=== PATIENT | male | born 1945 | race Caucasian/White ===

== ENCOUNTER 2017-02-20 16:34 | Inpatient (IN) | payer OTHER ==
[2017-02-20] MEDS ORDERED: ALBUTEROL SO4 2.5/IPRATROPIUM 0.5 INH SOL 3 ML VIAL.NEB. NEB ONE ×2 (17:01→17:50)
[2017-02-20] MEDS ORDERED: methylPREDNISolone NA SUCC 125 MG/2 ML VIAL IVPB ONE (17:01)
--- NOTE | 2017-02-20 17:11 | PDOC ---
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 Patient notes that he developed chest pain after a coughing. Patient reports a dry cough. Patient states that the chest pain is localized to the mid , 5/10 in severity, dull pain in nature. As per EMS, the patient BP was 108/58. As per friend, the patient is not eating, drinking with increased generalized weakness. He notes that the patient appears weaker and is more sleepy than usual. He denies headache and dizziness. He denies fever, chills, nausea, vomit, diarrhea and constipation. He denies dysuria, frequency, urgency and hematuria. Allergies: NKA Social history: daily smoker (3-4 cigarettes per day), former alcohol use PCP - Dr. Helena Colvin Friend - [place] translator interpreter used to obtain HPI [id number]. <Kelly Marroquin - Last Filed: 02/20/17 19:05> - General History Source: Patient Exam Limitations: Language Barrier <Danuta Coles - Last Filed: 02/20/17 21:53> - General Chief Complaint: Chest Pain Stated Complaint: CHEST PAIN Time Seen by Provider: 02/20/17 16:41 Past History <Kelly Marroquin - Last Filed: 02/20/17 19:05> - Psycho/Social/Smoking Cessation Hx Anxiety: No Suicidal Ideation: No Smoking Status: Yes Smoking History: Current every day smoker Years of Tobacco Use: 40 Have you smoked in the past 12 months: Yes Number of Cigarettes Smoked Daily: 5 'Breaking Loose' booklet given: 10/28/12 Hx Alcohol Use: (unknown/pt denies) Drug/Substance Use Hx: No Substance Use Type: None Hx Substance Use Treatment: No <Danuta Coles - Last Filed: 02/20/17 21:53> - Past Medical History Allergies/Adverse Reactions: Allergies Allergy/AdvReac Type Severity Reaction Status Date / Time No Known Allergies Allergy Verified 02/20/17 17:09 Home Medications: Ambulatory Orders Amlodipine Besylate 5 mg PO DAILY 02/20/17 Folic Acid 1 mg PO DAILY 02/20/17 Isosorbide Mononitrate [Isosorbide Mononitrate ER] 30 mg PO DAILY 02/20/17 Metoprolol Tartrate 25 mg PO DAILY 02/20/17 Review of Systems - Review of Systems Able to Perform ROS?: Yes Comments:: 02/20/17 17:42 CONSTITUTIONAL: Present: decreased appetite, fatigue Absent: fever, no chills EYES: Absent: visual changes ENT: Absent: ear pain, no sore throat CARDIOVASCULAR: Reported: chest pain Absent: no palpitations RESPIRATORY: Reported: cough, SOB GASTROINTESTINAL: Absent: abdominal pain, no nausea, no vomiting, no constipation, no diarrhea GENITOURINARY: Absent: dysuria, no frequency, no hematuria MUSCULOSKELETAL: Absent: back pain, no arthralgia, no myalgia SKIN: Absent: rash NEURO: Absent: headache <Kelly Marroquin - Last Filed: 02/20/17 19:05> *Physical Exam - Vital Signs Last Vital Signs Temp Pulse Resp BP Pulse Ox 98.8 F 88 18 105/75 100 02/20/17 16:49 02/20/17 16:49 02/20/17 16:49 02/20/17 16:49 02/20/17 16:49 - Physical Exam Comments: 02/20/17 17:44 GENERAL: The patient is in no acute distress. HEAD: Normal with no signs of trauma. EYES: PERRLA, EOMI, sclera anicteric, conjunctiva clear. ENT: Ears normal, nares patent, oropharynx clear without exudates. Moist mucous membranes. NECK: Normal range of motion, supple without lymphadenopathy, JVD, or masses. LUNGS:+Diffuse rhonchi. Breath sounds equal. No wheezes, and no crackles. HEART:Regular rate and rhythm, normal S1 and S2 without murmur, rub or gallop. ABDOMEN: +colostomy bag at left lower abdomen. Soft, nontender, normoactive bowel sounds. No guarding, no rebound. No masses palpable. EXTREMITIES: Normal range of motion, no edema. No clubbing or cyanosis. No erythema, or tenderness. NEUROLOGICAL: Cranial nerves II through XII grossly intact. Normal speech. No focal neurological deficits. MUSCULOSKELETAL: Back non-tender to palpation, no CVA tenderness SKIN: Warm, Dry, normal turgor, no rashes or lesions noted. <Kelly Marroquin - Last Filed: 02/20/17 19:05> Heart Score/ECG Review #1 ECG reviewed & interpreted by me at: 18:21 02/20/17 18:22 Twelve-lead EKG was performed and reviewed by me. There is normal sinus rhythm with a normal rate of 99 bpm. The axis is normal. The intervals are normal -pr: 154ms, QRS:82ms, QTc:451ms. There are no ST or T wave abnormalities. <Danuta Coles - Last Filed: 02/20/17 21:53> ED Treatment Course - LABORATORY CBC & Chemistry Diagram: 02/20/17 17:03 02/20/17 17:03 - ADDITIONAL ORDERS Additional order review: Laboratory Results 02/20/17 02/20/17 17:03 17:03 INR 1.33 H PTT (Actin FS) 28.0 D-Dimer 433 H 02/20/17 17:03 RBC 3.01 L MCV 90.4 MCHC 30.6 L RDW 15.4 MPV 8.8 Neutrophils % 83.6 H Lymphocytes % 9.4 Monocytes % 6.0 Eosinophils % 0.6 D Basophils % 0.4 - RADIOLOGY Radiology Studies Ordered: 02/20/17 18:58 THIS IS A PRELIMINARY REPORT FROM IMAGING BEATER OPERATOR EXAM: Portable chest x-ray FINDINGS: The heart size is borderline. Pulmonary vessels are within normal limits in caliber. There is moderately extensive opacity noted in the left mid and lower lung zone. Diagnostic considerations would include consolidation or mass. There is soft tissue fullness in left hilum. There is no obvious pneumothorax. Port-A-Cath noted with tip at the caval atrial junction. THIS DOCUMENT HAS BEEN ELECTRONICALLY SIGNED Iván Cooper MD <Kelly Marroquin - Last Filed: 02/20/17 19:05> - LABORATORY CBC & Chemistry Diagram: 02/20/17 17:03 02/20/17 17:03 - RADIOLOGY Radiology Studies Ordered: Category Date Time Status CHEST X-RAY PORTABLE* [RAD] Stat Radiology 02/20/17 16:41 Ordered <Dnauta Coles - Last Filed: 02/20/17 21:53> Medical Decision Making - Medical Decision Making 02/20/17 17:05 This is a 72 yo M who presents to the ER with a complaint of chest pain after a cough PT states he was in his usual state of health He began coughing this afternoon and developed chest pain which he describes as an ache, rates it 5/10, No associated nausea or diaphoresis No fevers or chills 02/20/17 18:21 Laboratory Tests 11/10/12 11/10/12 02/20/17 05:15 05:15 17:03 WBC 9.1 12.3 H D Hgb 9.7 L 8.3 L D Hct 29.0 L 27.2 L Plt Count 236 177 D BUN 15 Creatinine 0.7 Creatine Kinase Troponin I 02/20/17 17:03 WBC Hgb Hct Plt Count BUN 25 H D Creatinine 1.9 H D Creatine Kinase 12 L Troponin I < 0.02 D CXR: ? left pneumothorax Sent to imaging cost control specialist 02/20/17 19:00 Images sent to imaging cost control specialist There is a chest mass or consolidation Will send to non contrast CT 02/20/17 19:01 to be admitted for dehydration, Acute renal insufficiency 02/20/17 19:41 Pt en route to CT resident in the ER to see this patient 02/20/17 21:53 CT findings There is a 7.4 x 7.9 x 10.0 cm heterogeneous masslike finding noted in the left lower hemithorax. There are scattered small air lucencies noted in the cephalad aspect of this finding. There is occlusion of the lumen of the left lower lobe bronchus noted. Findings suggest malignancy and/or inflammatory process/abscess. <Danuta Coles - Last Filed: 02/20/17 21:53> *DC/Admit/Observation/Transfer - Attestations Scribe Attestion: 02/20/17 17:44 Documentation prepared by SARI Diop, acting as medical billing and coding instructor for Danuta Coles MD. <Kelly Marroquin - Last Filed: 02/20/17 19:05> - Discharge Dispostion Admit: Yes <Danuta Coles - Last Filed: 02/20/17 21:53> Diagnosis at time of Disposition: Chest pain Qualifiers: Chest pain type: unspecified Qualified Code(s): R07.9 - Chest pain, unspecified - Discharge Dispostion Condition at time of disposition: Stable
[2017-02-20 17:23] LABS: BASOPHIL 0.4 % (0-2.0); EOSINOPHIL 0.6 % (0-4.5); MCH 27.7 pg (25.7-33.7); MCHC 30.6 g/dl (32.0-35.9); MEAN CELL VOLUME 90.4 fl (80-96); MEAN PLT VOLUME 8.8 fl (7.5-11.1); NEUTROPHILS 83.6 % (42.8-82.8); PLATELET COUNT 177 K/MM3 (134-434); RDW 15.4 % (11.9-15.9); WHITE BLOOD COUNT 12.3 K/mm3 (4.0-10.0)
[2017-02-20] MEDS ORDERED: SODIUM CHLORIDE 1,000 ML IV STA (17:27)
[2017-02-20 17:34] LABS: INR 1.33 (0.82-1.09); PROTHROMBIN TIME (PATIENT) 14.7 SEC (9.98-11.88)
[2017-02-20] MEDS ORDERED: SODIUM CHLORIDE 500 ML IV STA (17:34)
[2017-02-20 17:49] LABS: ALBUMIN 2.6 g/dl (3.4-5.0); ALK PHOS 117 U/L (45-117); ANION GAP 12 (8-16); BILIRUBIN,TOTAL 0.7 mg/dL (0.2-1.0); CALCIUM 11.8 mg/dL (8.5-10.1); CO2 22 mmol/L (21-32); CREATININE 1.9 mg/dL (0.7-1.3); GLUCOSE,RANDOM 107 mg/dL (74-106); SGOT/AST 25 U/L (15-37); SGPT/ALT 23 U/L (12-78)
[2017-02-20 17:50] VITALS: BMI 22.6
[2017-02-20] MEDS ORDERED: methylPREDNISolone NA SUCC 125 MG/2 ML VIAL ONE (17:50)
[2017-02-20 17:51] LABS: COCKROFT - GAULT 40; TROPONIN I < 0.02 ng/ml (0.00-0.05)
--- NOTE | 2017-02-20 19:49 | PN ---
<Kya Mabry - Last Filed: 02/20/17 19:48> Teaching Attending Note Name of Resident: Santhosh Edwards <Saleem Walters - Last Filed: 02/20/17 22:12> Teaching Attending Note ATTENDING PHYSICIAN STATEMENT I saw and evaluated the patient. I reviewed the resident's note and discussed the case with the resident. I agree with the resident's findings and plan as documented. SUBJECTIVE: The patient is a 72 year old male, who presented to the emergency department with worsening dry cough, SOB, and chest pain for one week. The patient stated that the chest pain is localized to the mid, 5/10 in severity, dull pain in nature. As per EMS, the patient BP was 108/58. Upon evaluation in the emergency department the patients friend stated that the patient has also been weak and more sleepy than usual secondary to decreased appetite. The patient denies headache and dizziness. The patient denies fever, chills, and sweats. The patient denies dysuria, frequency, urgency and hematuria. The patient denies chest pain, cough, and shortness of breath. The patient denies nausea, vomiting, constipation, and diarrhea. PCP: Dr. 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 Former social alcohol user. Denied drug use. MEDICATIONS: As per ED note. New new medications reported. ALLERGIES: NKDA OBJECTIVE: Vital Signs: Last Vital Signs Temp Pulse Resp BP Pulse Ox 98.8 F 92 H 24 85/63 100 02/20/17 16:49 02/20/17 19:20 02/20/17 19:20 02/20/17 19:20 02/20/17 19:20 Physical Exam: GENERAL: Awake, alert, and fully oriented, in no acute distress HEENT: (+) Atraumatic. PERRLA, EOMI. Moist mucosa. No JVD. Lower lid lag LUNGS: (+) Slight rhonch Amanda. Breath sounds equal. No wheezes. No crackles. HEART: Regular rate and rhythm, normal S1 and S2, no murmurs, rubs or gallops, peripheral pulses normal and equal bilaterally. ABDOMEN: (+) Colostomy bag at left lower abdomen.Soft, nontender, normoactive bowel sounds. No guarding, no rebound. No masses. EXTREMITIES: (+) Left VKA. Metacarpal clubbing. Normal inspection, Normal range of motion, no edema. No cyanosis. NEUROLOGICAL: Cranial nerves II through XII grossly intact. Normal speech, normal gait, no focal sensorimotor deficits SKIN: Warm, Dry, normal turgor, no rashes or lesions noted. Labs: CBCD WBC 12.3 K/mm3 (4.0-10.0) H D 02/20/17 17:03 RBC 3.01 M/mm3 (4.00-5.60) L 02/20/17 17:03 Hgb 8.3 GM/dL (11.7-16.9) L D 02/20/17 17:03 Hct 27.2 % (35.4-49) L 02/20/17 17:03 MCV 90.4 fl (80-96) 02/20/17 17:03 MCHC 30.6 g/dl (32.0-35.9) L 02/20/17 17:03 RDW 15.4 % (11.9-15.9) 02/20/17 17:03 Plt Count 177 K/MM3 (134-434) D 02/20/17 17:03 MPV 8.8 fl (7.5-11.1) 02/20/17 17:03 CMP Sodium 136 mmol/L (136-145) 02/20/17 17:03 Potassium 4.4 mmol/L (3.5-5.1) D 02/20/17 17:03 Chloride 102 mmol/L (98-107) 02/20/17 17:03 Carbon Dioxide 22 mmol/L (21-32) 02/20/17 17:03 Anion Gap 12 (8-16) 02/20/17 17:03 BUN 25 mg/dL (7-18) H D 02/20/17 17:03 Creatinine 1.9 mg/dL (0.7-1.3) H D 02/20/17 17:03 Creat Clearance w eGFR 35.22 (>60) 02/20/17 17:03 Calcium 11.8 mg/dL (8.5-10.1) H D 02/20/17 17:03 Total Bilirubin 0.7 mg/dL (0.2-1.0) D 02/20/17 17:03 AST 25 U/L (15-37) D 02/20/17 17:03 ALT 23 U/L (12-78) D 02/20/17 17:03 Alkaline Phosphatase 117 U/L (45-117) D 02/20/17 17:03 Total Protein 7.0 g/dl (6.4-8.2) D 02/20/17 17:03 Albumin 2.6 g/dl (3.4-5.0) L 02/20/17 17:03 Imagin. ECG Twelve-lead EKG was performed and reviewed by me. There is normal sinus rhythm with a normal rate of 99 bpm. The axis is normal. The intervals are normal -pr: 154ms, QRS:82ms, QTc:451ms. There are no ST or T wave abnormalities. Reviewed and interpreted in ED by Dr. Cyndi Coles MD. 2. Chest X-ray EXAM: Portable chest x-ray IMAGES: 2 DATE OF SERVICE: 2017-02-20 17:17:52.0 REASON FOR EXAM: Chest pain COMPARISON: None FINDINGS: The heart size is borderline. Pulmonary vessels are within normal limits in caliber. There is moderately extensive opacity noted in the left mid and lower lung zone. Diagnostic considerations would include consolidation or mass. There is soft tissue fullness in left hilum. There is no obvious pneumothorax. Port-A-Cath noted with tip at the caval atrial junction. THIS DOCUMENT HAS BEEN ELECTRONICALLY SIGNED Iván Cooper MD 2016 18:[address] EXAM: CT chest without contrast IMAGES: 489 DATE OF SERVICE: 2017-02-20 20:17:23.0 REASON FOR EXAM: Chest mass? COMPARISON: Chest x-ray from today FINDINGS: There is a 7.4 x 7.9 x 10.0 cm heterogeneous masslike finding noted in the left lower hemithorax. There are scattered small air lucencies noted in the cephalad aspect of this finding. There is occlusion of the lumen of the left lower lobe bronchus noted. Findings suggest malignancy and/or inflammatory process/abscess. There is no pneumothorax The heart size is normal. There is a moderate pericardial effusion. Extensive coronary artery calcification is noted. The thoracic aorta is calcified, tortuous, and mildly ectatic in a diffuse fashion. There are scattered mediastinal lymph nodes. There is thoracic scoliosis and kyphosis. There is thoracic endplate spondylosis. THIS DOCUMENT HAS BEEN ELECTRONICALLY SIGNED Iván Cooper MD 2016 21:48 EST ASSESSMENT AND PLAN: Pneumonia - Community acquired pneumonia. - Ceftriaxone 1 g IVPB - Azithromycin 250 mg IVPB - Albuterol QIDR - BMP - CBC - Urine culture sent - Urine antigens - Check magnesium - ECHO ordered - Repeat Chest X-ray - Consider pulmonology consult (Dr. Hutchinson) - Consider hematology consult (Dr. Guthrie) Acute Kidney Failure - Trend in AM - IVF NS at 83cc/hr - Avoid nephrotoxic medications Hypercalcemia - Continue IVF at 83 cc/hr - Trend in AM - May be due to Lung mass, so will order PTH HTN - Hold home medications for now DVT PPX - Restart Xarelto 15 mg PO Daily - No PPI indicated - Continue IVF NS at 83cc/hr - Sodium controlled diet - Monitor electrolytes Admit to [facility] [employer]. Documentation prepared by Saleem Walters, acting as medical sociologist for Dr. Kya aMbry MD.
--- NOTE | 2017-02-20 20:05 | HP ---
CHIEF COMPLAINT: SOB, Cough PCP:Marii HISTORY OF PRESENT ILLNESS: Patient is a 72 year old male with significant PMH of Colon Cancer (s/p colostomy), Left below knee arterial emboli on Xarelto & HTN who presents to ED with shortness of breath & cough. Patient's famiyl friend was initially present in ED and gave following information to ED staff. Patient has been lethargic & has been sleeping more than usual for last few weeks. His appetite & fluid intake have been severely diminished for last week as well. He has had a dry cough for some time, which has gotten worse over last week or so. The cough is now associated with some pleuritic chest pain described as epigastric, dull and 5/10 in severity. The chest pain is only notable during bouts of coughing. He also reports some mild shortness of breath that has been present as long as the cough. Patient denies fever, chills, dysuria. Denies palpitations, abdominal pain, diarrhea, constipation. ER course was notable for: (1)CXR shows possible LLL Consolidation vs Mass (2)Chest CT ordered to further assess CXR findings (3)Solumedrol 125mg given with IVF for hydration Recent Travel: none noted PAST MEDICAL HISTORY: as above PAST SURGICAL HISTORY: colostomy placement Social History: Smokin+years, now smokes about 5 cigarettes per day Alcohol:social, but not in a while Drugs: none reported Family History: noncontributory Allergies No Known Allergies Allergy (Verified 02/20/17 17:09) HOME MEDICATIONS: Home Medications Medication Instructions Recorded Amlodipine Besylate 5 mg PO DAILY 02/20/17 Folic Acid 1 mg PO DAILY 02/20/17 Isosorbide Mononitrate [Isosorbide 30 mg PO DAILY 02/20/17 Mononitrate ER] Metoprolol Tartrate 25 mg PO DAILY 02/20/17 REVIEW OF SYSTEMS CONSTITUTIONAL: (+)generalized weakness, malaise, loss of appetite, weight change Absent: fever, chills, diaphoresis HEENT: Absent: rhinorrhea, nasal congestion, throat pain, throat swelling, difficulty swallowing, mouth swelling, ear pain, eye pain, visual changes CARDIOVASCULAR: (+)chest pain, Absent: syncope, palpitations, irregular heart rate, lightheadedness, peripheral edema RESPIRATORY: (+)cough, shortness of breath, Absent: dyspnea with exertion, orthopnea, wheezing, stridor, hemoptysis GASTROINTESTINAL: Absent: abdominal pain, abdominal distension, nausea, vomiting, diarrhea, constipation, melena, hematochezia GENITOURINARY: Absent: dysuria, frequency, urgency, hesitancy, hematuria, flank pain, genital pain MUSCULOSKELETAL: Absent: myalgia, arthralgia, joint swelling, back pain, neck pain SKIN: Absent: rash, itching, pallor HEMATOLOGIC/IMMUNOLOGIC: Absent: easy bleeding, easy bruising, lymphadenopathy, frequent infections ENDOCRINE: Absent: unexplained weight gain, unexplained weight loss, heat intolerance, cold intolerance NEUROLOGIC: Absent: headache, focal weakness or paresthesias, dizziness, unsteady gait, seizure, mental status changes, bladder or bowel incontinence PSYCHIATRIC: Absent: anxiety, depression, suicidal or homicidal ideation, hallucinations. PHYSICAL EXAMINATION Vital Signs - 24 hr 02/20/17 02/20/17 02/20/17 16:49 17:32 17:40 Temperature 98.8 F Pulse Rate 88 Pulse Rate [ 96 H 97 H Left Radial] Respiratory 18 18 16 Rate Blood Pressure 105/75 Blood Pressure 87/65 93/69 [Right Arm] O2 Sat by Pulse 100 98 98 Oximetry (%) 02/20/17 02/20/17 02/20/17 18:20 19:00 19:20 Temperature Pulse Rate Pulse Rate [ 92 H 90 92 H Left Radial] Respiratory 18 16 24 Rate Blood Pressure Blood Pressure 97/65 91/66 85/63 [Right Arm] O2 Sat by Pulse 100 100 100 Oximetry (%) GENERAL: Awake, alert, and fully oriented, in no acute distress. Mildly cachectic. HEENT: Atraumatic, EOMI, PERRLA, No lymphadenopathy noted, dry membranes LUNGS: bilateral basilar rhonchi noted (L>R); no wheezing or accessory muscle use HEART: Regular rate and rhythm, normal S1 and S2 without murmur, rub or gallop. ABDOMEN: Soft, nontender, not distended, normoactive bowel sounds, no guarding, no rebound, no masses. No hepatomegaly or splenomegaly. MUSCULOSKELETAL: Normal range of motion at all joints. No bony deformities or tenderness. No CVA tenderness. UPPER EXTREMITIES: 2+ pulses, warm, well-perfused. No cyanosis. No clubbing. No peripheral edema. LOWER EXTREMITIES: 2+ pulses, warm, well-perfused. No calf tenderness. No peripheral edema. NEUROLOGICAL: Cranial nerves II-XII intact. Normal speech. Gait not assessed. PSYCHIATRIC: Cooperative. Good eye contact. Appropriate mood and affect. SKIN: Warm, dry, normal turgor, no rashes or lesions noted, normal capillary refill. Laboratory Results - last 24 hr 02/20/17 02/20/17 02/20/17 17:03 17:03 17:03 WBC 12.3 H D RBC 3.01 L Hgb 8.3 L D Hct 27.2 L MCV 90.4 MCHC 30.6 L RDW 15.4 Plt Count 177 D MPV 8.8 Neutrophils % 83.6 H Lymphocytes % 9.4 Monocytes % 6.0 Eosinophils % 0.6 D Basophils % 0.4 INR PTT (Actin FS) D-Dimer 433 H Sodium 136 Potassium 4.4 D Chloride 102 Carbon Dioxide 22 Anion Gap 12 BUN 25 H D Creatinine 1.9 H D Creat Clearance w eGFR 35.22 Random Glucose 107 H Lactic Acid Calcium 11.8 H D Total Bilirubin 0.7 D AST 25 D ALT 23 D Alkaline Phosphatase 117 D Creatine Kinase 12 L Troponin I < 0.02 D Total Protein 7.0 D Albumin 2.6 L Blood Type Antibody Screen 02/20/17 02/20/17 02/20/17 17:03 17:03 17:03 WBC RBC Hgb Hct MCV MCHC RDW Plt Count MPV Neutrophils % Lymphocytes % Monocytes % Eosinophils % Basophils % INR 1.33 H PTT (Actin FS) 28.0 D-Dimer Sodium Potassium Chloride Carbon Dioxide Anion Gap BUN Creatinine Creat Clearance w eGFR Random Glucose Lactic Acid 1.867 Calcium Total Bilirubin AST ALT Alkaline Phosphatase Creatine Kinase Troponin I Total Protein Albumin Blood Type A NEGATIVE Antibody Screen Negative ASSESSMENT/PLAN: 72 year old male with significant PMH of Colon Cancer (s/p colostomy), Left below knee arterial emboli on Xarelto & HTN who presents to ED with shortness of breath & cough. #LLL Pneumonia vs. Malignancy vs Radiation-induced -Pending CT chest results -will likely need IR for biopsy -Ceftriaxone 1g IV daily, Azithromycin 250mg IV daily -Duonebs QIDR -blood & urine cultures sent -urine antigens for pneumonia -ECHO ordered -CXR reviewed, f/u in AM -pulm consult #Acute Kidney Failure -IVF NS@83cc/hr -avoid nephrotoxic meds -trend in AM to assess if dehydration is etiology #HTN/Hx of arterial emboli -restarted Xarelto 15mg PO daily -low BP at present, will hold home meds for now #Hypercalcemia, 11.8 -IVF as above -trend in AM -may be due to Lung mass, so will order PTH intact as well -tele for cardiac monitoring Prophylaxis -restarted Xarelto -No PPI indicated -IVF NS@83cc/hr -sodium controlled diet -monitor electrolytes Visit type - Emergency Visit Emergency Visit: Yes ED Registration Date: 02/20/17 Care time: The patient presented to the Emergency Department on the above date and was hospitalized for further evaluation of their emergent condition. - New Patient This patient is new to me today: Yes Date on this admission: 02/20/17 - Critical Care Critical Care patient: No
[2017-02-20] MEDS: AZITHROMYCIN IVPB 250 MG in DEXTROSE 5%-WATER - 250 ML IVPB SCH (22:01)
[2017-02-20] MEDS ORDERED: AZITHROMYCIN IVPB 250 ML IVPB ONE (22:05)
[2017-02-20] MEDS: CEFTRIAXONE 1 GM in DEXTROSE 5%-WATER - 50 ML IVPB SCH (22:41)
[2017-02-20] MEDS ORDERED: cefTRIAXone SODIUM 1 GM VIAL ONE (22:42)
[2017-02-21] MEDS ORDERED: SODIUM CHLORIDE 1,000 ML IV SCH (01:30)
[2017-02-21 03:50] LABS: URINE APPEARANCE CLOUDY; URINE BILIRUBIN NEGATIVE (NEGATIVE); URINE COLOR LTYELLOW; URINE GLUCOSE (UA) NEGATIVE (NEGATIVE); URINE KETONE NEGATIVE (NEGATIVE); URINE LEUK ESTERASE NEGATIVE (NEGATIVE); URINE NITRITE NEGATIVE (NEGATIVE); URINE PROTEIN NEGATIVE (NEGATIVE); URINE UROBILINOGEN NEGATIVE E.U./dl (0.2-1.0)
[2017-02-21 04:00] LABS: URINE BLOOD 3+ (NEGATIVE)
[2017-02-21 04:03] LABS: URINE BACTERIA RARE /hpf (NONE SEEN); URINE HYALINE CAST 1 /lpf; URINE MUCUS RARE; URINE RBC 88 /hpf (0-3); URINE WBC 1 /hpf (3-5)
[2017-02-21] MEDS: ALBUTEROL SO4 2.5/IPRATROPIUM 0.5 INH SOL 3 ML VIAL.NEB. NEB SCH ×4 (06:27→23:05)
[2017-02-21 08:35] LABS: MCH 28.6 pg (25.7-33.7); MCHC 31.3 g/dl (32.0-35.9); MEAN CELL VOLUME 91.4 fl (80-96); MEAN PLT VOLUME 8.7 fl (7.5-11.1); PLATELET COUNT 136 K/MM3 (134-434); RDW 15.1 % (11.9-15.9); WHITE BLOOD COUNT 7.8 K/mm3 (4.0-10.0)
[2017-02-21 09:49] LABS: CALCIUM 10.5 mg/dL (8.5-10.1); COCKROFT - GAULT 45.73; CREATININE 1.7 mg/dL (0.7-1.3); MAGNESIUM 1.8 mg/dL (1.8-2.4); PHOSPHOROUS 3.8 mg/dL (2.5-4.9)
[2017-02-21] MEDS ORDERED: CEFTRIAXONE 50 ML IVPB SCH (10:35)
[2017-02-21] MEDS: AZITHROMYCIN IVPB 250 MG in DEXTROSE 5%-WATER - 250 ML IVPB SCH (10:44)
[2017-02-21] MEDS: RIVAROXABAN 15 MG TABLET PO SCH (10:44)
--- NOTE | 2017-02-21 10:57 | PN ---
Progress Note (short form) - Note Progress Note: Oncology- Consult dictated History is difficult to obtain as patient is somewhat confused and speaks predominantly Chinese. Heavy smoker of 1+ ppd x years. Ongoing smoker of 3-5 cigarettes per day. 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 asbestosis. Distant history of colon ca with colostomy. Has port catheter in place and states that he had cancer treatment in past at [facility]. Will need to get details . ( I will speak with Dr. 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 With gentle hydration corrected calcium has improved from 12.8 to 11. 5. Has pericardial effusion on Ct Suggest:: Increase hydration to 125 -150 per hour and after adequate hydration can give lasix diuresis. As there has been improvement with hydration, can hold off thyrocalcitonin or other Rx such as zometa. I will get details of prior history Obtain PTHrP Needs cardiac ECH0 Depending on prior history , may need I.R. directed biopsy of lung mass After diagnosis, work up to include imaging of bones and LEDGER POSTER based upon correction of serum creatinine with hydration. Note that asbestos and smoking have a 36x increase risk of developing squamous cell ca.
--- NOTE | 2017-02-21 11:21 | CONS ---
DATE OF CONSULTATION: 02/21/2017 This 72-year-old male presented to the emergency room with chest pain and shortness of breath. History is difficult to obtain, as the patient speaks predominantly Dominican and some Azeri. The patient's pain apparently, according to the chart, was in the midches area. The patient, upon admission, is noted to have an abnormal chest x-ray with a left lower lobe mass/consolidation. A CT was performed, which reveals a 7.4 x 7.9 x 10.0 mass-like finding in the left lower lobe. There is occlusion of the lumen of the left lower lobe bronchus and the patient is also noted to have a moderate pericardial effusion with coronary artery calcification. In speaking to the patient, the patient is a heavy smoker since his early years. He smoked 1+ pack per day for many years. He currently smokes less than a 1/2 a pack per day. 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 The patient does also have a Port-A-Cath in place, suggesting the possibility that he previously has been treated for a malignancy. In speaking to the patient, the patient states he did have cancer, but it is "all finished and has been treated" and that was done at [facility]. We will need to get the additional history from his primary physician, Dr. Colvin, and then pursue it further with his physicians at [place]. Once again, language is some problem. The patient is unsure where he is. The patient does know the President, Raciel. The patient does now know the month. PAST HISTORY: Hypertension, colon CA, left BKA, on Xarelto. PAST SURGICAL HISTORY: Colostomy. FAMILY HISTORY: Difficult ascertain, but, apparently, the mother lived to an old age and the father had some lung problems. The patient states that he is from his , who lives in [place], and his one daughter, who also is in [place]. CURRENT MEDICINES: Zithromax, ceftriaxone, Xarelto, DuoNeb, and saline was instituted because of hypercalcemia. REVIEW OF SYSTEMS: Because of language is questionable, but the patient denies headaches, diplopia, dysphagia. Does have shortness of breath, which has improved since admission. Chest pain has improved. Denies nausea, vomiting. Has some back pain. No dysuria. As aforementioned, is status post BKA. CURRENT PHYSICAL EXAMINATION: General: The patient seems comfortable lying in bed. Vital Signs: The blood pressure is 94/56, the pulse is 120, respiratory 20, temperature 97.7. HEENT: PERRLA. EOM intact. Oropharynx unremarkable. No thrush, mucositis, or pharyngitis. The patient is edentulous. Lungs: Decreased breath sounds, left lower lobe. Cardiac: Regular rhythm. Chest: There is no gynecomastia. Abdomen: Soft. There is no organomegaly. Extremities: The patient is status post left BKA. There is no apparent calf tenderness. Skin: There is a cutaneous lesion on the nose. LABORATORY: WBC on admission 12.3, now 7.8; hematocrit 27, now 25; MCV 90 and 91; platelets 177, now 136,000 with 84 polys, 9 lymphs. INR is 1.33, PTT normal at 28. D-dimer 433. Chemistries: Initial calcium 11.8 with a concomitant albumin of 2.6, suggesting a corrected calcium of close to 13. Current calcium with hydration down to 10.5. No albumin was drawn. PTH level is pending. Sodium 136, K 4.5, chloride 103, CO2 is 22, BUN 24, creatinine 1.9 and 1.7, calcium 10.5, phosphorous 3.8, magnesium 1.8. Chest x-ray with left mid and left lower lobe mass/consolidation. CT scan, as aforementioned, with a 7.4 x 7.9 x 10.0 mass in the left hemithorax, moderate pericardial effusion. Patient also with Port-A-Cath in the left chest. IMPRESSION: It appears that this patient previously has known cancer and has been treated at [facility]. We need to get the details of this. Currently, hypercalcemia. 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 In this regard, PTH-RP rather than intact PTH needs to be obtained. The patient is somewhat confused, but this could be a language consideration and, once confirmation is made, full metastatic workup, including central nervous system evaluation as well as bone scan evaluation. Need prior details before additional comments. Thanking you. ANALISA FERNANDO M.D. PARDEEP/[id number]
[2017-02-21] MEDS: CEFTRIAXONE 50 ML IVPB SCH (14:09)
--- NOTE | 2017-02-21 14:10 | CON.PULM ---
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 Admitted via the ER due to progressive shortness of breath and cough. According to the family documentation, he has lethargic and sleeping more than usual for last few weeks. There is no travel history or sick contacts. No documented hemoptysis. Patient does smoke daily and was previously 1 PPD smoker. Additional risk from occupational asbestos exposure. CT chest: large posterior LLL mass / (?) cavitating mediastinal LN / no plerual calcifications noted. - History Source History Provided By: Patient, Medical Record Limitations to Obtaining History: Other (confused) - Alcohol/Substance Use Hx Alcohol Use: No - Smoking History Smoking history: Current every day smoker Have you smoked in the past 12 months: Yes Aproximately how many cigarettes per day: 5 Home Medications - Allergies Allergies/Adverse Reactions: Allergies Allergy/AdvReac Type Severity Reaction Status Date / Time No Known Allergies Allergy Verified 02/20/17 17:09 - Home Medications Home Medications: Ambulatory Orders Amlodipine Besylate 5 mg PO DAILY 02/20/17 Folic Acid 1 mg PO DAILY 02/20/17 Isosorbide Mononitrate [Isosorbide Mononitrate ER] 30 mg PO DAILY 02/20/17 Metoprolol Tartrate 25 mg PO DAILY 02/20/17 Review of Systems - Review of Systems Constitutional: reports: Chills, Fever, Lethargy, Malaise, Weakness. denies: Night Sweats, Unintentional Wgt. Loss Eyes: reports: No Symptoms HENT: reports: No Symptoms Neck: reports: No Symptoms Cardiovascular: reports: Shortness of Breath. denies: Chest Pain, Edema, Palpitations Respiratory: reports: Cough, SOB, SOB on Exertion. denies: Hemoptysis, Wheezing Gastrointestinal: reports: No Symptoms Genitourinary: reports: No Symptoms Breasts: reports: No Symptoms Reported Musculoskeletal: reports: No Symptoms Integumentary: reports: No Symptoms Neurological: reports: Confusion Endocrine: reports: No Symptoms Hematology/Lymphatic: reports: No Symptoms Psychiatric: reports: No Symptoms Physical Exam Vital Sings: Vital Signs Temperature 97.7 F 02/21/17 09:37 Pulse Rate 120 H 02/21/17 09:37 Respiratory Rate 20 02/21/17 09:37 Blood Pressure 94/56 02/21/17 09:37 O2 Sat by Pulse Oximetry (%) 95 02/21/17 09:39 Constitutional: Yes: No Distress, Thin Eyes: Yes: Conjunctiva Clear, EOM Intact. No: Sclera Icterus HENT: Yes: Atraumatic, Normocephalic Neck: Yes: Supple, Trachea Midline Cardiovascular: Yes: Regular Rate and Rhythm Respiratory: Yes: Cough, Diminished, Dullness, Rhonchi, SOB. No: Accessory Muscle Use, Rales, Stridor, Tachypnea, Wheezes ...Inspection: Yes: WNL ...Clubbing: No Gastrointestinal: Yes: Normal Bowel Sounds, Soft Renal/: Yes: WNL Musculoskeletal: Yes: WNL Extremities: Yes: WNL Edema: No Peripheral Pulses WNL: Yes Integumentary: Yes: WNL Neurological: Yes: Alert, Confusion. No: Facial Droop, Weakness ...Motor Strength: WNL Labs: CBC, BMP 02/21/17 06:00 02/21/17 06:00 Imaging - Results Chest X-ray: Report Reviewed, Image Reviewed Cat Scan: Image Reviewed Problem List - Problems (1) Chest pain Code(s): R07.9 - CHEST PAIN, UNSPECIFIED Qualifiers: Chest pain type: unspecified Qualified Code(s): R07.9 - Chest pain, unspecified (2) Pneumonia Code(s): J18.9 - PNEUMONIA, UNSPECIFIED ORGANISM Qualifiers: Laterality: left Lung location: lower lobe of lung (3) Lung mass Code(s): R91.8 - OTHER NONSPECIFIC ABNORMAL FINDING OF LUNG FIELD (4) Smoker Code(s): F17.200 - NICOTINE DEPENDENCE, UNSPECIFIED, UNCOMPLICATED (5) Lethargy Code(s): R53.83 - OTHER FATIGUE Assessment/Plan Agree with ABX coverage BD TX Medrol daily O2 as needed Will need tissue diagnosis at some point -> will D/W IR of optimal timing (will need to hold NOAC for 48 hours) If confusion/lethargy worsens -> CT head No smoking advised Will follow Thank you. Dr Kaminski
[2017-02-21] MEDS: methylPREDNISolone NA SUCC 40 MG/1 ML VIAL IVPB SCH (15:05)
--- NOTE | 2017-02-21 15:09 | PN ---
Physical Exam: SUBJECTIVE: Patient seen and examined. He denies pain and shortness of breath. OBJECTIVE: Vital Signs Period Temp Pulse Resp BP Sys/Tapia Pulse Ox Last 24 Hr 97.2 F-97.9 F 75-120 20-22 89-121/56-78 95-97 GENERAL: The patient is awake, alert, and fully oriented, in no acute distress. LUNGS: Breath sounds equal, bilateral rhonchi HEART: Regular rate and rhythm, S1, S2 without murmur, rub or gallop. ABDOMEN: Soft, nontender, nondistended, normoactive bowel sounds, no guarding, no rebound, no hepatosplenomegaly, no masses. EXTREMITIES: 2+ pulses, warm, well-perfused, no edema. Laboratory Results - last 24 hr 02/21/17 02/21/17 02/21/17 03:35 06:00 06:00 WBC 7.8 D RBC 2.75 L Hgb 7.9 L Hct 25.2 L MCV 91.4 MCHC 31.3 L RDW 15.1 Plt Count 136 D MPV 8.7 Sodium 136 Potassium 4.5 Chloride 103 Carbon Dioxide 22 Anion Gap 11 BUN 24 H Creatinine 1.7 H Random Glucose 172 H D Calcium 10.5 H Phosphorus 3.8 D Magnesium 1.8 Urine Color Ltyellow Urine Appearance Cloudy Urine pH 5.0 Ur Specific [place] 1.011 Urine Protein Negative Urine Glucose (UA) Negative Urine Ketones Negative Urine Blood 3+ H Urine Nitrite Negative Urine Bilirubin Negative Urine Urobilinogen Negative Ur Leukocyte Esterase Negative Urine RBC 88 Urine WBC 1 Ur Epithelial Cells Rare Urine Bacteria Rare Hyaline Casts 1 Urine Mucus Rare Active Medications Generic Name Dose Route Start Last Admin Trade Name Supaq PRN Reason Stop Dose Admin Albuterol/Ipratropium 1 amp 02/21/17 00:00 02/21/17 11:22 Duoneb - NEB 1 amp QIDR JULIO Administration Azithromycin 250 mg/ Dextrose 250 mls @ 250 mls/hr 02/20/17 22:00 02/21/17 10: 44 IVPB 250 mls/hr DAILY JULIO Administration Ceftriaxone Sodium 50 mls @ 100 mls/hr 02/21/17 10:45 02/21/17 14:09 Rocephin 1gm Ivpb (Pre-Docked) IVPB 100 mls/hr DAILY JULIO Administration Methylprednisolone Sodium Succinate 40 mg 02/21/17 14:30 Solu-Medrol - IVPB DAILY JULIO Rivaroxaban 15 mg 02/21/17 10:00 02/21/17 10:44 Xarelto - PO 15 mg DAILY [facility] Administration ASSESSMENT/PLAN: This is a 72-year-old man with a history of colon cancer, colostomy, left below knee arterial emboli, HTN who presented to the ED with shortness of breath and cough. 1. LLL pneumonia - Afebrile, WBC improved - Continue Rocephin, Zithromax 2. Possible LLL lung mass - IR for possible biopsy 3. COPD - Stable - Continue SoluMedrol, DuoNeb 4. Acute kidney injury, possible stage 3 CKD - Some improvement - Continue IV fluid - Continue to monitor BUN, creatinine 5. History of arterial emboli to LLE - Continue Xarelto 6. Hypercalcemia - Secondary to dehydration and possible malignancy - Improving with IV fluid - PTH pending 7. Anemia, likely secondary to chronic illness - Anemia work up pending 8. Hypertension - Norvasc, Lopressor held 9. History of colon cancer, colostomy Visit type - Emergency Visit Emergency Visit: Yes ED Registration Date: 02/20/17 Care time: The patient presented to the Emergency Department on the above date and was hospitalized for further evaluation of their emergent condition. - New Patient This patient is new to me today: Yes Date on this admission: 02/21/17 - Critical Care Critical Care patient: No - Discharge Referral Referred to [facility] No
[2017-02-21] MEDS: CEFTRIAXONE 1 GM in DEXTROSE 5%-WATER - 50 ML IVPB SCH (19:28)
--- NOTE | 2017-02-22 00:09 | EKG ---
Test Reason : Blood Pressure : / mmHG Vent. Rate : 099 BPM Atrial Rate : 099 BPM P-R Int : 154 ms QRS Dur : 082 ms QT Int : 352 ms P-R-T Axes : 109 063 068 degrees QTc Int : 451 ms POOR DATA QUALITY, INTERPRETATION MAY BE ADVERSELY AFFECTED SINUS RHYTHM WITH PREMATURE ATRIAL COMPLEXES OTHERWISE NORMAL ECG WHEN COMPARED WITH ECG OF 04-NOV-2012 09:47, PREMATURE ATRIAL COMPLEXES ARE NOW PRESENT T WAVE INVERSION LESS EVIDENT IN ANTEROLATERAL LEADS QT HAS LENGTHENED Confirmed by JERICHO BALDWIN, CINDY ([id number]) on 02/22/2017 12:09:08 AM Referred By: Confirmed By:CINDY ECHAVARRIA MD
[2017-02-22] MEDS: ALBUTEROL SO4 2.5/IPRATROPIUM 0.5 INH SOL 3 ML VIAL.NEB. NEB SCH ×4 (06:48→23:19)
[2017-02-22 07:37] LABS: MCH 28.5 pg (25.7-33.7); MCHC 31.5 g/dl (32.0-35.9); MEAN CELL VOLUME 90.7 fl (80-96); MEAN PLT VOLUME 8.8 fl (7.5-11.1); PLATELET COUNT 184 K/MM3 (134-434); RDW 15.1 % (11.9-15.9); WHITE BLOOD COUNT 13.3 K/mm3 (4.0-10.0)
[2017-02-22 08:18] LABS: ALBUMIN 2.4 g/dl (3.4-5.0); BILIRUBIN,TOTAL 0.2 mg/dL (0.2-1.0); CALCIUM 10.2 mg/dL (8.5-10.1); COCKROFT - GAULT 45.73; CREATININE 1.7 mg/dL (0.7-1.3); FERRITIN 364.447 ng/ml (16.4-293.9); THYROID STIMULATING HORMONE 0.26 uIU/ml (0.358-3.74); TOT PROT 6.1 g/dl (6.4-8.2)
[2017-02-22] MEDS: methylPREDNISolone NA SUCC 40 MG/1 ML VIAL IVPB SCH (10:16)
[2017-02-22] MEDS: CEFTRIAXONE 50 ML IVPB SCH (10:18)
[2017-02-22] MEDS: AZITHROMYCIN IVPB 250 MG in DEXTROSE 5%-WATER - 250 ML IVPB SCH (10:18)
[2017-02-22] MEDS: RIVAROXABAN 15 MG TABLET PO SCH (12:02)
--- NOTE | 2017-02-22 12:08 | PN ---
Progress Note, Physician History of Present Illness: pulmonary alert,nad,-sob,less congestion - Current Medication List Current Medications: Active Medications Albuterol/Ipratropium (Duoneb -) 1 amp NEB QIDR [facility] Last Admin: 02/22/17 06:48 Dose: 1 amp Azithromycin 250 mg/ Dextrose 250 mls @ 250 mls/hr IVPB DAILY [facility] Last Admin: 02/22/17 10:18 Dose: 250 mls/hr Ceftriaxone Sodium (Rocephin 1gm Ivpb (Pre-Docked)) 50 mls @ 100 mls/hr IVPB DAILY [facility] Last Admin: 02/22/17 10:18 Dose: 100 mls/hr Methylprednisolone Sodium Succinate (Solu-Medrol -) 40 mg IVPB DAILY [facility] Last Admin: 02/22/17 10:16 Dose: 40 mg Rivaroxaban (Xarelto -) 15 mg PO DAILY [facility] Last Admin: 02/22/17 12:02 Dose: Not Given - Objective Vital Signs: Vital Signs Temperature 98.1 F 02/22/17 05:00 Pulse Rate 75 02/22/17 05:00 Respiratory Rate 16 02/22/17 05:00 Blood Pressure 104/54 02/22/17 05:00 O2 Sat by Pulse Oximetry (%) 96 02/21/17 21:00 Constitutional: Yes: Well Nourished, Calm Eyes: Yes: WNL HENT: Yes: WNL Neck: Yes: WNL Cardiovascular: Yes: Regular Rate and Rhythm, S1, S2 Respiratory: Yes: Rhonchi (few scattered rhonchi) Gastrointestinal: Yes: Normal Bowel Sounds, Soft Extremities: Yes: Amputation (left bka) Edema: No Labs: CBC, BMP 02/22/17 05:35 02/22/17 05:35 INR, PTT INR 1.33 (0.82-1.09) H 02/20/17 17:03 Assessment/Plan Problem List - Problems (1) Chest pain Code(s): R07.9 - CHEST PAIN, UNSPECIFIED Qualifiers: Chest pain type: unspecified Qualified Code(s): R07.9 - Chest pain, unspecified (2) Pneumonia Code(s): J18.9 - PNEUMONIA, UNSPECIFIED ORGANISM Qualifiers: Laterality: left Lung location: lower lobe of lung (3) Lung mass Code(s): R91.8 - OTHER NONSPECIFIC ABNORMAL FINDING OF LUNG FIELD (4) Smoker Code(s): F17.200 - NICOTINE DEPENDENCE, UNSPECIFIED, UNCOMPLICATED (5) Lethargy Code(s): R53.83 - OTHER FATIGUE Assessment/Plan ABX BD TX Medrol O2 as needed No smoking advised CT guided bx LLL mass DR GOMEZ
--- NOTE | 2017-02-22 15:30 | PN ---
Physical Exam: SUBJECTIVE: Patient seen and examined No chest pain No palpitation NO fever chills No shortness of breath OBJECTIVE: Vital Signs Period Temp Pulse Resp BP Sys/Tapia Pulse Ox Last 24 Hr 97.5 F-98.3 F 74-95 16-20 93-109/54-63 96-96 GENERAL: The patient is awake, alert, and fully oriented, in no acute distress. HEAD: Normal with no signs of trauma. NECK: Trachea midline, full range of motion, supple. LUNGS: Breath sounds equal, clear to auscultation bilaterally, no wheezes, no crackles, no accessory muscle use. HEART: Regular rate and rhythm, S1, S2 without murmur, rub or gallop. ABDOMEN: Soft, nontender, nondistended, normoactive bowel sounds, no guarding, no rebound, no hepatosplenomegaly, no masses. EXTREMITIES: 2+ pulses, warm, well-perfused, no edema. left BKA, right great tor healed scab NEUROLOGICAL: Normal speech, gait not observed. PSYCH: Normal mood, normal affect. SKIN: Warm, dry, normal turgor, no rashes or lesions noted Laboratory Results - last 24 hr 02/22/17 02/22/17 02/22/17 05:35 05:35 05:35 WBC 13.3 H D RBC 2.66 L Hgb 7.6 L Hct 24.1 L MCV 90.7 MCHC 31.5 L RDW 15.1 Plt Count 184 D MPV 8.8 Retic Count 1.55 H Sodium 140 Potassium 4.4 Chloride 107 Carbon Dioxide 23 Anion Gap 10 BUN 31 H D Creatinine 1.7 H Creat Clearance w eGFR 40.04 Random Glucose 148 H Calcium 10.2 H Ferritin 364.447 H Total Bilirubin 0.2 D AST 14 L D ALT 17 D Alkaline Phosphatase 74 D LD Total 77 L Total Protein 6.1 L Albumin 2.4 L Vitamin B12 726 Serum Folate 17 TSH 0.26 L Active Medications Generic Name Dose Route Start Last Admin Trade Name Freq PRN Reason Stop Dose Admin Albuterol/Ipratropium 1 amp 02/21/17 00:00 02/22/17 11:20 Duoneb - NEB 1 amp QIDR JULIO Administration Azithromycin 250 mg/ Dextrose 250 mls @ 250 mls/hr 02/20/17 22:00 02/22/17 10: 18 IVPB 250 mls/hr DAILY JULIO Administration Ceftriaxone Sodium 50 mls @ 100 mls/hr 02/21/17 10:45 02/22/17 10:18 Rocephin 1gm Ivpb (Pre-Docked) IVPB 100 mls/hr DAILY JULIO Administration Methylprednisolone Sodium Succinate 40 mg 02/21/17 14:30 02/22/17 10:16 Solu-Medrol - IVPB 40 mg DAILY JULIO Administration Rivaroxaban 15 mg 02/21/17 10:00 02/22/17 12:02 Xarelto - PO Not Given DAILY JULIO CBC, BMP 02/22/17 05:35 02/22/17 05:35 Laboratory Tests 02/20/17 02/22/17 17:03 05:35 Calcium 10.2 H Ferritin 364.447 H Total Bilirubin 0.2 D Troponin I < 0.02 D Albumin 2.4 L TSH 0.26 L ASSESSMENT/PLAN: 72 year old male with pmh colon cancer s/o colostomy, HTN, left lower ext arterial emboli presnted to the Ed with complaint of shortness of breath and cough PNA, Possible postobstructive Chest with mass/consolidation in left lower lung field Continue rocephin continue azithromycin blood culture Left lower lung field mass r/o malignancy Hold xarelto IR for biopsy COPD solumedrol IV 40mg daily Duoneb PRn SHIVA Cr 1.7 need baseline from PCP improved with IV BMP in am H/o Lower ext arterail emboli Hold Xarelto IR lung mass biospsy Hypercalcemia ca 10.3 albumin 2.4 ca corrected 11.4 received IV fluid and lasix BMP in am h/o colon cancer s/p colostomy colostomy care per nursing staff FEn Fluid none Electrolytes Nutrition DVT prophylaxis: SCD Disposition: keep in telemetry pending IR biospsy Visit type - Emergency Visit Emergency Visit: Yes ED Registration Date: 02/20/17 Care time: The patient presented to the Emergency Department on the above date and was hospitalized for further evaluation of their emergent condition. - New Patient This patient is new to me today: Yes Date on this admission: 02/23/17 - Critical Care Critical Care patient: No - Discharge Referral Referred to [facility] No
--- NOTE | 2017-02-22 19:56 | PN ---
Teaching Attending Note Name of Resident: Raji Poon ATTENDING PHYSICIAN STATEMENT I saw and evaluated the patient. I reviewed the resident's note and discussed the case with the resident. I agree with the resident's findings and plan as documented. SUBJECTIVE: No complaints. OBJECTIVE: Vital Signs Period Temp Pulse Resp BP Sys/Tapia Pulse Ox Last 24 Hr 97.5 F-98.6 F 74-103 16-20 95-118/53-63 96-96 HEART: S1S2, RRR LUNGS: Bilateral rhonchi ABDOMEN: Soft, non-tender, non-distended, normal BS, (+) colostomy EXTREMITIES: No edema, s/p left BKA ASSESSMENT AND PLAN: This is a 72-year-old man with a history of colon cancer, colostomy, left below knee arterial emboli, HTN who presented to the ED with shortness of breath and cough. 1. LLL pneumonia - Afebrile - Continue Rocephin, Zithromax 2. LLL lung mass - Plan for CT-guided biopsy 02/25 3. COPD - Stable - Continue SoluMedrol, DuoNeb 4. Acute kidney injury, probable stage 3 CKD - Baseline unknown - Creatinine stable at 1.7 - Continue to monitor BUN, creatinine 5. History of arterial emboli to LLE - Hold Xarelto for biopsy 6. Hypercalcemia - Secondary to dehydration and possible malignancy - Some improvement with IV fluid - PTH pending 7. Anemia, likely secondary to chronic illness - Ferritin high, B12 normal, folate normal - Iron, TIBC pending 8. Hypertension - Norvasc, Lopressor held secondary to low BP 9. History of colon cancer, colostomy
[2017-02-23 06:06] LABS: SERUM IRON 50 ug/dL (38-169); TOTAL IRON BINDING CAPACITY 139 ug/dL (250-450); UIBC 89 ug/dL (111-343)
[2017-02-23] MEDS: ALBUTEROL SO4 2.5/IPRATROPIUM 0.5 INH SOL 3 ML VIAL.NEB. NEB SCH ×4 (06:25→23:05)
[2017-02-23 07:27] LABS: MCH 28.1 pg (25.7-33.7); MCHC 30.9 g/dl (32.0-35.9); MEAN PLT VOLUME 8.6 fl (7.5-11.1); PLATELET COUNT 185 K/MM3 (134-434); RDW 15.7 % (11.9-15.9); WHITE BLOOD COUNT 12.7 K/mm3 (4.0-10.0)
[2017-02-23 07:47] LABS: COCKROFT - GAULT 48.59; CREATININE 1.6 mg/dL (0.7-1.3)
[2017-02-23] MEDS: methylPREDNISolone NA SUCC 40 MG/1 ML VIAL IVPB SCH (09:47)
[2017-02-23] MEDS: AZITHROMYCIN IVPB 250 MG in DEXTROSE 5%-WATER - 250 ML IVPB SCH (09:47)
[2017-02-23] MEDS: SODIUM CHLORIDE 1,000 ML IV SCH (09:48)
[2017-02-23] MEDS: CEFTRIAXONE 50 ML IVPB SCH (09:50)
--- NOTE | 2017-02-23 11:49 | PN ---
Progress Note, Physician History of Present Illness: pulmonary awake,nad,-congestion,less confused - Current Medication List Current Medications: Active Medications Albuterol/Ipratropium (Duoneb -) 1 amp NEB QIDR [facility] Last Admin: 02/23/17 06:25 Dose: 1 amp Azithromycin 250 mg/ Dextrose 250 mls @ 250 mls/hr IVPB DAILY [facility] Last Admin: 02/23/17 09:47 Dose: 250 mls/hr Ceftriaxone Sodium (Rocephin 1gm Ivpb (Pre-Docked)) 50 mls @ 100 mls/hr IVPB DAILY [facility] Last Admin: 02/23/17 09:50 Dose: 100 mls/hr Sodium Chloride (Normal Saline -) 1,000 mls @ 100 mls/hr IV ASDIR [facility] Last Admin: 02/23/17 09:48 Dose: 100 mls/hr Methylprednisolone Sodium Succinate (Solu-Medrol -) 40 mg IVPB DAILY [facility] Last Admin: 02/23/17 09:47 Dose: 40 mg - Objective Vital Signs: Vital Signs Temperature 98.6 F 02/23/17 05:17 Pulse Rate 64 02/23/17 05:17 Respiratory Rate 20 02/23/17 09:00 Blood Pressure 120/58 02/23/17 05:17 O2 Sat by Pulse Oximetry (%) 91 L 02/23/17 09:00 Constitutional: Yes: Well Nourished, Calm Eyes: Yes: WNL HENT: Yes: WNL Neck: Yes: WNL Cardiovascular: Yes: Regular Rate and Rhythm, S1, S2 Respiratory: Yes: Rales (few crackles L) Gastrointestinal: Yes: Normal Bowel Sounds, Soft Extremities: Yes: Amputation (LEFT BKA) Labs: CBC, BMP 02/23/17 05:35 02/23/17 05:35 INR, PTT INR 1.33 (0.82-1.09) H 02/20/17 17:03 Assessment/Plan Problem List - Problems (1) Chest pain Code(s): R07.9 - CHEST PAIN, UNSPECIFIED Qualifiers: Chest pain type: unspecified Qualified Code(s): R07.9 - Chest pain, unspecified (2) Pneumonia Code(s): J18.9 - PNEUMONIA, UNSPECIFIED ORGANISM Qualifiers: Laterality: left Lung location: lower lobe of lung (3) Lung mass Code(s): R91.8 - OTHER NONSPECIFIC ABNORMAL FINDING OF LUNG FIELD (4) Smoker Code(s): F17.200 - NICOTINE DEPENDENCE, UNSPECIFIED, UNCOMPLICATED (5) Lethargy Code(s): R53.83 - OTHER FATIGUE Assessment/Plan ABX BD TX Medrol same dose O2 as needed No smoking advised CT guided bx LLL mass in am DR GOMEZ
--- NOTE | 2017-02-23 12:52 | PN ---
Physical Exam: SUBJECTIVE: Patient seen and examined Pt is mildly confused this morning Also weak and tired had very little sleep last night no chest pain, palpitation , no abdominal pain, no n/v, no polydyspsia no bone pain no fever or chills OBJECTIVE: Vital Signs Period Temp Pulse Resp BP Sys/Tapia Pulse Ox Last 24 Hr 97.6 F-98.6 F 64-103 18-20 112-121/49-74 91-96 GENERAL: The patient is awake, alert, and fully oriented, in no acute distress. HEAD: Normal with no signs of trauma.. LUNGS: Breath sounds clear to auscultation. diminished left base, no wheezes, no crackles, no accessory muscle use. HEART: Regular rate and rhythm, S1, S2 without murmur, rub or gallop. ABDOMEN: Soft, nontender, nondistended, normoactive bowel sounds, no guarding, no rebound, no hepatosplenomegaly, no masses. Colostomy bag in mid lower abdomen with brown stool EXTREMITIES: 2+ pulses, warm, well-perfused, no edema. left BKA, right great tor healed scab NEUROLOGICAL: Normal speech, gait not observed. PSYCH: Normal mood, normal affect. SKIN: Warm, dry, normal turgor, no rashes or lesions noted Laboratory Results - last 24 hr 02/22/17 02/23/17 02/23/17 05:35 05:35 05:35 WBC 12.7 H RBC 2.63 L Hgb 7.4 L Hct 23.9 L MCV 91.0 MCHC 30.9 L RDW 15.7 Plt Count 185 MPV 8.6 Sodium 141 Potassium 4.3 Chloride 108 H Carbon Dioxide 23 Anion Gap 10 BUN 34 H Creatinine 1.6 H Random Glucose 90 D Calcium 11.0 H Iron 50 TIBC 139 L Iron Saturation 36 Active Medications Generic Name Dose Route Start Last Admin Trade Name Freq PRN Reason Stop Dose Admin Albuterol/Ipratropium 1 amp 02/21/17 00:00 02/23/17 06:25 Duoneb - NEB 1 amp QIDR JULIO Administration Azithromycin 250 mg/ Dextrose 250 mls @ 250 mls/hr 02/20/17 22:00 02/23/17 09: 47 IVPB 250 mls/hr DAILY JULIO Administration Ceftriaxone Sodium 50 mls @ 100 mls/hr 02/21/17 10:45 02/23/17 09:50 Rocephin 1gm Ivpb (Pre-Docked) IVPB 100 mls/hr DAILY JULIO Administration Sodium Chloride 1,000 mls @ 100 mls/hr 02/23/17 08:45 02/23/17 09:48 Normal Saline - IV 100 mls/hr ASDIR JULIO Administration Methylprednisolone Sodium Succinate 40 mg 02/21/17 14:30 02/23/17 09:47 Solu-Medrol - IVPB 40 mg DAILY JULIO Administration CBC, BMP 02/23/17 05:35 02/23/17 05:35 Microbiology 02/21/17 03:35 Urine For Antigen Detection Legionella Antigen - Final 02/21/17 03:35 Urine For Antigen Detection Streptococcus pneumoniae Antigen (M - Final 02/21/17 03:35 Urine - Urine Clean Catch Urine Culture - Final NO GROWTH OBTAINED 02/20/17 17:03 Blood - Peripheral Venous Blood Culture - Preliminary NO GROWTH OBTAINED AFTER 48 HOURS, INCUBATION TO CONTINUE FOR 3 DAYS. 02/20/17 17:00 Blood - Peripheral Venous Blood Culture - Preliminary NO GROWTH OBTAINED AFTER 48 HOURS, INCUBATION TO CONTINUE FOR 3 DAYS. ASSESSMENT/PLAN: 72 year old male with pmh colon cancer s/o colostomy, HTN, left lower ext arterial emboli presented to the Ed with complaint of shortness of breath and cough PNA, Possibly post-obstructive Chest with mass/consolidation in left lower lung field Continue rocephin continue azithromycin f/u blood culture Urine PNA antigen negative Left lower lung field mass r/o malignancy Hold xarelto IR for biopsy in am COPD solumedrol IV 40mg daily Duoneb PRn SHIVA Cr 1.7, improved to 1.6 this am need baseline from PCP improved with IV, resume Iv fluid BMP in am H/o Lower ext arterial emboli Hold Xarelto IR lung mass biopsy Will resume once Lung biopsy done if ok with IR Hypercalcemia Pt has mild confusion/altered mental status this morning which could be related to the hypercalcemia Hypercalcemia can be due to malignancy/Lung mass with PTHrP, bone mets, SHIVA ca 10.3 yesterday, albumin 2.4, ca corrected 11.4 Today Ca 11, calcium corrected 12.3 Start IV fluid with Normal saline at 100ml/h If no improvement, Consider Biphosphonate, Consider Calcitonin, consider hypercalcemia work up Pending IR biopsy for identification of Mass BMP in am h/o colon cancer s/p colostomy colostomy care per nursing staff Dr Guthrie consulted FEn Fluid NS at 100/h Electrolytes: chemistry in am Nutrition: DVT prophylaxis: SCD Disposition: keep in telemetry pending IR biopsy Visit type - Emergency Visit Emergency Visit: Yes ED Registration Date: 02/20/17 Care time: The patient presented to the Emergency Department on the above date and was hospitalized for further evaluation of their emergent condition. - New Patient This patient is new to me today: Yes - Critical Care Critical Care patient: No - Discharge Referral Referred to [facility] Med P.C.: No
[2017-02-23] MEDS ORDERED: ZOLEDRONIC ACID 4 MG in SODIUM CHLORIDE 100 ML IVPB ONE (13:58)
--- NOTE | 2017-02-23 14:03 | PN ---
Teaching Attending Note Name of Resident: Raji Poon ATTENDING PHYSICIAN STATEMENT I saw and evaluated the patient. I reviewed the resident's note and discussed the case with the resident. I agree with the resident's findings and plan as documented. SUBJECTIVE:continues to have non productive cough. denies CP, SOB,fever, chills OBJECTIVE: Last Vital Signs Temp Pulse Resp BP Pulse Ox 98.2 F 103 H 20 112/74 91 L 02/23/17 10:00 02/23/17 10:02/23/17 10:00 02/23/17 10:02/23/17 09:00 General NAD CV S1 S2 RRR no murmur/rub/gallop Lungs decreased breath sounds B/L bases no wheezing or crackles ASSESSMENT AND PLAN: 72 year old male with pmh colon cancer s/o colostomy, HTN, left lower ext arterial emboli presented to the ED and was admitted for further evaluation of their emergent condition 1. post-obstructive PNA- clinically stable. afebrile. leukocytosis stable (on steroids). on ceftriaxone/azithromycin day 3. urine legionella negative 2. LLL lung mass- NPO for biopsy in the AM. hold xarelto 3. Acute COPD exacerbation- no wheezing. on solumedrol. titrate steroids per pulmonary. can likely decrease to po at this point. 4. SHIVA- unknown baseline. trending down but stable 5. Hypercalcemia- corrected Ca 12.3. confusion may be related to hypercalcemia which can be due to malignancy. start zometa 4mg x1 as it continues to rise despite hydration. repeat Ca level. cont IVF. PTH and hypercalcemia workup pending 6. Low TSH- check T4 7. HTN- controlled. 8. Arterial emboli- hold xarelto for bx in am. re-start per IR recommendations
[2017-02-23] MEDS ORDERED: ZOLEDRONIC ACID 3 MG in SODIUM CHLORIDE 100 ML IVPB ONE (14:47)
[2017-02-23] MEDS: FERROUS SO4 325 MG TABLET (FP) PO SCH (17:41)
--- NOTE | 2017-02-23 18:13 | PN ---
Progress Note (short form) - Note Progress Note: Patient seen and examined Spoke with Dr. Colvin - PCP, Non compliant patient, but she had a RT NOTE THAT PATIENT HAD RECEIVED RT IN [facility] AND HAD BEEN PREVIOUSLY SEEN BY DR. KAUFMAN. . A biopsy is scheduled for tomorrow. Hypercalcemeia persists. Last Vital Signs Temp Pulse Resp BP Pulse Ox 97.8 F 94 H 20 104/69 91 L 02/23/17 15:33 02/23/17 15:33 02/23/17 15:33 02/23/17 15:33 02/23/17 09:[address] Hayes patient to begin thyrocalcitonin and zometa based upon creatinine clearance. Has been getting only minimal fluids however. HEENT: ARELY, EOM Intact Oropharynx: No thrush, No mucositis Cor: RSR, No murmurs, No gallops Lungs: decreased breath sounds bilaterally Abd: Soft, Normal bowel sounds, No organomegaly, functioning colostomy Ext:No significant edema Skin: No rashes, Integument intact CBC, BMP 02/23/17 05:35 02/23/17 05:35 INR, PTT INR 1.33 (0.82-1.09) H 02/20/17 17:03 Current Medications Generic Name Dose Route Start Last Admin Trade Name Farzana PRN Reason Stop Dose Admin Albuterol/Ipratropium 1 amp 02/21/17 00:00 02/23/17 17:10 Duoneb - NEB 1 amp QIDR JULIO Administration Calcitonin 500 unit 02/23/17 22:00 Miacalcin Injection - IM BID JULIO Ferrous Sulfate 325 mg 02/23/17 17:30 02/23/17 17:41 Feosol - PO 325 mg BIDWM JULIO Administration Azithromycin 250 mg/ Dextrose 250 mls @ 250 mls/hr 02/20/17 22:00 02/23/17 09: 47 IVPB 250 mls/hr DAILY JULIO Administration Ceftriaxone Sodium 50 mls @ 100 mls/hr 02/21/17 10:45 02/23/17 09:50 Rocephin 1gm Ivpb (Pre-Docked) IVPB 100 mls/hr DAILY JULIO Administration Sodium Chloride 1,000 mls @ 100 mls/hr 02/23/17 08:45 02/23/17 09:48 Normal Saline - IV 100 mls/hr ASDIR JULIO Administration Methylprednisolone Sodium Succinate 40 mg 02/21/17 14:30 02/23/17 09:47 Solu-Medrol - IVPB 40 mg DAILY JULIO Administration Impression: Squamous cell ca - most likely . Prior therapy in past -- need details Needs head CT because of confusion although hypercalcemia may be etiologic. PTHrP for ectopic PTH like substance Anemia -work up pending. Will let Dr. Kaufman know patient is hospitilized .
[2017-02-23 20:28] LABS: FREE T4 1.51 ng/dl (0.76-1.16)
[2017-02-23] MEDS: CALCITONIN - SALMON SYNTHETIC 400 UNIT/2 ML VIAL IM SCH (21:08)
[2017-02-24] MEDS: ALBUTEROL SO4 2.5/IPRATROPIUM 0.5 INH SOL 3 ML VIAL.NEB. NEB SCH ×3 (06:25→18:14)
[2017-02-24 08:27] LABS: ALBUMIN 2.5 g/dl (3.4-5.0); CALCIUM 9.8 mg/dL (8.5-10.1)
[2017-02-24 08:30] LABS: COCKROFT - GAULT 59.8; CREATININE 1.3 mg/dL (0.7-1.3); MCH 29.1 pg (25.7-33.7); MCHC 32.2 g/dl (32.0-35.9); MEAN CELL VOLUME 90.6 fl (80-96); MEAN PLT VOLUME 8.4 fl (7.5-11.1); PLATELET COUNT 158 K/MM3 (134-434); RDW 15.6 % (11.9-15.9); WHITE BLOOD COUNT 10.6 K/mm3 (4.0-10.0)
[2017-02-24 08:37] LABS: INR 1.27 (0.82-1.09)
[2017-02-24 08:40] LABS: ACTIVATED PTT 25.5 SECONDS (26.9-34.4)
[2017-02-24] MEDS: FERROUS SO4 325 MG TABLET (FP) PO SCH ×2 (10:14→18:07)
[2017-02-24] MEDS: methylPREDNISolone NA SUCC 40 MG/1 ML VIAL IVPB SCH (10:14)
[2017-02-24] MEDS: SODIUM CHLORIDE 1,000 ML IV SCH (10:14)
[2017-02-24] MEDS: CEFTRIAXONE 50 ML IVPB SCH (10:15)
[2017-02-24] MEDS: AZITHROMYCIN IVPB 250 MG in DEXTROSE 5%-WATER - 250 ML IVPB SCH (11:23)
--- NOTE | 2017-02-24 12:50 | PN ---
Teaching Attending Note Name of Resident: Raji Poon ATTENDING PHYSICIAN STATEMENT I saw and evaluated the patient. I reviewed the resident's note and discussed the case with the resident. I agree with the resident's findings and plan as documented. SUBJECTIVE:confused. follow commands but does not respond appropriately. ( levelock prydeinig speaker present) OBJECTIVE: Last Vital Signs Temp Pulse Resp BP Pulse Ox 98.2 F 79 20 109/59 98 02/24/17 06:00 02/24/17 06:00 02/24/17 06:00 02/24/17 06:00 02/23/17 20:43 General NAD, follows simple commands, does not respond to questions when spoken to in prydeinig CV S1 S2 RRR no murmur/rub/gallop Lungs CTA B/L no wheezing/rales/rhonchi ASSESSMENT AND PLAN: 72 year old male with pmh colon cancer s/o colostomy, HTN, left lower ext arterial emboli presented to the ED and was admitted for further evaluation of their emergent condition 1. post-obstructive PNA- clinically stable. afebrile. leukocytosis improved (on steroids). on ceftriaxone/azithromycin day 5. will d/c azithromycin urine legionella negative 2. LLL lung mass- pt is too confused at this time to give consent. will attempt to reach out family for consent. likely unable to do procedure at this time. 3. Acute encephalopathy- less alert then yesterday. will do CT head to evaluate. concern for mets to brain. will attempt to CT with contrast as kidneys have improved. 4. Acute COPD exacerbation- no wheezing. will switch solumedrol to prednisone po. nebs prn. pulmonary on board. 5. SHIVA- unknown baseline. continues to improve. will cont IVF as will receive contrast good UOP 6. Hypercalcemia- corrected Ca 11. on IVF, calicitonin and received zometa. will cont to trend. will consider increasing IVF if does not improve. hypercalcemia workup pending. monitor other electrolytes due to zometa 7. Low TSH- elevated T4. will start methimazole 5mg q8h. 8. HTN- controlled. 9. Arterial emboli- will re-start once confirmed that procedure will be unable to be done. r/o intracranial bleeding (low suspicion) 10. Normocytic anemia- Hgb stable. anemia of chronic disease. no indication for transfusion at this time 11. DVT ppx- xarelto on hold. will restart once procedure is confirmed cancel.
[2017-02-24] MEDS: CALCITONIN - SALMON SYNTHETIC 400 UNIT/2 ML VIAL IM SCH ×2 (12:51→22:07)
[2017-02-24] MEDS: METHIMAZOLE 5 MG TABLET (FP) PO SCH ×3 (13:00→21:37)
--- NOTE | 2017-02-24 15:52 | PN ---
Progress Note (short form) - Note Progress Note: PULMONARY VSS/AFEBRILE SYRIAC SPEAKING ANICTERIC DIMINISHED BREATH SOUNDS LEFT BASE S1S2 BS+ LEFT BKA NOTES/IMAGING/MEDS/NOTES REVIEWED (1) Chest pain Code(s): R07.9 - CHEST PAIN, UNSPECIFIED Qualifiers: Chest pain type: unspecified Qualified Code(s): R07.9 - Chest pain, unspecified (2) Pneumonia Code(s): J18.9 - PNEUMONIA, UNSPECIFIED ORGANISM Qualifiers: Laterality: left Lung location: lower lobe of lung (3) Lung mass Code(s): R91.8 - OTHER NONSPECIFIC ABNORMAL FINDING OF LUNG FIELD (4) Smoker Code(s): F17.200 - NICOTINE DEPENDENCE, UNSPECIFIED, UNCOMPLICATED (5) Lethargy Code(s): R53.83 - OTHER FATIGUE Assessment/Plan Agree with ABX coverage BD TX/correct calcium Medrol daily O2 as needed Will need tissue diagnosis of lung density confusion/head CT to be done
--- NOTE | 2017-02-24 17:46 | PN ---
Physical Exam: SUBJECTIVE: Patient seen and examined Pt is confused Speech is very poor No fever or chills no chest pain or palpitation OBJECTIVE: Vital Signs Period Temp Pulse Resp BP Sys/Tapia Pulse Ox Last 24 Hr 97.8 F-98.5 F 79-90 20-20 103-113/57-71 97-98 GENERAL: The patient is awake, alert, and fully oriented, in no acute distress. HEAD: Normal with no signs of trauma.. LUNGS: Breath sounds clear to auscultation. diminished left base, no wheezes, no crackles, no accessory muscle use. HEART: Regular rate and rhythm, S1, S2 without murmur, rub or gallop. ABDOMEN: Soft, nontender, nondistended, normoactive bowel sounds, no guarding, no rebound, no hepatosplenomegaly, no masses. Colostomy bag in mid lower abdomen with brown stool EXTREMITIES: 2+ pulses, warm, well-perfused, no edema. left BKA, right great tor healed scab NEUROLOGICAL: gait not observed. Normal strength in all ext. normoreflexic all ext. No facial droop. worsening speech. PSYCH: Normal mood, normal affect. SKIN: Warm, dry, normal turgor, no rashes or lesions noted Laboratory Results - last 24 hr 02/23/17 02/24/17 02/24/17 05:35 05:50 05:50 WBC 10.6 H RBC 2.61 L Hgb 7.6 L Hct 23.6 L MCV 90.6 MCHC 32.2 RDW 15.6 Plt Count 158 MPV 8.4 INR PTT (Actin FS) Sodium 140 Potassium 4.0 Chloride 108 H Carbon Dioxide 21 Anion Gap 11 BUN 26 H D Creatinine 1.3 Random Glucose 81 Calcium 9.8 Albumin 2.5 L Free T4 1.51 H 02/24/17 05:50 WBC RBC Hgb Hct MCV MCHC RDW Plt Count MPV INR 1.27 H PTT (Actin FS) 25.5 L Sodium Potassium Chloride Carbon Dioxide Anion Gap BUN Creatinine Random Glucose Calcium Albumin Free T4 Active Medications Generic Name Dose Route Start Last Admin Trade Name Freq PRN Reason Stop Dose Admin Albuterol/Ipratropium 1 amp 02/21/17 00:00 02/24/17 11:16 Duoneb - NEB 1 amp QIDR JULIO Administration Calcitonin 500 unit 02/23/17 22:00 02/24/17 12:51 Miacalcin Injection - IM 500 unit BID JULIO Administration Ferrous Sulfate 325 mg 02/23/17 17:30 02/24/17 10:14 Feosol - PO Not Given BIDWM JULIO Ceftriaxone Sodium 50 mls @ 100 mls/hr 02/21/17 10:45 02/24/17 10:15 Rocephin 1gm Ivpb (Pre-Docked) IVPB 100 mls/hr DAILY JULIO Administration Sodium Chloride 1,000 mls @ 100 mls/hr 02/23/17 08:45 02/24/17 10:14 Normal Saline - IV 100 mls/hr ASDIR JULIO Administration Methimazole 5 mg 02/24/17 13:00 Tapazole - PO TID JULIO Prednisone 40 mg 02/25/17 10:00 Deltasone - PO DAILY JULIO CBC, BMP 02/24/17 05:50 02/24/17 05:50 ASSESSMENT/PLAN: 72 year old male with pmh colon cancer s/o colostomy, HTN, left lower ext arterial emboli presented to the Ed with complaint of shortness of breath and cough AMS r/o CVA, Brain Mets Worsening mental status and speech CT head PNA, Possibly post-obstructive Chest with mass/consolidation in left lower lung field Continue rocephin continue azithromycin f/u blood culture Urine PNA antigen negative Left lower lung field mass r/o malignancy Hold xarelto IR for biopsy today COPD solumedrol IV 40mg daily Duoneb PRn SHIVA Cr 1.7, improved to 1.3 this am need baseline from PCP improved with IV BMP in am H/o Lower ext arterial emboli Hold Xarelto IR lung mass biopsy Will resume once Lung biopsy done if ok with IR Hypercalcemia Pt has mild confusion/altered mental status this morning which could be related to the hypercalcemia Hypercalcemia can be due to malignancy/Lung mass with PTHrP, bone mets, SHIVA Yesterday Ca 11, calcium corrected 12.3 Calcium corrected today 10.9 IV fluid with Normal saline at 100ml/h Calcitonin IM BId receivd Zomida yesterday hypercalcemia work up Pending IR biopsy for identification of Mass BMP in am h/o colon cancer s/p colostomy colostomy care per nursing staff Dr Guthrie consulted FEN Fluid NS at 100/h Electrolytes: chemistry in am Nutrition: NPO DVT prophylaxis: SCD Disposition: keep in telemetry pending IR biopsy Visit type - Emergency Visit Emergency Visit: Yes ED Registration Date: 02/20/17 Care time: The patient presented to the Emergency Department on the above date and was hospitalized for further evaluation of their emergent condition. - New Patient This patient is new to me today: Yes - Critical Care Critical Care patient: No - Discharge Referral Referred to [facility] Med P.C.: No
--- NOTE | 2017-02-24 18:45 | HOSP ---
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 Neuro consulted. Physical Examination Vital Signs: Vital Signs Temperature 98.0 F 02/24/17 14:00 Pulse Rate 85 02/24/17 14:00 Respiratory Rate 20 02/24/17 14:00 Blood Pressure 113/64 02/24/17 14:00 O2 Sat by Pulse Oximetry (%) 97 02/24/17 09:00 Labs: CBC, BMP 02/24/17 05:50 02/24/17 05:50
[2017-02-24] MEDS: ROSUVASTATIN CA 10 MG TABLET (FP) PO SCH (21:37)
[2017-02-25] MEDS: ALBUTEROL SO4 2.5/IPRATROPIUM 0.5 INH SOL 3 ML VIAL.NEB. NEB SCH ×5 (00:17→23:58)
[2017-02-25] MEDS: METHIMAZOLE 5 MG TABLET (FP) PO SCH ×3 (05:59→21:46)
--- NOTE | 2017-02-25 09:02 | CON.NEURO ---
Consult Consult Specialty:: Neurology - History of Present Illness History of Present Illness: 72 year old male with significant PMH of Colon Cancer (s/p colostomy), Left below knee arterial emboli on Xarelto & HTN who presents to ED with shortness of breath & cough on 02/20 . Being Worked up and treated for PNA and possible lung mass. 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 PT sudanese speaking primarily and but understand basic central african. He denies LLANOS , focal motor complaints. no visual complaints. PT + smoker. Denies palpitations, abdominal pain, diarrhea, constipation. CT HD reveiwed. - History Source History Provided By: Patient, Medical Record Limitations to Obtaining History: Poor Historian - Past Medical History Pulmonary: Yes: Pneumonia Renal/: Yes: Other (SHIVA) Heme/Onc: Yes: Other (CoLON cA (s/p colostomy) ) - Alcohol/Substance Use Hx Alcohol Use: No (unknown/pt denies) - Smoking History Smoking history: Current every day smoker Have you smoked in the past 12 months: Yes Aproximately how many cigarettes per day: 5 Home Medications - Allergies Allergies/Adverse Reactions: Allergies Allergy/AdvReac Type Severity Reaction Status Date / Time No Known Allergies Allergy Verified 02/20/17 17:09 - Home Medications Home Medications: Ambulatory Orders Amlodipine Besylate 5 mg PO DAILY 02/20/17 Folic Acid 1 mg PO DAILY 02/20/17 Isosorbide Mononitrate [Isosorbide Mononitrate ER] 30 mg PO DAILY 02/20/17 Metoprolol Tartrate 25 mg PO DAILY 02/20/17 Physical Exam-Neuro Vital Signs: Vital Signs Temperature 97.6 F 02/25/17 05:00 Pulse Rate 100 H 02/25/17 05:00 Respiratory Rate 20 02/25/17 05:00 Blood Pressure 106/68 02/25/17 05:00 O2 Sat by Pulse Oximetry (%) 96 02/24/17 20:58 Constitutional: Yes: Pallor Neck: Yes: Supple Cardiovascular: Yes: Regular Rate and Rhythm Respiratory: Yes: Other (dec BS L) Gastrointestinal: Yes: Normal Bowel Sounds Labs: CBC, BMP 02/24/17 05:50 02/24/17 05:50 INR, PTT INR 1.27 (0.82-1.09) H 02/24/17 05:50 - Neuro Exam Level Of Consciousness: Yes: Alert (awake and responsive and follows basic requests; answers name and where he is from. EOMI, no facial, blinks to threat BL, tremor in Exe, no focl weakness, L leg Amp, no cogwheeling, no asterxis,, reflexes trace ) NIH Stroke Scale - Total Score NIH Stroke Scale Score: 0 Imaging - Results Chest X-ray: Report Reviewed Cat Scan: Report Reviewed Problem List - Problems (1) Lung mass Code(s): R91.8 - OTHER NONSPECIFIC ABNORMAL FINDING OF LUNG FIELD (2) Pneumonia Code(s): J18.9 - PNEUMONIA, UNSPECIFIED ORGANISM Qualifiers: Laterality: left Lung location: lower lobe of lung (3) Smoker Code(s): F17.200 - NICOTINE DEPENDENCE, UNSPECIFIED, UNCOMPLICATED (4) Encephalopathy Code(s): G93.40 - ENCEPHALOPATHY, UNSPECIFIED Assessment/Plan 72 year old male with significant PMH of COPD/smoker, Colon Cancer (s/p colostomy), Left below knee arterial emboli on Xarelto & HTN who presents to ED with shortness of breath & cough on 02/20 . Being Worked up and treated for PNA and possible lung mass, hypercalcemia/SHIVA. 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 Transient encephlopathy appears more awake today. 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 Suspect metabolic (hypercalcemia vs thyroid), SHIVA improving /infectious vs rx induced; CVA may be superimposed issue. doubt mets. no clear contraindication to restarting AC but on hold for possible biopsy(?). consider ASA if will not be restarting AC. continue statin , BP control. check MRI BRAIN thanks and please call any questions Dr Loving [phone]
[2017-02-25] MEDS: FERROUS SO4 325 MG TABLET (FP) PO SCH ×2 (09:22→18:18)
[2017-02-25] MEDS: predniSONE 20 MG TABLET (UD) PO SCH (09:22)
[2017-02-25] MEDS: SODIUM CHLORIDE 1,000 ML IV SCH (09:22)
[2017-02-25] MEDS: CEFTRIAXONE 50 ML IVPB SCH (09:23)
[2017-02-25] MEDS: CALCITONIN - SALMON SYNTHETIC 400 UNIT/2 ML VIAL IM SCH (10:23)
--- NOTE | 2017-02-25 11:03 | CONSULT ---
Admitting History and Physical - Primary Care Physician PCP: Fabiana Hayes - Admission History of Present Illness: 72 year old male with pmh colon cancer s/o colostomy, HTN, left lower ext arterial emboli presented to the Ed with complaint of shortness of breath and cough On 02/23 Nursing reported :"received patient confused and very anxious this am, patient unable to communicate his concerns, also language barrier. NA available and speaks macedonian, states that patient is not making sense, mumbling words ." History Source: Patient (with Ecuadorean direct entry midwife), Medical Record Limitations to Obtaining History: Other (Severe expressive and moderate receptive Aphasia, Mild dysarthria, Dysphagia.) - Past Medical History Pulmonary: Yes: Pneumonia Renal/: Yes: Other (SHIVA) Heme/Onc: Yes: Other (CoLON cA (s/p colostomy) ) - Smoking History Smoking history: Current every day smoker Have you smoked in the past 12 months: Yes Aproximately how many cigarettes per day: 5 - Alcohol/Substance Use Hx Alcohol Use: No (unknown/pt denies) History - Admission Reason For Visit: CHEST PAIN - Diagnostics CT Scan: Report Reviewed (post temp/parietal infact) - General Mental Status: Able to Follow Commands (1 step but not 2), Flat Affect ( frustrated, sad) Ability to Follow Directions: Fair Head/Neck Control: WFL - Hearing Hearing: Normal Hearing Aide: No With Patient: No Speech Evaluation - Communication Primary Language: THAI Communication: Yes: Aphasia (Severe expressive and moderate receptive Aphasia) Oral Expression Ability: Yes: Moderate Impairment, Severe Impairment - Speech Production Apraxia: Yes Able to Make Needs Known: Yes: Severely Impaired Intelligibility: Yes: Severely Impaired - Speech Characteristics Voice Loudness: Normal Voice Pitch: Yes: Normal Voice Phonatory-based Quality: Yes: Dysphonia (mild) Speech Pattern: Impaired Speech Clarity: < 25% Nasal Resonance: Normal Articulation: Yes: Imprecise - Language/Auditory Comprehension Follows: Yes: 1 Stage Simple Commands (1 step, not 2. Understands social speech , possibly simple conversation, but not long sentenes.) Observation: Benefits from Slow Speech: Yes, Benefits from Repetiton: Yes - Language/Verbal Expression Aphasia: Yes: Impaired Repetition, Apraxia, Sound Errors Able to Respond to Simple Queries: Yes: Severely Impaired Able to Communicate Wants and Needs: Yes: Severely Impaired Functional Communication Status: Yes: Severely Impaired - Swallow Evaluation/Bedside Assessment Current Nutritional Intake: NPO Oral Secretions: Yes: WFL Dentition: Yes: Edentulous Facial Symmetry at Rest: Symmetrical Facial Symmetry on Retraction: Symmetrical Lingual Movement: Symmetric Laryngeal Movement: Able to Palpate, Labored,delay initiation, Reduced Velocity Labial Seal: WFL Timing of Swallow: Delayed Coughing/Throat Clear: (thin liquid) Recommendations - Speech Evaluation, Impression/Plan Impression: Severe expressive and moderate receptive Aphasia, Mild dysarthria, Dysphagia. Comprehends 1 step directives, not 2. Understands social speech, possibly simple conversation, but not long sentences. Verbal output is mostly unintelligible to Ecuadorean speaker, with rare intelligible social speech eg ok, I dont know, and nos. 1-4 elicited in unison. Some approximation of "goodbye" elicited upon repetition. Aspiration on thin liquid.Accepted very little. Poor appetite before onset of stroke. Recommended Therapies: Speech, Language, Swallowing - Disposition [facility]charge to: [facility] - Dysphagia Impressions/Plan Swallowing Skills: Impaired Dysphagia Impressions: Mild Impairment, Moderate Impairment, Suspect Aspiration *Silent aspiration: cannot be R/O at bedside Dysphagia Treatment Plan: Chin Tuck/Down, 1/2 tsp. at a time, Elevate HOB during feed, Other (monitor tolerance) Recommendations: Modified Barium Swallow (if cough, congestion, fever) - Recommendations Diet Consistency: Dysphagia Pureed Medication Administration: Crushed with applesauce Liquids: [place] Thick Supplement: Magic Cup, Other (ensure compact)
--- NOTE | 2017-02-25 13:56 | PN ---
Teaching Attending Note Name of Resident: Raji Poon ATTENDING PHYSICIAN STATEMENT I saw and evaluated the patient. I reviewed the resident's note and discussed the case with the resident. I agree with the resident's findings and plan as documented. SUBJECTIVE:resting comfortable. answers simple question to [place] speaking citizen of [place] nurse's aid that is present OBJECTIVE: Last Vital Signs Temp Pulse Resp BP Pulse Ox 98.2 F 77 20 106/58 97 02/25/17 09:00 02/25/17 09:00 02/25/17 09:00 02/25/17 09:00 02/25/17 09:00 General NAD CV S1 S2 RRR no murmur/rub/gallop Lungs CTA B/L no wheezing/rales/rhonchi Neuro follow simple commands. CN II-XII grossly intact. no pronator drift. strength equal in all 4 extremities unable to assess sensation ASSESSMENT AND PLAN: 72 year old male with pmh colon cancer s/o colostomy, HTN, left lower ext arterial emboli presented to the ED and was admitted for further evaluation of their emergent condition 1. post-obstructive PNA- clinically stable. afebrile. leukocytosis improved (on steroids). on ceftriaxone day 6. will d/c tomorrow. 2. Acute L posterior temporal/parietal infarct- stroke order set initiated. evaluated by neuro. symptoms not related to CVA. Will order brain MRI. carotid doppler. PT (which pt continues to refuse daily) and swallow therapist 2. LLL lung mass-CM is looking for family for consent at this time. awaiting oncologist input as he was following with them, perhaps workup was initiated already. 3. Acute encephalopathy- improved today. less likely due to acute CVA and possible other organic causes. will cont to monitor. avoid sedating medications. . 4. Acute COPD exacerbation- no wheezing. prednisone taper. nebs prn. pulmonary on board. 5. SHIVA- unknown baseline. continues to improve. awaiting todays labs. 6. Hypercalcemia- awaiting todays labs. will adjust fluids accordingly. if normalized will stop calcitonin. monitor other electrolytes. 7. Low TSH- elevated T4. started methimazole 5mg q8h. 8. HTN- controlled. 9. Arterial emboli- unable to do bx at this time as awaiting consent. re-start xarelto 10. Normocytic anemia- Hgb stable. anemia of chronic disease. no indication for transfusion at this time 11. DVT ppx- xarelto
[2017-02-25 14:34] LABS: ALBUMIN 2.6 g/dl (3.4-5.0); CALCIUM 8.6 mg/dL (8.5-10.1); COCKROFT - GAULT 64.79; CREATININE 1.2 mg/dL (0.7-1.3)
--- NOTE | 2017-02-25 14:47 | PN ---
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 Denies shortness of breath or chest pain. Last Vital Signs Temp Pulse Resp BP Pulse Ox 98.2 F 77 20 106/58 97 02/25/17 09:00 02/25/17 09:00 02/25/17 09:00 02/25/17 09:00 02/25/17 09:00 Gen: NAD at rest Heart: RRR Lung: decreased breath sounds at the bases Abd: soft, +ostomy Ext: no edema CBC, BMP 02/24/17 05:50 Active Medications Albuterol/Ipratropium (Duoneb -) 1 amp NEB QIDR [facility] Last Admin: 02/25/17 11:00 Dose: 1 amp Calcitonin (Miacalcin Injection -) 500 unit IM BID [facility] Last Admin: 02/25/17 10:23 Dose: 500 unit Ferrous Sulfate (Feosol -) 325 mg PO BIDWM [facility] Last Admin: 02/25/17 09:22 Dose: 325 mg Ceftriaxone Sodium (Rocephin 1gm Ivpb (Pre-Docked)) 50 mls @ 100 mls/hr IVPB DAILY [facility] Last Admin: 02/25/17 09:23 Dose: 100 mls/hr Sodium Chloride (Normal Saline -) 1,000 mls @ 100 mls/hr IV ASDIR [facility] Last Admin: 02/25/17 09:22 Dose: 100 mls/hr Methimazole (Tapazole -) 5 mg PO TID [facility] Last Admin: 02/25/17 05:59 Dose: Not Given Prednisone (Deltasone -) 40 mg PO DAILY [facility] Last Admin: 02/25/17 09:22 Dose: 40 mg Rivaroxaban (Xarelto -) 15 mg PO DAILY [facility] Rosuvastatin Calcium (Crestor -) 10 mg PO HS [facility] Last Admin: 02/24/17 21:37 Dose: Not Given A/P Pneumonia Lung Mass Acute COPD Exacerbation Acute Kidney Injury Acute CVA Anemia - agree with prednisone taper - inhaled bronchodilators - O2 to keep SpO2 >90% - complete antibiotic course - anticoagulation resumed as consent for CT guided biopsy pending - monitor H/H - transfuse as needed
[2017-02-25] MEDS: RIVAROXABAN 15 MG TABLET PO SCH (15:21)
--- NOTE | 2017-02-25 16:40 | PN ---
Physical Exam: SUBJECTIVE: Patient seen and examined Pt is awake, alert Unable to get words out Pt gets frustrated when trying to speak Follow simple directions No fever or chills OBJECTIVE: Vital Signs Period Temp Pulse Resp BP Sys/Tapia Pulse Ox Last 24 Hr 97.4 F-98.4 F 73-100 18-20 79-106/50-70 96-97 GENERAL: The patient is awake, alert, and fully oriented, in no acute distress. HEAD: Normal with no signs of trauma. LUNGS: Breath sounds clear to auscultation. Diminished left base, no wheezes, no crackles, no accessory muscle use. HEART: Regular rate and rhythm, S1, S2 without murmur, rub or gallop. ABDOMEN: Soft, nontender, nondistended, normoactive bowel sounds, no guarding, no rebound, no hepatosplenomegaly, no masses. Colostomy bag in mid lower abdomen with brown stool EXTREMITIES: 2+ pulses, warm, well-perfused, no edema. left BKA, right great tor healed scab NEUROLOGICAL: gait not observed. Normal strength in all ext. normoreflexic all ext. No facial droop. difficulty producing speech PSYCH: Normal mood, normal affect. SKIN: Warm, dry, normal turgor, no rashes or lesions noted Laboratory Results - last 24 hr 02/25/17 02/25/17 05:40 05:40 Sodium 139 Cancelled Potassium 4.1 Cancelled Chloride 107 Cancelled Carbon Dioxide 21 Cancelled Anion Gap 11 Cancelled BUN 21 H Cancelled Creatinine 1.2 Cancelled Random Glucose 73 L Cancelled Calcium 8.6 Cancelled Albumin 2.6 L Cancelled Triglycerides 65 D Cholesterol 97 Total LDL Cholesterol 50 D HDL Cholesterol 38 L D Active Medications Generic Name Dose Route Start Last Admin Trade Name Freq PRN Reason Stop Dose Admin Albuterol/Ipratropium 1 amp 02/21/17 00:00 02/25/17 11:00 Duoneb - NEB 1 amp QIDR [facility] Administration Ferrous Sulfate 325 mg 02/23/17 17:30 02/25/17 09:22 Feosol - PO 325 mg BIDWM [facility] Administration Ceftriaxone Sodium 50 mls @ 100 mls/hr 02/21/17 10:45 02/25/17 09:23 Rocephin 1gm Ivpb (Pre-Docked) IVPB 100 mls/hr DAILY [facility] Administration Methimazole 5 mg 02/24/17 13:00 02/25/17 15:22 Tapazole - PO 5 mg TID J[facility]IO Administration Prednisone 40 mg 02/25/17 10:00 02/25/17 09:22 Deltasone - PO 40 mg DAILY [facility] Administration Rivaroxaban 15 mg 02/25/17 14:00 02/25/17 15:21 Xarelto - PO 15 mg DAILY [facility] Administration Rosuvastatin Calcium 10 mg 02/24/17 22:00 02/24/17 21:37 Crestor - PO Not Given HS JULIO CBC, BMP 02/24/17 05:50 02/25/17 05:40 Microbiology 02/21/17 03:35 Urine For Antigen Detection Legionella Antigen - Final 02/21/17 03:35 Urine For Antigen Detection Streptococcus pneumoniae Antigen (M - Final 02/21/17 03:35 Urine - Urine Clean Catch Urine Culture - Final NO GROWTH OBTAINED 02/20/17 17:03 Blood - Peripheral Venous Blood Culture - Preliminary NO GROWTH OBTAINED AFTER 96 HOURS, INCUBATION TO CONTINUE FOR 1 DAYS. 02/20/17 17:00 Blood - Peripheral Venous Blood Culture - Preliminary NO GROWTH OBTAINED AFTER 96 HOURS, INCUBATION TO CONTINUE FOR 1 DAYS. Laboratory Tests 02/22/17 02/23/17 02/25/17 05:35 05:35 05:40 Calcium 8.6 Total LDL Cholesterol 50 D HDL Cholesterol 38 L D TSH 0.26 L Free T4 1.51 H ASSESSMENT/PLAN: 72 year old male with pmh colon cancer s/o colostomy, HTN, left lower ext arterial emboli presented to the ED with complaint of shortness of breath and cough Acute CVA CT head with and without contrast showed left posterior temporal/parietal CVA Pt has expressive aphasia No focal weakness Dr Loving consulted and saw patient Recent echo no major abnormalities except for aortic root dilation MRI brain ordered carotid ultrasound ordered Physical therapy ordered Patient is seen by speech therapist on dysphagia puree diet with medication crushed in apple sauce PNA, Possibly post-obstructive Chest with mass/consolidation in left lower lung field On Rocephin 1gm Iv daily day 6 No fever in last 48 hours consider stopping after day 7 f/u blood culture Urine PNA antigen negative Left lower lung field mass r/o malignancy resume xarelto Biopsy postponed until patient stable or to be done as outpatient COPD Prednisone 40mg daily Duoneb PRn SHIVA Cr 1.7, improved to 1.2 this am Improved with IV BMP in am H/o Lower ext arterial emboli resume Xarelto Hypercalcemia (resolved) Hypercalcemia can be due to malignancy/Lung mass with PTHrP, bone mets, SHIVA Ca corrected 9.7 Calcium within normal limit Stop Iv fluid Stop Calcitonin Stop Zomida BMP in am Hyperthyroidism may be related to mental status changes on admission and during hospital stay TSH 0.26 free T4 1.51 Pt started on Methimazole 5mg po TID h/o colon cancer s/p colostomy colostomy care per nursing staff Dr Kaufman consulted FEN Fluid: none Electrolytes: chemistry in am Nutrition:Dysphagia puree diet with medical crushed in apple sauce DVT prophylaxis: SCD, Xarelto Disposition: Management of acute CVA Visit type - Emergency Visit Emergency Visit: Yes ED Registration Date: 02/20/17 Care time: The patient presented to the Emergency Department on the above date and was hospitalized for further evaluation of their emergent condition. - New Patient This patient is new to me today: Yes - Critical Care Critical Care patient: No - Discharge Referral Referred to [facility] No
[2017-02-25] MEDS: ROSUVASTATIN CA 10 MG TABLET (FP) PO SCH (21:46)
[2017-02-26] MEDS: METHIMAZOLE 5 MG TABLET (FP) PO SCH ×3 (06:12→21:56)
[2017-02-26 08:07] LABS: ALBUMIN 2.5 g/dl (3.4-5.0); CALCIUM 7.8 mg/dL (8.5-10.1); COCKROFT - GAULT 64.79; CREATININE 1.2 mg/dL (0.7-1.3)
[2017-02-26] MEDS: FERROUS SO4 325 MG TABLET (FP) PO SCH ×2 (09:24→17:36)
[2017-02-26] MEDS: predniSONE 20 MG TABLET (UD) PO SCH (09:25)
[2017-02-26] MEDS: RIVAROXABAN 15 MG TABLET PO SCH (09:25)
--- NOTE | 2017-02-26 11:29 | PN ---
Progress Note, VERIFICATION CLERK - Note Progress Note: Producing some social speech with improved intelligibility eg ok,yonkers. Still struggling with propositional speech. Selected Entries 02/25/17 02/25/17 02/25/17 02:00 05:00 09:00 Breakfast Lunch Temperature 97.5 F L 97.6 F 98.2 F 02/25/17 02/25/17 02/25/17 15:49 17:00 21:00 Breakfast 0 Lunch 0 Temperature 98.4 F 98.7 F 98.4 F 02/26/17 02/26/17 01:00 05:00 Breakfast Lunch Temperature 97.3 F L 97.9 F Poor appetite. IMP: Aphasia/Apraxia. Social speech/some single words elicited. Comprehension improving. Plan: For mbs to upgrade diet with safety. Rehab placement
--- NOTE | 2017-02-26 11:38 | PN ---
Progress Note (short form) - Note Progress Note: PULMONARY VSS/AFEBRILE SPANISH SPEAKING ANICTERIC DIMINISHED BREATH SOUNDS LEFT BASE S1S2 BS+ LEFT BKA NOTES/IMAGING/MEDS/NOTES/CT BRAIN REVIEWED (1) Chest pain Code(s): R07.9 - CHEST PAIN, UNSPECIFIED Qualifiers: Chest pain type: unspecified Qualified Code(s): R07.9 - Chest pain, unspecified (2) Pneumonia Code(s): J18.9 - PNEUMONIA, UNSPECIFIED ORGANISM Qualifiers: Laterality: left Lung location: lower lobe of lung (3) Lung mass Code(s): R91.8 - OTHER NONSPECIFIC ABNORMAL FINDING OF LUNG FIELD (4) Smoker Code(s): F17.200 - NICOTINE DEPENDENCE, UNSPECIFIED, UNCOMPLICATED (5) Lethargy Code(s): R53.83 - OTHER FATIGUE (6) CVA Assessment/Plan Agree with ABX coverage BD TX/correct calcium Medrol daily O2 as needed Will eventually need tissue diagnosis of lung density Neuro f/u Dallin LEDBETTER MD
--- NOTE | 2017-02-26 13:23 | PN ---
Teaching Attending Note Name of Resident: Keenan Onofre ATTENDING PHYSICIAN STATEMENT I saw and evaluated the patient. I reviewed the resident's note and discussed the case with the resident. I agree with the resident's findings and plan as documented. SUBJECTIVE:resting comfortable. denies CP, SOB, OBJECTIVE: Last Vital Signs Temp Pulse Resp BP Pulse Ox 97.8 F 68 20 101/54 97 02/26/17 10:00 02/26/17 10:00 02/26/17 10:00 02/26/17 10:00 02/26/17 10:00 General NAD CV S1 S2 RRR no murmur/rub/gallop Lungs CTA B/L no wheezing/rales/rhonchi Neuro follow simple commands. CN II-XII grossly intact. ASSESSMENT AND PLAN: 72 year old male with pmh colon cancer s/o colostomy, HTN, left lower ext arterial emboli presented to the ED and was admitted for further evaluation of their emergent condition 1. post-obstructive PNA- clinically stable. afebrile. leukocytosis improved (on steroids). on ceftriaxone day 7. will d/c. 2. Acute L posterior temporal/parietal infarct-continues to have apraxia and aphasia. MBS today. Brain MRI and carotid doppler. encouraged pt to walk with PT. neuro on board. 3. LLL lung mass-can likely get bx done as outpatient at this time. awaiting reponse from Dr Lyon for workup already done. 4. Acute encephalopathy-hypercalcemia vs hyperthyroidism, improved today. avoid sedating medications. . 5. Acute COPD exacerbation-clinically improved. decrease prednisone to 30mg tomorrow. nebs prn. pulmonary on board. 6. SHIVA- unknown baseline. remains stable 7. Hypercalcemia- Corrected Ca 9. d/c calcitonin and IVF yesterday. continues to improve monitor other electrolytes due to zometa given 8. Low TSH- elevated T4. on methimazole 5mg q8h. 9. HTN- controlled. 10. Arterial emboli-on xarelto 11. Normocytic anemia- Hgb stable. anemia of chronic disease. no indication for transfusion at this time 12. DVT ppx- xarelto 13. encouraged pt to work with PT today. will need DARIELA on discharge. sister has come forward with HCP forms that she is HCP.
[2017-02-26] MEDS: CEFTRIAXONE 50 ML IVPB SCH (13:36)
--- NOTE | 2017-02-26 16:53 | CONSULT ---
Consult Consult Specialty:: Medical Oncology Referred by:: Fabiana Hayes Reason for Consultation:: lesion lung , Hx rectal cancer - History of Present Illness Chief Complaint: SOB History of Present Illness: 72 y/o [place] M w significant periphreal vascular disease s/p Amputation LLE on AC , treated by myself several years ago for rectal cancer (adenocarcinoma), locally advanced , s/p course of pre-op RT plus 5-FU , followed by rectal resection, colostomy ( as I recall it was a pathological complete remission) , then received adjuvant oral capacitabine ; pt then did not come back for f/u in several years.Now he developed SOB , found to have a lower left lung density/ lesion , [id number] plus a groung glass R lung lesion 1.5cm .Pt Rx w ab's for possible pneumonia ; during hospitalization pt found to have a CVA ; further w/ u pending. Pt slightly confused, denies pain,/SOB/cough at this time. 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 No: Alzheimer's, Dementia, Migraine, Multiple Sclerosis, Peripheral Neuropathy, Parkinson's, Seizure, Syncope, TIA, Vertigo, Other Cardio/Vascular: Yes: Other (peripheral vascular disease) Pulmonary: Yes: Pneumonia Gastrointestinal: Yes: Cancer Hepatobiliary: No: Cirrhosis, Cholelithiasis, Cholecystitis, Choledocholithiasis , Hepatitis A, Hepatitis B, Hepatitis C, Other Renal/: Yes: Other (SHIVA) Heme/Onc: Yes: Cancer Infectious Disease: No: AIDS, C-Diff, Herpes Zoster, HIV, MRSA, STD's, Tuberculosis, VREF, Other Musculoskeletal: Yes: Other (amputation LLE) - Alcohol/Substance Use Hx Alcohol Use: No (unknown/pt denies) - Smoking History Smoking history: Current every day smoker Have you smoked in the past 12 months: Yes Aproximately how many cigarettes per day: 5 Home Medications - Allergies Allergies/Adverse Reactions: Allergies Allergy/AdvReac Type Severity Reaction Status Date / Time No Known Allergies Allergy Verified 02/20/17 17:09 - Home Medications Home Medications: Ambulatory Orders Amlodipine Besylate 5 mg PO DAILY 02/20/17 Folic Acid 1 mg PO DAILY 02/20/17 Isosorbide Mononitrate [Isosorbide Mononitrate ER] 30 mg PO DAILY 02/20/17 Metoprolol Tartrate 25 mg PO DAILY 02/20/17 Review of Systems Unable to obtain ROS, reason: unable to obtain Physical Exam Vital Signs: Vital Signs Temperature 98.8 F 02/26/17 14:44 Pulse Rate 79 02/26/17 14:44 Respiratory Rate 19 02/26/17 14:44 Blood Pressure 100/66 02/26/17 14:44 O2 Sat by Pulse Oximetry (%) 97 02/26/17 10:00 Constitutional: Yes: Anxious, Pallor, Thin Eyes: Yes: Other. No: WNL, Conjunctiva Clear, EOM Intact, Cataracts, Diplopia, Occular Prosthesis (conj pale), PERRL, Ptosis, Sclera Icterus, Tearing HENT: Yes: WNL Neck: Yes: WNL, Supple, Trachea Midline Cardiovascular: Yes: WNL, S1, S2 Respiratory: Yes: Diminished (L lower lung field) Gastrointestinal: Yes: WNL, Normal Bowel Sounds, Soft, Other (colostomy w liquid stool) Breast(s): Yes: WNL Musculoskeletal: Yes: WNL Extremities: Yes: Amputation Edema: No Integumentary: Yes: WNL (confused) Neurological: Yes: Confusion Labs: CBC, BMP 02/24/17 05:50 02/26/17 05:35 Problem List - Problems (1) Rectal carcinoma Code(s): C20 - MALIGNANT NEOPLASM OF RECTUM (2) Anemia Code(s): D64.9 - ANEMIA, UNSPECIFIED Assessment/Plan Pt known to me in past , Rx w pre-op RT/5-FU , rectal surgery and colostomy 2012 / adjuvant chemoRx , no f/u w me since . Now w lung lesion which is suspicious for neoplasm , either a metastasis or a new primary. Normally we would consider a CT guided bx but pt appears to have had an acute CVA .Pt w decreased appetite and weight loss X several mo. ; depression also.Will discuss w primary care and neurology if his current condition too fragile for bx lung.I spoke w sister about probability of diagnosing a malignancy , met.rectal vs another primary such as lung, for which we may have few if no options in his case,considering his overall state and co-morbidities.Please obtain CEA level, anemia w/u w iron studies Iron/TIBC/% sat , Ferritin,LDH,Retic, B12/folate , thyroid profile.Consider keeping hgb >8 w Tx as needed ; stool for occult blood.
--- NOTE | 2017-02-26 17:17 | PN ---
Physical Exam: SUBJECTIVE: Patient seen and examined at bedside. He follows very limited commands and answers minimal questions. Per nurse, his mental status has improved. No acute event overnight. OBJECTIVE: Vital Signs Period Temp Pulse Resp BP Sys/Tapia Pulse Ox Last 24 Hr 97.3 F-98.8 F 52-79 19-20 99-103/52-67 97-97 GENERAL: Awake, alert but not oriented, follows minimal commands, able to answer some questions, unable to maintain eye contact HEAD: AT, NC EYES: Pupils equal, round and reactive to light, sclera anicteric, conjunctiva clear ENT: oropharynx clear without exudates LUNGS: CTAB HEART: RRR, S1 and S2, no rub ABDOMEN: +bs, soft, non-tender, no rebound, guarding EXTREMITIES: No peripheral edema NEURO: unable to perform due to patient's mental status Laboratory Results - last 24 hr 02/26/17 02/26/17 05:35 12:21 Sodium 141 Potassium 4.3 Chloride 109 H Carbon Dioxide 21 Anion Gap 11 BUN 20 H Creatinine 1.2 POC Glucometer 172 Random Glucose 64 L Calcium 7.8 L Albumin 2.5 L Active Medications Generic Name Dose Route Start Last Admin Trade Name Freq PRN Reason Stop Dose Admin Ferrous Sulfate 325 mg 02/23/17 17:30 02/26/17 09:24 Feosol - PO 325 mg BIDWM JULIO Administration Methimazole 5 mg 02/24/17 13:00 02/26/17 06:12 Tapazole - PO 5 mg TID JULIO Administration Prednisone 30 mg 02/27/17 10:00 Deltasone - PO DAILY JULIO Rivaroxaban 15 mg 02/25/17 14:00 02/26/17 09:25 Xarelto - PO 15 mg DAILY JULIO Administration Rosuvastatin Calcium 10 mg 02/24/17 22:00 02/25/17 21:46 Crestor - PO 10 mg HS JULIO Administration Imaging MRI Brain on 02/26: Multiple supratentorial and infratentorial acute infarcts. Increased intraluminal signal intensity is seen within the intracranial left internal carotid artery which may be on the basis of occlusion or patency with severely diminished blood flow Carotid Doppler on 02/26: Moderately severe atherosclerotic disease with occlusion of the left ICA CT head on 02/24: acute nonhemorrhagic left posterior temporal/parietal cortical infarct ASSESSMENT/PLAN: 72 yo M h/o colon cancer s/o colostomy, HTN, left lower ext arterial emboli admitted for PNA and CVA. ID: Obstructive pneumonia 2/2 lung mass - Afrebile and WBC cont. to trend down - Clear lungs on physical exam - Completed rocephin 7 day course Neuro: CVA, acute L posterior temporal/parietal infarct - Remains disphasic - CT, MRI and carotid doppler findings consistent with CVA of ischemic origin - Restarted on xarelto HemOnc: New lung lesion; Rectal carcinoma s/p rectal surgery, colostomy and chemo - Significant h/o coagulopathy: cancer, arterial emboli - Lung biopsy when medically improved - F/u iron studies, LDH, retic, B12/folate, TSH, T4, stool OB - HGB at baseline, cont. to monitor H&H - Cont. 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 to monitor Cr and Ca2+ Endo - Elevated free T4 and suppressed TSH - Cont. methimazole FEN - No IVF indicated - Cont. to monitor Ca2+ - Dysphagia puree low fiber Prophylaxis - DVT: on Xarelto - GI: not indicated Disposition - Cont. to monitor on Tele - Active discussion with patient's sister, who is the HCP, regarding goal of care Code status - Full code Visit type - Emergency Visit Emergency Visit: No - New Patient This patient is new to me today: Yes Date on this admission: 02/27/17 - Critical Care Critical Care patient: No
[2017-02-26] MEDS: ROSUVASTATIN CA 10 MG TABLET (FP) PO SCH (21:56)
[2017-02-27] MEDS: METHIMAZOLE 5 MG TABLET (FP) PO SCH ×3 (05:40→21:41)
[2017-02-27 08:54] LABS: FERRITIN 347.971 ng/ml (16.4-293.9); FREE T4 1.19 ng/dl (0.76-1.16)
[2017-02-27 09:00] LABS: CALCIUM 8.3 mg/dL (8.5-10.1); COCKROFT - GAULT 52.69; CREATININE 1.2 mg/dL (0.7-1.3); MAGNESIUM 1.9 mg/dL (1.8-2.4)
[2017-02-27] MEDS: RIVAROXABAN 15 MG TABLET PO SCH (09:07)
[2017-02-27] MEDS: FERROUS SO4 325 MG TABLET (FP) PO SCH ×2 (09:08→18:25)
[2017-02-27] MEDS: predniSONE 20 MG TABLET (UD) PO SCH (09:08)
--- NOTE | 2017-02-27 11:42 | CONSULT ---
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 Source of embolism not documented. He was subsequently treated for rectal cancer with RT, Chemo and surgery. He is now admitted with left lung mass. On admission he appeared confused and neurology evaluation ensued. Head MRI showed acute infarcts and carotid Duplex shows occlusion of left ICA. 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 No: Alzheimer's, Dementia, Migraine, Multiple Sclerosis, Peripheral Neuropathy, Parkinson's, Seizure, Syncope, TIA, Vertigo, Other Cardio/Vascular: Yes: Other (peripheral vascular disease) Pulmonary: Yes: Pneumonia Gastrointestinal: Yes: Cancer Hepatobiliary: No: Cirrhosis, Cholelithiasis, Cholecystitis, Choledocholithiasis , Hepatitis A, Hepatitis B, Hepatitis C, Other Renal/: Yes: Other (SHIVA) Infectious Disease: No: AIDS, C-Diff, Herpes Zoster, HIV, MRSA, STD's, Tuberculosis, VREF, Other Musculoskeletal: Yes: Other (amputation LLE) - Alcohol/Substance Use Hx Alcohol Use: No (unknown/pt denies) - Smoking History Smoking history: Current every day smoker Have you smoked in the past 12 months: Yes Aproximately how many cigarettes per day: 5 Home Medications - Allergies Allergies/Adverse Reactions: Allergies Allergy/AdvReac Type Severity Reaction Status Date / Time No Known Allergies Allergy Verified 02/20/17 17:09 - Home Medications Home Medications: Ambulatory Orders Amlodipine Besylate 5 mg PO DAILY 02/20/17 Folic Acid 1 mg PO DAILY 02/20/17 Isosorbide Mononitrate [Isosorbide Mononitrate ER] 30 mg PO DAILY 02/20/17 Metoprolol Tartrate 25 mg PO DAILY 02/20/17 Physical Exam Vital Signs: Vital Signs Temperature 98.1 F 02/27/17 05:20 Pulse Rate 62 02/27/17 05:20 Respiratory Rate 19 02/27/17 05:20 Blood Pressure 111/69 02/27/17 05:20 O2 Sat by Pulse Oximetry (%) 98 02/26/17 20:35 Constitutional: Yes: No Distress Eyes: Yes: WNL HENT: Yes: WNL Neck: Yes: Supple Cardiovascular: Yes: Regular Rate and Rhythm Respiratory: Yes: Regular Gastrointestinal: Yes: Soft Extremities: Yes: Amputation (Left BK, well healed) Edema: No Neurological: Yes: Alert, Oriented ...Motor Strength: WNL Labs: CBC, BMP 02/24/17 05:50 02/27/17 05:35 Imaging - Results Ultrasound: Image Reviewed (Carotid DUplex with left ICA occlusion) Problem List - Problems (1) Left carotid artery occlusion Assessment/Plan: Occluded left ICA with left hemispheric infarcts.Unknown if the occlusion is acute or chronic as there are no older studies available. He was not taking his Xarelto prior to admission and this may be a factor. Echo did not show atrial thrombus or vegetations. At this point there is no indication for carotid revascularization with a complete occlusion. Contralateral carotid is normal and should provide adequate perfusion to brain. CTA of neck ordered to confirm carotid occlusion. Code(s): I65.22 - OCCLUSION AND STENOSIS OF LEFT CAROTID ARTERY
--- NOTE | 2017-02-27 12:16 | PN ---
Progress Note (short form) - Note Progress Note: currently asymptomatic. difficulty in speaking in Italian today. denies Cp, SOB, fever,chills, N/V/C/D Current Medications Generic Name Dose Route Start Last Admin Trade Name Farzana PRN Reason Stop Dose Admin Ferrous Sulfate 325 mg 02/23/17 17:30 02/27/17 09:08 Feosol - PO 325 mg BIDWM JULIO Administration Methimazole 5 mg 02/24/17 13:00 02/27/17 05:40 Tapazole - PO 5 mg TID JULIO Administration Prednisone 30 mg 02/27/17 10:00 02/27/17 09:08 Deltasone - PO 30 mg DAILY JULIO Administration Rivaroxaban 15 mg 02/25/17 14:00 02/27/17 09:07 Xarelto - PO 15 mg DAILY JULIO Administration Rosuvastatin Calcium 10 mg 02/24/17 22:00 02/26/17 21:56 Crestor - PO 10 mg HS JULIO Administration Last Vital Signs Temp Pulse Resp BP Pulse Ox 98.1 F 62 19 111/69 98 02/27/17 05:20 02/27/17 05:20 02/27/17 05:20 02/27/17 05:20 02/26/17 20:35 General NAD, aphasix, apraxic CV S1 S2 RRR no murmur/rub/gallop Lungs CTA B/L no wheezing/rales/rhonchi Neuro follow simple commands. CMP Sodium 140 mmol/L (136-145) 02/27/17 05:35 Potassium 3.9 mmol/L (3.5-5.1) 02/27/17 05:35 Chloride 109 mmol/L (98-107) H 02/27/17 05:35 Carbon Dioxide 21 mmol/L (21-32) 02/27/17 05:35 Anion Gap 10 (8-16) 02/27/17 05:35 BUN 23 mg/dL (7-18) H 02/27/17 05:35 Creatinine 1.2 mg/dL (0.7-1.3) 02/27/17 05:35 Creat Clearance w eGFR 40.04 (>60) 02/22/17 05:35 Calcium 8.3 mg/dL (8.5-10.1) L 02/27/17 05:35 Total Bilirubin 0.2 mg/dL (0.2-1.0) D 02/22/17 05:35 AST 14 U/L (15-37) L D 02/22/17 05:35 ALT 17 U/L (12-78) D 02/22/17 05:35 Alkaline Phosphatase 74 U/L (45-117) D 02/22/17 05:35 Total Protein 6.1 g/dl (6.4-8.2) L 02/22/17 05:35 Albumin 2.5 g/dl (3.4-5.0) L 02/26/17 05:35 ASSESSMENT AND PLAN: 72 year old male with pmh colon cancer s/o colostomy, HTN, left lower ext arterial emboli presented to the ED and was admitted for further evaluation of their emergent condition 1. post-obstructive PNA- clinically stable. afebrile. leukocytosis improved (on steroids). completed 7 day course of abx 2. Acute L posterior temporal/parietal infarct-continues to have apraxia and aphasia. MBS done and placed on dysphagia diet. carotid doppler showing complete occlusion on L ICA. vascular surgery consult. PT assessment. will likely benefit from [facility] 3. LLL lung mass- oncology input noted. will need bx to determine if this is recurrent or new malignancy. in setting of recent CVA that occurred after a/c was held will defer this at this time. pt can get bx done as outpatient. 4. Acute encephalopathy-hypercalcemia vs hyperthyroidism, improved. avoid sedating medications. . 5. Acute COPD exacerbation-clinically improved. decrease to prednisone 30mg. will cont to taper nebs prn. pulmonary on board. 6. SHIVA- unknown baseline. remains stable 7. Hypercalcemia- Corrected Ca 9.5. stable off fluids. 8. Low TSH- elevated T4. on methimazole 5mg q8h. 9. HTN- controlled. 10. Arterial emboli-on xarelto 11. Normocytic anemia- Hgb stable. anemia of chronic disease. no indication for transfusion at this time 12. DVT ppx- xarelto 13. d/c planning wednesday to [facility] Visit type - Emergency Visit Emergency Visit: Yes ED Registration Date: 02/20/17 Care time: The patient presented to the Emergency Department on the above date and was hospitalized for further evaluation of their emergent condition. - New Patient This patient is new to me today: No - Critical Care Critical Care patient: No - Discharge Referral Referred to [facility] No
--- NOTE | 2017-02-27 12:27 | PN ---
Progress Note (short form) - Note Progress Note: HPI : 02/25/17 72 year old male with significant PMH of Colon Cancer (s/p colostomy), Left below knee arterial emboli on Xarelto & HTN who presents to ED with shortness of breath & cough on 02/20 . Being Worked up and treated for PNA and possible lung mass. Was noted to be confused and CT HD suggested left MIG WELDER infarct. PT latvian speaking primarily and but understand basic hebrew. He denies LLANOS , focal motor complaints. no visual complaints. PT + smoker. FU : MRI BRAIN reviewed- showered acute embolic events L MCA (inf division > sup) ; L carotid occlusion PT remains aphasic , expressive language deficits Home Medications - Allergies Allergies/Adverse Reactions: Allergies Allergy/AdvReac Type Severity Reaction Status Date / Time No Known Allergies Allergy Verified 02/20/17 17:09 - Home Medications Home Medications: Ambulatory Orders Amlodipine Besylate 5 mg PO DAILY 02/20/17 Folic Acid 1 mg PO DAILY 02/20/17 Isosorbide Mononitrate [Isosorbide Mononitrate ER] 30 mg PO DAILY 02/20/17 Metoprolol Tartrate 25 mg PO DAILY 02/20/17 Physical Exam-Neuro Vital Signs: Vital Signs Vital Signs Period Temp Pulse Resp BP Sys/Tapia Pulse Ox Last 24 Hr 97.5 F-98.8 F 62-79 19-20 100-124/65-74 98 Constitutional: Yes: Pallor Neck: Yes: Supple Cardiovascular: Yes: Regular Rate and Rhythm Respiratory: Yes: Other (dec BS L) Gastrointestinal: Yes: Normal Bowel Sounds Labs: CBCD WBC 10.6 K/mm3 (4.0-10.0) H 02/24/17 05:50 RBC 2.61 M/mm3 (4.00-5.60) L 02/24/17 05:50 Hgb 7.6 GM/dL (11.7-16.9) L 02/24/17 05:50 Hct 23.6 % (35.4-49) L 02/24/17 05:50 MCV 90.6 fl (80-96) 02/24/17 05:50 MCHC 32.2 g/dl (32.0-35.9) 02/24/17 05:50 RDW 15.6 % (11.9-15.9) 02/24/17 05:50 Plt Count 158 K/MM3 (134-434) 02/24/17 05:50 MPV 8.4 fl (7.5-11.1) 02/24/17 05:50 CMP Sodium 140 mmol/L (136-145) 02/27/17 05:35 Potassium 3.9 mmol/L (3.5-5.1) 02/27/17 05:35 Chloride 109 mmol/L (98-107) H 02/27/17 05:35 Carbon Dioxide 21 mmol/L (21-32) 02/27/17 05:35 Anion Gap 10 (8-16) 02/27/17 05:35 BUN 23 mg/dL (7-18) H 02/27/17 05:35 Creatinine 1.2 mg/dL (0.7-1.3) 02/27/17 05:35 Creat Clearance w eGFR 40.04 (>60) 02/22/17 05:35 Calcium 8.3 mg/dL (8.5-10.1) L 02/27/17 05:35 Total Bilirubin 0.2 mg/dL (0.2-1.0) D 02/22/17 05:35 AST 14 U/L (15-37) L D 02/22/17 05:35 ALT 17 U/L (12-78) D 02/22/17 05:35 Alkaline Phosphatase 74 U/L (45-117) D 02/22/17 05:35 Total Protein 6.1 g/dl (6.4-8.2) L 02/22/17 05:35 Albumin 2.5 g/dl (3.4-5.0) L 02/26/17 05:35 - Neuro Exam Level Of Consciousness: Yes: Alert (awake and responsive, though expressive aphasia, unable to name, repeat ( call fork;.."eat" ), follows simple requests --closes eyes, close fist; EOMI, dec Blink to threat R, no focal weakness or drift , NIH Stroke Scale - Total Score NIH Stroke Scale Score: 0 Imaging - Results Chest X-ray: Report Reviewed Cat Scan: Report Reviewed Problem List - Problems (1) Lung mass Code(s): R91.8 - OTHER NONSPECIFIC ABNORMAL FINDING OF LUNG FIELD (2) Pneumonia Code(s): J18.9 - PNEUMONIA, UNSPECIFIED ORGANISM Qualifiers: Laterality: left Lung location: lower lobe of lung (3) Smoker Code(s): F17.200 - NICOTINE DEPENDENCE, UNSPECIFIED, UNCOMPLICATED (4) Encephalopathy Code(s): G93.40 - ENCEPHALOPATHY, UNSPECIFIED (5 ) CVA -- acute L inf division MCA , left carotid occulusion Assessment/Plan 72 year old male with significant PMH of COPD/smoker, Colon Cancer (s/p colostomy), Left below knee arterial emboli on Xarelto & HTN who presents to ED with shortness of breath & cough on 02/20 . Being Worked up and treated for PNA and possible lung mass, hypercalcemia/SHIVA. Was noted to be confused and CT HD suggested left MIG WELDER infarct on 02/24/17. MRI BRAIN shows acute showering infarcts left MCA inf division territory; L carotid occlusion- symptomatic suspect was being tenuously stabilized by his AC, but became symptomatic after it was being held residual expressive aphasia on exam seen by vascular- no intervention for complete occlusion, CTA P ideally would restart AC by 7 days , may need lung biopsy if biopsy medically necessary can be pursued ( sx started on 02/24--so by 03/03 should be ok) , as then can start AC ; will start ASA /cont statin in meantime if ok by team. Dr Loving [phone] Problem List - Problems (1) Lung mass Code(s): R91.8 - OTHER NONSPECIFIC ABNORMAL FINDING OF LUNG FIELD (2) Pneumonia Code(s): J18.9 - PNEUMONIA, UNSPECIFIED ORGANISM Qualifiers: Laterality: left Lung location: lower lobe of lung (3) Smoker Code(s): F17.200 - NICOTINE DEPENDENCE, UNSPECIFIED, UNCOMPLICATED (4) Encephalopathy Code(s): G93.40 - ENCEPHALOPATHY, UNSPECIFIED (5) Left carotid artery occlusion Code(s): I65.22 - OCCLUSION AND STENOSIS OF LEFT CAROTID ARTERY (6) CVA (cerebral vascular accident) Code(s): I63.9 - CEREBRAL INFARCTION, UNSPECIFIED
--- NOTE | 2017-02-27 12:45 | PN ---
Progress Note (short form) - Note Progress Note: Neurology Addendum : spoke to team, AC was restarted after MRI findings noted ( no ASA needed) ; neurologically stable plan is to do biopsy as an outpt; can get CTA in meantime, but will not likely change ability to intervene at this juncture. Dr Loving [phone] Problem List - Problems (1) Lung mass Code(s): R91.8 - OTHER NONSPECIFIC ABNORMAL FINDING OF LUNG FIELD (2) Pneumonia Code(s): J18.9 - PNEUMONIA, UNSPECIFIED ORGANISM Qualifiers: Laterality: left Lung location: lower lobe of lung (3) Smoker Code(s): F17.200 - NICOTINE DEPENDENCE, UNSPECIFIED, UNCOMPLICATED (4) Encephalopathy Code(s): G93.40 - ENCEPHALOPATHY, UNSPECIFIED (5) Left carotid artery occlusion Code(s): I65.22 - OCCLUSION AND STENOSIS OF LEFT CAROTID ARTERY (6) CVA (cerebral vascular accident) Code(s): I63.9 - CEREBRAL INFARCTION, UNSPECIFIED
--- NOTE | 2017-02-27 13:03 | PN ---
Progress Note (short form) - Note Progress Note: PULMONARY VSS/AFEBRILE MAORI SPEAKING ANICTERIC DIMINISHED BREATH SOUNDS LEFT BASE S1S2 BS+ OSTOMY LEFT BKA NOTES/IMAGING/MEDS/NOTES/CT BRAIN REVIEWED (1) Chest pain Code(s): R07.9 - CHEST PAIN, UNSPECIFIED Qualifiers: Chest pain type: unspecified Qualified Code(s): R07.9 - Chest pain, unspecified (2) Pneumonia Code(s): J18.9 - PNEUMONIA, UNSPECIFIED ORGANISM Qualifiers: Laterality: left Lung location: lower lobe of lung (3) Lung mass Code(s): R91.8 - OTHER NONSPECIFIC ABNORMAL FINDING OF LUNG FIELD (4) Smoker Code(s): F17.200 - NICOTINE DEPENDENCE, UNSPECIFIED, UNCOMPLICATED (5) Lethargy Code(s): R53.83 - OTHER FATIGUE (6) CVA Assessment/Plan Agree with ABX coverage BD TX/correct calcium taper prednisone O2 as needed Will eventually need tissue diagnosis of lung density Xarelto restarted Dallin LEDBETTER MD
[2017-02-27] MEDS ORDERED: NAPH,MB-DB/K PH,MBDB POWDER PACKET PO ONE ×2 (13:37→15:45)
[2017-02-27] MEDS: ROSUVASTATIN CA 10 MG TABLET (FP) PO SCH (21:41)
[2017-02-28] MEDS: METHIMAZOLE 5 MG TABLET (FP) PO SCH ×3 (05:46→21:15)
[2017-02-28 08:36] LABS: ALBUMIN 2.7 g/dl (3.4-5.0); BILIRUBIN,TOTAL 0.3 mg/dL (0.2-1.0); CALCIUM 8.3 mg/dL (8.5-10.1); COCKROFT - GAULT 44.85; CREATININE 1.4 mg/dL (0.7-1.3); TOT PROT 5.9 g/dl (6.4-8.2)
--- NOTE | 2017-02-28 10:12 | PN ---
Progress Note (short form) - Note Progress Note: HPI : 02/25/17 72 year old male with significant PMH of Colon Cancer (s/p colostomy), Left below knee arterial emboli on Xarelto & HTN who presents to ED with shortness of breath & cough on 02/20 . Being Worked up and treated for PNA and possible lung mass. Was noted to be confused and CT HD suggested left METAL MOLD DRESSER infarct. PT turkmen speaking primarily and but understand basic latvian. He denies LLANOS , focal motor complaints. no visual complaints. PT + smoker. FU : mixed aphasia persists , difficulty with expression > comprehension MRI BRAIN- showered acute embolic events L MCA (inf division > sup) ; L carotid occlusion Home Medications - Allergies Allergies/Adverse Reactions: Allergies Allergy/AdvReac Type Severity Reaction Status Date / Time No Known Allergies Allergy Verified 02/20/17 17:09 - Home Medications Home Medications: Ambulatory Orders Amlodipine Besylate 5 mg PO DAILY 02/20/17 Folic Acid 1 mg PO DAILY 02/20/17 Isosorbide Mononitrate [Isosorbide Mononitrate ER] 30 mg PO DAILY 02/20/17 Metoprolol Tartrate 25 mg PO DAILY 02/20/17 Physical Exam-Neuro Vital Signs: Vital Signs Vital Signs Temperature 98.3 F 02/28/17 05:41 Pulse Rate 78 02/28/17 05:41 Respiratory Rate 20 02/28/17 05:41 Blood Pressure 108/58 02/28/17 05:41 O2 Sat by Pulse Oximetry (%) 96 02/27/17 21:00 Constitutional: Yes: Pallor Neck: Yes: Supple Cardiovascular: Yes: Regular Rate and Rhythm Respiratory: Yes: Other (dec BS L) Gastrointestinal: Yes: Normal Bowel Sounds Labs: CBCD WBC 10.6 K/mm3 (4.0-10.0) H 02/24/17 05:50 RBC 2.61 M/mm3 (4.00-5.60) L 02/24/17 05:50 Hgb 7.6 GM/dL (11.7-16.9) L 02/24/17 05:50 Hct 23.6 % (35.4-49) L 02/24/17 05:50 MCV 90.6 fl (80-96) 02/24/17 05:50 MCHC 32.2 g/dl (32.0-35.9) 02/24/17 05:50 RDW 15.6 % (11.9-15.9) 02/24/17 05:50 Plt Count 158 K/MM3 (134-434) 02/24/17 05:50 MPV 8.4 fl (7.5-11.1) 02/24/17 05:50 CMP Sodium 140 mmol/L (136-145) 02/27/17 05:35 Potassium 3.9 mmol/L (3.5-5.1) 02/27/17 05:35 Chloride 109 mmol/L (98-107) H 02/27/17 05:35 Carbon Dioxide 21 mmol/L (21-32) 02/27/17 05:35 Anion Gap 10 (8-16) 02/27/17 05:35 BUN 23 mg/dL (7-18) H 02/27/17 05:35 Creatinine 1.2 mg/dL (0.7-1.3) 02/27/17 05:35 Creat Clearance w eGFR 40.04 (>60) 02/22/17 05:35 Calcium 8.3 mg/dL (8.5-10.1) L 02/27/17 05:35 Total Bilirubin 0.2 mg/dL (0.2-1.0) D 02/22/17 05:35 AST 14 U/L (15-37) L D 02/22/17 05:35 ALT 17 U/L (12-78) D 02/22/17 05:35 Alkaline Phosphatase 74 U/L (45-117) D 02/22/17 05:35 Total Protein 6.1 g/dl (6.4-8.2) L 02/22/17 05:35 Albumin 2.5 g/dl (3.4-5.0) L 02/26/17 05:35 - Neuro Exam Level Of Consciousness: Yes: Alert (awake and responsive, though expressive aphasia, unable to name, repeat ( call fork;.."eat" ), follows simple requests --closes eyes, close fist; EOMI, dec Blink to threat R, no focal weakness or drift , NIH Stroke Scale - Total Score NIH Stroke Scale Score: 0 Imaging - Results Chest X-ray: Report Reviewed Cat Scan: Report Reviewed Problem List - Problems (1) Lung mass Code(s): R91.8 - OTHER NONSPECIFIC ABNORMAL FINDING OF LUNG FIELD (2) Pneumonia Code(s): J18.9 - PNEUMONIA, UNSPECIFIED ORGANISM Qualifiers: Laterality: left Lung location: lower lobe of lung (3) Smoker Code(s): F17.200 - NICOTINE DEPENDENCE, UNSPECIFIED, UNCOMPLICATED (4) Encephalopathy Code(s): G93.40 - ENCEPHALOPATHY, UNSPECIFIED (5 ) CVA -- acute L inf division MCA , left carotid occulusion Assessment/Plan 72 year old male with significant PMH of COPD/smoker, Colon Cancer (s/p colostomy), Left below knee arterial emboli on Xarelto & HTN who presents to ED with shortness of breath & cough on 02/20 . Being Worked up and treated for PNA and possible lung mass, hypercalcemia/SHIVA. Was noted to be confused and CT HD suggested left METAL MOLD DRESSER infarct on 02/24/17. Exam : shows mixed aphasia. MRI BRAIN shows acute showering infarcts left MCA inf division territory; L carotid occlusion- symptomatic suspect was being tenuously stabilized by his AC, but became symptomatic after it was being held seen by vascular- no intervention for complete occlusion, CTA P AC restarted in meantime will likely have surgical biopsy done as outpt Dr Loving [phone] Problem List - Problems (1) Lung mass Code(s): R91.8 - OTHER NONSPECIFIC ABNORMAL FINDING OF LUNG FIELD (2) Pneumonia Code(s): J18.9 - PNEUMONIA, UNSPECIFIED ORGANISM Qualifiers: Laterality: left Lung location: lower lobe of lung (3) Smoker Code(s): F17.200 - NICOTINE DEPENDENCE, UNSPECIFIED, UNCOMPLICATED (4) Encephalopathy Code(s): G93.40 - ENCEPHALOPATHY, UNSPECIFIED (5) Left carotid artery occlusion Code(s): I65.22 - OCCLUSION AND STENOSIS OF LEFT CAROTID ARTERY (6) CVA (cerebral vascular accident) Code(s): I63.9 - CEREBRAL INFARCTION, UNSPECIFIED
[2017-02-28] MEDS: predniSONE 20 MG TABLET (UD) PO SCH (10:15)
[2017-02-28] MEDS: FERROUS SO4 325 MG TABLET (FP) PO SCH ×2 (10:16→17:00)
[2017-02-28] MEDS: RIVAROXABAN 15 MG TABLET PO SCH (10:16)
--- NOTE | 2017-02-28 10:47 | PN ---
Physical Exam: SUBJECTIVE: Patient seen and examined at bedside. He follows commands and answers minimal questions with repetitive words. No acute event overnight. OBJECTIVE: Vital Signs Period Temp Pulse Resp BP Sys/Tapia Pulse Ox Last 24 Hr 97.6 F-98.6 F 73-78 20-20 91-122/57-68 96 GENERAL: Awake, alert but not oriented, follows minimal commands, answers yes to most questions HEAD: AT, NC EYES: Pupils equal, round and reactive to light, sclera anicteric, conjunctiva clear ENT: oropharynx clear without exudates LUNGS: rhonchi in the lower lobes HEART: RRR, S1 and S2, no rub ABDOMEN: +bs, soft, non-tender, no rebound, guarding EXTREMITIES: No peripheral edema NEURO: unable to perform due to patient's mental status CMP Sodium 142 mmol/L (136-145) 02/28/17 05:35 Potassium 4.1 mmol/L (3.5-5.1) 02/28/17 05:35 Chloride 110 mmol/L (98-107) H 02/28/17 05:35 Carbon Dioxide 21 mmol/L (21-32) 02/28/17 05:35 Anion Gap 11 (8-16) 02/28/17 05:35 BUN 24 mg/dL (7-18) H 02/28/17 05:35 Creatinine 1.4 mg/dL (0.7-1.3) H 02/28/17 05:35 Creat Clearance w eGFR 50.10 (>60) 02/28/17 05:35 Calcium 8.3 mg/dL (8.5-10.1) L 02/28/17 05:35 Total Bilirubin 0.3 mg/dL (0.2-1.0) D 02/28/17 05:35 AST 7 U/L (15-37) L D 02/28/17 05:35 ALT 14 U/L (12-78) 02/28/17 05:35 Alkaline Phosphatase 65 U/L (45-117) 02/28/17 05:35 Total Protein 5.9 g/dl (6.4-8.2) L 02/28/17 05:35 Albumin 2.7 g/dl (3.4-5.0) L 02/28/17 05:35 Intake & Output 05/02/0802/26/17 02/27/17 02/28/17 23:59 23:59 23:59 23:59 Intake Total 1200 250 480 60 Output Total 400 1125 1700 450 Balance 128 -892 -8600 -390 Weight 65.045 kg 64.592 kg Active Medications Generic Name Dose Route Start Last Admin Trade Name Supaq PRN Reason Stop Dose Admin Ferrous Sulfate 325 mg 02/23/17 17:30 02/28/17 10:16 Feosol - PO 325 mg BIDWM JULIO Administration Methimazole 5 mg 02/24/17 13:00 02/28/17 05:46 Tapazole - PO 5 mg TID JULIO Administration Prednisone 30 mg 02/27/17 10:00 02/28/17 10:15 Deltasone - PO 30 mg DAILY UJLIO Administration Rivaroxaban 15 mg 02/25/17 14:00 02/28/17 10:16 Xarelto - PO 15 mg DAILY JULIO Administration Rosuvastatin Calcium 10 mg 02/24/17 22:00 02/27/17 21:41 Crestor - PO 10 mg HS JULIO Administration Imaging MRI Brain on 02/26: Multiple supratentorial and infratentorial acute infarcts. Increased intraluminal signal intensity is seen within the intracranial left internal carotid artery which may be on the basis of occlusion or patency with severely diminished blood flow Carotid Doppler on 02/26: Moderately severe atherosclerotic disease with occlusion of the left ICA CT head on 02/24: acute nonhemorrhagic left posterior temporal/parietal cortical infarct Neck CTA on 02/27: pending read ASSESSMENT/PLAN: 72 yo M h/o colon cancer s/o colostomy, HTN, left lower ext arterial emboli admitted for PNA and CVA. ID: Obstructive pneumonia 2/2 lung mass - Afrebile with normal WBC - Rhonchi in lower lobes on physical exam - Completed rocephin 7 day course Neuro: CVA, acute L posterior temporal/parietal infarct - Remain expressively aphasic - CT, MRI and carotid doppler findings consistent with CVA of ischemic origin - Restarted on xarelto HemOnc: New lung lesion; Rectal carcinoma s/p rectal surgery, colostomy and chemo - Significant h/o coagulopathy: cancer, arterial emboli - Lung biopsy when medically improved - F/u iron studies, LDH, retic, B12/folate, TSH, T4, stool OB - HGB at baseline, cont. to monitor H&H - Cont. 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 methimazole FEN - NS 75ml/hr - Cont. to monitor lytes and Cr - Dysphagia puree low fiber Prophylaxis - DVT: on Xarelto - GI: not indicated Disposition - Cont. to monitor on Tele - Plan discharge to rehab Code status - Full code Visit type - Emergency Visit Emergency Visit: No - New Patient This patient is new to me today: No - Critical Care Critical Care patient: No
--- NOTE | 2017-02-28 10:54 | PN ---
Progress Note (short form) - Note Progress Note: PULMONARY VSS/AFEBRILE TURKISH SPEAKING ANICTERIC DIMINISHED BREATH SOUNDS LEFT BASE/RIGHT POSTERIOR RHONCHI S1S2 BS+ OSTOMY LEFT BKA NOTES/IMAGING/MEDS/NOTES/CT BRAIN REVIEWED (1) Chest pain Code(s): R07.9 - CHEST PAIN, UNSPECIFIED Qualifiers: Chest pain type: unspecified Qualified Code(s): R07.9 - Chest pain, unspecified (2) Pneumonia Code(s): J18.9 - PNEUMONIA, UNSPECIFIED ORGANISM Qualifiers: Laterality: left Lung location: lower lobe of lung (3) Lung mass Code(s): R91.8 - OTHER NONSPECIFIC ABNORMAL FINDING OF LUNG FIELD (4) Smoker Code(s): F17.200 - NICOTINE DEPENDENCE, UNSPECIFIED, UNCOMPLICATED (5) Lethargy Code(s): R53.83 - OTHER FATIGUE (6) CVA Assessment/Plan Agree with ABX coverage BD TX/correct calcium taper prednisone O2 as needed Will eventually need tissue diagnosis of lung density/FOB Xarelto restarted Dallin LEDBETTER MD
[2017-02-28] MEDS ORDERED: predniSONE 20 MG TABLET (UD) PO SCH (12:11)
--- NOTE | 2017-02-28 12:15 | PN ---
Teaching Attending Note Name of Resident: Keenan Onofre ATTENDING PHYSICIAN STATEMENT I saw and evaluated the patient. I reviewed the resident's note and discussed the case with the resident. I agree with the resident's findings and plan as documented. SUBJECTIVE:no complaints denies CP, SOB, fever, chills, N/V/C/D OBJECTIVE: Last Vital Signs Temp Pulse Resp BP Pulse Ox 98.3 F 78 20 108/58 96 02/28/17 05:41 02/28/17 05:41 02/28/17 05:41 02/28/17 05:41 02/27/17 21:00 ASSESSMENT AND PLAN: 72 year old male with pmh colon cancer s/o colostomy, HTN, left lower ext arterial emboli presented to the ED and was admitted for further evaluation of their emergent condition 1. post-obstructive PNA- clinically stable. afebrile. leukocytosis improved (on steroids). completed 7 day course of abx 2. Acute L posterior temporal/parietal infarct-continues to have apraxia and aphasia. MBS done and placed on dysphagia diet. carotid doppler showing complete occlusion on L ICA. CTA done, awaiting read. vascular surgery consult. PT assessment. will likely benefit from [facility] 3. LLL lung mass- oncology input noted. will need bx to determine if this is recurrent or new malignancy. in setting of recent CVA that occurred after a/c was held will defer this at this time. pt can get bx done as outpatient. 4. Acute encephalopathy-hypercalcemia vs hyperthyroidism, improved. avoid sedating medications. . 5. Acute COPD exacerbation-clinically improved. decrease to prednisone 30mg. will cont to taper nebs prn. pulmonary on board. 6. SHIVA- unknown baseline. slight uptrend. been having decrease fluid intake. will give low dose IVF. encourage po intake 7. Hypercalcemia- Corrected Ca 9.5. stable off fluids. 8. Low TSH- elevated T4. on methimazole 5mg q8h. 9. HTN- controlled. 10. Arterial emboli-on xarelto 11. Normocytic anemia- Hgb stable. anemia of chronic disease. no indication for transfusion at this time 12. DVT ppx- xarelto 13. d/c planning wednesday to [facility]
[2017-02-28] MEDS: SODIUM CHLORIDE 1,000 ML IV SCH (14:02)
--- NOTE | 2017-02-28 14:40 | PN ---
Progress Note (short form) - Note Progress Note: CTA reviewed: Complete occlusion of left ICA. Right ICA patent without significant narrowing. Dominant right vertebral artery. No intervention indicated for occluded carotid artery. Problem List - Problems (1) Left carotid artery occlusion Code(s): I65.22 - OCCLUSION AND STENOSIS OF LEFT CAROTID ARTERY
[2017-02-28] MEDS: ROSUVASTATIN CA 10 MG TABLET (FP) PO SCH (21:15)
[2017-03-01] MEDS: SODIUM CHLORIDE 1,000 ML IV SCH (03:30)
[2017-03-01] MEDS: METHIMAZOLE 5 MG TABLET (FP) PO SCH ×2 (05:19→14:12)
[2017-03-01 08:50] LABS: CALCIUM 7.6 mg/dL (8.5-10.1); COCKROFT - GAULT 45.2; CREATININE 1.4 mg/dL (0.7-1.3)
[2017-03-01] MEDS: RIVAROXABAN 15 MG TABLET PO SCH (09:47)
[2017-03-01] MEDS: FERROUS SO4 325 MG TABLET (FP) PO SCH (09:47)
[2017-03-01] MEDS ORDERED: predniSONE 20 MG TABLET (UD) PO SCH ×2 (10:00→12:11)
--- NOTE | 2017-03-01 11:23 | PN ---
Progress Note, Physician History of Present Illness: PULMONARY ALERT,NAD,RESP DISTRESS - Current Medication List Current Medications: Active Medications Ferrous Sulfate (Feosol -) 325 mg PO BIDWM [facility] Last Admin: 03/01/17 09:47 Dose: 325 mg Sodium Chloride (Normal Saline -) 1,000 mls @ 75 mls/hr IV ASDIR [facility] Last Admin: 03/01/17 03:30 Dose: 75 mls/hr Methimazole (Tapazole -) 5 mg PO TID [facility] Last Admin: 03/01/17 05:19 Dose: 5 mg Prednisone (Deltasone -) 20 mg PO DAILY [facility] Last Admin: 03/01/17 09:47 Dose: 20 mg Rivaroxaban (Xarelto -) 15 mg PO DAILY [facility] Last Admin: 03/01/17 09:47 Dose: 15 mg Rosuvastatin Calcium (Crestor -) 10 mg PO HS [facility] Last Admin: 02/28/17 21:15 Dose: 10 mg - Objective Vital Signs: Vital Signs Temperature 98.2 F 03/01/17 08:15 Pulse Rate 102 H 03/01/17 08:15 Respiratory Rate 18 03/01/17 08:15 Blood Pressure 96/72 03/01/17 08:15 O2 Sat by Pulse Oximetry (%) 97 02/28/17 21:21 Constitutional: Yes: Calm, Thin Eyes: Yes: WNL HENT: Yes: WNL Neck: Yes: WNL Cardiovascular: Yes: Regular Rate and Rhythm, S1, S2 Respiratory: Yes: Diminished, Other Gastrointestinal: Yes: Normal Bowel Sounds, Soft Extremities: Yes: Amputation (S/P L BKA) Edema: No Labs: CBC, BMP 02/24/17 05:50 03/01/17 05:35 INR, PTT INR 1.27 (0.82-1.09) H 02/24/17 05:50 Assessment/Plan Problem List - Problems (1) Chest pain Code(s): R07.9 - CHEST PAIN, UNSPECIFIED Qualifiers: Chest pain type: unspecified Qualified Code(s): R07.9 - Chest pain, unspecified (2) Pneumonia Code(s): J18.9 - PNEUMONIA, UNSPECIFIED ORGANISM Qualifiers: Laterality: left Lung location: lower lobe of lung (3) Lung mass Code(s): R91.8 - OTHER NONSPECIFIC ABNORMAL FINDING OF LUNG FIELD (4) Smoker Code(s): F17.200 - NICOTINE DEPENDENCE, UNSPECIFIED, UNCOMPLICATED (5) Lethargy Code(s): R53.83 - OTHER FATIGUE 6 S/P CVA Assessment/Plan BD TX O2 as needed prednisone chest x-ray DR GOMEZ
--- NOTE | 2017-03-01 12:20 | PN ---
Teaching Attending Note Name of Resident: Keenan Onofre ATTENDING PHYSICIAN STATEMENT I saw and evaluated the patient. I reviewed the resident's note and discussed the case with the resident. I agree with the resident's findings and plan as documented. SUBJECTIVE:no complaints. repeats questions asked. follow simple commands OBJECTIVE: Last Vital Signs Temp Pulse Resp BP Pulse Ox 98.2 F 102 H 18 96/72 97 03/01/17 08:15 03/01/17 08:15 03/01/17 08:15 03/01/17 08:15 02/28/17 21:21 General NAD CV S1 S2 RRR no murmur/rub/gallop Lungs CTA B/L no wheezing/rales/rhonchi ASSESSMENT AND PLAN: 72 year old male with pmh colon cancer s/o colostomy, HTN, left lower ext arterial emboli presented to the ED and was admitted for further evaluation of their emergent condition 1. post-obstructive PNA- clinically stable. afebrile. leukocytosis improved (on steroids). completed 7 day course of abx 2. Acute L posterior temporal/parietal infarct-continues to have apraxia and aphasia. MBS done and placed on dysphagia diet. carotid doppler showing complete occlusion on L ICA. CTA done, no intervention at this time per vascular surgery. PT assessment. will likely benefit from [facility] 3. LLL lung mass- oncology input noted. will need bx to determine if this is recurrent or new malignancy. in setting of recent CVA that occurred after a/c was held will defer this at this time. pt can get bx done as outpatient. 4. Acute encephalopathy-hypercalcemia vs hyperthyroidism, improved. avoid sedating medications. . 5. Acute COPD exacerbation-clinically improved. decreased prednisone to 20mg. will d/c after 3 days. nebs prn. pulmonary on board. 6. SHIVA- unknown baseline. slight uptrend. been having decrease fluid intake. stable. duncan d/c ivf to prevent volume overload. 7. Hypercalcemia- Corrected Ca 9.5. stable off fluids. 8. Low TSH- elevated T4. on methimazole 5mg q8h. will need repeat TSH in 6 weeks 9. HTN- controlled. 10. Arterial emboli-on xarelto 11. Normocytic anemia- Hgb stable. anemia of chronic disease. no indication for transfusion at this time 12. DVT ppx- xarelto 13. d/c planning to [facility]
--- NOTE | 2017-03-01 13:56 | DS ---
Physical Exam: SUBJECTIVE: Patient seen and examined at bedside. His mental status remains the same. No acute event overnight. OBJECTIVE: Vital Signs Period Temp Pulse Resp BP Sys/Tapia Pulse Ox Last 24 Hr 97.4 F-98.4 F 70-102 18-20 95-113/60-72 97 PHYSICAL EXAM GENERAL: Awake, alert but not oriented, follows minimal commands, answers yes to most questions HEAD: AT, NC EYES: Pupils equal, round and reactive to light, sclera anicteric, conjunctiva clear ENT: oropharynx clear without exudates LUNGS: rhonchi in the lower lobes HEART: RRR, S1 and S2, no rub ABDOMEN: +bs, soft, non-tender, no rebound, guarding EXTREMITIES: No peripheral edema NEURO: unable to perform due to patient's mental status LABS Laboratory Results - last 24 hr 03/01/17 05:35 Sodium 142 Potassium 3.9 Chloride 111 H Carbon Dioxide 18 L Anion Gap 13 BUN 21 H Creatinine 1.4 H Random Glucose 81 Calcium 7.6 L HOSPITAL COURSE: Date of Admission:02/20/17 72 yo M h/o colon cancer s/o colostomy, HTN, left lower ext arterial emboli admitted for pneumonia and CVA. On admission, he's found to have a new lung mass on chest CT which was causing obstructive pneumonia. He completed 7 day course of rocephin and has remained afrebile with normal WBC. Patient was scheduled to undergo lung biopsy by interventional radiology and his xarelto was held. He then had stroke the day after and both CT head and MRI show acute infarct in the L posterior temporal lobe. Subsequent carotid doppler confirms moderate to severe atherosclerosis with occlusion of L ICA. As a result, xarelto was restarted immediately. Vascular surgery was consulted regarding occluded carotid and no surgical intervention needed as the moment. Hemonc was also consulted regarding the lung mass. Recommendation is that biopsy is warranted only when patient is medically stable, maybe as outpatient. Patient was also found to have hypercalcemia and was treated with calcitonin and fluids. He also had elevated free T4 and suppressed TSH for which he's on methimazole 5mg PO TID. Methimazole an be discontinued if TSH and T4 are within normal limits after 6 weeks. His prednisone will be tapered down in 2 days in the form of 10mg daily then 5 mg daily. Patient is now stable to be transferred to a rehab facility to under go post-stroke rehab. Date of Discharge: 03/01/17 Minutes to complete discharge: 35 Discharge Summary Reason For Visit: CHEST PAIN Current Active Problems Anemia (Acute) CVA (cerebral vascular accident) (Acute) Chest pain (Acute) Encephalopathy (Acute) Left carotid artery occlusion (Acute) Lethargy (Acute) Lung mass (Acute) Pneumonia (Acute) Rectal carcinoma (Acute) Smoker (Acute) Condition: Stable - Instructions Diet, Activity, Other Instructions: Please take predisone 20mg/day for 3 days then 10mg/day for 3 more days. Please continue methimazole for 6 weeks. If TSH and T4 are within normal range on lab test after 6 weeks, methimazole can be stopped. Referrals: Helena Colvin MD [Primary Care Provider] - Disposition: NURSING HOME FACILITY - Home Medications Comprehensive Discharge Medication List: Ambulatory Orders Amlodipine Besylate 5 mg PO DAILY 02/20/17 Folic Acid 1 mg PO DAILY 02/20/17 Isosorbide Mononitrate [Isosorbide Mononitrate ER] 30 mg PO DAILY 02/20/17 Metoprolol Tartrate 25 mg PO DAILY 02/20/17 This patient is new to me today: No Emergency Visit: No Critical Care patient: No - Discharge Referral Referred to [facility] Med P.C.: No
[2017-03-01 14:57] VITALS: BP 124/63; PULSE 92; TEMP 97.7
== END 2017-03-01 16:45 | DRG 193 ==
LOC: JER 16:34 → JERBED 19:45 → J4W 02-21 00:36
PROVIDERS: ADMIT Internal Medicine; ATTEND Internal Medicine
DX: J18.9 Pneumonia, unspecified organism (principal); I63.9 Cerebral infarction, unspecified; G93.40 Encephalopathy, unspecified; N17.9 Acute kidney failure, unspecified; J44.1 Chronic obstructive pulmonary disease with (acute) exacerbation; J44.0 Chronic obstructive pulmonary disease with (acute) lower respiratory infection; R47.01 Aphasia; Z72.0 Tobacco use; R91.8 Other nonspecific abnormal finding of lung field; E86.0 Dehydration; Z93.3 Colostomy status; Z89.512 Acquired absence of left leg below knee; E83.52 Hypercalcemia; Z57.5 Occupational exposure to toxic agents in other industries; D63.8 Anemia in other chronic diseases classified elsewhere; I12.9 Hypertensive chronic kidney disease with stage 1 through stage 4 chronic kidney disease, or unspecified chronic kidney disease; N18.3 Chronic kidney disease, stage 3 (moderate); D64.9 Anemia, unspecified; R48.2 Apraxia; I73.9 Peripheral vascular disease, unspecified; Z85.048 Personal history of other malignant neoplasm of rectum, rectosigmoid junction, and anus; I65.22 Occlusion and stenosis of left carotid artery
CPT/HCPCS: 36415; 70470-TC; 70498-TC; 70551-TC; 71010-TC; 71250-TC; 74230-TC; 80048; 80053; 80061; 81003; 81015; 82040; 82310; 82378; 82550; 82607; 82728; 82746; 83540; 83550; 83605; 83615; 83721; 83735; 83970; 84100; 84439; 84443; 84466; 84484; 85025; 85027; 85044; 85379; 85610; 85730; 86850; 86900; 86901; 87040; 87086; 87899; 92611-GN; 93005; 93010; 93306-TC; 93880-TC; 94640; 97161-GP; 99285-25; J3489

== ENCOUNTER 2017-03-03 15:50 | Inpatient (IN) | payer OTHER ==
[2017-03-03] MEDS ORDERED: ALBUTEROL SO4 2.5/IPRATROPIUM 0.5 INH SOL 3 ML VIAL.NEB. NEB ONE ×2 (16:06→16:08)
--- NOTE | 2017-03-03 16:08 | PDOC ---
History of Present Illness - General History Source: Patient Exam Limitations: No Limitations - History of Present Illness Initial Comments: 03/03/17 18:18 The patient is a 72 year old male, with a significant past medical history of HTN, colon Ca (s/p colostomy bag) and left BKA vascular problem (on Xarelto) who presents to the emergency department with right sided droop noticed today by shelter staff. The patient has had a recent left parietal, frontal CVA 5 /4, and recently diagnosed lung mass and pna. The patients NH also reports the patient was hypotensive and hypoxic earlier today. As per the patients sister, the patient had right sided weakness earlier yesterday afternoon. He denies any recent fevers, chills, headache or dizziness. He denies any recent nausea, vomit , diarrhea or constipation. Allergies: NKA Past surgical history: None reported. Social History: Former smoker. Denies EtOH use and recreational drug use. Primary Care Physician: <William Mckeon - Last Filed: 03/03/17 19:29> <Rosemarie Celis - Last Filed: 03/03/17 19:58> - General Stated Complaint: Weakness Time Seen by Provider: 03/03/17 16:06 Past History <William Mckeon - Last Filed: 03/03/17 19:29> - Past Medical History Cancer: Yes (COLON CA) GI Disorders: (colostomy) HTN: Yes - Surgical History Abdominal Surgery: Yes (COLOSTOMY) - Psycho/Social/Smoking Cessation Hx Anxiety: No Suicidal Ideation: No Smoking Status: Yes Smoking History: Current every day smoker Years of Tobacco Use: 40 Have you smoked in the past 12 months: Yes Number of Cigarettes Smoked Daily: 5 'Breaking Loose' booklet given: 10/28/12 Hx Alcohol Use: No (unknown/pt denies) Drug/Substance Use Hx: No Substance Use Type: None Hx Substance Use Treatment: No <Rosemarie Celis - Last Filed: 03/03/17 19:58> - Past Medical History Allergies/Adverse Reactions: Allergies Allergy/AdvReac Type Severity Reaction Status Date / Time No Known Allergies Allergy Verified 03/03/17 15:56 Home Medications: Ambulatory Orders Aa/[place]/Arg/C/Zn/Cu [Lps Critical Care Liquid] 30 ml PO BID 03/03/17 Acetaminophen 650 mg PO Q4H PRN 03/03/17 Amlodipine Besylate [Norvasc -] 5 mg PO DAILY 03/03/17 Ferrous Sulfate [Feosol] 325 mg PO BID 03/03/17 Folic Acid 1 mg PO DAILY 03/03/17 Isosorbide Mononitrate [Imdur -] 30 mg PO DAILY 03/03/17 Methimazole [Tapazole] 5 mg PO TID 03/03/17 Metoprolol Tartrate [Lopressor -] 25 mg PO DAILY 03/03/17 Prednisone [Deltasone -] 5 mg PO DAILY 03/03/17 Rivaroxaban [Xarelto -] 15 mg PO DAILY 03/03/17 Rosuvastatin Calcium [Crestor] 10 mg PO HS 03/03/17 Review of Systems - Review of Systems Able to Perform ROS?: Yes Comments:: 03/03/17 18:18 GENERAL/CONSTITUTIONAL: No fever or chills. +weakness. HEAD, EYES, EARS, NOSE AND THROAT: No change in vision. No ear pain or discharge. No sore throat. CARDIOVASCULAR: No chest pain or shortness of breath. RESPIRATORY: No cough, wheezing, or hemoptysis. GASTROINTESTINAL: No nausea, vomiting, diarrhea or constipation. GENITOURINARY: No dysuria, frequency, or change in urination. MUSCULOSKELETAL: No joint or muscle swelling or pain. No neck or back pain. SKIN: No rash NEUROLOGIC: +right sided weakness. No headache, vertigo, loss of consciousness, or change in strength/sensation. ENDOCRINE: No increased thirst. No abnormal weight change. HEMATOLOGIC/LYMPHATIC: No anemia, easy bleeding, or history of blood clots. ALLERGIC/IMMUNOLOGIC: No hives or skin allergy. <William Mckeon - Last Filed: 03/03/17 19:29> *Physical Exam - Vital Signs Last Vital Signs Temp Pulse Resp BP Pulse Ox 97.6 F 91 H 30 H 80/62 88 L 03/03/17 16:25 03/03/17 16:25 03/03/17 16:25 03/03/17 16:35 03/03/17 16:25 - Physical Exam Comments: 03/03/17 19:29 GENERAL: Awake, alert, and fully oriented, in no acute distress., asymmetric face HEAD: No signs of trauma EYES: PERRLA, EOMI, sclera anicteric, conjunctiva clear ENT: Auricles normal inspection, hearing grossly normal, nares patent, dry mucosa NECK: Normal ROM, supple, JVD, or masses LUNGS: Decreased breath sounds at the left base crackles at the right base. HEART: Regular rate and rhythm, normal S1 and S2, no murmurs, rubs or gallops ABDOMEN: Soft, nontender, normoactive bowel sounds. No guarding, no rebound. No masses EXTREMITIES: Normal range of motion, no edema. No clubbing or cyanosis. No cords, erythema, or tenderness. 2+DP/PT pulses. NEUROLOGICAL: NIH stroke clae 5 right arm weakness with a drift .Right leg weakness. Unable to speak, severe dysarthria and slurred speech. Unable to cooperate with finger to nose for ataxia. SKIN: Warm, Dry, normal turgor, no rashes or lesions noted. <William Mckeon - Last Filed: 03/03/17 19:29> Heart Score/ECG Review - ECG Impressions Comment:: 03/03/17 17:39 EKG impressions reported by : Normal Sinus Rhythm at [address] or T wave changes <William Mckeon - Last Filed: 03/03/17 19:29> ED Treatment Course - LABORATORY CBC & Chemistry Diagram: 03/03/17 16:15 03/03/17 16:00 - ADDITIONAL ORDERS Additional order review: 03/03/17 16:15 RBC 3.18 L D MCV 91.1 MCHC 30.7 L RDW 17.0 H MPV 9.1 Neutrophils % Y Lymphocytes % Y - Medications Given in the ED: ED Medications Discontinued Medications Generic Name Dose Route Start Last Admin Trade Name Freq PRN Reason Stop Dose Admin Albuterol/Ipratropium 1 amp 03/03/17 16:08 03/03/17 16:10 Duoneb - NEB 03/03/17 16:09 1 amp ONCE ONE Administration Sodium Chloride 2,000 ml 03/03/17 16:10 03/03/17 16:35 Normal Saline - IV 03/03/17 16:11 2,000 ml ONCE ONE Administration <William Mckeon - Last Filed: 03/03/17 19:29> - LABORATORY CBC & Chemistry Diagram: 03/03/17 16:15 03/03/17 16:00 <Rosemarie Celis - Last Filed: 03/03/17 19:58> Medical Decision Making - Critical Care Time Total Critical Care Time (minutes): 60 Critical Care Statement: The care of this patient involved high complexity decision making to prevent further life threatening deterioration of the patient 's condition and/or to evalute & treat vital organ system(s) failure or risk of failure. - Medical Decision Making 03/03/17 16:58 Call made to , case discussed. <William Mckeon - Last Filed: 03/03/17 19:29> - Medical Decision Making 03/03/17 16:07 72 yo M with recent left parietal and frontal cva 02/25, recently diagnosed lung mass and pna,, here with worsening right sided droop note by shelter today. , and hypoxia hypotension. has been coughing in rehab. per pt sister ( who is present) she noticed pt had right sided weakness yesterday afternoon. following initial CVA, pt was speaking, but poorly . no n/v no other complaints. (pt with known right carotid stenosis, refused surgery many years ago)' differential aspirition, post obstructive pna, worsening mass, mucous plug, hemorrhagic conversion of prior cva. , recurrent cva, sepsis, mi, uti. plan ct head nuero eval, rescusitatcion with ivf, abx for suspected pna, cxr lactate and cultures. will require admission. 03/03/17 17:20 pt with mass, likely post obstructive pna on cxr. d/w dr. scott ICU accepted. rescusitated with ns improved. oxygen sats improved with nebs. ct head no acute cva or bleed. likely uti on [place]. given vanco and zosyn d/w dr. Zendejas, will accept admission 03/03/17 19:50 03/03/17 19:56 <Rosemarie Celis - Last Filed: 03/03/17 19:58> *DC/Admit/Observation/Transfer - Attestations Scribe Attestion: 03/03/17 18:19 Documentation prepared by William Mckeon, acting as caregivers non medical for Rosemarie Celis MD. <William Mckeon - Last Filed: 03/03/17 19:29> - Discharge Dispostion Admit: Yes <Rosemarie Celis - Last Filed: 03/03/17 19:58> Diagnosis at time of Disposition: Sepsis, Pneumonia, Urinary tract infection, CVA (cerebral vascular accident) - Referrals Referrals: Helena Colvin MD [Primary Care Provider] -
[2017-03-03] MEDS ORDERED: SODIUM CHLORIDE 0.9% 1000 ML INFUS.BAG IV ONE ×2 (16:10→17:24)
--- NOTE | 2017-03-03 16:19 | PDOC ---
NIH Stroke Scale - Last Known Well Date/Time & Onset Date Last Known Well: 03/02/17 (yesterday afternoon ) - Initial Evaluation Level of consciousness: Alert Ask patient the month and their age: Answers both correctly (unable to answer questions due to slurred speech, prior cva) Ask patient to open & close eyes; make fist and let go: Obeys both correctly Best gaze (horizontal eye movement): Normal Visual field testing: No visual field loss Facial paresis (Show teeth/raise eyebrows/close eyes tight): Normal symmetrical movement Motor Function: Left Arm: Normal Motor Function: Right Arm: Drift Motor Function: Left Leg: Normal (extends leg 30 degrees for 5 seconds without drift) Motor Function: Right Leg: Drift Limb Ataxia: Untestable (Joint fused or limb amputated), explain: Sensory(Use pinprick test arms,legs,trunk,face/side to side): Normal Best language (Describe picture, name items, read sentences): Severe aphasia Dysarthria (read several words): Mild to moderate slurring of words Extinction and Inattention: No abnormality - Total Score NIH Stroke Scale Score: 5
[2017-03-03 16:37] LABS: MCHC 30.7 g/dl (32.0-35.9); MEAN CELL VOLUME 91.1 fl (80-96); MEAN PLT VOLUME 9.1 fl (7.5-11.1); PLATELET COUNT 171 K/MM3 (134-434); WHITE BLOOD COUNT 24.6 K/mm3 (4.0-10.0)
[2017-03-03 16:53] VITALS: BMI 20.7
[2017-03-03 16:57] LABS: ALBUMIN 2.6 g/dl (3.4-5.0); ANION GAP 12 (8-16); CALCIUM 7.2 mg/dL (8.5-10.1); CO2 16 mmol/L (21-32); COCKROFT - GAULT 31.97; GLUCOSE,RANDOM 139 mg/dL (74-106); SGPT/ALT 13 U/L (12-78)
[2017-03-03 17:01] LABS: ALK PHOS 67 U/L (45-117); BILIRUBIN,TOTAL 0.5 mg/dL (0.2-1.0); TOT PROT 6.2 g/dl (6.4-8.2); TROPONIN I < 0.02 ng/ml (0.00-0.05)
[2017-03-03 17:04] LABS: SGOT/AST 13 U/L (15-37)
[2017-03-03 17:04] LABS: INR 1.54 (0.82-1.09); PROTHROMBIN TIME (PATIENT) 17.1 SEC (9.98-11.88)
[2017-03-03 17:08] LABS: ARTERIAL BLOOD GAS BASE EXCESS -9.4 meq/l (-2-2); ARTERIAL BLOOD GAS HCO3 13.8 meq/L (22-26); ARTERIAL BLOOD GAS pH 7.41 (7.35-7.45)
[2017-03-03 17:09] LABS: ALLENS TEST POSITIVE; ART PUNCT SITE RIGHT RADIAL; LPM/O2% 3L; METHEMOGLOBIN 0.4 % (0.4-1.5); PT. ON O2? YES; TYPE OF O2 N/C
[2017-03-03] MEDS ORDERED: VANCOMYCIN 1 GRAM (PRE-DOCKED) 250 ML IVPB ONE (17:21)
[2017-03-03] MEDS ORDERED: PIPERACILLIN/TAZOB 3.375 GM 50 ML IVPB ONE (17:22)
[2017-03-03] MEDS ORDERED: VANCOMYCIN 1,000 MG in DEXTROSE 5%-WATER - 250 ML IVPB ONE (17:25)
[2017-03-03] MEDS ORDERED: PIPERACILLIN/TAZOB 3.375 GM/50 ML PRE-DOCKED IV ONE (17:26)
[2017-03-03 17:53] LABS: URINE APPEARANCE CLOUDY; URINE BILIRUBIN NEGATIVE (NEGATIVE); URINE COLOR YELLOW; URINE GLUCOSE (UA) NEGATIVE (NEGATIVE); URINE KETONE NEGATIVE (NEGATIVE); URINE LEUK ESTERASE NEGATIVE (NEGATIVE); URINE NITRITE NEGATIVE (NEGATIVE); URINE PROTEIN NEGATIVE (NEGATIVE); URINE UROBILINOGEN NEGATIVE E.U./dl (0.2-1.0)
[2017-03-03 17:57] LABS: URINE BLOOD 3+ (NEGATIVE)
[2017-03-03 18:00] LABS: URINE HYALINE CAST 4 /lpf; URINE MUCUS RARE; URINE RBC 122 /hpf (0-3); URINE WBC 15 /hpf (3-5)
[2017-03-03 18:32] LABS: HYPOCHROMIA 1+; PLATELET ESTIMATE ADEQUATE (NORMAL); POLYCHROMASIA FEW; TARGET CELLS FEW
--- NOTE | 2017-03-03 21:33 | HP ---
CHIEF COMPLAINT: worsening R facial droop, hypotensive, hypoxic PCP: Marii HISTORY OF PRESENT ILLNESS: This is a 72 year old male with a recent hospitalization from 02/20 to 03/01 for PNA, newly dx lung mass and CVA who presented back to the ER as SNF staff noted pt to be hypotensive and hypoxic with increased right facial droop. Sister reports pt has not been able to swallow anything x 2 days. Upon exam, pt is alert, follows all commands but is only able to repeat short phrases back. Does not answer questions appropriately even with yes/no. 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 on xarelto Colon CA 2012 s/p RT and 5FU and rectal resection with colostomy and adjuvant oral capacitabine PAST SURGICAL HISTORY: rectal resection with colostomy 2012 L BKA Social History: Smoking: prior to recent admission, daily Alcohol: none Drugs: none Allergies No Known Allergies Allergy (Verified 03/03/17 15:56) HOME MEDICATIONS: 3 Medication Instructions Recorded Aa/[place] Carolyn,[place]/Arg/C/Zn/Cu 30 ml PO BID 03/03/17 [Lps Critical Care Liquid] Acetaminophen 650 mg PO Q4H PRN 03/03/17 Amlodipine Besylate [Norvasc -] 5 mg PO DAILY 03/03/17 Ferrous Sulfate [Feosol] 325 mg PO BID 03/03/17 Folic Acid 1 mg PO DAILY 03/03/17 Isosorbide Mononitrate [Imdur -] 30 mg PO DAILY 03/03/17 Methimazole [Tapazole] 5 mg PO TID 03/03/17 Metoprolol Tartrate [Lopressor -] 25 mg PO DAILY 03/03/17 Prednisone [Deltasone -] 5 mg PO DAILY 03/03/17 Rivaroxaban [Xarelto -] 15 mg PO DAILY 03/03/17 Rosuvastatin Calcium [Crestor] 10 mg PO HS 03/03/17 REVIEW OF SYSTEMS CONSTITUTIONAL: Absent: fever, chills, diaphoresis, generalized weakness, malaise, loss of appetite, weight change HEENT: Absent: rhinorrhea, nasal congestion, throat pain, throat swelling, difficulty swallowing, mouth swelling, ear pain, eye pain, visual changes CARDIOVASCULAR: Absent: chest pain, syncope, palpitations, irregular heart rate, lightheadedness , peripheral edema RESPIRATORY: Absent: cough, shortness of breath, dyspnea with exertion, orthopnea, wheezing, stridor, hemoptysis GASTROINTESTINAL: Absent: abdominal pain, abdominal distension, nausea, vomiting, diarrhea, constipation, melena, hematochezia GENITOURINARY: Absent: dysuria, frequency, urgency, hesitancy, hematuria, flank pain, genital pain MUSCULOSKELETAL: Absent: myalgia, arthralgia, joint swelling, back pain, neck pain SKIN: Absent: rash, itching, pallor HEMATOLOGIC/IMMUNOLOGIC: Absent: easy bleeding, easy bruising, lymphadenopathy, frequent infections ENDOCRINE: Absent: unexplained weight gain, unexplained weight loss, heat intolerance, cold intolerance NEUROLOGIC: Present: right facial droop, right sided weakness, difficulty swallowing Absent: headache, focal weakness or paresthesias, dizziness, unsteady gait, seizure, mental status changes, bladder or bowel incontinence PSYCHIATRIC: Absent: anxiety, depression, suicidal or homicidal ideation, hallucinations. PHYSICAL EXAMINATION Vital Signs - 24 hr 3 03/03/17 03/03/17 03/03/17 16:25 16:35 19:59 Temperature 97.6 F Pulse Rate 91 H Pulse Rate [ 91 H Apical] Respiratory 30 H 26 H Rate Blood Pressure 80/62 80/62 Blood Pressure 89/63 [Right Arm] O2 Sat by Pulse 88 L 99 Oximetry (%) 3 03/03/17 03/03/17 20:44 21:33 Temperature 97.9 F Pulse Rate 71 Pulse Rate [ 87 Apical] Respiratory 22 19 Rate Blood Pressure 96/52 Blood Pressure 84/62 [Right Arm] O2 Sat by Pulse 99 Oximetry (%) GENERAL: Awake, alert, and fully oriented, in no acute distress. HEAD: Normal with no signs of trauma. EYES: Pupils equal, round and reactive to light, extraocular movements intact, sclera anicteric, conjunctiva clear. No lid lag. EARS, NOSE, THROAT: Ears normal, nares patent, oropharynx clear without exudates. Moist mucous membranes. right sided facial droop noted NECK: Normal range of motion, supple without lymphadenopathy, JVD, or masses. LUNGS: No wheezes, and no crackles. No accessory muscle use. Diminished left mid and lower lung mariee HEART: Regular rate and rhythm, normal S1 and S2 without murmur, rub or gallop. ABDOMEN: Soft, nontender, not distended, normoactive bowel sounds, no guarding, no rebound, no masses. No hepatomegaly or splenomegaly. MUSCULOSKELETAL: Normal range of motion at all joints. No bony deformities or tenderness. No CVA tenderness. UPPER EXTREMITIES: 2+ pulses, warm, well-perfused. No cyanosis. No clubbing. No peripheral edema. LOWER EXTREMITIES: 2+ pulses, warm, well-perfused. No calf tenderness. No peripheral edema. L BKA NEUROLOGICAL: Cranial nerves II-XII intact. Normal speech. Normal gait. PSYCHIATRIC: Cooperative. Good eye contact. Appropriate mood and affect. SKIN: Warm, dry, normal turgor, no rashes or lesions noted, normal capillary refill. left and right sacral ulcers, stage 2, small, pink granulation tissue Laboratory Results - last 24 hr 3 03/03/17 03/03/17 03/03/17 16:00 16:05 16:15 WBC 24.6 H D RBC 3.18 L D Hgb 8.9 L D Hct 28.9 L D MCV 91.1 MCHC 30.7 L RDW 17.0 H Plt Count 171 MPV 9.1 Neutrophils % 91.0 H Lymphocytes % 3.0 L D Monocytes % 3.0 L Band Neutrophils 3.0 Platelet Estimate Adequate Platelet Comment No clumping noted Polychromasia Few Hypochromic-Microcytic 1+ Target Cells Few INR PTT (Actin FS) Puncture Site ABG pH ABG pCO2 at Pt Temp ABG pO2 at Pt Temp ABG HCO3 ABG O2 Sat (Measured) ABG O2 Content ABG Base Excess Ki Test Carboxyhemoglobin Methemoglobin O2 Delivery Device Oxygen Flow Rate PEEP Sodium 138 Potassium 5.4 H D Chloride 110 H Carbon Dioxide 16 L Anion Gap 12 BUN 23 H Creatinine 2.0 H D Creat Clearance w eGFR 33.20 POC Glucometer 180.16014 Random Glucose 139 H D Lactic Acid Calcium 7.2 L Total Bilirubin 0.5 D AST 13 L D ALT 13 Alkaline Phosphatase 67 Creatine Kinase 41 Troponin I < 0.02 Total Protein 6.2 L Albumin 2.6 L Urine Color Urine Appearance Urine pH Ur Specific [place] Urine Protein Urine Glucose (UA) Urine Ketones Urine Blood Urine Nitrite Urine Bilirubin Urine Urobilinogen Ur Leukocyte Esterase Urine RBC Urine WBC Hyaline Casts Urine Mucus Blood Type Antibody Screen 3 03/03/17 03/03/17 03/03/17 16:15 16:15 17:05 WBC RBC Hgb Hct MCV MCHC RDW Plt Count MPV Neutrophils % Lymphocytes % Monocytes % Band Neutrophils Platelet Estimate Platelet Comment Polychromasia Hypochromic-Microcytic Target Cells INR 1.54 H PTT (Actin FS) 28.0 Puncture Site Right radial ABG pH 7.41 ABG pCO2 at Pt Temp 22.1 L ABG pO2 at Pt Temp 64.0 L ABG HCO3 13.8 L* ABG O2 Sat (Measured) 92.0 ABG O2 Content 10.2 L ABG Base Excess -9.4 L Ki Test Positive Carboxyhemoglobin 1.9 Methemoglobin 0.4 O2 Delivery Device N/c Oxygen Flow Rate 3l PEEP 0.0 Sodium Potassium Chloride Carbon Dioxide Anion Gap BUN Creatinine Creat Clearance w eGFR POC Glucometer Random Glucose Lactic Acid 1.684 Calcium Total Bilirubin AST ALT Alkaline Phosphatase Creatine Kinase Troponin I Total Protein Albumin Urine Color Urine Appearance Urine pH Ur Specific [place] Urine Protein Urine Glucose (UA) Urine Ketones Urine Blood Urine Nitrite Urine Bilirubin Urine Urobilinogen Ur Leukocyte Esterase Urine RBC Urine WBC Hyaline Casts Urine Mucus Blood Type A NEGATIVE Antibody Screen Negative 3 Urine Color Yellow 03/03/17 17:40 Urine Appearance Cloudy 03/03/17 17:40 Urine pH 5.0 (5.0-8.0) 03/03/17 17:40 Ur Specific [place] 1.010 (1.005-1.025) 03/03/17 17:40 Urine Protein Negative (NEGATIVE) 03/03/17 17:40 Urine Glucose (UA) Negative (NEGATIVE) 03/03/17 17:40 Urine Ketones Negative (NEGATIVE) 03/03/17 17:40 Urine Blood 3+ (NEGATIVE) H 03/03/17 17:40 Urine Nitrite Negative (NEGATIVE) 03/03/17 17:40 Urine Bilirubin Negative (NEGATIVE) 03/03/17 17:40 Ur Leukocyte Esterase Negative (NEGATIVE) 03/03/17 17:40 Urine RBC 122 /hpf (0-3) 03/03/17 17:40 Urine WBC 15 /hpf (3-5) 03/03/17 17:40 Urine Mucus Rare 03/03/17 17:40 Portable chest x-ray AP sitting. Since 02/22/2017, the cardiac silhouette remains within normal limits in size previously visualized large opacity/mass lesion the left mid and lower lung with left lower lobe consolidation and small left pleural effusion again seen. There are minimal atelectatic changes in the right lung base, medially. A left internal jugular central venous catheter is present with its tip in the superior vena cava. No pneumothorax is identified Impression No significant interval change CT scan of the brain without intravenous contrast. Since prior MRI of the brain dated 02/26/2017 there remains moderate atrophy, ventricular dilatation and chronic microvascular ischemic changes. There is lucency in the left frontal and parietal lobe at the site of previously described acute/subacute infarcts on prior MRI of the brain dated 2016. Previously visualized left cerebellar acute/subacute lacunar infarct is not identified. There is no shift of the midline structures. No mass lesion or intracranial hemorrhage is seen. Mild shift of the nasal septum towards the right. Visualized paranasal sinuses and mastoid air cells are well aerated. Calcification of the coronary arteries are present. The calvarium is intact Impression: Previously visualized acute/subacute infarcts on prior MRI of the brain dated 02/26/2017 are again seen. No gross interval acute infarct is identified. No mass lesion or intracranial hemorrhage is seen. Continued follow- up is needed ASSESSMENT/PLAN: 72yM with PMH HTN, colon CA s/p colostomy, LLE arterial emboli s/p BKA with recent hospitalization for PNA, L lung mass, CVA presented to the ED from SNF with worsened right sided facial droop, right sided weakness, hypoxia and hypotension. He has been admitted for Health care acquired PNA with likely superimposed aspiration PNA. Sepsis secondary to health care aquired PNA with likely superimposed aspiration PNA - As evidenced by elevated WBC, HR>90, RR>20 - vanco and zosyn given in ED, cont same, vanco 1g QD, zosyn 3.375 Q8h, renally dosed for CrCl 31.6 - supplemental oxygen PRN to maintain sat >94% - received 2L NS resuscitation, cont 125mL/hr as SBP improving, give additional bolus as needed - ID consult - swallow eval, NPO until same - consider repeat CT chest for comparison SHIVA likely due to sepsis/hypovolemia - fluid resuscitation - cont NS @ 125ml/hr - repeat BMP in am, if not improving with IV hydration, renal consult Recent CVA with increased R facial droop/weakness - CT without acute findings - neurology consult ordered - likely toxic metabolic exacerbation of previous deficits Lung mass - cont to defer biopsy until pt more medically stable. HTN - hold antihypertensives at present given SBP 90s PVD, LLE arterial emboli - cont xarelto DVT PPX - on home xarelto, restart when cleared by speech, if not cleared in AM, start heparin or lovenox SC FEN - NS @ 125mL/hr - repeat BMP in am - NPO for now Dispo: Pt currently requires ICU level care for management of his potentially unstable emergent condition. Visit type - Emergency Visit Emergency Visit: Yes ED Registration Date: 03/03/17 Care time: The patient presented to the Emergency Department on the above date and was hospitalized for further evaluation of their emergent condition. - New Patient This patient is new to me today: Yes Date on this admission: 03/03/17 - Critical Care Critical Care patient: Yes Total Critical Care Time (in minutes): 45 Critical Care Statement: The care of this patient involved high complexity decision making to prevent further life threatening deterioration of the patient 's condition and/or to evalute & treat vital organ system(s) failure or risk of failure.
[2017-03-03] MEDS: SODIUM CHLORIDE 1,000 ML IV SCH (22:00)
[2017-03-03] MEDS ORDERED: CHLORHEXIDINE GLUCONATE 4% CLEANSER FOR DECOLONIZATION TP SCH (22:00)
[2017-03-03] MEDS: MUPIROCIN 2% TOPICAL OINTMENT FOR DECOLONIZATION NS SCH (22:59)
--- NOTE | 2017-03-03 23:48 | CONSULT ---
Consult Consult Specialty:: Pulmonary Critical Care Reason for Consultation:: 72 y/o male who was recently discharged from hospital to [place] and presents today with hypotension, altered mental status and tachypnea - History of Present Illness Chief Complaint: Altered mental status, facial droop and hypotension History of Present Illness: This is a 72 year old male with a recent hospitalization from 02/20 to 03/01 for PNA (likely post-obstructive), newly dx left lung mass and CVA during previous admission who now presents to the ER as SNF staff noted pt to be hypotensive, hypoxic and tachypneic with increased right facial droop. Sister reports pt has not been able to swallow anything x 2 days and has had increased cough when attempts to drink liquids or eat. In ED pt had repeat stat head CT which showed no acute pathology. Pt was resuscitated with 2L NS with improvement in SBP to 90 's, however remained tachycardic. Pt domínguez cultured and started on Vanco and zosyn as pt febrile and etiology of sepsis possibly HAP vs UTI. Given septic picture decision made to transfer to ICU for further medical care. 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 No: Alzheimer's, Dementia, Migraine, Multiple Sclerosis, Peripheral Neuropathy, Parkinson's, Seizure, Syncope, TIA, Vertigo, Other Cardio/Vascular: Yes: Other (peripheral vascular disease) Pulmonary: Yes: Pneumonia Gastrointestinal: Yes: Cancer Renal/: Yes: Other (SHIVA) Musculoskeletal: Yes: Other (amputation LLE) - Alcohol/Substance Use Hx Alcohol Use: No (unknown/pt denies) - Smoking History Smoking history: Current every day smoker Have you smoked in the past 12 months: Yes Aproximately how many cigarettes per day: 5 Home Medications - Allergies Allergies/Adverse Reactions: Allergies Allergy/AdvReac Type Severity Reaction Status Date / Time No Known Allergies Allergy Verified 03/03/17 15:56 - Home Medications Home Medications: Ambulatory Orders Aa/[employer] [place] Carolyn,Whey/Arg/C/Zn/Cu [Lps Critical Care Liquid] 30 ml PO BID 03/03/17 Acetaminophen 650 mg PO Q4H PRN 03/03/17 Amlodipine Besylate [Norvasc -] 5 mg PO DAILY 03/03/17 Ferrous Sulfate [Feosol] 325 mg PO BID 05/10/17 Folic Acid 1 mg PO DAILY 03/03/17 Isosorbide Mononitrate [Imdur -] 30 mg PO DAILY 03/03/17 Methimazole [Tapazole] 5 mg PO TID 03/03/17 Metoprolol Tartrate [Lopressor -] 25 mg PO DAILY 03/03/17 Prednisone [Deltasone -] 5 mg PO DAILY 03/03/17 Rivaroxaban [Xarelto -] 15 mg PO DAILY 03/03/17 Rosuvastatin Calcium [Crestor] 10 mg PO HS 03/03/17 Physical Exam Vital Signs: Vital Signs Temperature 97.9 F 03/03/17 21:33 Pulse Rate 64 03/03/17 23:16 Respiratory Rate 19 03/03/17 23:16 Blood Pressure 96/64 03/03/17 23:16 O2 Sat by Pulse Oximetry (%) 99 03/03/17 20:44 Constitutional: Yes: Well Nourished, No Distress Eyes: Yes: WNL, PERRL HENT: Yes: WNL, Atraumatic, Normocephalic Neck: Yes: WNL, Supple, Trachea Midline Cardiovascular: Yes: WNL, Regular Rate and Rhythm, S1, S2 Respiratory: Yes: Cough, Dullness (To Left lung field), Rhonchi (b/l anterior chest wall) Gastrointestinal: Yes: WNL, Normal Bowel Sounds, Soft (Non-tender, ostomy with normal stool output) ...Rectal Exam: Yes: Deferred Extremities: Yes: Amputation (L BKA) Edema: No Peripheral Pulses WNL: Yes Integumentary: Yes: WNL Neurological: Yes: Alert, Facial Droop (Right), Pre-Existing Deficit, Weakness ( R Hemiparesis) ...Motor Strength: RUE (Weaker compared to Left), RLE (Weaker compared to left) Labs: CBCD WBC 24.6 K/mm3 (4.0-10.0) H D 03/03/17 16:15 RBC 3.18 M/mm3 (4.00-5.60) L D 03/03/17 16:15 Hgb 8.9 GM/dL (11.7-16.9) L D 03/03/17 16:15 Hct 28.9 % (35.4-49) L D 03/03/17 16:15 MCV 91.1 fl (80-96) 03/03/17 16:15 MCHC 30.7 g/dl (32.0-35.9) L 03/03/17 16:15 RDW 17.0 % (11.9-15.9) H 03/03/17 16:15 Plt Count 171 K/MM3 (134-434) 03/03/17 16:15 MPV 9.1 fl (7.5-11.1) 03/03/17 16:15 CMP Sodium 138 mmol/L (136-145) 03/03/17 16:00 Potassium 5.4 mmol/L (3.5-5.1) H D 03/03/17 16:00 Chloride 110 mmol/L (98-107) H 03/03/17 16:00 Carbon Dioxide 16 mmol/L (21-32) L 03/03/17 16:00 Anion Gap 12 (8-16) 03/03/17 16:00 BUN 23 mg/dL (7-18) H 03/03/17 16:00 Creatinine 2.0 mg/dL (0.7-1.3) H D 03/03/17 16:00 Creat Clearance w eGFR 33.20 (>60) 03/03/17 16:00 Calcium 7.2 mg/dL (8.5-10.1) L 03/03/17 16:00 Total Bilirubin 0.5 mg/dL (0.2-1.0) D 03/03/17 16:00 AST 13 U/L (15-37) L D 03/03/17 16:00 ALT 13 U/L (12-78) 03/03/17 16:00 Alkaline Phosphatase 67 U/L (45-117) 03/03/17 16:00 Total Protein 6.2 g/dl (6.4-8.2) L 03/03/17 16:00 Albumin 2.6 g/dl (3.4-5.0) L 03/03/17 16:00 ABG Results ABG pH 7.41 (7.35-7.45) 03/03/17 17:05 ABG pCO2 at Pt Temp 22.1 mmHg (35-45) L 03/03/17 17:05 ABG pO2 at Pt Temp 64.0 mmHg (70-100) L 03/03/17 17:05 ABG HCO3 13.8 meq/L (22-26) L* 03/03/17 17:05 ABG O2 Sat (Measured) 92.0 % (90-98.9) 03/03/17 17:05 ABG O2 Content 10.2 % vol (15-22) L 03/03/17 17:05 ABG Base Excess -9.4 meq/l (-2-2) L 03/03/17 17:05 Problem List - Problems (1) CVA (cerebral vascular accident) Code(s): I63.9 - CEREBRAL INFARCTION, UNSPECIFIED (2) Pneumonia Code(s): J18.9 - PNEUMONIA, UNSPECIFIED ORGANISM (3) Sepsis Code(s): A41.9 - SEPSIS, UNSPECIFIED ORGANISM (4) UTI (urinary tract infection) Code(s): N39.0 - URINARY TRACT INFECTION, SITE NOT SPECIFIED (5) Lung mass Code(s): R91.8 - OTHER NONSPECIFIC ABNORMAL FINDING OF LUNG FIELD (6) Encephalopathy Code(s): G93.40 - ENCEPHALOPATHY, UNSPECIFIED (7) SHIVA (acute kidney injury) Code(s): N17.9 - ACUTE KIDNEY FAILURE, UNSPECIFIED Assessment/Plan This is a 72 year old male with a recent hospitalization from 02/20 to 03/01 for PNA (likely post-obstructive), newly dx left lung mass and CVA during previous admission who now presents to the ER as SNF staff noted pt to be hypotensive, hypoxic and tachypneic with increased right facial droop. Head CT negative for acute process and given septic picture, pt transferred to ICU for further medical care. P: -Neuro checks q2 hours -Repeat NS bolus 1L x1 -NS 125cc/hr for maintenance fluid -Supplemental oxygen for goal Spo2 >94% -Cont Vanco and Zosyn -Chest PT -F/u cultures and narrow abx -NPO -Swallow evaluation given recent CVA and cough with po intake -Alberto to bedside drainage -Monitor urine output -Repeat labs in AM Thank you for this interesting consult. Pt is critically ill. CCT time 45mins not including procedures
[2017-03-04] MEDS ORDERED: PIPERACILLIN/TAZOB 3.375 GM/50 ML PRE-DOCKED IVPB ONE (01:00)
[2017-03-04] MEDS ORDERED: morphine CARPU-JECT 2 MG/1 ML DISP.SYRIN ONE (01:24)
[2017-03-04] MEDS ORDERED: morphine CARPU-JECT 2 MG/1 ML DISP.SYRIN IVPUSH ONE (01:25)
[2017-03-04] MEDS ORDERED: LIDOCAINE HCL 2% JELLY (30 ML/TUBE) TP ONE (01:26)
[2017-03-04 06:30] LABS: BASOPHIL 0.1 % (0-2.0); EOSINOPHIL 0.4 % (0-4.5); MCH 28.4 pg (25.7-33.7); MCHC 31.3 g/dl (32.0-35.9); MEAN CELL VOLUME 90.6 fl (80-96); MEAN PLT VOLUME 8.8 fl (7.5-11.1); NEUTROPHILS 87.4 % (42.8-82.8); PLATELET COUNT 121 K/MM3 (134-434); RDW 16.9 % (11.9-15.9); WHITE BLOOD COUNT 13.3 K/mm3 (4.0-10.0)
[2017-03-04 06:47] LABS: ALBUMIN 2.3 g/dl (3.4-5.0); BILIRUBIN,TOTAL 0.4 mg/dL (0.2-1.0); COCKROFT - GAULT 38.21; CREATININE 1.7 mg/dL (0.7-1.3); MAGNESIUM 1.5 mg/dL (1.8-2.4); PHOSPHOROUS 1.5 mg/dL (2.5-4.9); TOT PROT 5.3 g/dl (6.4-8.2)
[2017-03-04 07:20] LABS: CALCIUM 6.2 mg/dL (8.5-10.1)
[2017-03-04] MEDS: MUPIROCIN 2% TOPICAL OINTMENT FOR DECOLONIZATION NS SCH ×2 (09:49→21:45)
--- NOTE | 2017-03-04 11:09 | CONSULT ---
Admitting History and Physical - Primary Care Physician PCP: Robby Bennett - Admission History of Present Illness: Per EMR: "HISTORY OF PRESENT ILLNESS: This is a 72 year old male with a recent hospitalization from 02/20 to 03/01 for PNA, newly dx lung mass and CVA who presented back to the ER as SNF staff noted pt to be hypotensive and hypoxic with increased right facial droop. Sister reports pt has not been able to swallow anything x 2 days. Upon exam, pt is alert, follows all commands but is only able to repeat short phrases back. Does not answer questions appropriately even with yes/no. ER course was notable for: (1) WBC 24.6 (2) CXR unchanged from prior, LLL & LML lung mass with LLL consolidation and small pleural effusion (3) SBP in 80s, given 2L bolus" Selected Entries 03/03/17 03/03/17 03/03/17 16:25 21:33 22:00 Breakfast Supper NPO Temperature 97.6 F 97.9 F 03/04/17 03/04/17 03/04/17 00:32 06:00 07:50 Breakfast Supper Temperature 98.3 F 97.8 F 97.5 F L 03/04/17 03/04/17 08:10 09:41 Breakfast NPO Supper Temperature 99 F Laboratory Tests 03/03/17 03/04/17 16:15 05:20 WBC 24.6 H D 13.3 H D During last admission, mbs revealed stasis and aspiration on thin liquid. Pt was discharged on dysphagia puree and nectar thick liquid. I spoke with Nursing at [facility]. Pt was on Sodium controlled diet and thin liquid. Seen by Palliative care on last admission. History Source: Medical Record Limitations to Obtaining History: Language Barrier (Yoruba. 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 No: Alzheimer's, Dementia, Migraine, Multiple Sclerosis, Peripheral Neuropathy, Parkinson's, Seizure, Syncope, TIA, Vertigo, Other Cardiovascular: Yes: Other (peripheral vascular disease) Pulmonary: Yes: Pneumonia Gastrointestinal: Yes: Cancer Renal/: Yes: Other (SHIVA) Heme/Onc: Yes: Cancer Musculoskeletal: Yes: Other (amputation LLE) - Smoking History Smoking history: Current every day smoker Have you smoked in the past 12 months: Yes Aproximately how many cigarettes per day: 5 - Alcohol/Substance Use Hx Alcohol Use: No (unknown/pt denies) History - Admission Reason For Visit: URINARY TRACT INFECTION,SEPSIS - Diagnostics X-ray: Report Reviewed MRI: Report Reviewed Modified Barium Swallow: Report Reviewed (02/26 Stasis with aspiration on thin liquid. rec:Puree and nectar; swallowing tx for double effortful swallow with chin tuck.) - General Mental Status: Awake and Alert Attention: Distractible, Mild Impairment, Moderate Impairment Ability to Follow Directions: Poor (follows whole body commands. Inconsistent) Head/Neck Control: Fair - Hearing Hearing: Functional With Patient: No Speech Evaluation - Communication Primary Language: BELGIAN Communication: Yes: Aphasia Oral Expression Ability: Yes: Severe Impairment - Speech Production Apraxia: Yes Intelligibility: Yes: Severely Impaired - Speech Characteristics Voice Loudness: Normal Voice Pitch: Yes: Normal Voice Phonatory-based Quality: Yes: Normal Speech Pattern: Impaired Speech Clarity: < 25% Nasal Resonance: Normal Articulation: Yes: Imprecise - Language/Auditory Comprehension Observation: Able to respond to yes/no queries: No, Yes/No Confusion: Yes ( Responds yes for all questions), Benefits from Repetiton: Yes - Language/Verbal Expression Aphasia: Yes: Nonfluent, Impaired Repetition, Apraxia, Sound Errors Able to Respond to Simple Queries: Yes: Severely Impaired Able to Communicate Wants and Needs: Yes: Severely Impaired Functional Communication Status: Yes: Severely Impaired - Swallow Evaluation/Bedside Assessment Current Nutritional Intake: NPO Rate of Intake: WFL Labial Seal: WFL Oral Prep Time: WFL A-P Transit: WFL Pocketing: None Timing of Swallow: Delayed Coughing/Throat Clear: No Recommendations - Speech Evaluation, Impression/Plan Impression: Severe Aphasia with perseverative "yes" response for all question. Follows whole bodty commands and rare 1 step. Severe oral/verbal apraxia. Able to repeat only 1 word today. Language function is mildly worse than last admission. Pt was beginning to produce intelligible social speech, although unable to formulate words/sentences/produce propositional speech.Pt has an elevated WBC. CT unchanged. Swallowing unchanged. MBS 02/26/17 aspiration on thin liquid.Tolerated puree and nectar at [facility]. Pt was on puree /thin liquid at [place]. - Dysphagia Impressions/Plan Swallowing Skills: Impaired Dysphagia Impressions: Mild Impairment, Moderate Impairment, Risk of Aspiration *Silent aspiration: cannot be R/O at bedside Dysphagia Treatment Plan: Small Bites, Chin Tuck/Down, Safe Rate, 1/2 tsp. at a time, Elevate HOB during feed, Other (Tell pt to "Hard swallow TWICE" with each trial. Alternate puree and honey thick liquid.) Recommendations: Modified Barium Swallow (if dysphagia noted) - Recommendations Diet Consistency: Dysphagia Pureed Medication Administration: Crushed with applesauce Liquids: Honey Thick (single sips) Supplement: Magic Cup
--- NOTE | 2017-03-04 12:18 | CON.NEURO ---
Consult Consult Specialty:: neurology - History of Present Illness History of Present Illness: 72 year old male, with a significant past medical history of HTN, colon Ca (s/p colostomy bag) and left BKA vascular problem (on Xarelto) who presents to the emergency department with right sided droop on 03/03 noticed by senior living staff. was seen last week while in house for L sided stroke, resulting in mixed aphasia , found to have left carotid occlusion (complete, NTD as per vascular) The patients NH also reports the patient was hypotensive and hypoxic earlier on 08/10. RIght sided Weakness noted now was not seen ( to this extent) on prior admission last week. pt unable to elaborate further given HX of aphasia. - History Source History Provided By: Medical Record - Past Medical History DATABASE DBA: Yes: CVA. No: Alzheimer's, Dementia, Migraine, Multiple Sclerosis, Peripheral Neuropathy, Parkinson's, Seizure, Syncope, TIA, Vertigo, Other Cardio/Vascular: Yes: Other (peripheral vascular disease) Pulmonary: Yes: Pneumonia Gastrointestinal: Yes: Cancer Renal/: Yes: Other (SHIVA) Musculoskeletal: Yes: Other (amputation LLE) - Alcohol/Substance Use Hx Alcohol Use: No (unknown/pt denies) - Smoking History Smoking history: Current every day smoker Have you smoked in the past 12 months: Yes Aproximately how many cigarettes per day: 5 Home Medications - Allergies Allergies/Adverse Reactions: Allergies Allergy/AdvReac Type Severity Reaction Status Date / Time No Known Allergies Allergy Verified 03/03/17 15:56 - Home Medications Home Medications: Ambulatory Orders Aa/Tolstoy Carolyn,Whey/Arg/C/Zn/Cu [Lps Critical Care Liquid] 30 ml PO BID 03/03/17 Acetaminophen 650 mg PO Q4H PRN 03/03/17 Amlodipine Besylate [Norvasc -] 5 mg PO DAILY 03/03/17 Ferrous Sulfate [Feosol] 325 mg PO BID 03/03/17 Folic Acid 1 mg PO DAILY 03/03/17 Isosorbide Mononitrate [Imdur -] 30 mg PO DAILY 03/03/17 Methimazole [Tapazole] 5 mg PO TID 03/03/17 Metoprolol Tartrate [Lopressor -] 25 mg PO DAILY 03/03/17 Prednisone [Deltasone -] 5 mg PO DAILY 03/03/17 Rivaroxaban [Xarelto -] 15 mg PO DAILY 03/03/17 Rosuvastatin Calcium [Crestor] 10 mg PO HS 03/03/17 Physical Exam-Neuro Vital Signs: Vital Signs Temperature 99 F 03/04/17 09:41 Pulse Rate 76 03/04/17 09:41 Respiratory Rate 18 03/04/17 09:41 Blood Pressure 91/59 03/04/17 09:41 O2 Sat by Pulse Oximetry (%) 98 03/04/17 08:13 Constitutional: Yes: [place] Neck: Yes: Supple Respiratory: Yes: Diminished Gastrointestinal: Yes: Normal Bowel Sounds Labs: CBC, BMP 03/04/17 05:20 03/04/17 05:20 INR, PTT INR 1.54 (0.82-1.09) H 03/03/17 16:15 - Neuro Exam Level Of Consciousness: Yes: Alert (awake and attends, though unable to comprehend and produce viable verbal communication (aphasia), right facila droop , Right hemiparesis 2/5 (face and arm >>>leg), plantar R up ) NIH Stroke Scale - Last Known Well Date/Time & Onset Symptom Onset Date: 03/03/17 Symptom Onset Time: 09:00 (unknown ) Date Last Known Well: 03/03/17 Time Last Known Well: 09:00 (unknown ) - Initial Evaluation Level of consciousness: Alert Ask patient the month & their age: Both Incorrect Ask Patient to open & close eyes; make fist and let go.: Obeys One Correctly Best gaze (horizontal eye movement): Normal Visual Field Testing: No Visual Loss Facial Palsy(Show teeth or raise eyebrows & close eyes: Partial Paralysis ( total or near-total paralysis of lower face). Motor Function - Left Arm: No Drift;extends limb 90 (or siting 45) degress & hold full 10 seconds Motor Function - Right Arm: Some effort against gravity Motor Function - Left Leg: No Drift; leg holds 30 degree position for full 5 seconds. Motor Function - Right Leg: Some Effort against gravity Limb Ataxia: Absent (also used for the pt who does not understand or paralyzed) Sensory (arms, legs, trunk, face): Normal; no sensory loss Best Language: Severe aphasia;all communication is through fragmentary expression Dysarthria/Articulation: Mild to moderate dysarthria;slurs some words/ understood w/difficulty Extinction and Inattention: No abnormality - Total Score NIH Stroke Scale Score: 10 Imaging - Results Cat Scan: Report Reviewed, Image Reviewed (CT HD mild subinsular changes on the left ( evolving stroke ?)) Problem List - Problems (1) SHIVA (acute kidney injury) Code(s): N17.9 - ACUTE KIDNEY FAILURE, UNSPECIFIED (2) CVA (cerebral vascular accident) Code(s): I63.9 - CEREBRAL INFARCTION, UNSPECIFIED (3) Pneumonia Code(s): J18.9 - PNEUMONIA, UNSPECIFIED ORGANISM (4) Smoker Code(s): F17.200 - NICOTINE DEPENDENCE, UNSPECIFIED, UNCOMPLICATED (5) Left carotid artery occlusion Code(s): I65.22 - OCCLUSION AND STENOSIS OF LEFT CAROTID ARTERY Assessment/Plan 72 year old male, with a significant past medical history of HTN, colon Ca (s/p colostomy bag) and left BKA vascular problem (on Xarelto) who presents to the emergency department with right sided droop on 03/03 noticed by senior living staff. was seen last week while in house for L sided stroke, resulting in mixed aphasia , found to have left carotid occlusion (complete, NTD as per vascular) The patients NH also reports the patient was hypotensive and hypoxic earlier on 08/10. RIght sided Weakness noted now was not seen ( to this extent) on prior admission last week. pt unable to elaborate further given HX of aphasia. suspect evolution/porgression of prior L MCA stroke event, known left carotid occlusion NIH 10 --did bot qualify TPA as no clear time of onset , recent stroke new weakness right side , was not on prior exam last week Repeat HD x 12 hours may continue AC, as limited alternatives at this juncture BP control 150-180 BLOUNT for lung mass, inc WBC, SHIVA as per medicine team Dr Loving [phone]
--- NOTE | 2017-03-04 12:44 | EKG ---
Test Reason : Blood Pressure : / mmHG Vent. Rate : 083 BPM Atrial Rate : 083 BPM P-R Int : 138 ms QRS Dur : 080 ms QT Int : 400 ms P-R-T Axes : 064 071 095 degrees QTc Int : 470 ms NORMAL SINUS RHYTHM NONSPECIFIC T WAVE ABNORMALITY PROLONGED QT ABNORMAL ECG WHEN COMPARED WITH ECG OF 20-FEB-2017 16:55, PREMATURE ATRIAL COMPLEXES ARE NO LONGER PRESENT Confirmed by JERICHO BALDWIN, CINDY ([id number]) on 03/04/2017 12:44:17 PM Referred By: Confirmed By:CINDY ECHAVARRIA MD
--- NOTE | 2017-03-04 13:40 | PN ---
Teaching Attending Note Name of Resident: Elise Hogan ATTENDING PHYSICIAN STATEMENT I saw and evaluated the patient. I reviewed the resident's note and discussed the case with the resident. I agree with the resident's findings and plan as documented. SUBJECTIVE: Patient seen and examined in the ICU. Awake but confused even when spoken to in hi nightm[place] language. NAD on NC O2. Blood pressure remains marginal, he appears clinically dry. Intake & Output 03/01/17 03/02/17 03/03/17 03/04/17 23:59 23:59 23:59 23:59 Intake Total 1999 1175 Output Total 400 300 Balance 1600 875 Weight 145 lb 147 lb 4.8 oz Last Vital Signs Temp Pulse Resp BP Pulse Ox 99 F 88 18 121/55 98 03/04/17 10:00 03/04/17 12:00 03/04/17 12:00 03/04/17 12:00 03/04/17 08:13 Active Medications Chlorhexidine Gluconate (Hibiclens For Decolonization -) 1 applic TP HS [facility] Last Admin: 03/03/17 22:00 Dose: 1 applic Sodium Chloride (Normal Saline -) 1,000 mls @ 125 mls/hr IV ASDIR [facility] Last Admin: 03/03/17 22:00 Dose: 125 mls/hr Mupirocin (Bactroban Ointment (For Decolonization) -) 1 applic NS BID [facility] Stop: 03/08/17 21:59 Last Admin: 03/04/17 09:49 Dose: 1 applic Constitutional: Yes: Awake, NAD Eyes: Yes: WNL, PERRL HENT: Yes: WNL, Atraumatic, Normocephalic Neck: Yes: WNL, Supple, Trachea Midline Cardiovascular: Yes: WNL, Regular Rate and Rhythm, S1, S2 Respiratory: Yes: Cough, few scattered rhonchi, decreased BS at the bases Gastrointestinal: Yes: Normal Bowel Sounds, Soft (+) ostomy ...Rectal Exam: Yes: Deferred Extremities: Yes: Amputation (L BKA) Edema: No Peripheral Pulses WNL: Yes Integumentary: Yes: WNL Neurological: Yes: Alert, Facial Droop (Right), Pre-Existing Deficit, Weakness ( R Hemiparesis) ...Motor Strength: RUE (Weaker compared to Left), RLE (Weaker compared to left) Labs: Laboratory Results - last 24 hr 03/03/17 03/03/17 03/03/17 16:00 16:05 16:15 WBC 24.6 H D RBC 3.18 L D Hgb 8.9 L D Hct 28.9 L D MCV 91.1 MCHC 30.7 L RDW 17.0 H Plt Count 171 MPV 9.1 Neutrophils % 91.0 H Lymphocytes % 3.0 L D Monocytes % 3.0 L Eosinophils % Basophils % Band Neutrophils 3.0 Platelet Estimate Adequate Platelet Comment No clumping noted Polychromasia Few Hypochromic-Microcytic 1+ Target Cells Few INR PTT (Actin FS) Puncture Site ABG pH ABG pCO2 at Pt Temp ABG pO2 at Pt Temp ABG HCO3 ABG O2 Sat (Measured) ABG O2 Content ABG Base Excess Ki Test Carboxyhemoglobin Methemoglobin O2 Delivery Device Oxygen Flow Rate PEEP Sodium 138 Potassium 5.4 H D Chloride 110 H Carbon Dioxide 16 L Anion Gap 12 BUN 23 H Creatinine 2.0 H D Creat Clearance w eGFR 33.20 POC Glucometer [phone] Random Glucose 139 H D Lactic Acid Calcium 7.2 L Phosphorus Magnesium Total Bilirubin 0.5 D AST 13 L D ALT 13 Alkaline Phosphatase 67 Creatine Kinase 41 Troponin I < 0.02 Total Protein 6.2 L Albumin 2.6 L Urine Color Urine Appearance Urine pH Ur Specific [place] Urine Protein Urine Glucose (UA) Urine Ketones Urine Blood Urine Nitrite Urine Bilirubin Urine Urobilinogen Ur Leukocyte Esterase Urine RBC Urine WBC Hyaline Casts Urine Mucus Blood Type Antibody Screen 03/03/17 03/03/17 03/03/17 16:15 16:15 17:05 WBC RBC Hgb Hct MCV MCHC RDW Plt Count MPV Neutrophils % Lymphocytes % Monocytes % Eosinophils % Basophils % Band Neutrophils Platelet Estimate Platelet Comment Polychromasia Hypochromic-Microcytic Target Cells INR 1.54 H PTT (Actin FS) 28.0 Puncture Site Right radial ABG pH 7.41 ABG pCO2 at Pt Temp 22.1 L ABG pO2 at Pt Temp 64.0 L ABG HCO3 13.8 L* ABG O2 Sat (Measured) 92.0 ABG O2 Content 10.2 L ABG Base Excess -9.4 L Ki Test Positive Carboxyhemoglobin 1.9 Methemoglobin 0.4 O2 Delivery Device N/c Oxygen Flow Rate 3l PEEP 0.0 Sodium Potassium Chloride Carbon Dioxide Anion Gap BUN Creatinine Creat Clearance w eGFR POC Glucometer Random Glucose Lactic Acid 1.684 Calcium Phosphorus Magnesium Total Bilirubin AST ALT Alkaline Phosphatase Creatine Kinase Troponin I Total Protein Albumin Urine Color Urine Appearance Urine pH Ur Specific [place] Urine Protein Urine Glucose (UA) Urine Ketones Urine Blood Urine Nitrite Urine Bilirubin Urine Urobilinogen Ur Leukocyte Esterase Urine RBC Urine WBC Hyaline Casts Urine Mucus Blood Type Antibody Screen 03/03/17 03/03/17 03/04/17 17:40 18:40 05:20 WBC 13.3 H D RBC 2.71 L Hgb 7.7 L D Hct 24.5 L D MCV 90.6 MCHC 31.3 L RDW 16.9 H Plt Count 121 L D MPV 8.8 Neutrophils % 87.4 H Lymphocytes % 7.7 L D Monocytes % 4.4 Eosinophils % 0.4 Basophils % 0.1 Band Neutrophils Platelet Estimate Platelet Comment Polychromasia Hypochromic-Microcytic Target Cells INR PTT (Actin FS) Puncture Site ABG pH ABG pCO2 at Pt Temp ABG pO2 at Pt Temp ABG HCO3 ABG O2 Sat (Measured) ABG O2 Content ABG Base Excess Ki Test Carboxyhemoglobin Methemoglobin O2 Delivery Device Oxygen Flow Rate PEEP Sodium Potassium Chloride Carbon Dioxide Anion Gap BUN Creatinine Creat Clearance w eGFR POC Glucometer Random Glucose Lactic Acid Calcium Phosphorus Magnesium Total Bilirubin AST ALT Alkaline Phosphatase Creatine Kinase Troponin I Total Protein Albumin Urine Color Yellow Urine Appearance Cloudy Urine pH 5.0 Ur Specific [place] 1.010 Urine Protein Negative Urine Glucose (UA) Negative Urine Ketones Negative Urine Blood 3+ H Urine Nitrite Negative Urine Bilirubin Negative Urine Urobilinogen Negative Ur Leukocyte Esterase Negative Urine RBC 122 Urine WBC 15 Hyaline Casts 4 Urine Mucus Rare Blood Type A NEGATIVE Antibody Screen Negative 03/04/17 05:20 WBC RBC Hgb Hct MCV MCHC RDW Plt Count MPV Neutrophils % Lymphocytes % Monocytes % Eosinophils % Basophils % Band Neutrophils Platelet Estimate Platelet Comment Polychromasia Hypochromic-Microcytic Target Cells INR PTT (Actin FS) Puncture Site ABG pH ABG pCO2 at Pt Temp ABG pO2 at Pt Temp ABG HCO3 ABG O2 Sat (Measured) ABG O2 Content ABG Base Excess Ki Test Carboxyhemoglobin Methemoglobin O2 Delivery Device Oxygen Flow Rate PEEP Sodium 142 Potassium 4.3 D Chloride 114 H Carbon Dioxide 20 L D Anion Gap 8 BUN 19 H Creatinine 1.7 H Creat Clearance w eGFR 40.04 POC Glucometer Random Glucose 84 D Lactic Acid Calcium 6.2 L* Phosphorus 1.5 L D Magnesium 1.5 L D Total Bilirubin 0.4 AST 8 L D ALT 9 L D Alkaline Phosphatase 52 D Creatine Kinase Troponin I Total Protein 5.3 L Albumin 2.3 L Urine Color Urine Appearance Urine pH Ur Specific [place] Urine Protein Urine Glucose (UA) Urine Ketones Urine Blood Urine Nitrite Urine Bilirubin Urine Urobilinogen Ur Leukocyte Esterase Urine RBC Urine WBC Hyaline Casts Urine Mucus Blood Type Antibody Screen Problem List - Problems (1) CVA (cerebral vascular accident) Code(s): I63.9 - CEREBRAL INFARCTION, UNSPECIFIED (2) Pneumonia Code(s): J18.9 - PNEUMONIA, UNSPECIFIED ORGANISM (3) Sepsis Code(s): A41.9 - SEPSIS, UNSPECIFIED ORGANISM (4) UTI (urinary tract infection) Code(s): N39.0 - URINARY TRACT INFECTION, SITE NOT SPECIFIED (5) Lung mass Code(s): R91.8 - OTHER NONSPECIFIC ABNORMAL FINDING OF LUNG FIELD (6) Encephalopathy Code(s): G93.40 - ENCEPHALOPATHY, UNSPECIFIED (7) SHIVA (acute kidney injury) Code(s): N17.9 - ACUTE KIDNEY FAILURE, UNSPECIFIED Assessment/Plan Left Carotid occlusion PLAN: ABX per ID O2 as needed to maintain saturation Neuro checks Increase IVF resuscitation Aspiration precautions Swallow evaluation given acute CVA Monitor urine output Will need to reassess lung mass biopsy depending on his recovery Dr Kaminski critical care time spent in reviewing chart, evaluating patient and formulating plan 35 min
[2017-03-04] MEDS ORDERED: ACETAMINOPHEN 325 MG TABLET (FP) PO PRN ×2 (13:46→18:37)
--- NOTE | 2017-03-04 13:53 | PN ---
Progress Note (short form) - Note Progress Note: ID Consult dictated Sepsis/ possible septic shock Lung mass, possible pneumonia S/P CVA Await cultures Empiric zosyn Hemodynamic support Critical care time 35min
--- NOTE | 2017-03-04 13:57 | CONSULT ---
Consultation: REQUESTING PROVIDER: CONSULT REQUEST: We have been asked to medically evaluate this patient for ( specify). HISTORY OF PRESENT ILLNESS: This is a 72 year old male with a PMH of colon cancer, s/p colectomy, HTN, LLE arterial emboli s/p BKA, recent hospitalization from 02/20 to 03/01 for PNA, newly dx lung mass and CVA who presented back to the ER as SNF staff noted pt to be hypotensive and hypoxic with increased right facial droop. Sister reports pt has not been able to swallow anything x 2 days. Upon exam, pt is alert, follows all commands. Does not answer questions appropriately even with yes/no. Family is not present at bedside. REVIEW OF SYSTEMS: N/A PHYSICAL EXAMINATION Vital Signs - 24 hr 03/03/17 03/03/17 03/03/17 19:59 20:44 21:00 Temperature Pulse Rate Pulse Rate [ 91 H 87 Apical] Respiratory 26 H 22 19 Rate Blood Pressure Blood Pressure 89/63 84/62 [Right Arm] O2 Sat by Pulse 99 99 98 Oximetry (%) 03/03/17 03/03/17 03/03/17 21:33 23:16 23:36 Temperature 97.9 F Pulse Rate 71 64 64 Pulse Rate [ Apical] Respiratory 19 19 19 Rate Blood Pressure 76/52 96/64 96/64 Blood Pressure [Right Arm] O2 Sat by Pulse 98 Oximetry (%) 03/04/17 03/04/17 03/04/17 00:32 02:00 04:00 Temperature 98.3 F Pulse Rate 65 66 62 Pulse Rate [ Apical] Respiratory 19 18 24 Rate Blood Pressure 99/59 81/58 90/65 Blood Pressure [Right Arm] O2 Sat by Pulse Oximetry (%) 03/04/17 03/04/17 03/04/17 06:00 07:50 08:00 Temperature 97.8 F 97.5 F L Pulse Rate 57 L 76 74 Pulse Rate [ Apical] Respiratory 19 18 18 Rate Blood Pressure 89/59 80/53 94/57 Blood Pressure [Right Arm] O2 Sat by Pulse Oximetry (%) 03/04/17 03/04/17 03/04/17 08:13 10:00 12:00 Temperature 99 F Pulse Rate 76 88 Pulse Rate [ Apical] Respiratory 18 18 Rate Blood Pressure 91/59 121/55 Blood Pressure [Right Arm] O2 Sat by Pulse 98 Oximetry (%) GENERAL: Awake, alert, and fully oriented, in no acute distress. HEAD: Normal with no signs of trauma. EYES: Pupils equal, round and reactive to light, extraocular movements intact, sclera anicteric, conjunctiva clear. EARS, NOSE, THROAT: Ears normal, nares patent, oropharynx clear without exudates. Dry mucous membranes. NECK: Normal range of motion, supple without lymphadenopathy, JVD, or masses. LUNGS: Breath sounds equal, rhonchi bilaterally. No wheezes. No accessory muscle use. HEART: Regular rate and rhythm, normal S1 and S2 with murmur over the apex, no rub or gallop. ABDOMEN: Soft, nontender, not distended, normoactive bowel sounds, no guarding, no rebound, no masses. colostomy bag, no erythema on skin. MUSCULOSKELETAL: Normal range of motion at all joints. No bony deformities or tenderness. No CVA tenderness. UPPER EXTREMITIES: 2+ pulses, warm, well-perfused. No cyanosis. No clubbing. Cap refill <2 seconds. No peripheral edema. LOWER EXTREMITIES: 2+ pulses, warm, well-perfused. No calf tenderness. No peripheral edema. NEUROLOGICAL: No facial symmetry, following most commands, motor 1/5 in UE, 5/5 in LUE, 1/5 in RLE and 5/5 in LLE. Sensation not able to assess. PSYCHIATRIC: Good eye contact. Confused. SKIN: Warm, dry, normal turgor, no rashes or lesions noted. Laboratory Results - last 24 hr 03/04/17 03/04/17 05:20 05:20 WBC 13.3 H D RBC 2.71 L Hgb 7.7 L D Hct 24.5 L D MCV 90.6 MCHC 31.3 L RDW 16.9 H Plt Count 121 L D MPV 8.8 Neutrophils % 87.4 H Lymphocytes % 7.7 L D Monocytes % 4.4 Eosinophils % 0.4 Basophils % 0.1 Sodium 142 Potassium 4.3 D Chloride 114 H Carbon Dioxide 20 L D Anion Gap 8 BUN 19 H Creatinine 1.7 H Creat Clearance w eGFR 40.04 Random Glucose 84 D Calcium 6.2 L* Phosphorus 1.5 L D Magnesium 1.5 L D Total Bilirubin 0.4 AST 8 L D ALT 9 L D Alkaline Phosphatase 52 D Total Protein 5.3 L Albumin 2.3 L Active Medications Generic Name Dose Route Start Last Admin Trade Name Freq PRN Reason Stop Dose Admin Amlodipine Besylate 5 mg 03/04/17 14:00 Norvasc - PO DAILY [facility] Chlorhexidine Gluconate 1 applic 03/03/17 22:00 03/03/17 22:00 Hibiclens For Decolonization - TP 1 applic HS [facility] Administration Folic Acid 1 mg 03/04/17 14:00 Folic Acid - PO DAILY [facility] Sodium Chloride 1,000 mls @ 125 mls/hr 03/03/17 21:45 03/03/17 22:00 Normal Saline - IV 125 mls/hr ASDIR [facility] Administration Isosorbide Mononitrate 30 mg 03/04/17 14:00 Imdur - PO DAILY [facility] Methimazole 5 mg 03/04/17 14:00 Tapazole - PO TID [facility] Mupirocin 1 applic 03/03/17 22:00 03/04/17 09:49 Bactroban Ointment (For Decolonization) - NS 03/08/17 21:59 1 applic BID [facility] Administration Non-Formulary Medication 30 ml 03/04/17 14:00 Aa/[place]/Arg/C/Zn/Cu [Lps Critical Care Liquid] PO BID [facility] Non-Formulary Medication 650 mg 03/04/17 13:46 Acetaminophen [Acetaminophen] PO Q4H PRN PAIN Non-Formulary Medication 325 mg 03/04/17 14:00 Ferrous Sulfate [Feosol] PO BID [facility] Rivaroxaban 15 mg 03/04/17 14:00 Xarelto - PO DAILY [facility] Rosuvastatin Calcium 10 mg 03/04/17 22:00 Crestor - PO [facility] ASSESSMENT/PLAN: This is a 72 year old male with a PMH of colon cancer, s/p colectomy, HTN, LLE arterial emboli s/p BKA, recent hospitalization from 02/20 to 03/01 for PNA, newly dx lung mass and CVA. he is admitted for sepsis due to PNA, S/P cva. Sepsis due to health care aquired PNA -elevated WBC, HR>90, RR>20 -vanco and zosyn given in ED, -consulted ID, will continue Zosyn -supplemental oxygen PRN to maintain sat >94% - received 2L NS resuscitation, cont 125mL/hr as SBP improving, give additional bolus as needed -speech and swallow evauated SHIVA likely due to sepsis -fluid resuscitation -cont NS @ 125ml/hr Recent CVA with increased R facial droop/weakness - CT without acute findings - neurology consulted, restarted Xarelto Lung mass -cont to defer biopsy until pt more medically stable. HTN -hold antihypertensives at present given SBP 90s PVD, LLE arterial emboli -cont xarelto DVT PPX - on home xarelto FEN -NS @ 125mL/hr -repeat BMP in am Dispo: ICU, will transfer to telemetry later today We will continue to follow the patient. Thank you for this consultative opportunity. Problem List - Problems (1) SHIVA (acute kidney injury) Code(s): N17.9 - ACUTE KIDNEY FAILURE, UNSPECIFIED (2) CVA (cerebral vascular accident) Code(s): I63.9 - CEREBRAL INFARCTION, UNSPECIFIED (3) Pneumonia Code(s): J18.9 - PNEUMONIA, UNSPECIFIED ORGANISM (4) Sepsis Code(s): A41.9 - SEPSIS, UNSPECIFIED ORGANISM (5) UTI (urinary tract infection) Code(s): N39.0 - URINARY TRACT INFECTION, SITE NOT SPECIFIED (6) Smoker Code(s): F17.200 - NICOTINE DEPENDENCE, UNSPECIFIED, UNCOMPLICATED (7) Left carotid artery occlusion Code(s): I65.22 - OCCLUSION AND STENOSIS OF LEFT CAROTID ARTERY (8) Lung mass Code(s): R91.8 - OTHER NONSPECIFIC ABNORMAL FINDING OF LUNG FIELD (9) Rectal carcinoma Code(s): C20 - MALIGNANT NEOPLASM OF RECTUM Visit type - Emergency Visit Emergency Visit: Yes ED Registration Date: 03/03/17 Care time: The patient presented to the Emergency Department on the above date and was hospitalized for further evaluation of their emergent condition. - New Patient This patient is new to me today: Yes Date on this admission: 03/04/17 - Critical Care Critical Care patient: Yes Total Critical Care Time (in minutes): 40 Critical Care Statement: The care of this patient involved high complexity decision making to prevent further life threatening deterioration of the patient 's condition and/or to evalute & treat vital organ system(s) failure or risk of failure.
[2017-03-04] MEDS ORDERED: FERROUS SO4 325 MG TABLET (FP) PO SCH (14:00)
[2017-03-04] MEDS ORDERED: METHIMAZOLE 5 MG TABLET (FP) PO SCH (14:00)
[2017-03-04] MEDS ORDERED: RIVAROXABAN 15 MG TABLET PO SCH (14:00)
[2017-03-04] MEDS ORDERED: FOLIC ACID 1 MG TABLET (FP) PO SCH (14:00)
[2017-03-04] MEDS ORDERED: ISOSORBIDE MONONITRATE 30 MG TAB.SR.24H (FP) PO SCH (14:00)
[2017-03-04] MEDS ORDERED: AMINO ACIDS/PROTEIN HYDROLYS 30 ML LIQUID.PKT PO SCH (14:00)
[2017-03-04] MEDS: SODIUM CHLORIDE 1,000 ML IV SCH ×2 (14:00→19:34)
[2017-03-04] MEDS ORDERED: amLODIPine BESYLATE 5 MG TABLET (FP) PO SCH (14:00)
[2017-03-04] MEDS ORDERED: PT OWN MED DRAWER 7, Y5N ONE ×3 (14:50→21:47)
--- NOTE | 2017-03-04 14:57 | CONS ---
DATE OF CONSULTATION: DATE OF DICTATION: 03/04/2017 HISTORY OF PRESENT ILLNESS: The patient is a 72-year-old male who is evaluated for pneumonia, sepsis, and possible septic shock. History was obtained from the chart as he cannot give a history secondary to aphasia. He was recently admitted to [facility] for evaluation of a left lung mass. The patient was scheduled to undergo a needle biopsy of the lung mass. His anticoagulation was held. Patient subsequently developed an acute left-sided CVA. He received a 7-day course of ceftriaxone and was discharged to a snf facility with plans to do the lung biopsy as an outpatient. He is now admitted with worsening right facial paralysis and right-sided weakness, hypotension, and hypoxemia. He was admitted to the intensive care unit. He was seen in consultation by Neurology who felt he was suffering from progression of his CVA. His course has further been complicated by hypotension, markedly elevated white blood cell count, and low-grade fever. He was empirically treated with Zosyn and vancomycin. Presently he is awake, however, he is aphasic. He is in no acute respiratory distress. No reports of cough, sputum production, vomiting, diarrhea, grossly purulent urine or catheter-related infection. PAST MEDICAL HISTORY: Positive for recent stroke, hypertension, colon cancer. PAST SURGICAL HISTORY: Status post left [id number] amputation, status post colostomy. ALLERGIES: No known allergies. MEDICATIONS: Include Feosol, Bactroban, Xarelto, Tapazole, Norvasc, Crestor, folic acid, Imdur. SOCIAL HISTORY: He is primarily Pashto speaking. He understands Guatemalan. He is a former smoker, lives in the community. SYSTEMS REVIEW: Neurologic: As per HPI. Cardiac: Negative for chest pain or palpitations. Respiratory: As per HPI. Gastrointestinal: Negative for vomiting or diarrhea. Positive colostomy. Genitourinary: Negative for urinary tract infection. LABORATORY DATA: White count on admission 24,000, presently 13.3, hematocrit 24.5, platelets 121. BUN 19, creatinine 1.7. Chest x-ray shows a large left lower lung field mass/consolidation. CT scan confirms the presence of a lung mass with some air seen within the mass. Cultures pending. PHYSICAL EXAMINATION: General: He is awake. However, he is aphasic, in no acute respiratory distress. Vital signs: Temperature 99, blood pressure 121/55, pulse 88 and regular, respirations 18 per minute. HEENT: Sclerae anicteric. Heart: Heart sounds S1, S2. Lungs: Rhonchi right greater than left. Abdomen: Soft. No tenderness elicited. No mass, rebound, or rigidity. Positive ostomy. Extremities: Negative for edema. Status post left [id number] amputation. IMPRESSION: 1. Sepsis, possible septic shock. 2. Left lung mass. Possible neoplasm with associated pneumonia. 3. Probable postobstructive pneumonia. 4. Status post cerebrovascular accident. Continue hemodynamic support. At the present time, patient is receiving IV fluids, is not currently pressor-dependent. Empiric antibiotic coverage for suspected postobstructive pneumonia with Zosyn 3.375 g IV piggyback every 8 hours. ICU monitoring. Will require tissue diagnosis likely via percutaneous needle biopsy of lung mass for diagnosis. Prognosis is guarded. Will follow. Thank you for the kind referral. CRITICAL CARE TIME: 35 minutes. SHARDA BOWSER M.D. [id number]
--- NOTE | 2017-03-04 15:59 | PN ---
Physical Exam: SUBJECTIVE: Patient seen and examined at bedside in ICU. He follows commands and answers minimal questions with repetitive words. Per nurse, upon pt transferred from ED to ICU, his BP was persistently low but mental status remains stable, no fever, shortness of breath, chest pain. OBJECTIVE: Vital Signs Period Temp Pulse Resp BP Sys/Tapia Pulse Ox Last 24 Hr 97.5 F-99 F 57-91 18-26 76-121/52-68 98-99 GENERAL: Awake, alert but not oriented, follows minimal commands, answers yes to most questions HEAD: AT, NC EYES: Pupils equal, round and reactive to light, sclera anicteric, conjunctiva clear ENT: oropharynx clear without exudates LUNGS: rhonchi in the lower lobes HEART: RRR, S1 and S2, no rub ABDOMEN: +bs, soft, non-tender, no rebound, guarding EXTREMITIES: No peripheral edema NEURO: unable to perform due to patient's mental status, no facial droop observed CBCD WBC 13.3 K/mm3 (4.0-10.0) H D 03/04/17 05:20 RBC 2.71 M/mm3 (4.00-5.60) L 03/04/17 05:20 Hgb 7.7 GM/dL (11.7-16.9) L D 03/04/17 05:20 Hct 24.5 % (35.4-49) L D 03/04/17 05:20 MCV 90.6 fl (80-96) 03/04/17 05:20 MCHC 31.3 g/dl (32.0-35.9) L 03/04/17 05:20 RDW 16.9 % (11.9-15.9) H 03/04/17 05:20 Plt Count 121 K/MM3 (134-434) L D 03/04/17 05:20 MPV 8.8 fl (7.5-11.1) 03/04/17 05:20 CMP Sodium 142 mmol/L (136-145) 03/04/17 05:20 Potassium 4.3 mmol/L (3.5-5.1) D 03/04/17 05:20 Chloride 114 mmol/L (98-107) H 03/04/17 05:20 Carbon Dioxide 20 mmol/L (21-32) L D 03/04/17 05:20 Anion Gap 8 (8-16) 03/04/17 05:20 BUN 19 mg/dL (7-18) H 03/04/17 05:20 Creatinine 1.7 mg/dL (0.7-1.3) H 03/04/17 05:20 Creat Clearance w eGFR 40.04 (>60) 03/04/17 05:20 Calcium 6.2 mg/dL (8.5-10.1) L* 03/04/17 05:20 Total Bilirubin 0.4 mg/dL (0.2-1.0) 03/04/17 05:20 AST 8 U/L (15-37) L D 03/04/17 05:20 ALT 9 U/L (12-78) L D 03/04/17 05:20 Alkaline Phosphatase 52 U/L (45-117) D 03/04/17 05:20 Total Protein 5.3 g/dl (6.4-8.2) L 03/04/17 05:20 Albumin 2.3 g/dl (3.4-5.0) L 03/04/17 05:20 Intake & Output 03/01/17 03/02/17 03/03/17 03/04/17 23:59 23:59 23:59 23:59 Intake Total 2000 1175 Output Total 400 300 Balance 1600 875 Weight 65.771 kg 66.814 kg Active Medications Generic Name Dose Route Start Last Admin Trade Name Freq PRN Reason Stop Dose Admin Acetaminophen 650 mg 03/04/17 13:46 Tylenol - PO Q4H PRN PAIN Amino Acids 30 ml 03/04/17 14:00 Prosource No Carb Liquid Pkt PO BID [facility] Amlodipine Besylate 5 mg 03/04/17 14:00 03/04/17 14:53 Norvasc - PO 5 mg DAILY [facility] Administration Chlorhexidine Gluconate 1 applic 03/03/17 22:00 03/03/17 22:00 Hibiclens For Decolonization - TP 1 applic HS [facility] Administration Ferrous Sulfate 325 mg 03/04/17 14:00 03/04/17 14:54 Feosol - PO 325 mg BID [facility] Administration Folic Acid 1 mg 03/04/17 14:00 03/04/17 14:54 Folic Acid - PO 1 mg DAILY [facility] Administration Sodium Chloride 1,000 mls @ 125 mls/hr 03/03/17 21:45 03/03/17 22:00 Normal Saline - IV 125 mls/hr ASDIR [facility] Administration Isosorbide Mononitrate 30 mg 03/04/17 14:00 03/04/17 14:53 Imdur - PO 30 mg DAILY [facility] Administration Methimazole 5 mg 03/04/17 14:00 03/04/17 14:54 Tapazole - PO 5 mg TID [facility] Administration Mupirocin 1 applic 03/03/17 22:00 03/04/17 09:49 Bactroban Ointment (For Decolonization) - NS 03/08/17 21:59 1 applic BID [facility] Administration Rivaroxaban 15 mg 03/04/17 14:00 Xarelto - PO DAILY [facility] Rosuvastatin Calcium 10 mg 03/04/17 22:00 Crestor - PO HS [facility] Imaging CT head on 03/03: no acute pathology CXR on 03/03: No change compared to prior MRI Brain on 02/26: Multiple supratentorial and infratentorial acute infarcts. Increased intraluminal signal intensity is seen within the intracranial left internal carotid artery which may be on the basis of occlusion or patency with severely diminished blood flow Carotid Doppler on 02/26: Moderately severe atherosclerotic disease with occlusion of the left ICA CT head on 02/24: acute nonhemorrhagic left posterior temporal/parietal cortical infarct Neck CTA on 02/27: pending read ASSESSMENT/PLAN: 72 yo M h/o colon cancer s/o colostomy, HTN, left lower ext arterial emboli admitted for PNA and CVA admitted to the ICU for new onset of R sided weakness and R facial droop. Neuro: Acute onset of R sided weakness - Stroke in evolution vs. toxic metabolic encephalopathy 2/2 PNA - h/o CVA, acute L posterior temporal/parietal infarct - Remain expressively aphasic since previous stroke - CT, MRI and carotid doppler findings consistent with CVA of ischemic origin - Cont. xarelto - Hold all BP medications and allow permissive HTN ID: Obstructive pneumonia 2/2 lung mass - Afrebile with elevated WBC on predisone when discharged on 03/01 - Completed rocephin 7 day course in last hospitalization - Pending cultures - Cont. zosyn day 1 HemOnc: New lung lesion; Rectal carcinoma s/p rectal surgery, colostomy and chemo - Lung biopsy scheduled Wednesday - Will hold xarelto on Wednesday and replace with heparin gtt then stop the gtt on Wednesday Renal: SHIVA - Elevated Cr - Cont. hydration Endo: hyperthyroidism - Cont. methimazole FEN - NS 125ml/hr - Cont. to monitor Ca2+ and Cr - Dysphagia puree Prophylaxis - DVT: on Xarelto - GI: not indicated Disposition - Transfer to [facility]-surg Code status - Full code Visit type - Emergency Visit Emergency Visit: No - New Patient This patient is new to me today: No - Critical Care Critical Care patient: Yes Total Critical Care Time (in minutes): 40 Critical Care Statement: The care of this patient involved high complexity decision making to prevent further life threatening deterioration of the patient 's condition and/or to evalute & treat vital organ system(s) failure or risk of failure.
[2017-03-04] MEDS: PIPERACILLIN/TAZOB 3.375 GM 50 ML IVPB SCH (17:07)
--- NOTE | 2017-03-04 17:25 | PN ---
Teaching Attending Note Name of Resident: Keenan Onofre ATTENDING PHYSICIAN STATEMENT I saw and evaluated the patient. I reviewed the resident's note and discussed the case with the resident. I agree with the resident's findings and plan as documented. SUBJECTIVE: Patient is confused, has no complaints. OBJECTIVE: Vital Signs Period Temp Pulse Resp BP Sys/Tapia Pulse Ox Last 24 Hr 97.5 F-99 F 57-91 18-26 76-121/52-68 98-99 HEART: S1S2, RRR LUNGS: Bilateral rhonchi ABDOMEN: Soft, non-tender, non-distended, normal BS EXTREMITIES: No edema, s/p left BKA NEUROLOGICAL: Alert, confused, (+) dysarthria, (+) right facial weakness, strength 3/5 RUE/RLE and 4/5 LUE/LLE ASSESSMENT AND PLAN: THis is a 72-year-old man with a history of HTN, colon CA, colostomy, LLE arterial emboli, left BKA, left lung mass, CVA who presented to the ER from with worse right sided facial droop, right sided weakness, hypoxia and hypotension. 1. Sepsis secondary to healthcare associated pneumonia, possible aspiration pneumonia - Afebrile, WBC improving, tachycardia improved - Continue Zosyn, IV fluid 2. Acute kidney injury secondary to sepsis and hypovolemia - Improving with IV fluid 3. Acute metabolic encephalopathy secondary to sepsis 4. Right hemiparesis, right facial weakness, dysarthria secondary to recent CVA - Continue Xarelto Crestor 5. Left lung mass - Biopsy when stable 6. HTN - Continue Norvasc, Lopressor 7. PAD, history of LLE arterial emboli, left BKA - Continue Xarelto 8. Hyperkalemia - Improved 9. Hyperthyroidism - Continue Tapazole 10. COPD - Stable 11. Anemia secondary to chronic illness - Continue ferrous sulfate, folic acid 12. History of colon cancer, colostomy 13. Hypocalcemia 14. Protein malnutrition with weight loss, hypoproteinemia and hypoalbuminemia - Continue Prosource
[2017-03-04] MEDS ORDERED: MAGNESIUM SULF 50% (8.12 MEQ/2 ML-1 GM VIAL) ONE (18:24)
[2017-03-04] MEDS ORDERED: CALCIUM GLUCONATE 10% - 1,000 MG/10 ML VIAL ONE (18:24)
[2017-03-04] MEDS: MAGNESIUM SULF 50% (8.12 MEQ/2 ML-1 GM VIAL) IVPB ONE ×2 (18:28→18:33)
[2017-03-04] MEDS ORDERED: CALCIUM GLUCONATE 10% - 1,000 MG/10 ML VIAL IVPB ONE (18:30)
[2017-03-04] MEDS ORDERED: SODIUM PHOSPHATE - 15 MM in SODIUM CHLORIDE 250 ML IVPB ONE (18:45)
[2017-03-04] MEDS: FERROUS SO4 325 MG TABLET (FP) PO SCH (21:49)
[2017-03-04] MEDS: AMINO ACIDS/PROTEIN HYDROLYS 30 ML LIQUID.PKT PO SCH (21:49)
[2017-03-04] MEDS: METHIMAZOLE 5 MG TABLET (FP) PO SCH (21:49)
[2017-03-04] MEDS ORDERED: ROSUVASTATIN CA 10 MG TABLET (FP) PO SCH ×2 (22:00)
[2017-03-04] MEDS ORDERED: CHLORHEXIDINE GLUCONATE 4% CLEANSER FOR DECOLONIZATION TP SCH (22:00)
[2017-03-05] MEDS: PIPERACILLIN/TAZOB 3.375 GM 50 ML IVPB SCH ×3 (01:58→17:21)
[2017-03-05] MEDS: SODIUM CHLORIDE 1,000 ML IV SCH ×2 (02:29→22:28)
[2017-03-05] MEDS ORDERED: HEMOQUE TEST 1 EACH EACH ONE ×2 (03:06→03:08)
[2017-03-05] MEDS ORDERED: HEMOQUE CONTROL SOLUTION ONE (03:07)
[2017-03-05] MEDS: METHIMAZOLE 5 MG TABLET (FP) PO SCH ×3 (05:58→22:30)
[2017-03-05 06:21] LABS: BASOPHIL 0.1 % (0-2.0); EOSINOPHIL 1.1 % (0-4.5); MCH 28.5 pg (25.7-33.7); MCHC 31.2 g/dl (32.0-35.9); MEAN CELL VOLUME 91.1 fl (80-96); MEAN PLT VOLUME 9.1 fl (7.5-11.1); NEUTROPHILS 90.3 % (42.8-82.8); PLATELET COUNT 110 K/MM3 (134-434); RDW 16.9 % (11.9-15.9); WHITE BLOOD COUNT 12.7 K/mm3 (4.0-10.0)
[2017-03-05 06:44] LABS: ALBUMIN 2.1 g/dl (3.4-5.0); COCKROFT - GAULT 46.17; CREATININE 1.4 mg/dL (0.7-1.3); PHOSPHOROUS 2.3 mg/dL (2.5-4.9)
[2017-03-05 06:46] LABS: BILIRUBIN,TOTAL 0.5 mg/dL (0.2-1.0); TOT PROT 5.1 g/dl (6.4-8.2)
[2017-03-05 07:03] LABS: CALCIUM 6.5 mg/dL (8.5-10.1)
[2017-03-05] MEDS ORDERED: ISOSORBIDE MONONITRATE 30 MG TAB.SR.24H (FP) PO SCH (10:00)
[2017-03-05] MEDS ORDERED: amLODIPine BESYLATE 5 MG TABLET (FP) PO SCH (10:00)
[2017-03-05] MEDS ORDERED: RIVAROXABAN 15 MG TABLET PO SCH (10:00)
[2017-03-05] MEDS ORDERED: FOLIC ACID 1 MG TABLET (FP) PO SCH (10:00)
[2017-03-05] MEDS: MUPIROCIN 2% TOPICAL OINTMENT FOR DECOLONIZATION NS SCH ×2 (10:21→22:31)
[2017-03-05] MEDS: FERROUS SO4 325 MG TABLET (FP) PO SCH ×2 (10:26→22:29)
[2017-03-05] MEDS: AMINO ACIDS/PROTEIN HYDROLYS 30 ML LIQUID.PKT PO SCH ×2 (10:28→22:30)
--- NOTE | 2017-03-05 10:46 | PN ---
Progress Note, Physician History of Present Illness: Awake, aphasic No acute distress Breathing non-labored Afebrile WBC improved Cultures prelim no growth - Current Medication List Current Medications: Active Medications Acetaminophen (Tylenol -) 650 mg PO Q4H PRN PRN Reason: PAIN Amino Acids (Prosource No Carb Liquid Pkt) 30 ml PO BID [facility] Last Admin: 03/05/17 10:28 Dose: 30 ml Amlodipine Besylate (Norvasc -) 5 mg PO DAILY [facility] Last Admin: 03/05/17 10:27 Dose: 5 mg Chlorhexidine Gluconate (Hibiclens For Decolonization -) 1 applic TP HS [facility] Last Admin: 03/04/17 21:44 Dose: 1 applic Ferrous Sulfate (Feosol -) 325 mg PO BID [facility] Last Admin: 03/05/17 10:26 Dose: 325 mg Folic Acid (Folic Acid -) 1 mg PO DAILY [facility] Last Admin: 03/05/17 10:26 Dose: 1 mg Piperacillin Sod/Tazobactam Sod (Zosyn 3.375gm Ivpb (Pre-Docked)) 50 mls @ 100 mls/hr IVPB Q8H-IV [facility] PRN Reason: Protocol Last Admin: 03/05/17 10:22 Dose: 100 mls/hr Sodium Chloride (Normal Saline -) 1,000 mls @ 125 mls/hr IV ASDIR [facility] Last Admin: 03/05/17 02:29 Dose: 125 mls/hr Isosorbide Mononitrate (Imdur -) 30 mg PO DAILY [facility] Last Admin: 03/05/17 10:26 Dose: 30 mg Methimazole (Tapazole -) 5 mg PO TID [facility] Last Admin: 03/05/17 05:58 Dose: 5 mg Mupirocin (Bactroban Ointment (For Decolonization) -) 1 applic NS BID [facility] Stop: 03/08/17 21:59 Last Admin: 03/05/17 10:21 Dose: 1 applic Rivaroxaban (Xarelto -) 15 mg PO DAILY [facility] Last Admin: 03/05/17 10:30 Dose: 15 mg Rosuvastatin Calcium (Crestor -) 10 mg PO HS [facility] Last Admin: 03/04/17 21:49 Dose: 10 mg - Objective Vital Signs: Vital Signs Temperature 98.9 F 03/05/17 06:00 Pulse Rate 72 05/12/17 08:00 Respiratory Rate 21 03/05/17 08:10 Blood Pressure 105/68 03/05/17 08:00 O2 Sat by Pulse Oximetry (%) 99 03/05/17 08:10 Constitutional: Yes: No Distress Eyes: Yes: Conjunctiva Clear Cardiovascular: Yes: Regular Rate and Rhythm, S1, S2 Respiratory: Yes: Diminished Gastrointestinal: Yes: Normal Bowel Sounds, Soft, Other (+patent ostomy). No: Tenderness Extremities: Yes: Other (S/P L BKA) Neurological: Yes: Other (R hemiplegia) Labs: CBC, BMP 03/05/17 05:15 03/05/17 05:15 INR, PTT INR 1.54 (0.82-1.09) H 03/03/17 16:15 Assessment/Plan L Lung mass, possible malignancy Post obstructive pneumonia S/P CVA Leukocytosis-improved Azotemia-improved Thrombocytopenia await c/s Continue empiric zosyn
--- NOTE | 2017-03-05 11:44 | PN ---
Progress Note, [employer] - Note Progress Note: Pt noted to cough yesterday with PO trials. Nursing reported tolerance of cereal this am Upon reassessment, delayed swallow onset with reduced vom, and rom. Overtly tolerating puree, but with delayed cough with honey thick liquid on a tspn.Suspected aspiration on liquids. Silent aspiration/stasis can not be r/o at bedside. cxr noted. REC: Trial dysphagia puree NO liquids PO-thick or thin- hydrate via IV Tell pt to swallow hard twice with each bite If cough/congestion, NPO MBS next week as pt becomes stronger
--- NOTE | 2017-03-05 13:28 | PN ---
Teaching Attending Note Name of Resident: Elise Hogan ATTENDING PHYSICIAN STATEMENT I saw and evaluated the patient. I reviewed the resident's note and discussed the case with the resident. I agree with the resident's findings and plan as documented. SUBJECTIVE: Patient seen and examined in the ICU. Slightly more awake today. NAD on NC O2. Intake & Output 03/02/17 03/03/17 03/04/17 03/05/17 23:59 23:59 23:59 23:59 Intake Total 1999 3625 1850 Output Total 400 600 Balance 1600 3025 1850 Weight 145 lb 147 lb 4.8 oz 146 lb 9.6 oz Last Vital Signs Temp Pulse Resp BP Pulse Ox 98.9 F 76 22 97/62 99 03/05/17 06:00 03/05/17 12:00 03/05/17 12:00 03/05/17 12:00 03/05/17 08:10 Active Medications Acetaminophen (Tylenol -) 650 mg PO Q4H PRN PRN Reason: PAIN Amino Acids (Prosource No Carb Liquid Pkt) 30 ml PO BID [facility] Last Admin: 03/05/17 10:28 Dose: 30 ml Amlodipine Besylate (Norvasc -) 5 mg PO DAILY [facility] Last Admin: 03/05/17 10:27 Dose: 5 mg Chlorhexidine Gluconate (Hibiclens For Decolonization -) 1 applic TP HS [facility] Last Admin: 03/04/17 21:44 Dose: 1 applic Ferrous Sulfate (Feosol -) 325 mg PO BID [facility] Last Admin: 03/05/17 10:26 Dose: 325 mg Folic Acid (Folic Acid -) 1 mg PO DAILY [facility] Last Admin: 03/05/17 10:26 Dose: 1 mg Piperacillin Sod/Tazobactam Sod (Zosyn 3.375gm Ivpb (Pre-Docked)) 50 mls @ 100 mls/hr IVPB Q8H-IV JULIO PRN Reason: Protocol Last Admin: 03/05/17 10:22 Dose: 100 mls/hr Sodium Chloride (Normal Saline -) 1,000 mls @ 125 mls/hr IV ASDIR [facility] Last Admin: 03/05/17 02:29 Dose: 125 mls/hr Isosorbide Mononitrate (Imdur -) 30 mg PO DAILY [facility] Last Admin: 03/05/17 10:26 Dose: 30 mg Methimazole (Tapazole -) 5 mg PO TID [facility] Last Admin: 03/05/17 05:58 Dose: 5 mg Mupirocin (Bactroban Ointment (For Decolonization) -) 1 applic NS BID [facility] Stop: 03/08/17 21:59 Last Admin: 03/05/17 10:21 Dose: 1 applic Rivaroxaban (Xarelto -) 15 mg PO DAILY [facility] Last Admin: 03/05/17 10:30 Dose: 15 mg Rosuvastatin Calcium (Crestor -) 10 mg PO HS [facility] Last Admin: 03/04/17 21:49 Dose: 10 mg Constitutional: Yes: Awake, NAD Eyes: Yes: WNL, PERRL HENT: Yes: WNL, Atraumatic, Normocephalic Neck: Yes: WNL, Supple, Trachea Midline Cardiovascular: Yes: WNL, Regular Rate and Rhythm, S1, S2 Respiratory: Yes: Cough, few scattered rhonchi, decreased BS at the bases Gastrointestinal: Yes: Normal Bowel Sounds, Soft (+) ostomy ...Rectal Exam: Yes: Deferred Extremities: Yes: Amputation (L BKA) Edema: No Peripheral Pulses WNL: Yes Integumentary: Yes: WNL Neurological: Yes: Alert, Facial Droop (Right), Pre-Existing Deficit, Weakness ( R Hemiparesis) ...Motor Strength: RUE (Weaker compared to Left), RLE (Weaker compared to left) Labs: Laboratory Results - last 24 hr 03/04/17 03/05/17 03/05/17 19:35 05:15 05:15 WBC 12.7 H RBC 2.95 L Hgb 8.4 L Hct 26.9 L MCV 91.1 MCHC 31.2 L RDW 16.9 H Plt Count 110 L MPV 9.1 Neutrophils % 90.3 H Lymphocytes % 4.4 L D Monocytes % 4.1 Eosinophils % 1.1 D Basophils % 0.1 Sodium 145 Potassium 4.1 Chloride 115 H Carbon Dioxide 17 L Anion Gap 13 BUN 16 Creatinine 1.4 H Creat Clearance w eGFR 50.10 Random Glucose 72 L Calcium 6.5 L* Phosphorus 2.3 L D Magnesium 2.3 D Total Bilirubin 0.5 D AST 12 L D ALT 10 L Alkaline Phosphatase 57 Total Protein 5.1 L Albumin 2.1 L Problem List - Problems (1) CVA (cerebral vascular accident) Code(s): I63.9 - CEREBRAL INFARCTION, UNSPECIFIED (2) Pneumonia Code(s): J18.9 - PNEUMONIA, UNSPECIFIED ORGANISM (3) Sepsis Code(s): A41.9 - SEPSIS, UNSPECIFIED ORGANISM (4) UTI (urinary tract infection) Code(s): N39.0 - URINARY TRACT INFECTION, SITE NOT SPECIFIED (5) Lung mass Code(s): R91.8 - OTHER NONSPECIFIC ABNORMAL FINDING OF LUNG FIELD (6) Encephalopathy Code(s): G93.40 - ENCEPHALOPATHY, UNSPECIFIED (7) SHIVA (acute kidney injury) Code(s): N17.9 - ACUTE KIDNEY FAILURE, UNSPECIFIED Assessment/Plan Left Carotid occlusion PLAN: ABX per ID O2 as needed to maintain saturation Neuro checks IVF resuscitation Aspiration precautions Swallow evaluation given acute CVA Monitor urine output Will need to reassess lung mass biopsy Dr Kaminski Critical care time spent in reviewing chart, evaluating patient and formulating plan 35 min
--- NOTE | 2017-03-05 14:25 | PN ---
Physical Exam: SUBJECTIVE: Patient seen and examined at bedside in ICU. He remains at baseline mental status. Per nurse, no acute event overnight. OBJECTIVE: Vital Signs Period Temp Pulse Resp BP Sys/Tapia Pulse Ox Last 24 Hr 98 F-98.9 F 65-80 18-24 88-109/56-68 99-99 GENERAL: Awake, alert but not oriented, follows minimal commands, answers yes to most questions, not in any pulmonary distress HEAD: AT, NC EYES: Pupils equal, round and reactive to light, sclera anicteric, conjunctiva clear ENT: oropharynx clear without exudates LUNGS: loud rhonchi in the lower lobes HEART: RRR, S1 and S2, no rub ABDOMEN: +bs, soft, non-tender, no rebound, guarding EXTREMITIES: No peripheral edema NEURO: unable to perform due to patient's mental status, no facial droop observed CBCD WBC 12.7 K/mm3 (4.0-10.0) H 03/05/17 05:15 RBC 2.95 M/mm3 (4.00-5.60) L 03/05/17 05:15 Hgb 8.4 GM/dL (11.7-16.9) L 03/05/17 05:15 Hct 26.9 % (35.4-49) L 03/05/17 05:15 MCV 91.1 fl (80-96) 03/05/17 05:15 MCHC 31.2 g/dl (32.0-35.9) L 03/05/17 05:15 RDW 16.9 % (11.9-15.9) H 03/05/17 05:15 Plt Count 110 K/MM3 (134-434) L 03/05/17 05:15 MPV 9.1 fl (7.5-11.1) 03/05/17 05:15 CMP Sodium 145 mmol/L (136-145) 03/05/17 05:15 Potassium 4.1 mmol/L (3.5-5.1) 03/05/17 05:15 Chloride 115 mmol/L (98-107) H 03/05/17 05:15 Carbon Dioxide 17 mmol/L (21-32) L 03/05/17 05:15 Anion Gap 13 (8-16) 03/05/17 05:15 BUN 16 mg/dL (7-18) 03/05/17 05:15 Creatinine 1.4 mg/dL (0.7-1.3) H 03/05/17 05:15 Creat Clearance w eGFR 50.10 (>60) 03/05/17 05:15 Calcium 6.5 mg/dL (8.5-10.1) L* 03/05/17 05:15 Total Bilirubin 0.5 mg/dL (0.2-1.0) D 03/05/17 05:15 AST 12 U/L (15-37) L D 03/05/17 05:15 ALT 10 U/L (12-78) L 03/05/17 05:15 Alkaline Phosphatase 57 U/L (45-117) 03/05/17 05:15 Total Protein 5.1 g/dl (6.4-8.2) L 03/05/17 05:15 Albumin 2.1 g/dl (3.4-5.0) L 03/05/17 05:15 Intake & Output 03/02/17 03/03/17 03/04/17 03/05/17 23:59 23:59 23:59 23:59 Intake Total 1999 3625 1850 Output Total 400 600 Balance 1600 3025 1850 Weight 65.771 kg 66.814 kg 66.497 kg Active Medications Generic Name Dose Route Start Last Admin Trade Name Freq PRN Reason Stop Dose Admin Acetaminophen 650 mg 03/04/17 18:37 Tylenol - PO Q4H PRN PAIN Amino Acids 30 ml 03/04/17 22:00 03/05/17 10:28 Prosource No Carb Liquid Pkt PO 30 ml BID JULIO Administration Amlodipine Besylate 5 mg 03/05/17 10:00 03/05/17 10:27 Norvasc - PO 5 mg DAILY JULIO Administration Chlorhexidine Gluconate 1 applic 03/04/17 22:00 03/04/17 21:44 Hibiclens For Decolonization - TP 1 applic HS JULIO Administration Ferrous Sulfate 325 mg 03/04/17 22:00 03/05/17 10:26 Feosol - PO 325 mg BID JULIO Administration Folic Acid 1 mg 03/05/17 10:00 03/05/17 10:26 Folic Acid - PO 1 mg DAILY JULIO Administration Piperacillin Sod/Tazobactam Sod 50 mls @ 100 mls/hr 03/04/17 18:00 03/05/17 10: 22 Zosyn 3.375gm Ivpb (Pre-Docked) IVPB 100 mls/hr Q8H-IV JULIO Administration Protocol Sodium Chloride 1,000 mls @ 125 mls/hr 03/04/17 18:37 03/05/17 02:29 Normal Saline - IV 125 mls/hr ASDIR JULIO Administration Isosorbide Mononitrate 30 mg 03/05/17 10:00 03/05/17 10:26 Imdur - PO 30 mg DAILY JULIO Administration Methimazole 5 mg 03/04/17 22:00 03/05/17 05:58 Tapazole - PO 5 mg TID JULIO Administration Mupirocin 1 applic 03/04/17 22:00 03/05/17 10:21 Bactroban Ointment (For Decolonization) - NS 03/08/17 21:59 1 applic BID JULIO Administration Rivaroxaban 15 mg 03/05/17 10:00 03/05/17 10:30 Xarelto - PO 15 mg DAILY JULIO Administration Rosuvastatin Calcium 10 mg 03/04/17 22:00 03/04/17 21:49 Crestor - PO 10 mg HS JULIO Administration Microbiology 03/03/17 17:40 Urine Culture - Final Urine - Urine - Catheterized NO GROWTH OBTAINED 03/03/17 16:00 Blood Culture - Preliminary Blood - Peripheral Venous NO GROWTH OBTAINED AFTER 24 HOURS, INCUBATION TO CONTINUE FOR 4 DAYS. 03/03/17 16:00 Blood Culture - Preliminary Blood - Peripheral Venous NO GROWTH OBTAINED AFTER 24 HOURS, INCUBATION TO CONTINUE FOR 4 DAYS. Imaging CXR on 03/05: Increased opacification of the left hemithorax - increased pleural effusion ASSESSMENT/PLAN: 72 yo M h/o colon cancer s/o colostomy, HTN, left lower ext arterial emboli admitted for PNA and CVA admitted to the ICU for new onset of R sided weakness and R facial droop. Neuro: Acute onset of R sided weakness - Stroke in evolution vs. toxic metabolic encephalopathy 2/2 PNA - h/o CVA, acute L posterior temporal/parietal infarct - Remain expressively aphasic since previous stroke - F/u repeat CT head - Hold all BP medications and allow permissive HTN ID: Obstructive pneumonia 2/2 lung mass - Afrebile with elevated WBC on predisone when discharged on 03/01 * d/c prednisone * wbc trending down - Pending cultures - Cont. zosyn day 2 HemOnc: New lung lesion; Rectal carcinoma s/p rectal surgery, colostomy and chemo - Lung biopsy scheduled Wednesday - Will hold xarelto on Wednesday and replace with heparin gtt then stop the gtt on Wednesday night Renal: SHIVA - Improving - Cont. hydration Endo: hyperthyroidism - Cont. methimazole FEN - NS 75ml/hr - Repleted Ca2+ and phos, Cont. to monitor Ca2+ and Cr - Dysphagia puree Prophylaxis - DVT: on Xarelto will transition to heparin gtt - GI: not indicated Disposition - Transfer to med-surg - Biopsy consent to be signed by patient's sister, who is the HCP - Awaiting patient's oncologist (Dr. Kaufman, ) to call back in regards to lung biopsy Code status - Full code Visit type - Emergency Visit Emergency Visit: No - New Patient This patient is new to me today: No - Critical Care Critical Care patient: Yes Total Critical Care Time (in minutes): 35 Critical Care Statement: The care of this patient involved high complexity decision making to prevent further life threatening deterioration of the patient 's condition and/or to evalute & treat vital organ system(s) failure or risk of failure.
[2017-03-05] MEDS ORDERED: SODIUM CHLORIDE 1,000 ML IV SCH (15:30)
--- NOTE | 2017-03-05 15:36 | PN ---
Physical Exam: SUBJECTIVE: Patient seen and examined. He still doesn't talk, only mumbles. He was agitated today when the nursing staff wanted him to go for CT head. OBJECTIVE: No overnight events. Vital Signs Period Temp Pulse Resp BP Sys/Tapia Pulse Ox Last 24 Hr 98 F-98.9 F 65-80 18-24 88-109/56-68 99-99 GENERAL: The patient is sedated, on ventilation. HEAD: Normal with no signs of trauma. EYES: PERRL ENT: moist mucous membrane NECK: Trachea midline, full range of motion, supple. LUNGS: Breath sounds equal, rhonchi bilaterally, no wheezes, no accessory muscle use. HEART: Irregular rate and rhythm, S1, S2 without murmur, rub or gallop. ABDOMEN: Soft, nontender, nondistended, normoactive bowel sounds, no guarding, no rebound, no masses, PEG. EXTREMITIES: 2+ pulses, warm, no edema. NEUROLOGICAL: Sedated, gait not observed. SKIN: Warm, dry, normal turgor, no rashes or lesions noted Laboratory Results - last 24 hr 03/04/17 03/05/17 03/05/17 19:35 05:15 05:15 WBC 12.7 H RBC 2.95 L Hgb 8.4 L Hct 26.9 L MCV 91.1 MCHC 31.2 L RDW 16.9 H Plt Count 110 L MPV 9.1 Neutrophils % 90.3 H Lymphocytes % 4.4 L D Monocytes % 4.1 Eosinophils % 1.1 D Basophils % 0.1 Sodium 145 Potassium 4.1 Chloride 115 H Carbon Dioxide 17 L Anion Gap 13 BUN 16 Creatinine 1.4 H Creat Clearance w eGFR 50.10 Random Glucose 72 L Calcium 6.5 L* Phosphorus 2.3 L D Magnesium 2.3 D Total Bilirubin 0.5 D AST 12 L D ALT 10 L Alkaline Phosphatase 57 Total Protein 5.1 L Albumin 2.1 L Active Medications Generic Name Dose Route Start Last Admin Trade Name Freq PRN Reason Stop Dose Admin Acetaminophen 650 mg 03/04/17 18:37 Tylenol - PO Q4H PRN PAIN Amino Acids 30 ml 03/04/17 22:00 03/05/17 10:28 Prosource No Carb Liquid Pkt PO 30 ml BID JULIO Administration Amlodipine Besylate 5 mg 03/05/17 10:00 03/05/17 10:27 Norvasc - PO 5 mg DAILY JULIO Administration Chlorhexidine Gluconate 1 applic 03/04/17 22:00 03/04/17 21:44 Hibiclens For Decolonization - TP 1 applic HS JULIO Administration Ferrous Sulfate 325 mg 03/04/17 22:00 03/05/17 10:26 Feosol - PO 325 mg BID JULIO Administration Folic Acid 1 mg 03/05/17 10:00 03/05/17 10:26 Folic Acid - PO 1 mg DAILY JULIO Administration Piperacillin Sod/Tazobactam Sod 50 mls @ 100 mls/hr 03/04/17 18:00 03/05/17 10: 22 Zosyn 3.375gm Ivpb (Pre-Docked) IVPB 100 mls/hr Q8H-IV JULIO Administration Protocol Sodium Chloride 1,000 mls @ 75 mls/hr 03/05/17 15:30 Normal Saline - IV ASDIR JULIO Isosorbide Mononitrate 30 mg 03/05/17 10:00 03/05/17 10:26 Imdur - PO 30 mg DAILY JULIO Administration Methimazole 5 mg 03/04/17 22:00 03/05/17 05:58 Tapazole - PO 5 mg TID JULIO Administration Mupirocin 1 applic 03/04/17 22:00 03/05/17 10:21 Bactroban Ointment (For Decolonization) - NS 03/08/17 21:59 1 applic BID JULIO Administration Rivaroxaban 15 mg 03/05/17 10:00 03/05/17 10:30 Xarelto - PO 15 mg DAILY JULIO Administration Rosuvastatin Calcium 10 mg 03/04/17 22:00 03/04/17 21:49 Crestor - PO 10 mg HS JULIO Administration ASSESSMENT/PLAN: This is a 72 year old male with a PMH of colon cancer, s/p colectomy, HTN, LLE arterial emboli s/p BKA, recent hospitalization from 02/20 to 03/01 for PNA, newly dx lung mass and CVA. he is admitted for sepsis due to PNA, S/P cva. Sepsis due to health care acquired PNA/postobstructive PNA -consulted ID, will continue empiric Zosyn -supplemental oxygen PRN to maintain sat >94% -cont 75mL/hr of normal saline -speech and swallow evauated again, puree consistency, no liquids SHIVA likely due to sepsis -fluid resuscitation -cont NS @ 125ml/hr Recent CVA with increased R facial droop/weakness - f/u CT, another scheduled for today - neurology consulted, restarted Xarelto Lung mass -biopsy scheduled for Wednesday, will obtain consent from his sister HTN -hold antihypertensives at present given SBP 90s PVD, LLE arterial emboli -on xarelto thrombocytopenia: -monitor DVT PPX - on home xarelto FEN -NS @75mL/hr -monitor electrolytes -puree dysphagia diet Dispo: ICU, will transfer to telemetry later today We will continue to follow the patient. Thank you for this consultative opportunity. Problem List - Problems (1) SHIVA (acute kidney injury) Code(s): N17.9 - ACUTE KIDNEY FAILURE, UNSPECIFIED (2) CVA (cerebral vascular accident) Code(s): I63.9 - CEREBRAL INFARCTION, UNSPECIFIED (3) Pneumonia Code(s): J18.9 - PNEUMONIA, UNSPECIFIED ORGANISM (4) Sepsis Code(s): A41.9 - SEPSIS, UNSPECIFIED ORGANISM (5) UTI (urinary tract infection) Code(s): N39.0 - URINARY TRACT INFECTION, SITE NOT SPECIFIED (6) Smoker Code(s): F17.200 - NICOTINE DEPENDENCE, UNSPECIFIED, UNCOMPLICATED (7) Left carotid artery occlusion Code(s): I65.22 - OCCLUSION AND STENOSIS OF LEFT CAROTID ARTERY (8) Lung mass Code(s): R91.8 - OTHER NONSPECIFIC ABNORMAL FINDING OF LUNG FIELD (9) Rectal carcinoma Code(s): C20 - MALIGNANT NEOPLASM OF RECTUM Visit type - Emergency Visit Emergency Visit: Yes ED Registration Date: 03/03/17 Care time: The patient presented to the Emergency Department on the above date and was hospitalized for further evaluation of their emergent condition. - New Patient This patient is new to me today: No - Critical Care Critical Care patient: Yes Total Critical Care Time (in minutes): 50 Critical Care Statement: The care of this patient involved high complexity decision making to prevent further life threatening deterioration of the patient 's condition and/or to evalute & treat vital organ system(s) failure or risk of failure.
[2017-03-05] MEDS ORDERED: HEPARIN NA (PORCINE) 5,000 UNITS/ML 1ML VIAL IVPUSH PRN ×5 (16:03→17:51)
[2017-03-05] MEDS ORDERED: CALCIUM GLUCONATE 10% - 1,000 MG/10 ML VIAL IVPB ONE (16:15)
--- NOTE | 2017-03-05 16:52 | PN ---
Progress Note (short form) - Note Progress Note: 72 year old male, with a significant past medical history of HTN, colon Ca (s/p colostomy bag) and left BKA vascular problem (on Xarelto) who presents to the emergency department with right sided droop on 03/03 noticed by assisted staff. was seen last week while in house for L sided stroke, resulting in mixed aphasia , found to have left carotid occlusion (complete, NTD as per vascular) The patients NH also reports the patient was hypotensive and hypoxic earlier on 08/10. RIght sided Weakness noted now was not seen ( to this extent) on prior admission last week. pt unable to elaborate further given HX of aphasia. FU : right hemiparesis and aphasia--awake and responds though limited communication await repeat HD CT Home Medications - Home Medications Home Medications: Ambulatory Orders Aa/[place]/Arg/C/Zn/Cu [Lps Critical Care Liquid] 30 ml PO BID 03/03/17 Acetaminophen 650 mg PO Q4H PRN 03/03/17 Amlodipine Besylate [Norvasc -] 5 mg PO DAILY 03/03/17 Ferrous Sulfate [Feosol] 325 mg PO BID 03/03/17 Folic Acid 1 mg PO DAILY 03/03/17 Isosorbide Mononitrate [Imdur -] 30 mg PO DAILY 03/03/17 Methimazole [Tapazole] 5 mg PO TID 03/03/17 Metoprolol Tartrate [Lopressor -] 25 mg PO DAILY 03/03/17 Prednisone [Deltasone -] 5 mg PO DAILY 03/03/17 Rivaroxaban [Xarelto -] 15 mg PO DAILY 03/03/17 Rosuvastatin Calcium [Crestor] 10 mg PO HS 03/03/17 Physical Exam-Neuro Vital Signs: Vital Signs Temperature 98.8 F 03/05/17 12:00 Pulse Rate 76 03/05/17 12:00 Respiratory Rate 22 03/05/17 12:00 Blood Pressure 97/62 03/05/17 12:00 O2 Sat by Pulse Oximetry (%) 99 03/05/17 08:10 Constitutional: Yes: [place]: Yes: Supple Respiratory: Yes: Diminished Gastrointestinal: Yes: Normal Bowel Sounds Labs: CBCD WBC 12.7 K/mm3 (4.0-10.0) H 03/05/17 05:15 RBC 2.95 M/mm3 (4.00-5.60) L 03/05/17 05:15 Hgb 8.4 GM/dL (11.7-16.9) L 03/05/17 05:15 Hct 26.9 % (35.4-49) L 03/05/17 05:15 MCV 91.1 fl (80-96) 03/05/17 05:15 MCHC 31.2 g/dl (32.0-35.9) L 03/05/17 05:15 RDW 16.9 % (11.9-15.9) H 03/05/17 05:15 Plt Count 110 K/MM3 (134-434) L 03/05/17 05:15 MPV 9.1 fl (7.5-11.1) 03/05/17 05:15 CMP Sodium 145 mmol/L (136-145) 03/05/17 05:15 Potassium 4.1 mmol/L (3.5-5.1) 03/05/17 05:15 Chloride 115 mmol/L (98-107) H 03/05/17 05:15 Carbon Dioxide 17 mmol/L (21-32) L 03/05/17 05:15 Anion Gap 13 (8-16) 03/05/17 05:15 BUN 16 mg/dL (7-18) 03/05/17 05:15 Creatinine 1.4 mg/dL (0.7-1.3) H 03/05/17 05:15 Creat Clearance w eGFR 50.10 (>60) 03/05/17 05:15 Calcium 6.5 mg/dL (8.5-10.1) L* 03/05/17 05:15 Total Bilirubin 0.5 mg/dL (0.2-1.0) D 03/05/17 05:15 AST 12 U/L (15-37) L D 03/05/17 05:15 ALT 10 U/L (12-78) L 03/05/17 05:15 Alkaline Phosphatase 57 U/L (45-117) 03/05/17 05:15 Total Protein 5.1 g/dl (6.4-8.2) L 03/05/17 05:15 Albumin 2.1 g/dl (3.4-5.0) L 03/05/17 05:15 - Neuro Exam Level Of Consciousness: Yes: Alert (awake and attends, though unable to comprehend and produce viable verbal communication (aphasia), right facila droop , Right hemiparesis 2/5 (face and arm >>>leg), plantar R up ) NIH Stroke Scale - Last Known Well Date/Time & Onset Symptom Onset Date: 03/03/17 Symptom Onset Time: 09:00 (unknown ) Date Last Known Well: 03/03/17 Time Last Known Well: 09:00 (unknown ) - Initial Evaluation Level of consciousness: Alert Ask patient the month & their age: Both Incorrect Ask Patient to open & close eyes; make fist and let go.: Obeys One Correctly Best gaze (horizontal eye movement): Normal Visual Field Testing: No Visual Loss Facial Palsy(Show teeth or raise eyebrows & close eyes: Partial Paralysis ( total or near-total paralysis of lower face). Motor Function - Left Arm: No Drift;extends limb 90 (or siting 45) degress & hold full 10 seconds Motor Function - Right Arm: Some effort against gravity Motor Function - Left Leg: No Drift; leg holds 30 degree position for full 5 seconds. Motor Function - Right Leg: Some Effort against gravity Limb Ataxia: Absent (also used for the pt who does not understand or paralyzed) Sensory (arms, legs, trunk, face): Normal; no sensory loss Best Language: Severe aphasia;all communication is through fragmentary expression Dysarthria/Articulation: Mild to moderate dysarthria;slurs some words/ understood w/difficulty Extinction and Inattention: No abnormality - Total Score NIH Stroke Scale Score: 10 Imaging - Results Cat Scan: Report Reviewed, Image Reviewed (CT HD mild subinsular changes on the left ( evolving stroke ?)) Problem List - Problems (1) SHIVA (acute kidney injury) Code(s): N17.9 - ACUTE KIDNEY FAILURE, UNSPECIFIED (2) CVA (cerebral vascular accident) Code(s): I63.9 - CEREBRAL INFARCTION, UNSPECIFIED (3) Pneumonia Code(s): J18.9 - PNEUMONIA, UNSPECIFIED ORGANISM (4) Smoker Code(s): F17.200 - NICOTINE DEPENDENCE, UNSPECIFIED, UNCOMPLICATED (5) Left carotid artery occlusion Code(s): I65.22 - OCCLUSION AND STENOSIS OF LEFT CAROTID ARTERY Assessment/Plan 72 year old male, with a significant past medical history of HTN, colon Ca (s/p colostomy bag) and left BKA vascular problem (on Xarelto) who presents to the emergency department with right sided droop on 03/03 noticed by assisted staff. was seen last week while in house for L sided stroke, resulting in mixed aphasia , found to have left carotid occlusion (complete, NTD as per vascular) The patients NH also reports the patient was hypotensive and hypoxic earlier on 08/10. RIght sided Weakness noted now was not seen ( to this extent) on prior admission last week. pt unable to elaborate further given HX of aphasia. suspect evolution/porgression of prior L MCA stroke event, known left carotid occlusion NIH 10 --did bot qualify TPA as no clear time of onset , recent stroke new weakness right side , was not on prior exam last week Repeat HD -P may continue AC, as limited alternatives at this juncture BP control--low BP, would hold amlodopine [place] for lung mass, inc WBC, --improved SHIVA -improving Dr Loving [id number] Problem List - Problems (1) SHIVA (acute kidney injury) Code(s): N17.9 - ACUTE KIDNEY FAILURE, UNSPECIFIED (2) CVA (cerebral vascular accident) Code(s): I63.9 - CEREBRAL INFARCTION, UNSPECIFIED (3) Pneumonia Code(s): J18.9 - PNEUMONIA, UNSPECIFIED ORGANISM (4) Smoker Code(s): F17.200 - NICOTINE DEPENDENCE, UNSPECIFIED, UNCOMPLICATED (5) Left carotid artery occlusion Code(s): I65.22 - OCCLUSION AND STENOSIS OF LEFT CAROTID ARTERY
--- NOTE | 2017-03-05 17:01 | PN ---
Teaching Attending Note Name of Resident: Keenan Onofre ATTENDING PHYSICIAN STATEMENT I saw and evaluated the patient. I reviewed the resident's note and discussed the case with the resident. I agree with the resident's findings and plan as documented. SUBJECTIVE: Patient confused. Has no complaints. OBJECTIVE: Vital Signs Period Temp Pulse Resp BP Sys/Tapia Pulse Ox Last 24 Hr 98 F-98.9 F 65-80 18-24 88-109/56-68 99-99 ASSESSMENT AND PLAN: HEART: S1S2, RRR LUNGS: Clear with decreased BS at bases ABDOMEN: Soft, non-tender, non-distended, normal BS EXTREMITIES: No edema, s/p left BKA NEUROLOGICAL: Alert, confused, (+) dysarthria, (+) right facial weakness, strength 3/5 RUE/RLE and 4/5 LUE/LLE ASSESSMENT AND PLAN: This is a 72-year-old man with a history of HTN, colon CA, colostomy, LLE arterial emboli, left BKA, left lung mass, CVA who presented to the ER from with worse right sided facial droop, right sided weakness, hypoxia and hypotension. 1. Sepsis secondary to healthcare associated pneumonia, possible aspiration pneumonia - Afebrile, WBC improving, tachycardia improved - Continue Zosyn, IV fluid 2. Acute kidney injury secondary to sepsis and hypovolemia - Improving with IV fluid 3. Acute metabolic encephalopathy secondary to sepsis 4. Right hemiparesis, right facial weakness, dysarthria secondary to recent CVA - Continue Xarelto, Crestor 5. Left lung mass - Biopsy when stable 6. HTN - Continue Norvasc, Lopressor 7. PAD, history of LLE arterial emboli, left BKA - Continue Xarelto 8. Hyperkalemia - Improved 9. Hyperthyroidism - Continue Tapazole 10. COPD - Stable 11. Anemia secondary to chronic illness - Continue ferrous sulfate, folic acid 12. History of colon cancer, colostomy 13. Hypocalcemia 14. Protein malnutrition with weight loss, hypoproteinemia and hypoalbuminemia - Continue Prosource
[2017-03-05] MEDS ORDERED: ACETAMINOPHEN 325 MG TABLET (FP) PO PRN (17:51)
[2017-03-05] MEDS ORDERED: NAPH,MB-DB/K PH,MBDB POWDER PACKET PO SCH (22:00)
[2017-03-05] MEDS: ROSUVASTATIN CA 10 MG TABLET (FP) PO SCH (22:28)
[2017-03-05] MEDS: NAPH,MB-DB/K PH,MBDB POWDER PACKET PO SCH (22:29)
[2017-03-05] MEDS: CHLORHEXIDINE GLUCONATE 4% CLEANSER FOR DECOLONIZATION TP SCH (22:31)
[2017-03-06] MEDS: PIPERACILLIN/TAZOB 3.375 GM 50 ML IVPB SCH ×3 (03:21→17:55)
[2017-03-06] MEDS: METHIMAZOLE 5 MG TABLET (FP) PO SCH ×3 (06:06→22:30)
--- NOTE | 2017-03-06 08:49 | RAPID ---
Physical Examination Vital Signs: Vital Signs Temperature 99.7 F H 03/06/17 06:00 Pulse Rate 80 03/06/17 06:00 Respiratory Rate 20 03/06/17 06:00 Blood Pressure 107/54 03/06/17 06:00 O2 Sat by Pulse Oximetry (%) 96 03/05/17 22:00 Findings/Remarks: RN found patient to be flaccid on the right. Patient is confused. His speech is more dysarthric and he is unable to move his right arm and right leg. He has been mildly hypotensive. Constitutional: Yes: Calm Eyes: Yes: PERRL Cardiovascular: Yes: Regular Rate and Rhythm, S1, S2 Respiratory: Yes: Diminished (at both bases), Rhonchi (bilateral) Gastrointestinal: Yes: Normal Bowel Sounds, Soft, Distention, Tenderness Extremities: Yes: Amputation (left BKA) Edema: No Peripheral Pulses WNL: Yes Neurological: Yes: Alert, Confusion, Dysarthria, Facial Droop (right) ...Motor Strength: LUE (4/5), LLE (4/5), RUE (0/5), RLE (0/5) Labs: CBC, BMP 03/05/17 05:15 Rapid Response - Rapid Response Assessment: This is a 72-year-old man with a history of HTN, colon CA, colostomy, LLE arterial emboli, left BKA, left lung mass, CVA who presented to the ER from with worse right sided facial droop, right sided weakness, hypoxia and hypotension. This morning, the right facial droop and dysarthria are worse, and his RUE/RLE have become flaccid. Plan: 1. Right hemiparesis, right facial weakness, dysarthria secondary to recent CVA , now with worsening symptoms - Worsening possibly secondary to new acute CVA, hypotension, sepsis - Stat head CT - Neurology follow-up - Continue Crestor - Hold antihypertensives secondary to hypotension - Xarelto held and heparin IV drip being started in preparation for lung biopsy 2. Sepsis secondary to healthcare associated pneumonia, possible aspiration pneumonia - Check CBC, lactic acid - Continue Zosyn, IV fluid 3. Acute kidney injury secondary to sepsis and hypovolemia - Creatinine stable 4. Acute metabolic encephalopathy secondary to sepsis 5. Left lung mass - Biopsy when stable 6. HTN - Hold Norvasc, Lopressor secondary to hypotension 7. PAD, history of LLE arterial emboli, left BKA - Xarelto held and heparin IV drip being started in preparation for lung biopsy 8. Hyperkalemia - Improved 9. Hyperthyroidism - Continue Tapazole 10. COPD - Stable 11. Anemia secondary to chronic illness - Continue ferrous sulfate, folic acid 12. History of colon cancer, colostomy 13. Hypocalcemia - Corrected calcium is 8.3 14. Protein malnutrition with weight loss, hypoproteinemia and hypoalbuminemia - Continue Prosource Critical Care Total Critical Care Time (in minutes): 30 Critical Care Statement: The care of this patient involved high complexity decision making to prevent further life threatening deterioration of the patient 's condition and/or to evalute & treat vital organ system(s) failure or risk of failure. Suspected CVA - Suspected CVA MD Exam Time (Code Moreno Time): 08:39 CT Stroke ordered: Yes Stat "Code Moreno" Consult to Neurology called: Yes Last Known Well (Date): 03/06/17 Last Known Well (Time): 06:00 Symptom Discovery (Date): 03/06/17 Symptom Discovery (Time): 08:10
[2017-03-06] MEDS ORDERED: HEPARIN - 25,000 UNIT in SODIUM CHLORIDE 495 ML IV SCH (09:00)
[2017-03-06 09:04] LABS: COCKROFT - GAULT 43.09; CREATININE 1.5 mg/dL (0.7-1.3); MAGNESIUM 1.8 mg/dL (1.8-2.4); PHOSPHOROUS 1.6 mg/dL (2.5-4.9)
[2017-03-06 09:28] LABS: CALCIUM 6.8 mg/dL (8.5-10.1)
--- NOTE | 2017-03-06 09:55 | PN ---
Progress Note (short form) - Note Progress Note: Progress Note: 72 year old male, with a significant past medical history of HTN, colon Ca (s/p colostomy bag) and left BKA vascular problem (on Xarelto) who presents to the emergency department with right sided droop on 03/03 noticed by care home staff. was seen last week while in house for L sided stroke, resulting in mixed aphasia , found to have left carotid occlusion (complete, NTD as per vascular) The patients NH also reports the patient was hypotensive and hypoxic earlier on 08/10. RIght sided Weakness noted now was not seen ( to this extent) on prior admission last week. pt unable to elaborate further given HX of aphasia. FU : this AM noted to be more dysarthric, right sided weakness worse leg also involved) --apx 8 AM HD repeat reviewed : no new bld, stroke looks fairly stable radiographically upon my eval at 9:30--he is at his baseline , awake, Right hemiparesis F/A>>leg (leg moving) , right field cut, aphasic BP noted to be low during this event - Home Medications Home Medications: Ambulatory Orders Aa/[place] Carolyn,[place]/Arg/C/Zn/Cu [Lps Critical Care Liquid] 30 ml PO BID 03/03/17 Acetaminophen 650 mg PO Q4H PRN 03/03/17 Amlodipine Besylate [Norvasc -] 5 mg PO DAILY 03/03/17 Ferrous Sulfate [Feosol] 325 mg PO BID 03/03/17 Folic Acid 1 mg PO DAILY 03/03/17 Isosorbide Mononitrate [Imdur -] 30 mg PO DAILY 03/03/17 Methimazole [Tapazole] 5 mg PO TID 03/03/17 Metoprolol Tartrate [Lopressor -] 25 mg PO DAILY 03/03/17 Prednisone [Deltasone -] 5 mg PO DAILY 03/03/17 Rivaroxaban [Xarelto -] 15 mg PO DAILY 03/03/17 Rosuvastatin Calcium [Crestor] 10 mg PO HS 03/03/17 Physical Exam-Neuro Vital Signs: Vital Signs Temperature 99.7 F H 03/06/17 06:00 Pulse Rate 80 03/06/17 06:00 Respiratory Rate 20 03/06/17 06:00 Blood Pressure 107/54 03/06/17 06:00 O2 Sat by Pulse Oximetry (%) 96 03/05/17 22:00 Constitutional: Yes: [place]: Yes: Supple Respiratory: Yes: Diminished Gastrointestinal: Yes: Normal Bowel Sounds Labs: CBCD WBC 12.7 K/mm3 (4.0-10.0) H 03/05/17 05:15 RBC 2.95 M/mm3 (4.00-5.60) L 03/05/17 05:15 Hgb 8.4 GM/dL (11.7-16.9) L 03/05/17 05:15 Hct 26.9 % (35.4-49) L 03/05/17 05:15 MCV 91.1 fl (80-96) 03/05/17 05:15 MCHC 31.2 g/dl (32.0-35.9) L 03/05/17 05:15 RDW 16.9 % (11.9-15.9) H 03/05/17 05:15 Plt Count 110 K/MM3 (134-434) L 03/05/17 05:15 MPV 9.1 fl (7.5-11.1) 03/05/17 05:15 CMP Sodium 144 mmol/L (136-145) 03/06/17 05:40 Potassium 4.5 mmol/L (3.5-5.1) 03/06/17 05:40 Chloride 116 mmol/L (98-107) H 03/06/17 05:40 Carbon Dioxide 17 mmol/L (21-32) L 03/06/17 05:40 Anion Gap 11 (8-16) 03/06/17 05:40 BUN 13 mg/dL (7-18) 03/06/17 05:40 Creatinine 1.5 mg/dL (0.7-1.3) H 03/06/17 05:40 Creat Clearance w eGFR 50.10 (>60) 03/05/17 05:15 Calcium 6.8 mg/dL (8.5-10.1) L* 03/06/17 05:40 Total Bilirubin 0.5 mg/dL (0.2-1.0) D 03/05/17 05:15 AST 12 U/L (15-37) L D 03/05/17 05:15 ALT 10 U/L (12-78) L 03/05/17 05:15 Alkaline Phosphatase 57 U/L (45-117) 03/05/17 05:15 Total Protein 5.1 g/dl (6.4-8.2) L 03/05/17 05:15 Albumin 2.1 g/dl (3.4-5.0) L 03/05/17 05:15 - Neuro Exam Level Of Consciousness: Yes: Alert (awake and attends, though unable to comprehend and produce viable verbal communication (aphasia), right facial droop , Right hemiparesis 2/5 (face and arm >>>leg), plantar R up ) NIH Stroke Scale - Last Known Well Date/Time & Onset Symptom Onset Date: 03/03/17 Symptom Onset Time: 09:00 (unknown ) Date Last Known Well: 03/03/17 Time Last Known Well: 09:00 (unknown ) - Initial Evaluation Level of consciousness: Alert Ask patient the month & their age: Both Incorrect Ask Patient to open & close eyes; make fist and let go.: Obeys One Correctly Best gaze (horizontal eye movement): Normal Visual Field Testing: No Visual Loss Facial Palsy(Show teeth or raise eyebrows & close eyes: Partial Paralysis ( total or near-total paralysis of lower face). Motor Function - Left Arm: No Drift;extends limb 90 (or siting 45) degress & hold full 10 seconds Motor Function - Right Arm: Some effort against gravity Motor Function - Left Leg: No Drift; leg holds 30 degree position for full 5 seconds. Motor Function - Right Leg: Some Effort against gravity Limb Ataxia: Absent (also used for the pt who does not understand or paralyzed) Sensory (arms, legs, trunk, face): Normal; no sensory loss Best Language: Severe aphasia;all communication is through fragmentary expression Dysarthria/Articulation: Mild to moderate dysarthria;slurs some words/ understood w/difficulty Extinction and Inattention: No abnormality - Total Score NIH Stroke Scale Score: 10 Imaging - Results Cat Scan: Report Reviewed, Image Reviewed today Problem List - Problems (1) SHIVA (acute kidney injury) Code(s): N17.9 - ACUTE KIDNEY FAILURE, UNSPECIFIED (2) CVA (cerebral vascular accident) Code(s): I63.9 - CEREBRAL INFARCTION, UNSPECIFIED (3) Pneumonia Code(s): J18.9 - PNEUMONIA, UNSPECIFIED ORGANISM (4) Smoker Code(s): F17.200 - NICOTINE DEPENDENCE, UNSPECIFIED, UNCOMPLICATED (5) Left carotid artery occlusion Code(s): I65.22 - OCCLUSION AND STENOSIS OF LEFT CAROTID ARTERY Assessment/Plan 72 year old male, with a significant past medical history of HTN, colon Ca (s/p colostomy bag) and left BKA vascular problem (on Xarelto) who presents to the emergency department with right sided droop on 03/03 noticed by care home staff. was seen last week while in house for L sided stroke, resulting in mixed aphasia , found to have left carotid occlusion (complete, NTD as per vascular) The patients NH also reports the patient was hypotensive and hypoxic earlier on 08/10. RIght sided Weakness noted now was not seen ( to this extent) on prior admission last week. pt unable to elaborate further given HX of aphasia. suspect evolution/porgression of prior L MCA stroke event, known left carotid occlusion NIH 10 --did bot qualify TPA as no clear time of onset , recent stroke code salvador called again on 03/06/17 -- worsening right hemiparesis in setting of hypotension ( likely hypoperfusion ), no clinical evidence for seizure does not qualify for TPA as back to basline ( also on AC etc) Repeat HD -03/06 reviewed may continue AC, as limited alternatives at this juncture hypotension , -- fluids, watch cardiopulm status, if continues to run low may have to add vasopressor inc WBC, --improved , slight fever-- FU SHIVA -improving Dr Loving [id number] Problem List - Problems (1) SHIVA (acute kidney injury) Code(s): N17.9 - ACUTE KIDNEY FAILURE, UNSPECIFIED (2) CVA (cerebral vascular accident) Code(s): I63.9 - CEREBRAL INFARCTION, UNSPECIFIED (3) Pneumonia Code(s): J18.9 - PNEUMONIA, UNSPECIFIED ORGANISM (4) Smoker Code(s): F17.200 - NICOTINE DEPENDENCE, UNSPECIFIED, UNCOMPLICATED (5) Left carotid artery occlusion Code(s): I65.22 - OCCLUSION AND STENOSIS OF LEFT CAROTID ARTERY
[2017-03-06] MEDS ORDERED: RIVAROXABAN 15 MG TABLET PO SCH (10:00)
[2017-03-06] MEDS ORDERED: ISOSORBIDE MONONITRATE 30 MG TAB.SR.24H (FP) PO SCH (10:00)
[2017-03-06] MEDS ORDERED: amLODIPine BESYLATE 5 MG TABLET (FP) PO SCH (10:00)
--- NOTE | 2017-03-06 10:18 | PN ---
Progress Note (short form) - Note Progress Note: PULMONARY/CCM Pt seen and examined on telemetry. Code brenda called after pt more dysarthric with right sided weakness. Repeat CT head without significant change, CXR showing left sided atelectasis. Last Vital Signs Temp Pulse Resp BP Pulse Ox 99.7 F H 80 20 107/54 96 03/06/17 06:00 03/06/17 06:00 03/06/17 06:00 03/06/17 06:00 03/05/17 22:00 Intake & Output 03/03/17 03/04/17 03/05/17 03/06/17 23:59 23:59 23:59 23:59 Intake Total 1999 3625 4650 Output Total 400 600 600 Balance 1600 3025 4050 Weight 145 lb 147 lb 4.8 oz 146 lb 9.6 oz Gen: tachypneic at rest Heart: irregular Lung: decreased breath sounds left, +rhonchi Abd: soft, nontender Ext: no edema CBC, BMP 03/05/17 05:15 03/06/17 05:40 Active Medications Acetaminophen (Tylenol -) 650 mg PO Q4H PRN PRN Reason: PAIN Amino Acids (Prosource No Carb Liquid Pkt) 30 ml PO BID [facility] Last Admin: 03/05/17 22:30 Dose: 30 ml Chlorhexidine Gluconate (Hibiclens For Decolonization -) 1 applic TP HS [facility] Last Admin: 03/05/17 22:31 Dose: Not Given Ferrous Sulfate (Feosol -) 325 mg PO BID [facility] Last Admin: 03/05/17 22:29 Dose: 325 mg Folic Acid (Folic Acid -) 1 mg PO DAILY [facility] Heparin Sodium (Porcine) (Heparin -) 1,000 unit IVPUSH PRN PRN PRN Reason: Heparin Heparin Sodium (Porcine) (Heparin -) 5,000 unit IVPUSH PRN PRN PRN Reason: Heparin Heparin Sodium (Porcine) 25, (000 unit/ Sodium Chloride) 500 mls @ 16 mls/hr IV TITR JULIO; 800 UNIT/HR PRN Reason: Protocol Stop: 03/07/17 23:55 Sodium Chloride (Normal Saline -) 1,000 mls @ 75 mls/hr IV ASDIR [facility] Last Admin: 03/05/17 22:28 Dose: 75 mls/hr Piperacillin Sod/Tazobactam Sod (Zosyn 3.375gm Ivpb (Pre-Docked)) 50 mls @ 100 mls/hr IVPB Q8H-IV JULIO PRN Reason: Protocol Last Admin: 03/06/17 03:21 Dose: 100 mls/hr Methimazole (Tapazole -) 5 mg PO TID [facility] Last Admin: 03/06/17 06:06 Dose: 5 mg Mupirocin (Bactroban Ointment (For Decolonization) -) 1 applic NS BID [facility] Stop: 03/08/17 21:59 Last Admin: 03/05/17 22:31 Dose: Not Given Potassium Phos/Sodium Phos (Phos-Nak Packet -) 1 packet PO BID [facility] Last Admin: 03/05/17 22:29 Dose: 1 packet Rivaroxaban (Xarelto -) 15 mg PO DAILY [facility] Rosuvastatin Calcium (Crestor -) 10 mg PO HS [facility] Last Admin: 03/05/17 22:28 Dose: 10 mg A/P Acute CVA Pneumonia Atelectasis Severe Sepsis Acute Kidney Injury Lung Mass likely malignant PAD - IVF resuscitation - monitor urine output, creatinine - continue antibiotics - aspiration precautions - BiPAP as needed to assist in work of breathing and may assist in re- expanding left lung - chest PT - mucomyst with albuterol QID - continue anticoagulation - monitor H/H - can monitor on telemetry with IVF resuscitation, if BP does not improve can transfer to ICU for pressor support critical care time spent in reviewing chart, evaluating patient and formulating plan 35 min
[2017-03-06] MEDS ORDERED: SODIUM CHLORIDE 1,000 ML IV STA (10:19)
[2017-03-06] MEDS: HEPARIN - 25,000 UNIT in SODIUM CHLORIDE 495 ML IV SCH (11:00)
[2017-03-06] MEDS: SODIUM CHLORIDE 1,000 ML IV SCH ×2 (11:00→20:30)
[2017-03-06 11:16] LABS: BASOPHIL 2.1 % (0-2.0); EOSINOPHIL 1.2 % (0-4.5); MCH 28.8 pg (25.7-33.7); MCHC 31.6 g/dl (32.0-35.9); MEAN CELL VOLUME 91.1 fl (80-96); MEAN PLT VOLUME 8.4 fl (7.5-11.1); NEUTROPHILS 84.7 % (42.8-82.8); PLATELET COUNT 86 K/MM3 (134-434); RDW 16.9 % (11.9-15.9); WHITE BLOOD COUNT 10.6 K/mm3 (4.0-10.0)
[2017-03-06] MEDS: FERROUS SO4 325 MG TABLET (FP) PO SCH ×2 (11:20→22:30)
[2017-03-06] MEDS: FOLIC ACID 1 MG TABLET (FP) PO SCH (11:20)
[2017-03-06] MEDS: MUPIROCIN 2% TOPICAL OINTMENT FOR DECOLONIZATION NS SCH ×2 (11:20→22:26)
[2017-03-06] MEDS: ACETYLCYSTEINE 20% 200MG/ML 30 ML VIAL *FOR ORAL / INH USE ONLY NEB SCH ×3 (11:48→23:23)
[2017-03-06] MEDS: ALBUTEROL SO4 0.083% IH SOL 2.5 MG/3 ML VIAL.NEB. NEB SCH ×3 (11:48→23:23)
[2017-03-06] MEDS: AMINO ACIDS/PROTEIN HYDROLYS 30 ML LIQUID.PKT PO SCH ×2 (11:49→22:31)
[2017-03-06] MEDS: NAPH,MB-DB/K PH,MBDB POWDER PACKET PO SCH ×2 (11:49→22:31)
--- NOTE | 2017-03-06 13:36 | PN ---
Progress Note, Physician History of Present Illness: Awake, aphasic No acute distress Breathing non-labored +low grade temp WBC improved - Current Medication List Current Medications: Active Medications Acetaminophen (Tylenol -) 650 mg PO Q4H PRN PRN Reason: PAIN Acetylcysteine (Mucomyst 20 Oral / Inh Use Only*) 200 mg NEB QIDR [facility] Last Admin: 03/06/17 11:48 Dose: 200 mg Albuterol Sulfate (Ventolin 0.083% Nebulizer Soln -) 1 amp NEB QIDR [facility] Last Admin: 03/06/17 11:48 Dose: 1 amp Amino Acids (Prosource No Carb Liquid Pkt) 30 ml PO BID [facility] Last Admin: 03/06/17 11:49 Dose: Not Given Chlorhexidine Gluconate (Hibiclens For Decolonization -) 1 applic TP HS [facility] Last Admin: 03/05/17 22:31 Dose: Not Given Ferrous Sulfate (Feosol -) 325 mg PO BID [facility] Last Admin: 03/06/17 11:20 Dose: Not Given Folic Acid (Folic Acid -) 1 mg PO DAILY [facility] Last Admin: 03/06/17 11:20 Dose: Not Given Heparin Sodium (Porcine) (Heparin -) 1,000 unit IVPUSH PRN PRN PRN Reason: Heparin Heparin Sodium (Porcine) (Heparin -) 5,000 unit IVPUSH PRN PRN PRN Reason: Heparin Heparin Sodium (Porcine) 25, (000 unit/ Sodium Chloride) 500 mls @ 16 mls/hr IV TITR JULIO; 800 UNIT/HR PRN Reason: Protocol Stop: 03/07/17 23:55 Sodium Chloride (Normal Saline -) 1,000 mls @ 75 mls/hr IV ASDIR [facility] Last Admin: 03/05/17 22:28 Dose: 75 mls/hr Piperacillin Sod/Tazobactam Sod (Zosyn 3.375gm Ivpb (Pre-Docked)) 50 mls @ 100 mls/hr IVPB Q8H-IV JULIO PRN Reason: Protocol Last Admin: 03/06/17 03:21 Dose: 100 mls/hr Methimazole (Tapazole -) 5 mg PO TID [facility] Last Admin: 03/06/17 06:06 Dose: 5 mg Mupirocin (Bactroban Ointment (For Decolonization) -) 1 applic NS BID [facility] Stop: 03/08/17 21:59 Last Admin: 03/06/17 11:20 Dose: Not Given Potassium Phos/Sodium Phos (Phos-Nak Packet -) 1 packet PO BID [facility] Last Admin: 03/06/17 11:49 Dose: Not Given Rivaroxaban (Xarelto -) 15 mg PO DAILY [facility] Rosuvastatin Calcium (Crestor -) 10 mg PO HS [facility] Last Admin: 03/05/17 22:28 Dose: 10 mg - Objective Vital Signs: Vital Signs Temperature 99.7 F H 03/06/17 06:00 Pulse Rate 70 03/06/17 11:49 Respiratory Rate 20 03/06/17 06:00 Blood Pressure 107/54 03/06/17 06:00 O2 Sat by Pulse Oximetry (%) 94 L 03/06/17 11:49 Constitutional: Yes: No Distress Eyes: Yes: Conjunctiva Clear Cardiovascular: Yes: Regular Rate and Rhythm, S1, S2 Respiratory: Yes: Diminished Gastrointestinal: Yes: Normal Bowel Sounds, Soft Genitourinary: Yes: Other (+colostomy) Extremities: Yes: Other (s/p BKA) Labs: CBC, BMP 03/06/17 10:40 03/06/17 05:40 INR, PTT INR 1.54 (0.82-1.09) H 03/03/17 16:15 Assessment/Plan L Lung mass, possible malignancy Post obstructive pneumonia S/P CVA Leukocytosis-improving Azotemia-improving Thrombocytopenia Continue empiric zosyn For lung mass biopsy
[2017-03-06] MEDS: HEPARIN NA (PORCINE) 5,000 UNITS/ML 1ML VIAL IVPUSH PRN (19:00)
[2017-03-06] MEDS ORDERED: diazePAM CARPU-JECT 10 MG/2 ML DISP.SYRIN IVPUSH ONE (19:35)
--- NOTE | 2017-03-06 20:11 | RAPID ---
Physical Examination Vital Signs: Vital Signs Temperature 98.5 F 03/06/17 17:00 Pulse Rate 82 03/06/17 17:00 Respiratory Rate 20 03/06/17 17:00 Blood Pressure 117/65 03/06/17 17:00 O2 Sat by Pulse Oximetry (%) 96 03/06/17 17:52 Labs: CBC, BMP 03/06/17 10:40 03/06/17 05:40 Rapid Response - Rapid Response Assessment: Rapid response called due to patient having hypotension. RN took bp and was 70/ 50's. When reevaluating patient his repeat blood pressure was 90's/50's. Patient's heart rate was 88BPM with regular rate. Patient appeared confused but has been this way since admission due to recent acute stroke. Michelle salvador was called on patient this morning and Head CT was done. No acute STROKE shown. Patient's neurologist evaluated him. Patient is having neurological changes due to hypotension causing hypoperfusion. Continue with Bolus of fluids Will place a central line to begin pressors if needed Repeat BP 109/51 Continue to monitor BP
[2017-03-06] MEDS: CHLORHEXIDINE GLUCONATE 4% CLEANSER FOR DECOLONIZATION TP SCH (22:27)
[2017-03-06] MEDS: ROSUVASTATIN CA 10 MG TABLET (FP) PO SCH (22:30)
[2017-03-07] MEDS: PIPERACILLIN/TAZOB 3.375 GM 50 ML IVPB SCH ×3 (02:53→17:57)
[2017-03-07] MEDS: HEPARIN - 25,000 UNIT in SODIUM CHLORIDE 495 ML IV SCH ×2 (04:00→12:42)
[2017-03-07] MEDS: HEPARIN NA (PORCINE) 5,000 UNITS/ML 1ML VIAL IVPUSH PRN (04:00)
[2017-03-07 04:01] LABS: ALBUMIN 1.9 g/dl (3.4-5.0); MAGNESIUM 1.4 mg/dL (1.8-2.4)
[2017-03-07 04:04] LABS: BILIRUBIN,TOTAL 0.6 mg/dL (0.2-1.0); COCKROFT - GAULT 46.17; CREATININE 1.4 mg/dL (0.7-1.3); PHOSPHOROUS 1.7 mg/dL (2.5-4.9); TOT PROT 4.9 g/dl (6.4-8.2)
[2017-03-07 04:07] LABS: CALCIUM 6.2 mg/dL (8.5-10.1)
[2017-03-07 04:09] LABS: INR 1.43 (0.82-1.09); PROTHROMBIN TIME (PATIENT) 15.8 SEC (9.98-11.88)
[2017-03-07] MEDS: ALBUTEROL SO4 0.083% IH SOL 2.5 MG/3 ML VIAL.NEB. NEB SCH ×3 (06:12→17:30)
[2017-03-07] MEDS: ACETYLCYSTEINE 20% 200MG/ML 30 ML VIAL *FOR ORAL / INH USE ONLY NEB SCH ×3 (06:12→17:29)
[2017-03-07] MEDS: METHIMAZOLE 5 MG TABLET (FP) PO SCH ×3 (06:20→21:38)
--- NOTE | 2017-03-07 06:27 | HOSP ---
Subjective - Review of Symptoms Events since last encounter: Patients IV infiltrated Subjective: Patients b/l antecubital fossa IVs have infiltrated. no cellulitis, erythema or lesions, no pain in area. General: No: Chills, Malaise HEENT: No: Head Aches Pulmonary: No: Dyspnea, Cough Cardiovascular: No: Chest Pain Gastrointestinal: No: Nausea, Vomiting, Abdominal Pain Genitourinary: No: Dysuria Musculoskeletal: Yes: No Symptoms Neurological: No: Weakness Physical Examination Vital Signs: Vital Signs Temperature 99.6 F 03/06/17 20:46 Pulse Rate 76 03/07/17 05:21 Respiratory Rate 22 03/07/17 05:21 Blood Pressure 104/53 03/07/17 05:21 O2 Sat by Pulse Oximetry (%) 95 03/07/17 03:20 Constitutional: Yes: Calm Eyes: Yes: Conjunctiva Clear, EOM Intact, PERRL Neck: Yes: Supple Cardiovascular: Yes: Pulse Irregular, S1. No: JVD Gastrointestinal: Yes: Normal Bowel Sounds Extremities: Yes: Other (skin on arms no lesions noted) Peripheral Pulses: Left Radial: 2+, Right Radial: 2+ Labs: CBC, BMP 03/06/17 10:40 03/07/17 02:00 Hospitalist Encounter Assessment: infiltrated IV -remove both infiltrated antecubital ivs, no phlebitis or cellulitis -placed R anterior bicep IV with ultrasound guidance. -patient continues receiving fluids, no further hypotensive episodes, BP syst 1- 5-120 overnight. -no further intervention required Visit type - Emergency Visit Emergency Visit: Yes ED Registration Date: 03/03/17 Care time: The patient presented to the Emergency Department on the above date and was hospitalized for further evaluation of their emergent condition. - New Patient This patient is new to me today: Yes Date on this admission: 03/07/17 - Critical Care Critical Care patient: No
--- NOTE | 2017-03-07 09:37 | PN ---
Progress Note, Physician History of Present Illness: Hypotensive episode yesterday noted Awake, alert, comfortable appearing Aphasic Low grade temp Cultures negative - Current Medication List Current Medications: Active Medications Acetaminophen (Tylenol -) 650 mg PO Q4H PRN PRN Reason: PAIN Acetylcysteine (Mucomyst 20 Oral / Inh Use Only*) 200 mg NEB QIDR [facility] Last Admin: 03/07/17 06:12 Dose: 200 mg Albuterol Sulfate (Ventolin 0.083% Nebulizer Soln -) 1 amp NEB QIDR [facility] Last Admin: 03/07/17 06:12 Dose: 1 amp Amino Acids (Prosource No Carb Liquid Pkt) 30 ml PO BID [facility] Last Admin: 03/06/17 22:31 Dose: 30 ml Chlorhexidine Gluconate (Hibiclens For Decolonization -) 1 applic TP HS [facility] Last Admin: 03/06/17 22:27 Dose: Not Given Ferrous Sulfate (Feosol -) 325 mg PO BID [facility] Last Admin: 03/06/17 22:30 Dose: 325 mg Folic Acid (Folic Acid -) 1 mg PO DAILY [facility] Last Admin: 03/06/17 11:20 Dose: Not Given Heparin Sodium (Porcine) (Heparin -) 1,000 unit IVPUSH PRN PRN PRN Reason: Heparin Heparin Sodium (Porcine) (Heparin -) 5,000 unit IVPUSH PRN PRN PRN Reason: Heparin Last Admin: 03/07/17 04:00 Dose: 5,000 unit Heparin Sodium (Porcine) 25, (000 unit/ Sodium Chloride) 500 mls @ 16 mls/hr IV TITR JULIO; 800 UNIT/HR PRN Reason: Protocol Stop: 03/07/17 23:55 Last Admin: 03/07/17 04:00 Dose: 22 mls/hr Piperacillin Sod/Tazobactam Sod (Zosyn 3.375gm Ivpb (Pre-Docked)) 50 mls @ 100 mls/hr IVPB Q8H-IV [facility]IO PRN Reason: Protocol Last Admin: 03/07/17 02:53 Dose: 100 mls/hr Sodium Chloride (Normal Saline -) 1,000 mls @ 100 mls/hr IV ASDIR [facility] Last Admin: 03/06/17 20:30 Dose: 100 mls/hr Methimazole (Tapazole -) 5 mg PO TID [facility] Last Admin: 05/14/17 06:20 Dose: 5 mg Mupirocin (Bactroban Ointment (For Decolonization) -) 1 applic NS BID [facility] Stop: 03/08/17 21:59 Last Admin: 03/06/17 22:26 Dose: Not Given Potassium Phos/Sodium Phos (Phos-Nak Packet -) 1 packet PO BID [facility] Last Admin: 03/06/17 22:31 Dose: 1 packet Rivaroxaban (Xarelto -) 15 mg PO DAILY [facility] Rosuvastatin Calcium (Crestor -) 10 mg PO HS [facility] Last Admin: 03/06/17 22:30 Dose: 10 mg - Objective Vital Signs: Vital Signs Temperature 99.6 F 03/06/17 20:46 Pulse Rate 76 03/07/17 05:21 Respiratory Rate 22 03/07/17 05:21 Blood Pressure 104/53 03/07/17 05:21 O2 Sat by Pulse Oximetry (%) 95 03/07/17 03:20 Constitutional: Yes: No Distress Eyes: Yes: Conjunctiva Clear Cardiovascular: Yes: Regular Rate and Rhythm, S1, S2 Respiratory: Yes: Diminished Gastrointestinal: Yes: Normal Bowel Sounds, Soft, Other (+ colostomy). No: Tenderness Extremities: Yes: Other (s/p BKA) Labs: CBC, BMP 03/06/17 10:40 03/07/17 02:00 INR, PTT INR 1.43 (0.82-1.09) H 03/07/17 02:00 Assessment/Plan L Lung mass, possible malignancy Post obstructive pneumonia S/P CVA Leukocytosis-improving Azotemia-improving Thrombocytopenia- worsening Continue empiric zosyn Check CBC today. Monitor plt count. For lung mass biopsy
[2017-03-07] MEDS: FERROUS SO4 325 MG TABLET (FP) PO SCH ×2 (10:56→21:38)
[2017-03-07] MEDS: AMINO ACIDS/PROTEIN HYDROLYS 30 ML LIQUID.PKT PO SCH ×2 (10:56→21:38)
[2017-03-07] MEDS: FOLIC ACID 1 MG TABLET (FP) PO SCH (10:56)
[2017-03-07] MEDS: MUPIROCIN 2% TOPICAL OINTMENT FOR DECOLONIZATION NS SCH ×2 (10:57→21:28)
[2017-03-07] MEDS: NAPH,MB-DB/K PH,MBDB POWDER PACKET PO SCH ×3 (10:57→21:38)
[2017-03-07 11:14] LABS: MCH 28.5 pg (25.7-33.7); MCHC 31.6 g/dl (32.0-35.9); MEAN CELL VOLUME 90.3 fl (80-96); MEAN PLT VOLUME 8.1 fl (7.5-11.1); PLATELET COUNT 79 K/MM3 (134-434); RDW 16.7 % (11.9-15.9); WHITE BLOOD COUNT 7.9 K/mm3 (4.0-10.0)
--- NOTE | 2017-03-07 12:04 | PN ---
Progress Note (short form) - Note Progress Note: F/U: Neurology Pt seen and examined at the bedside ; pt comfortably lying down aphasic at his bedside ; no new event or worsening weakness per RN ; BP in the past 2 days ranged btw 140-1oo SBP , only one episode of low bp; on puree diet . PE: MS: Alert , awake, aphasic , only says yes; follows simple comands CN: PERRLA, mils R face weakness, no gaze preference Motor : L BKA , moves b/l legs and L UE no movement on R UE DTR: 1+ all, R upgoing toe CV:RRR Lungs: CTA CTH ON 03/06; NO ACUTE EVENTS Ca 6.8 A/P: Recent L MCA w R HP and aphasia p/w worsening sym due to possible stroke like symptoms 2/2 hypoperfusion vs evolution of L MCA; sym improving , SBP has remained > 100 in the past 2 days . L carotid occlusion , NTD per vascular L BKA amp; on Xarelto L lung mass Colon cancer Low PLT Low ca C/W current management Keep SBP > 120 PT/OT /ST C/w Xarelto Health maintenance per primary team. Thank you for allowing us to participate in the care of this patient. Dony Fuller M.D. [phone]
[2017-03-07 12:05] LABS: MAGNESIUM 1.5 mg/dL (1.8-2.4); PHOSPHOROUS 1.5 mg/dL (2.5-4.9)
--- NOTE | 2017-03-07 12:45 | PN ---
Physical Exam: SUBJECTIVE: Patient seen and examined. He appears comfortable. OBJECTIVE: Vital Signs Period Temp Pulse Resp BP Sys/Tapia Pulse Ox Last 24 Hr 98.4 F-99.8 F 65-85 20-24 104-117/43-65 95-98 GENERAL: The patient is awake, alert, confused, in no acute distress. LUNGS: Few rhonchi bilaterally. Decreased BS at bases. HEART: Regular rate and rhythm, S1, S2 without murmur, rub or gallop. ABDOMEN: Soft, nontender, nondistended, normoactive bowel sounds, no guarding, no rebound, no hepatosplenomegaly, no masses. EXTREMITIES: 2+ pulses, warm, well-perfused, no edema, s/p left BKA. NEUROLOGICAL: Alert, confused, (+) dysarthria, (+) right facial weakness. Strength 1/5 RUE, 3/5 RLE, 4/5 LUE/LLE Laboratory Results - last 24 hr 03/06/17 03/07/17 03/07/17 17:10 02:00 02:00 WBC RBC Hgb Hct MCV MCHC RDW Plt Count MPV INR 1.43 H PTT (Actin FS) 30.3 32.1 Sodium Potassium Chloride Carbon Dioxide Anion Gap BUN Creatinine Creat Clearance w eGFR Random Glucose Calcium Phosphorus Magnesium Total Bilirubin AST ALT Alkaline Phosphatase Total Protein Albumin 03/07/17 03/07/17 03/07/17 02:00 11:07 11:07 WBC 7.9 RBC 2.68 L Hgb 7.6 L Hct 24.2 L MCV 90.3 MCHC 31.6 L RDW 16.7 H Plt Count 79 L MPV 8.1 INR PTT (Actin FS) Sodium 143 Potassium 4.1 Chloride 118 H Carbon Dioxide 16 L Anion Gap 9 BUN 12 Creatinine 1.4 H Creat Clearance w eGFR 50.10 Random Glucose 107 H Calcium 6.2 L* Phosphorus 1.7 L 1.5 L Magnesium 1.4 L D 1.5 L Total Bilirubin 0.6 AST 15 D ALT 13 D Alkaline Phosphatase 60 Total Protein 4.9 L Albumin 1.9 L 03/07/17 11:07 WBC RBC Hgb Hct MCV MCHC RDW Plt Count MPV INR PTT (Actin FS) 54.4 H D Sodium Potassium Chloride Carbon Dioxide Anion Gap BUN Creatinine Creat Clearance w eGFR Random Glucose Calcium Phosphorus Magnesium Total Bilirubin AST ALT Alkaline Phosphatase Total Protein Albumin Active Medications Generic Name Dose Route Start Last Admin Trade Name Freq PRN Reason Stop Dose Admin Acetaminophen 650 mg 03/05/17 17:51 Tylenol - PO Q4H PRN PAIN Acetylcysteine 200 mg 03/06/17 12:00 03/07/17 11:11 Mucomyst 20 Oral / Inh Use Only* NEB 200 mg QIDR [facility] Administration Albuterol Sulfate 1 amp 03/06/17 12:00 03/07/17 11:11 Ventolin 0.083% Nebulizer Soln - NEB 1 amp QIDR [facility] Administration Amino Acids 30 ml 03/05/17 22:00 03/07/17 10:56 Prosource No Carb Liquid Pkt PO 30 ml BID [facility] Administration Chlorhexidine Gluconate 1 applic 03/05/17 22:00 03/06/17 22:27 Hibiclens For Decolonization - TP Not Given HS [facility] Ferrous Sulfate 325 mg 03/05/17 22:00 03/07/17 10:56 Feosol - PO 325 mg BID [facility] Administration Folic Acid 1 mg 03/06/17 10:00 03/07/17 10:56 Folic Acid - PO 1 mg DAILY [facility] Administration Heparin Sodium (Porcine) 1,000 unit 03/05/17 17:51 Heparin - IVPUSH PRN PRN Heparin Heparin Sodium (Porcine) 5,000 unit 03/05/17 17:51 03/07/17 04:00 Heparin - IVPUSH 5,000 unit PRN PRN Administration Heparin Heparin Sodium (Porcine) 25, 500 mls @ 16 mls/hr 03/06/17 09:00 03/07/17 04:00 000 unit/ Sodium Chloride IV 03/07/17 23:55 22 mls/hr TITR [facility]UL[facility] Administration Protocol 800 UNIT/HR Piperacillin Sod/Tazobactam Sod 50 mls @ 100 mls/hr 03/05/17 18:00 03/07/17 10: 58 Zosyn 3.375gm Ivpb (Pre-Docked) IVPB 100 mls/hr Q8H-IV [facility]ULIO Administration Protocol Sodium Chloride 1,000 mls @ 100 mls/hr 03/06/17 20:34 03/06/17 20:30 Normal Saline - IV 100 mls/hr ASDIR [facility] Administration Methimazole 5 mg 03/05/17 22:00 03/07/17 06:20 Tapazole - PO 5 mg TID [facility] Administration Mupirocin 1 applic 03/05/17 22:00 03/07/17 10:57 Bactroban Ointment (For Decolonization) - NS 03/08/17 21:59 Not Given BID [facility] Potassium Phos/Sodium Phos 1 packet 03/05/17 22:00 03/07/17 10:57 Phos-Nak Packet - PO 1 packet BID [facility] Administration Rivaroxaban 15 mg 03/06/17 10:00 Xarelto - PO DAILY [facility] Rosuvastatin Calcium 10 mg 03/05/17 22:00 03/06/17 22:30 Crestor - PO 10 mg HS [facility] Administration ASSESSMENT/PLAN: This is a 72-year-old man with a history of HTN, colon CA, colostomy, LLE arterial emboli, left BKA, left lung mass, CVA who presented to the ER from with worse right sided facial droop, right sided weakness, hypoxia and hypotension. 1. Right hemiparesis, right facial weakness, dysarthria secondary to recent CVA - Deficits worsen when hypotensive - Continue Crestor - Xarelto held and heparin IV drip being started in preparation for lung biopsy - Continue IV fluid and hold antihypertensive meds 2. Sepsis secondary to healthcare associated pneumonia, possible aspiration pneumonia - Continue Zosyn, IV fluid 3. Acute kidney injury secondary to sepsis and hypovolemia - Creatinine stable 4. Acute metabolic encephalopathy secondary to sepsis 5. Left lung mass - Biopsy when stable 6. HTN - Hold Norvasc, Lopressor secondary to hypotension 7. PAD, history of LLE arterial emboli, left BKA - Xarelto held and heparin IV drip being started in preparation for lung biopsy 8. Hyperkalemia - Improved 9. Hyperthyroidism - Continue Tapazole 10. COPD - Stable 11. Anemia secondary to chronic illness - Continue ferrous sulfate, folic acid - Continue to monitor hemoglobin 12. Thrombocytopenia - Platelets decreasing - Continue to monitor 13. History of colon cancer, colostomy 14. Hypocalcemia, hypophosphatemia, hypomagnesemia - Increase Phos-Nak - Magnesium sulfate 15. Protein malnutrition with weight loss, hypoproteinemia and hypoalbuminemia - Continue Prosource Visit type - Emergency Visit Emergency Visit: Yes ED Registration Date: 03/03/17 Care time: The patient presented to the Emergency Department on the above date and was hospitalized for further evaluation of their emergent condition. - New Patient This patient is new to me today: No - Critical Care Critical Care patient: No - Discharge Referral Referred to [facility] No
[2017-03-07] MEDS ORDERED: MAGNESIUM SULF 50% (8.12 MEQ/2 ML-1 GM VIAL) IVPB ONE (13:00)
--- NOTE | 2017-03-07 13:36 | PN ---
Progress Note (short form) - Note Progress Note: PULMONARY CXR still with left sided atelectasis. BP improved with IVF. Last Vital Signs Temp Pulse Resp BP Pulse Ox 99.6 F 65 22 104/53 95 03/07/17 05:21 03/07/17 11:11 03/07/17 05:21 03/07/17 05:21 03/07/17 11:11 Gen: less tachypneic Heart: irregular Lung: decreased breath sounds left, +rhonchi Abd: soft, nontender Ext: no edema CBC, BMP 03/07/17 11:07 03/07/17 02:00 Active Medications Acetaminophen (Tylenol -) 650 mg PO Q4H PRN PRN Reason: PAIN Acetylcysteine (Mucomyst 20 Oral / Inh Use Only*) 200 mg NEB QIDR [facility] Last Admin: 03/07/17 11:11 Dose: 200 mg Albuterol Sulfate (Ventolin 0.083% Nebulizer Soln -) 1 amp NEB QIDR [facility] Last Admin: 03/07/17 11:11 Dose: 1 amp Amino Acids (Prosource No Carb Liquid Pkt) 30 ml PO BID [facility] Last Admin: 03/07/17 10:56 Dose: 30 ml Chlorhexidine Gluconate (Hibiclens For Decolonization -) 1 applic TP HS [facility] Last Admin: 03/06/17 22:27 Dose: Not Given Ferrous Sulfate (Feosol -) 325 mg PO BID [facility] Last Admin: 03/07/17 10:56 Dose: 325 mg Folic Acid (Folic Acid -) 1 mg PO DAILY [facility] Last Admin: 03/07/17 10:56 Dose: 1 mg Heparin Sodium (Porcine) (Heparin -) 1,000 unit IVPUSH PRN PRN PRN Reason: Heparin Heparin Sodium (Porcine) (Heparin -) 5,000 unit IVPUSH PRN PRN PRN Reason: Heparin Last Admin: 03/07/17 04:00 Dose: 5,000 unit Heparin Sodium (Porcine) 25, (000 unit/ Sodium Chloride) 500 mls @ 16 mls/hr IV TITR JULIO; 800 UNIT/HR PRN Reason: Protocol Stop: 03/07/17 23:55 Last Admin: 03/07/17 12:42 Dose: 22 mls/hr Piperacillin Sod/Tazobactam Sod (Zosyn 3.375gm Ivpb (Pre-Docked)) 50 mls @ 100 mls/hr IVPB Q8H-IV JULIO PRN Reason: Protocol Last Admin: 03/07/17 10:58 Dose: 100 mls/hr Sodium Chloride (Normal Saline -) 1,000 mls @ 100 mls/hr IV ASDIR [facility] Last Admin: 03/06/17 20:30 Dose: 100 mls/hr Methimazole (Tapazole -) 5 mg PO TID [facility] Last Admin: 03/07/17 13:13 Dose: 5 mg Mupirocin (Bactroban Ointment (For Decolonization) -) 1 applic NS BID [facility] Stop: 03/08/17 21:59 Last Admin: 03/07/17 10:57 Dose: Not Given Potassium Phos/Sodium Phos (Phos-Nak Packet -) 1 packet PO TID [facility] Rivaroxaban (Xarelto -) 15 mg PO DAILY [facility] Rosuvastatin Calcium (Crestor -) 10 mg PO HS [facility] Last Admin: 03/06/17 22:30 Dose: 10 mg A/P Acute CVA Pneumonia Atelectasis Severe Sepsis Acute Kidney Injury Lung Mass likely malignant PAD - continue IVF - monitor urine output, creatinine - continue antibiotics - aspiration precautions - BiPAP as needed to assist in work of breathing and may assist in re- expanding left lung - chest PT - mucomyst with albuterol QID - continue anticoagulation - monitor H/H
[2017-03-07] MEDS: CHLORHEXIDINE GLUCONATE 4% CLEANSER FOR DECOLONIZATION TP SCH (21:28)
[2017-03-07] MEDS: SODIUM CHLORIDE 1,000 ML IV SCH (21:38)
[2017-03-07] MEDS: ROSUVASTATIN CA 10 MG TABLET (FP) PO SCH (21:38)
[2017-03-08] MEDS: ALBUTEROL SO4 0.083% IH SOL 2.5 MG/3 ML VIAL.NEB. NEB SCH ×4 (01:08→18:36)
[2017-03-08] MEDS: PIPERACILLIN/TAZOB 3.375 GM 50 ML IVPB SCH ×2 (02:36→09:54)
[2017-03-08] MEDS: SODIUM CHLORIDE 1,000 ML IV SCH ×3 (06:25→23:00)
[2017-03-08] MEDS: NAPH,MB-DB/K PH,MBDB POWDER PACKET PO SCH ×2 (06:25→14:08)
[2017-03-08] MEDS: METHIMAZOLE 5 MG TABLET (FP) PO SCH ×2 (06:25→14:09)
[2017-03-08] MEDS: ACETYLCYSTEINE 20% 200MG/ML 30 ML VIAL *FOR ORAL / INH USE ONLY NEB SCH ×4 (06:44→18:36)
[2017-03-08 07:02] LABS: MCH 28.7 pg (25.7-33.7); MEAN PLT VOLUME 8.5 fl (7.5-11.1); PLATELET COUNT 78 K/MM3 (134-434); RDW 17.1 % (11.9-15.9); WHITE BLOOD COUNT 7.2 K/mm3 (4.0-10.0)
[2017-03-08 08:27] LABS: MAGNESIUM 1.9 mg/dL (1.8-2.4)
[2017-03-08 08:28] LABS: COCKROFT - GAULT 53.87; CREATININE 1.2 mg/dL (0.7-1.3); PHOSPHOROUS 1.8 mg/dL (2.5-4.9)
[2017-03-08 09:18] LABS: CALCIUM 6.6 mg/dL (8.5-10.1)
[2017-03-08] MEDS: FOLIC ACID 1 MG TABLET (FP) PO SCH (09:54)
[2017-03-08] MEDS: FERROUS SO4 325 MG TABLET (FP) PO SCH (09:54)
[2017-03-08] MEDS: AMINO ACIDS/PROTEIN HYDROLYS 30 ML LIQUID.PKT PO SCH (09:55)
--- NOTE | 2017-03-08 11:42 | PN ---
Progress Note, Physician History of Present Illness: pulmonary alert,nad,-cp,+ cough,-tachypnea - Current Medication List Current Medications: Active Medications Acetaminophen (Tylenol -) 650 mg PO Q4H PRN PRN Reason: PAIN Acetylcysteine (Mucomyst 20 Oral / Inh Use Only*) 200 mg NEB QIDR [facility] Last Admin: 03/08/17 06:44 Dose: 200 mg Albuterol Sulfate (Ventolin 0.083% Nebulizer Soln -) 1 amp NEB QIDR [facility] Last Admin: 03/08/17 06:43 Dose: 1 amp Amino Acids (Prosource No Carb Liquid Pkt) 30 ml PO BID [facility] Last Admin: 03/08/17 09:55 Dose: Not Given Ferrous Sulfate (Feosol -) 325 mg PO BID [facility] Last Admin: 03/08/17 09:54 Dose: Not Given Folic Acid (Folic Acid -) 1 mg PO DAILY [facility] Last Admin: 03/08/17 09:54 Dose: Not Given Heparin Sodium (Porcine) (Heparin -) 1,000 unit IVPUSH PRN PRN PRN Reason: Heparin Heparin Sodium (Porcine) (Heparin -) 5,000 unit IVPUSH PRN PRN PRN Reason: Heparin Last Admin: 03/07/17 04:00 Dose: 5,000 unit Piperacillin Sod/Tazobactam Sod (Zosyn 3.375gm Ivpb (Pre-Docked)) 50 mls @ 100 mls/hr IVPB Q8H-IV JULIO PRN Reason: Protocol Last Admin: 03/08/17 09:54 Dose: 100 mls/hr Sodium Chloride (Normal Saline -) 1,000 mls @ 100 mls/hr IV ASDIR [facility] Last Admin: 03/08/17 06:25 Dose: 100 mls/hr Methimazole (Tapazole -) 5 mg PO TID [facility] Last Admin: 03/08/17 06:25 Dose: 5 mg Potassium Phos/Sodium Phos (Phos-Nak Packet -) 1 packet PO TID [facility] Last Admin: 03/08/17 06:25 Dose: 1 packet Rivaroxaban (Xarelto -) 15 mg PO DAILY [facility] Rosuvastatin Calcium (Crestor -) 10 mg PO HS [facility] Last Admin: 03/07/17 21:38 Dose: 10 mg - Objective Vital Signs: Vital Signs Temperature 98.2 F 03/08/17 09:00 Pulse Rate 96 H 03/08/17 09:00 Respiratory Rate 20 03/08/17 09:00 Blood Pressure 100/57 03/08/17 09:00 O2 Sat by Pulse Oximetry (%) 97 03/07/17 21:00 Constitutional: Yes: Well Nourished, No Distress, Calm Eyes: Yes: WNL HENT: Yes: WNL Neck: Yes: WNL Cardiovascular: Yes: Regular Rate and Rhythm, S1, S2 Respiratory: Yes: Diminished (decreased bs on left), Rhonchi (scattered rhonchi) Gastrointestinal: Yes: Normal Bowel Sounds, Soft Extremities: Yes: WNL Edema: No Labs: CBC, BMP 03/08/17 05:35 03/08/17 05:35 INR, PTT INR 1.43 (0.82-1.09) H 03/07/17 02:00 Assessment/Plan A/P Acute CVA Pneumonia L lung Atelectasis s/p Severe Sepsis Acute Kidney Injury Lung Mass likely malignant PAD Thrombocytopenia - continue IVF - monitor urine output, creatinine - continue antibiotics - aspiration precautions - BiPAP as needed to assist in work of breathing and may assist in re- expanding left lung - chest PT - mucomyst with albuterol QID - continue anticoagulation - monitor H/H - f/u chest x-ray today DR GOMEZ
--- NOTE | 2017-03-08 14:14 | PN ---
Progress Note, Physician History of Present Illness: Awake, aphasic Breathing non-labored No cough noted Afebrile CXR shows completely opacified L hemithorax Platelets continue to drop - Current Medication List Current Medications: Active Medications Acetaminophen (Tylenol -) 650 mg PO Q4H PRN PRN Reason: PAIN Acetylcysteine (Mucomyst 20 Oral / Inh Use Only*) 200 mg NEB QIDR [facility] Last Admin: 03/08/17 11:58 Dose: 200 mg Albuterol Sulfate (Ventolin 0.083% Nebulizer Soln -) 1 amp NEB QIDR [facility] Last Admin: 03/08/17 12:05 Dose: 1 amp Amino Acids (Prosource No Carb Liquid Pkt) 30 ml PO BID [facility] Last Admin: 03/08/17 09:55 Dose: Not Given Ferrous Sulfate (Feosol -) 325 mg PO BID [facility] Last Admin: 03/08/17 09:54 Dose: Not Given Folic Acid (Folic Acid -) 1 mg PO DAILY [facility] Last Admin: 03/08/17 09:54 Dose: Not Given Heparin Sodium (Porcine) (Heparin -) 1,000 unit IVPUSH PRN PRN PRN Reason: Heparin Heparin Sodium (Porcine) (Heparin -) 5,000 unit IVPUSH PRN PRN PRN Reason: Heparin Last Admin: 03/07/17 04:00 Dose: 5,000 unit Piperacillin Sod/Tazobactam Sod (Zosyn 3.375gm Ivpb (Pre-Docked)) 50 mls @ 100 mls/hr IVPB Q8H-IV [facility]ULIO PRN Reason: Protocol Last Admin: 03/08/17 09:54 Dose: 100 mls/hr Sodium Chloride (Normal Saline -) 1,000 mls @ 100 mls/hr IV ASDIR [facility] Last Admin: 03/08/17 06:25 Dose: 100 mls/hr Methimazole (Tapazole -) 5 mg PO TID [facility] Last Admin: 03/08/17 14:09 Dose: Not Given Potassium Phos/Sodium Phos (Phos-Nak Packet -) 1 packet PO TID [facility] Last Admin: 03/08/17 14:08 Dose: Not Given Rivaroxaban (Xarelto -) 15 mg PO DAILY [facility] Rosuvastatin Calcium (Crestor -) 10 mg PO HS [facility] Last Admin: 03/07/17 21:38 Dose: 10 mg - Objective Vital Signs: Vital Signs Temperature 98.2 F 03/08/17 09:00 Pulse Rate 83 03/08/17 13:31 Respiratory Rate 20 03/08/17 09:00 Blood Pressure 100/57 03/08/17 09:00 O2 Sat by Pulse Oximetry (%) 98 03/08/17 13:31 Constitutional: Yes: No Distress Eyes: Yes: Conjunctiva Clear Cardiovascular: Yes: Regular Rate and Rhythm, S1, S2 Respiratory: Yes: Diminished Gastrointestinal: Yes: Normal Bowel Sounds, Soft Edema: No Labs: CBC, BMP 03/08/17 05:35 03/08/17 05:35 INR, PTT INR 1.43 (0.82-1.09) H 03/07/17 02:00 Assessment/Plan L Lung mass, possible malignancy Opacified L hemithorax Post obstructive pneumonia S/P CVA Leukocytosis- resolved Azotemia-improving Thrombocytopenia- worsening Concerned about dropping plt count ?Drug-induced Will D/C Zosyn, observe For lung bx
--- NOTE | 2017-03-08 14:45 | PN ---
Teaching Attending Note Name of Resident: Keenan Onofre ATTENDING PHYSICIAN STATEMENT I saw and evaluated the patient. I reviewed the resident's note and discussed the case with the resident. I agree with the resident's findings and plan as documented. SUBJECTIVE: OBJECTIVE: Vital Signs Period Temp Pulse Resp BP Sys/Tapia Pulse Ox Last 24 Hr 98.1 F-98.5 F 72-96 20-22 100-129/57-82 97-98 GENERAL: The patient is awake, alert, confused, in no acute distress. LUNGS: Few rhonchi bilaterally. Decreased BS at bases. HEART: Regular rate and rhythm, S1, S2 without murmur, rub or gallop. ABDOMEN: Soft, nontender, nondistended, normoactive bowel sounds, no guarding, no rebound, no hepatosplenomegaly, no masses. EXTREMITIES: 2+ pulses, warm, well-perfused, no edema, s/p left BKA. NEUROLOGICAL: Alert, confused, (+) dysarthria, (+) right facial weakness. Strength 1/5 RUE, 3/5 RLE, 4/5 LUE/LLE ASSESSMENT AND PLAN: This is a 72-year-old man with a history of HTN, colon CA, colostomy, LLE arterial emboli, left BKA, left lung mass, CVA who presented to the ER from with worse right sided facial droop, right sided weakness, hypoxia and hypotension. 1. Right hemiparesis, right facial weakness, dysarthria secondary to recent CVA - Deficits worsen when hypotensive - Continue Crestor - Continue Xarelto - Continue IV fluid and hold antihypertensive meds 2. Sepsis secondary to healthcare associated pneumonia, possible aspiration pneumonia - Completed course of Zosyn 3. Acute kidney injury secondary to sepsis and hypovolemia - Creatinine improved 4. Acute metabolic encephalopathy secondary to sepsis 5. Left lung mass - Biopsy when stable 6. HTN - Hold Norvasc, Lopressor secondary to hypotension 7. PAD, history of LLE arterial emboli, left BKA - Continue Xarelto 8. Hyperkalemia - Improved 9. Hyperthyroidism - Continue Tapazole 10. COPD - Stable 11. Anemia secondary to chronic illness - Continue ferrous sulfate, folic acid - Continue to monitor hemoglobin 12. Thrombocytopenia - Platelets stable - Heparin discontinued - Continue to monitor 13. History of colon cancer, colostomy 14. Hypocalcemia, hypophosphatemia, hypomagnesemia - Phosphorus improving with Phos-Nak - Magnesium improved with magnesium sulfate - Corrected calcium is 8.3 15. Protein malnutrition with weight loss, hypoproteinemia and hypoalbuminemia - Continue Prosource
--- NOTE | 2017-03-08 17:29 | PN ---
Physical Exam: SUBJECTIVE: Patient seen and examined at bedside in ICU. He remains at baseline mental status and no acute event overnight while on heparin gtt. OBJECTIVE: Vital Signs Period Temp Pulse Resp BP Sys/Tapia Pulse Ox Last 24 Hr 98.1 F-98.5 F 72-96 20-22 100-129/57-82 97-98 GENERAL: Awake, alert but not oriented, at baseline mental status, not in any pulmonary distress HEAD: AT, NC EYES: Pupils equal, round and reactive to light, sclera anicteric, conjunctiva clear ENT: oropharynx clear without exudates LUNGS: loud rhonchi bilaterally HEART: RRR, S1 and S2, no rub ABDOMEN: +bs, soft, non-tender, no rebound, guarding EXTREMITIES: No peripheral edema NEURO: unable to perform due to patient's mental status. 2/5 strength in L extremities and 4/5 in R extremities. sensation intact b/l. CBCD WBC 7.2 K/mm3 (4.0-10.0) 03/08/17 05:35 RBC 2.71 M/mm3 (4.00-5.60) L 03/08/17 05:35 Hgb 7.8 GM/dL (11.7-16.9) L 03/08/17 05:35 Hct 24.4 % (35.4-49) L 03/08/17 05:35 MCV 90.0 fl (80-96) 03/08/17 05:35 MCHC 32.0 g/dl (32.0-35.9) 03/08/17 05:35 RDW 17.1 % (11.9-15.9) H 03/08/17 05:35 Plt Count 78 K/MM3 (134-434) L 03/08/17 05:35 MPV 8.5 fl (7.5-11.1) 03/08/17 05:35 CMP Sodium 145 mmol/L (136-145) 03/08/17 05:35 Potassium 3.8 mmol/L (3.5-5.1) 03/08/17 05:35 Chloride 118 mmol/L (98-107) H 03/08/17 05:35 Carbon Dioxide 17 mmol/L (21-32) L 03/08/17 05:35 Anion Gap 10 (8-16) 03/08/17 05:35 BUN 8 mg/dL (7-18) D 03/08/17 05:35 Creatinine 1.2 mg/dL (0.7-1.3) 03/08/17 05:35 Creat Clearance w eGFR 50.10 (>60) 03/07/17 02:00 Calcium 6.6 mg/dL (8.5-10.1) L* 03/08/17 05:35 Total Bilirubin 0.6 mg/dL (0.2-1.0) 03/07/17 02:00 AST 15 U/L (15-37) D 03/07/17 02:00 ALT 13 U/L (12-78) D 03/07/17 02:00 Alkaline Phosphatase 60 U/L (45-117) 03/07/17 02:00 Total Protein 4.9 g/dl (6.4-8.2) L 03/07/17 02:00 Albumin 1.9 g/dl (3.4-5.0) L 03/07/17 02:00 INR, PTT INR 1.43 (0.82-1.09) H 03/07/17 02:00 Active Medications Generic Name Dose Route Start Last Admin Trade Name Freq PRN Reason Stop Dose Admin Acetaminophen 650 mg 03/05/17 17:51 Tylenol - PO Q4H PRN PAIN Acetylcysteine 200 mg 03/06/17 12:00 03/08/17 11:58 Mucomyst 20 Oral / Inh Use Only* NEB 200 mg QIDR JULIO Administration Albuterol Sulfate 1 amp 03/06/17 12:00 03/08/17 12:05 Ventolin 0.083% Nebulizer Soln - NEB 1 amp QIDR JULIO Administration Amino Acids 30 ml 03/05/17 22:00 03/08/17 09:55 Prosource No Carb Liquid Pkt PO Not Given BID JULIO Ferrous Sulfate 325 mg 03/05/17 22:00 03/08/17 09:54 Feosol - PO Not Given BID JULIO Folic Acid 1 mg 03/06/17 10:00 03/08/17 09:54 Folic Acid - PO Not Given DAILY JULIO Sodium Chloride 1,000 mls @ 100 mls/hr 03/06/17 20:34 03/08/17 06:25 Normal Saline - IV 100 mls/hr ASDIR JULIO Administration Methimazole 5 mg 03/05/17 22:00 03/08/17 14:09 Tapazole - PO Not Given TID JULIO Potassium Phos/Sodium Phos 1 packet 03/07/17 14:00 03/08/17 14:08 Phos-Nak Packet - PO Not Given TID JULIO Rivaroxaban 15 mg 03/08/17 15:45 Xarelto - PO DAILY JULIO Rosuvastatin Calcium 10 mg 03/05/17 22:00 03/07/17 21:38 Crestor - PO 10 mg HS JULIO Administration Imaging CXR on 03/07: Imaging reveals no significant change from 03/06/2017 at 0913 hours. Again noted is mediastinal shift to the left with total opacification of the left hemithorax and left jugular port with tip at junction of SVC and right atrium. The right lung is clear. The right angle is sharp. CT head on 03/06: No acute pathology CXR on 03/05: Increased opacification of the left hemithorax - increased pleural effusion ASSESSMENT/PLAN: 72 yo M h/o colon cancer s/o colostomy, HTN, left lower ext arterial emboli admitted for PNA and CVA admitted to the ICU for new onset of R sided weakness and R facial droop. Neuro: Acute onset of R sided weakness - Stable - Stroke in evolution vs. toxic metabolic encephalopathy 2/2 PNA * h/o recent CVA, acute L posterior temporal/parietal infarct * Remain expressively aphasic since previous stroke - Hold all BP medications and allow permissive HTN ID: Obstructive pneumonia 2/2 lung mass - Improving - L sided total opacification on CXR: atelectasis vs. pleural effusion - Cont. Chest PT - Cont. Mucomyst - Observe off abx HemOnc: New lung lesion; Rectal carcinoma s/p rectal surgery, colostomy and chemo - Biopsy deferred due to low platelet count and worsening R sided atelectasis Renal: SHIVA - Resolved - Cont. hydration Endo: hyperthyroidism - Cont. methimazole FEN - NS 100ml/hr - Cont. to monitor Ca2+ and Phos - Dysphagia puree - await S&S re-evaluation Prophylaxis - DVT: restarted Xarelto - GI: not indicated Disposition - Voice mail left on patient's sister (HCP) regarding change of plan - Will discuss with patient's sister regarding goal of care and possible hospice placement Code status - Full code Visit type - Emergency Visit Emergency Visit: No - New Patient This patient is new to me today: No - Critical Care Critical Care patient: No
--- NOTE | 2017-03-08 17:34 | PN ---
Progress Note, HUMAN RESOURCES ADVISOR - Note Progress Note: 72 yo male seen as a follow up to consultation by Jennifer (03/05/17) with a recommendation for trial dysphagia pureed no liquid po at this time. Over the weekend charge out clerk reported pt having difficulty to pureed soilds with s/s of aspiration (increased respiration, coughing and change in color). As a result pt was downgraded to NPO until bedside eval re-evaluated. Pt is vocal (non- verbal, A&Ox1 agitated. Pt presents as edentulous top and bottom, with delayed swallow onset and reduced ROM. Pt given PO trials of puree with total assistance revealed initially good acceptance, adequate bolus formation and transport. Pharyngeal swallow was delayed with positive s/s of aspiration-like behaviors. Pt refused all other attempts for po trials Silent aspiration can not be ruled out at bedside. Honey thicken liquids trials not attempted as pt refused. Recommendations: Continue NPO at this time. HUMAN RESOURCES ADVISOR to follow up to trial swallow status. Consider MBS when pt is cooperative and stable. Results given verbally to charge nurse Gilda and to pcp via chart.
[2017-03-08] MEDS: RIVAROXABAN 15 MG TABLET PO SCH ×2 (17:37→17:46)
--- NOTE | 2017-03-08 18:02 | PN ---
Progress Note (short form) - Note Progress Note: 72 year old male, with a significant past medical history of HTN, colon Ca (s/p colostomy bag) and left BKA vascular problem (on Xarelto) who presents to the emergency department with right sided droop on 03/03 noticed by group home staff. was seen last week while in house for L sided stroke, resulting in mixed aphasia , found to have left carotid occlusion (complete, NTD as per vascular) The patients NH also reports the patient was hypotensive and hypoxic earlier on 08/10. RIght sided Weakness noted now was not seen ( to this extent) on prior admission last week. pt unable to elaborate further given HX of aphasia. FU : right hemiparesis more confluent, expressive aphasia on 03/06 noted to be more dysarthric, right sided weakness worse leg also involved) -- HD repeat: no new bld, stroke looks fairly stable radiographically planning for lung biopsy on heparin - Home Medications Home Medications: Ambulatory Orders Aa/[place]/Arg/C/Zn/Cu [Lps Critical Care Liquid] 30 ml PO BID 03/03/17 Acetaminophen 650 mg PO Q4H PRN 03/03/17 Amlodipine Besylate [Norvasc -] 5 mg PO DAILY 03/03/17 Ferrous Sulfate [Feosol] 325 mg PO BID 03/03/17 Folic Acid 1 mg PO DAILY 03/03/17 Isosorbide Mononitrate [Imdur -] 30 mg PO DAILY 03/03/17 Methimazole [Tapazole] 5 mg PO TID 03/03/17 Metoprolol Tartrate [Lopressor -] 25 mg PO DAILY 03/03/17 Prednisone [Deltasone -] 5 mg PO DAILY 03/03/17 Rivaroxaban [Xarelto -] 15 mg PO DAILY 03/03/17 Rosuvastatin Calcium [Crestor] 10 mg PO HS 03/03/17 Physical Exam-Neuro Vital Signs: Vital Signs Temperature 98.2 F 03/08/17 09:00 Pulse Rate 83 03/08/17 13:31 Respiratory Rate 20 03/08/17 09:00 Blood Pressure 100/57 03/08/17 09:00 O2 Sat by Pulse Oximetry (%) 98 03/08/17 13:31 Constitutional: Yes: [place] Neck: Yes: Supple Respiratory: Yes: Diminished Gastrointestinal: Yes: Normal Bowel Sounds Labs: CBC, BMP 03/08/17 05:35 03/08/17 05:35 - Neuro Exam Level Of Consciousness: Yes: Alert (awake and attends, though unable to comprehend and produce viable verbal communication (aphasia), right facial droop , Right hemiparesis 2/5 (face and arm >>>leg), plantar R up ) NIH Stroke Scale - Last Known Well Date/Time & Onset Symptom Onset Date: 03/03/17 Symptom Onset Time: 09:00 (unknown ) Date Last Known Well: 03/03/17 Time Last Known Well: 09:00 (unknown ) - Initial Evaluation Level of consciousness: Alert Ask patient the month & their age: Both Incorrect Ask Patient to open & close eyes; make fist and let go.: Obeys One Correctly Best gaze (horizontal eye movement): Normal Visual Field Testing: No Visual Loss Facial Palsy(Show teeth or raise eyebrows & close eyes: Partial Paralysis ( total or near-total paralysis of lower face). Motor Function - Left Arm: No Drift;extends limb 90 (or siting 45) degress & hold full 10 seconds Motor Function - Right Arm: Some effort against gravity Motor Function - Left Leg: No Drift; leg holds 30 degree position for full 5 seconds. Motor Function - Right Leg: Some Effort against gravity Limb Ataxia: Absent (also used for the pt who does not understand or paralyzed) Sensory (arms, legs, trunk, face): Normal; no sensory loss Best Language: Severe aphasia;all communication is through fragmentary expression Dysarthria/Articulation: Mild to moderate dysarthria;slurs some words/ understood w/difficulty Extinction and Inattention: No abnormality - Total Score NIH Stroke Scale Score: 10 Imaging - Results Cat Scan: Report Reviewed, Image Reviewed today Problem List - Problems (1) SHIVA (acute kidney injury) Code(s): N17.9 - ACUTE KIDNEY FAILURE, UNSPECIFIED (2) CVA (cerebral vascular accident) Code(s): I63.9 - CEREBRAL INFARCTION, UNSPECIFIED (3) Pneumonia Code(s): J18.9 - PNEUMONIA, UNSPECIFIED ORGANISM (4) Smoker Code(s): F17.200 - NICOTINE DEPENDENCE, UNSPECIFIED, UNCOMPLICATED (5) Left carotid artery occlusion Code(s): I65.22 - OCCLUSION AND STENOSIS OF LEFT CAROTID ARTERY Assessment/Plan 72 year old male, with a significant past medical history of HTN, colon Ca (s/p colostomy bag) and left BKA vascular problem (on Xarelto) who presents to the emergency department with right sided droop on 03/03 noticed by group home staff. was seen last week while in house for L sided stroke, resulting in mixed aphasia , found to have left carotid occlusion (complete, NTD as per vascular) The patients NH also reports the patient was hypotensive and hypoxic earlier on 08/10. RIght sided Weakness noted now was not seen ( to this extent) on prior admission last week. pt unable to elaborate further given HX of aphasia. suspect evolution/progression of prior L MCA stroke event, known left carotid occlusion NIH 10 --did not qualify TPA as no clear time of onset , recent stroke code salvador called again on 03/06/17 -- worsening right hemiparesis in setting of hypotension ( likely hypoperfusion ), no clinical evidence for seizure does not qualify for TPA as back to basline ( also on AC etc) Repeat HD -03/06 reviewed , no acute bld continue AC, as limited alternatives at this juncture , planning for lung biopsy hypotension , -- low BP may contribute to hypoperfusin injury; ideally keep above SBP > 100 leukocytosis improving SHIVA -improving Dr Loving [phone] Problem List - Problems (1) SHIVA (acute kidney injury) Code(s): N17.9 - ACUTE KIDNEY FAILURE, UNSPECIFIED (2) CVA (cerebral vascular accident) Code(s): I63.9 - CEREBRAL INFARCTION, UNSPECIFIED (3) Pneumonia Code(s): J18.9 - PNEUMONIA, UNSPECIFIED ORGANISM (4) Smoker Code(s): F17.200 - NICOTINE DEPENDENCE, UNSPECIFIED, UNCOMPLICATED (5) Left carotid artery occlusion Code(s): I65.22 - OCCLUSION AND STENOSIS OF LEFT CAROTID ARTERY
[2017-03-09] MEDS: ACETYLCYSTEINE 20% 200MG/ML 30 ML VIAL *FOR ORAL / INH USE ONLY NEB SCH ×5 (00:03→23:18)
[2017-03-09] MEDS: ALBUTEROL SO4 0.083% IH SOL 2.5 MG/3 ML VIAL.NEB. NEB SCH ×5 (00:03→23:19)
[2017-03-09] MEDS: METHIMAZOLE 5 MG TABLET (FP) PO SCH ×3 (06:44→15:13)
[2017-03-09] MEDS: NAPH,MB-DB/K PH,MBDB POWDER PACKET PO SCH ×3 (06:45→15:13)
[2017-03-09] MEDS: AMINO ACIDS/PROTEIN HYDROLYS 30 ML LIQUID.PKT PO SCH ×2 (06:46→11:24)
[2017-03-09] MEDS: ROSUVASTATIN CA 10 MG TABLET (FP) PO SCH (06:46)
[2017-03-09] MEDS: FERROUS SO4 325 MG TABLET (FP) PO SCH ×2 (06:46→11:30)
[2017-03-09 07:04] LABS: MCH 28.4 pg (25.7-33.7); MCHC 31.2 g/dl (32.0-35.9); MEAN CELL VOLUME 91.2 fl (80-96); MEAN PLT VOLUME 8.6 fl (7.5-11.1); PLATELET COUNT 90 K/MM3 (134-434); RDW 16.9 % (11.9-15.9); WHITE BLOOD COUNT 9.2 K/mm3 (4.0-10.0)
[2017-03-09 07:34] LABS: MAGNESIUM 1.8 mg/dL (1.8-2.4)
[2017-03-09 07:36] LABS: COCKROFT - GAULT 58.77; CREATININE 1.1 mg/dL (0.7-1.3); PHOSPHOROUS 2.2 mg/dL (2.5-4.9)
[2017-03-09 07:58] LABS: CALCIUM 6.8 mg/dL (8.5-10.1)
[2017-03-09 10:06] LABS: INR 1.33 (0.82-1.09); PROTHROMBIN TIME (PATIENT) 14.7 SEC (9.98-11.88)
--- NOTE | 2017-03-09 10:43 | PN ---
Progress Note, Physician History of Present Illness: pulmonary alert,comfortable,-resp distress - Current Medication List Current Medications: Active Medications Acetaminophen (Tylenol -) 650 mg PO Q4H PRN PRN Reason: PAIN Acetylcysteine (Mucomyst 20 Oral / Inh Use Only*) 200 mg NEB QIDR [facility] Last Admin: 03/09/17 06:22 Dose: 200 mg Albuterol Sulfate (Ventolin 0.083% Nebulizer Soln -) 1 amp NEB QIDR [facility] Last Admin: 03/09/17 06:22 Dose: 1 amp Amino Acids (Prosource No Carb Liquid Pkt) 30 ml PO BID [facility] Last Admin: 03/09/17 06:46 Dose: Not Given Ferrous Sulfate (Feosol -) 325 mg PO BID [facility] Last Admin: 03/09/17 06:46 Dose: Not Given Folic Acid (Folic Acid -) 1 mg PO DAILY [facility] Last Admin: 03/08/17 09:54 Dose: Not Given Sodium Chloride (Normal Saline -) 1,000 mls @ 100 mls/hr IV ASDIR [facility] Last Admin: 03/08/17 23:00 Dose: 100 mls/hr Methimazole (Tapazole -) 5 mg PO TID [facility] Last Admin: 03/09/17 06:45 Dose: 5 mg Potassium Phos/Sodium Phos (Phos-Nak Packet -) 1 packet PO TID [facility] Last Admin: 03/09/17 06:46 Dose: Not Given Rivaroxaban (Xarelto -) 15 mg PO DAILY [facility] Last Admin: 03/08/17 17:46 Dose: Not Given Rosuvastatin Calcium (Crestor -) 10 mg PO HS [facility] Last Admin: 03/09/17 06:46 Dose: Not Given - Objective Vital Signs: Vital Signs Temperature 98 F 03/09/17 06:00 Pulse Rate 90 03/09/17 06:00 Respiratory Rate 24 03/09/17 06:00 Blood Pressure 116/56 03/09/17 06:00 O2 Sat by Pulse Oximetry (%) 97 03/08/17 21:00 Constitutional: Yes: Well Nourished, Calm Eyes: Yes: WNL HENT: Yes: WNL Neck: Yes: WNL Cardiovascular: Yes: Regular Rate and Rhythm, S1, S2 Respiratory: Yes: Diminished (diminished bs on left,poor inspiratory effort) Gastrointestinal: Yes: Normal Bowel Sounds, Soft Extremities: Yes: Amputation (L bka) Labs: CBC, BMP 03/09/17 05:35 03/09/17 05:35 INR, PTT INR 1.33 (0.82-1.09) H 03/09/17 09:00 - ....Imaging Chest X-ray: Report Reviewed, Image Reviewed (NO CHANGE COMPLET OPACIFICATION LEFT HEMITHORAX) Assessment/Plan A/P Acute CVA Pneumonia L lung Atelectasis no change s/p Severe Sepsis Acute Kidney Injury Lung Mass likely malignant PAD Thrombocytopenia - continue IVF - monitor urine output, creatinine - continue antibiotics - aspiration precautions - BiPAP as needed to assist in work of breathing and may assist in re- expanding left lung - chest PT - mucomyst with albuterol QID - continue anticoagulation - monitor H/H - f/u chest x-rays - hold bx DR GOMEZ
[2017-03-09] MEDS: RIVAROXABAN 15 MG TABLET PO SCH (11:30)
[2017-03-09] MEDS: FOLIC ACID 1 MG TABLET (FP) PO SCH (11:30)
[2017-03-09] MEDS ORDERED: INSULIN (NOVOLOG) ASPART 100 UNITS/ML 10ML VIAL ONE (11:37)
--- NOTE | 2017-03-09 12:38 | PN ---
Progress Note (short form) - Note Progress Note: FU : right hemiparesis more confluent, mixed expressive/receptive aphasia on 03/06 noted to be more dysarthric, right sided weakness worse leg also involved) -- HD repeat: no new bld, stroke looks fairly stable radiographically-he has complete left carotid occlusion. planning for lung biopsy on heparin Pt. is neurologically stable. No further neurologic intervention Would benefit from speech therapy/rehab after other active conditions are dealt. with. Thank you, Teresa Erwin MD [phone].
--- NOTE | 2017-03-09 12:57 | PN ---
Teaching Attending Note Name of Resident: Keenan Onofre ATTENDING PHYSICIAN STATEMENT I saw and evaluated the patient. I reviewed the resident's note and discussed the case with the resident. I agree with the resident's findings and plan as documented. SUBJECTIVE:resting comfortable. responds "yes" to all questioning. OBJECTIVE: Last Vital Signs Temp Pulse Resp BP Pulse Ox 98 F 90 24 116/56 95 03/09/17 06:00 03/09/17 10:00 03/09/17 06:00 03/09/17 06:00 03/09/17 10:00 General NAD, will mimic actions but does not follow commands CV S1 s2 RRR no murmur/rub/gallop Lungs no breath sounds through left lung field, +rales R lung, no wheezing ASSESSMENT AND PLAN: 72-year-old man with a history of HTN, colon CA, colostomy, LLE arterial emboli , left BKA, left lung mass, CVA presented to the ER and was admitted for further evaluation 1. R hemiparesis and facial weakness- likely due to recent CVA treated on last admission. does not appear to have on exam. concern for worsening dysphagia vs language barrier with not following commands. will request swallow therapist to re-evaluate with kazakh speaking person present to see if able to tolerate po. if unable to will need to consider alternative method for feeding. consider NGT placement. will likely not tolerate 2. Acute hypoxic respirotory failure- due to PNA vs complete L side opacification. pt is currently saturaitng 97% on RA, concern for mucous plugging vs occlusion due to worsening mass vs developing effusion. will d/w pulm next step at this time. since pt is holding saturation not imperative to be aggressive at this time 3. Sepsis due to HCAP-completed abx course 4. SHIVA-due to hypoperfusion vs sepsis. now resolved 5. Acute metabolic encephalopathy- due to sepsis. seems to be returned to baseline from last discharge 6. Hypotension- resolved. cont to hold oral antihypertensives. 7. Hypocalcemia-corrected Ca 7.88. was hypercalcemic last admission, received zometa and calcitonin. will start calcium supplementation 8. hypophosphatemia- neutraphos 9. DVT ppx- xarelto 10. palliative care consulted to discuss with sister (HCP) about goals of care. will need placement when medically optimized
[2017-03-09] MEDS ORDERED: NAPH,MB-DB/K PH,MBDB POWDER PACKET PO ONE (13:30)
[2017-03-09] MEDS ORDERED: PT OWN MED DRAWER 7, Y5N ONE (13:51)
[2017-03-09] MEDS ORDERED: AMINO ACIDS 4.25%/D5W 1,000 ML IV SCH ×2 (14:45→18:00)
[2017-03-09] MEDS: CALCIUM (OYSTER SHELL) 500 MG TABLET (FP) PO SCH (15:13)
--- NOTE | 2017-03-09 17:07 | PN ---
Physical Exam: SUBJECTIVE: Patient seen and examined at bedside. He remains at baseline mental status and no acute event overnight. Per nurse, patient refuse PO meds and not eating. OBJECTIVE: Vital Signs Period Temp Pulse Resp BP Sys/Tapia Pulse Ox Last 24 Hr 97.2 F-98.6 F 76-97 20-24 105-120/50-59 95-97 GENERAL: Awake, alert but not oriented, at baseline mental status, not in any pulmonary distress HEAD: AT, NC EYES: Pupils equal, round and reactive to light, sclera anicteric, conjunctiva clear ENT: oropharynx clear without exudates LUNGS: loud rhonchi bilaterally HEART: RRR, S1 and S2, no rub ABDOMEN: +bs, soft, non-tender, no rebound, guarding EXTREMITIES: No peripheral edema NEURO: unable to perform due to patient's mental status. 2/5 strength in L extremities and 4/5 in R extremities. sensation intact b/l. CBCD WBC 9.2 K/mm3 (4.0-10.0) 03/09/17 05:35 RBC 2.78 M/mm3 (4.00-5.60) L 03/09/17 05:35 Hgb 7.9 GM/dL (11.7-16.9) L 03/09/17 05:35 Hct 25.4 % (35.4-49) L 03/09/17 05:35 MCV 91.2 fl (80-96) 03/09/17 05:35 MCHC 31.2 g/dl (32.0-35.9) L 03/09/17 05:35 RDW 16.9 % (11.9-15.9) H 03/09/17 05:35 Plt Count 90 K/MM3 (134-434) L 03/09/17 05:35 MPV 8.6 fl (7.5-11.1) 03/09/17 05:35 CMP Sodium 147 mmol/L (136-145) H 03/09/17 05:35 Potassium 4.2 mmol/L (3.5-5.1) 03/09/17 05:35 Chloride 119 mmol/L (98-107) H 03/09/17 05:35 Carbon Dioxide 16 mmol/L (21-32) L 03/09/17 05:35 Anion Gap 12 (8-16) 03/09/17 05:35 BUN 7 mg/dL (7-18) 03/09/17 05:35 Creatinine 1.1 mg/dL (0.7-1.3) 03/09/17 05:35 Creat Clearance w eGFR 50.10 (>60) 03/07/17 02:00 Calcium 6.8 mg/dL (8.5-10.1) L* 03/09/17 05:35 Total Bilirubin 0.6 mg/dL (0.2-1.0) 03/07/17 02:00 AST 15 U/L (15-37) D 03/07/17 02:00 ALT 13 U/L (12-78) D 03/07/17 02:00 Alkaline Phosphatase 60 U/L (45-117) 03/07/17 02:00 Total Protein 4.9 g/dl (6.4-8.2) L 03/07/17 02:00 Albumin 1.9 g/dl (3.4-5.0) L 03/07/17 02:00 Intake & Output 03/06/17 03/07/17 03/08/17 03/09/17 23:59 23:59 23:59 23:59 Intake Total 460 2337 1200 Output Total 500 600 Balance -40 1737 1200 Active Medications Generic Name Dose Route Start Last Admin Trade Name Freq PRN Reason Stop Dose Admin Acetaminophen 650 mg 03/05/17 17:51 Tylenol - PO Q4H PRN PAIN Acetylcysteine 200 mg 03/06/17 12:00 03/09/17 12:00 Mucomyst 20 Oral / Inh Use Only* NEB 200 mg QIDR JULIO Administration Albuterol Sulfate 1 amp 03/06/17 12:00 03/09/17 12:00 Ventolin 0.083% Nebulizer Soln - NEB 1 amp QIDR JULIO Administration Amino Acids 30 ml 03/05/17 22:00 03/09/17 11:24 Prosource No Carb Liquid Pkt PO Not Given BID JULIO Calcium Carbonate 500 mg 03/09/17 13:30 03/09/17 15:13 Os-Omar 500mg - PO 500 mg DAILY@1200 JULIO Administration Ferrous Sulfate 325 mg 03/05/17 22:00 03/09/17 11:30 Feosol - PO 325 mg BID JULIO Administration Folic Acid 1 mg 03/06/17 10:00 03/09/17 11:30 Folic Acid - PO 1 mg DAILY JUILO Administration Sodium Chloride 1,000 mls @ 100 mls/hr 03/06/17 20:34 03/08/17 23:00 Normal Saline - IV 100 mls/hr ASDIR JULIO Administration Amino Acids 1,000 mls @ 42 mls/hr 03/09/17 14:45 Clinimix - IV Q12H JULIO Methimazole 5 mg 03/05/17 22:00 03/09/17 15:13 Tapazole - PO 5 mg TID JULIO Administration Potassium Phos/Sodium Phos 1 packet 03/07/17 14:00 03/09/17 15:13 Phos-Nak Packet - PO Not Given TID JULIO Rivaroxaban 15 mg 03/08/17 15:45 03/09/17 11:30 Xarelto - PO 15 mg DAILY JULIO Administration Rosuvastatin Calcium 10 mg 03/05/17 22:00 03/09/17 06:46 Crestor - PO Not Given HS JULIO Imaging Barium Swallow on 03/09: spillage of contrast into airway CXR on 03/07: Imaging reveals no significant change from 03/06/2017 at 0913 hours. Again noted is mediastinal shift to the left with total opacification of the left hemithorax and left jugular port with tip at junction of SVC and right atrium. The right lung is clear. The right angle is sharp. CT head on 03/06: No acute pathology CXR on 03/05: Increased opacification of the left hemithorax - increased pleural effusion ASSESSMENT/PLAN: 72 yo M h/o colon cancer s/o colostomy, HTN, left lower ext arterial emboli admitted for PNA and CVA admitted to the ICU for new onset of R sided weakness and R facial droop. Neuro: Acute onset of R sided weakness - Stable - Likely toxic metabolic encephalopathy * h/o recent CVA, acute L posterior temporal/parietal infarct * Remains expressively aphasic since previous stroke * Aspiration on barium swallow exam * Likely need PEG tube insertion per S&S - Hold all BP medications and allow permissive HTN Pulm: complete L sided atelectasis - with possible obstructive PNA and pleural effusion - Cont. Chest PT - Cont. Mucomyst - Observe off abx Acute thrombocytopenia - Improving - Cont. to monitor CBC HemOnc: New lung lesion; Rectal carcinoma s/p rectal surgery, colostomy and chemo - Biopsy deferred due to low platelet count and worsening R sided atelectasis Renal: SHIVA - Resolved - Cont. to monitor Cr Endo: hyperthyroidism - Cont. methimazole FEN - Fluid held due to feeding - Hypocalcemia, on calcium supplement; hypophos, on neutraphos - Clinimix + MVI @80ml/hr Prophylaxis - DVT: on Xarelto - GI: not indicated Disposition - Will discuss with patient's sister regarding PEG tube placement and goal of care and possible hospice placement Code status - Full code Visit type - Emergency Visit Emergency Visit: No - New Patient This patient is new to me today: No - Critical Care Critical Care patient: No
[2017-03-09] MEDS ORDERED: MULTIVIT IV SCH (23:41)
[2017-03-09] MEDS ORDERED: AMINO ACIDS IV SCH (23:41)
[2017-03-09] MEDS ORDERED: [UNRECOGNIZED DRUG - OTHER] IV SCH (23:41)
[2017-03-10] MEDS ORDERED: AMINO ACIDS 4.25%/D5W 1,000 ML IV SCH (00:30)
[2017-03-10] MEDS ORDERED: ACETAMINOPHEN 1000 MG/100 ML VIAL (NON FORMULARY) IVPB ONE (05:54)
[2017-03-10] MEDS: ROSUVASTATIN CA 10 MG TABLET (FP) PO SCH ×2 (06:04→22:19)
[2017-03-10] MEDS: FERROUS SO4 325 MG TABLET (FP) PO SCH ×3 (06:04→22:19)
[2017-03-10] MEDS: NAPH,MB-DB/K PH,MBDB POWDER PACKET PO SCH ×4 (06:04→22:19)
[2017-03-10] MEDS: AMINO ACIDS/PROTEIN HYDROLYS 30 ML LIQUID.PKT PO SCH ×3 (06:05→22:19)
[2017-03-10] MEDS: METHIMAZOLE 5 MG TABLET (FP) PO SCH ×3 (06:06→22:19)
[2017-03-10] MEDS: ACETYLCYSTEINE 20% 200MG/ML 30 ML VIAL *FOR ORAL / INH USE ONLY NEB SCH ×3 (06:22→18:00)
[2017-03-10] MEDS: ALBUTEROL SO4 0.083% IH SOL 2.5 MG/3 ML VIAL.NEB. NEB SCH ×3 (06:22→18:00)
[2017-03-10 08:05] LABS: MCH 28.2 pg (25.7-33.7); MCHC 31.1 g/dl (32.0-35.9); MEAN CELL VOLUME 90.9 fl (80-96); PLATELET COUNT 93 K/MM3 (134-434); RDW 16.9 % (11.9-15.9); WHITE BLOOD COUNT 9.7 K/mm3 (4.0-10.0)
[2017-03-10 08:43] LABS: ALBUMIN 1.9 g/dl (3.4-5.0); ANION GAP 12 (8-16); CALCIUM 7.4 mg/dL (8.5-10.1); CO2 19 mmol/L (21-32); COCKROFT - GAULT 58.77; CREATININE 1.1 mg/dL (0.7-1.3); GLUCOSE,RANDOM 119 mg/dL (74-106); MAGNESIUM 1.7 mg/dL (1.8-2.4); PHOSPHOROUS 1.5 mg/dL (2.5-4.9); SGOT/AST 17 U/L (15-37); SGPT/ALT 16 U/L (12-78)
[2017-03-10 08:45] LABS: ALK PHOS 54 U/L (45-117); BILIRUBIN,TOTAL 0.7 mg/dL (0.2-1.0); TOT PROT 5.1 g/dl (6.4-8.2)
[2017-03-10] MEDS ORDERED: MAGNESIUM SULF 50% (8.12 MEQ/2 ML-1 GM VIAL) IVPB ONE (09:30)
[2017-03-10] MEDS ORDERED: POTASSIUM PHOSPHATE 30 MM in DEXTROSE 5%-WATER - 500 ML IVPB ONE (09:30)
[2017-03-10] MEDS: FOLIC ACID 1 MG TABLET (FP) PO SCH (10:27)
[2017-03-10] MEDS: RIVAROXABAN 15 MG TABLET PO SCH (10:27)
[2017-03-10] MEDS: AMINO ACIDS 4.25%/D5W 1,000 ML IV SCH ×2 (10:29→20:36)
[2017-03-10] MEDS: CALCIUM (OYSTER SHELL) 500 MG TABLET (FP) PO SCH (11:20)
--- NOTE | 2017-03-10 11:32 | PN ---
Progress Note, Physician History of Present Illness: pulmonaery alert,comfortable,nad,-congestion - Current Medication List Current Medications: Active Medications Acetaminophen (Tylenol -) 650 mg PO Q4H PRN PRN Reason: PAIN Acetylcysteine (Mucomyst 20 Oral / Inh Use Only*) 200 mg NEB QIDR [facility] Last Admin: 03/10/17 06:22 Dose: 200 mg Albuterol Sulfate (Ventolin 0.083% Nebulizer Soln -) 1 amp NEB QIDR [facility] Last Admin: 03/10/17 06:22 Dose: 1 amp Amino Acids (Prosource No Carb Liquid Pkt) 30 ml PO BID [facility] Last Admin: 03/10/17 10:28 Dose: Not Given Calcium Carbonate (Os-Omar 500mg -) 500 mg PO DAILY@1200 [facility] Last Admin: 03/10/17 11:20 Dose: 500 mg Ferrous Sulfate (Feosol -) 325 mg PO BID [facility] Last Admin: 03/10/17 10:27 Dose: 325 mg Folic Acid (Folic Acid -) 1 mg PO DAILY [facility] Last Admin: 03/10/17 10:27 Dose: 1 mg Amino Acids (Clinimix -) 1,000 mls @ 80 mls/hr IV Q12H [facility] Last Admin: 03/10/17 10:29 Dose: 80 mls/hr Fat Emulsion Intravenous (Intralipid -) 250 mls @ 20.833 mls/hr IV DAILY@2200 [facility] Potassium Phosphate 30 mm/ (Dextrose) 510 mls @ 62.5 mls/hr IVPB ONCE ONE Stop: 03/10/17 17:39 Methimazole (Tapazole -) 5 mg PO TID [facility] Last Admin: 03/10/17 06:06 Dose: Not Given Potassium Phos/Sodium Phos (Phos-Nak Packet -) 1 packet PO TID [facility] Last Admin: 03/10/17 06:05 Dose: Not Given Rivaroxaban (Xarelto -) 15 mg PO DAILY [facility] Last Admin: 03/10/17 10:27 Dose: 15 mg Rosuvastatin Calcium (Crestor -) 10 mg PO HS [facility] Last Admin: 03/10/17 06:04 Dose: Not Given - Objective Vital Signs: Vital Signs Temperature 98 F 03/10/17 06:02 Pulse Rate 110 H 03/10/17 06:02 Respiratory Rate 20 03/10/17 06:02 Blood Pressure 136/56 03/10/17 06:02 O2 Sat by Pulse Oximetry (%) 95 03/09/17 21:00 Constitutional: Yes: Calm, Thin Eyes: Yes: WNL HENT: Yes: WNL Neck: Yes: WNL Cardiovascular: Yes: Pulse Irregular, S1, S2 Respiratory: Yes: Diminished Gastrointestinal: Yes: Normal Bowel Sounds, Soft Extremities: Yes: Amputation (left bka) Edema: No Labs: CBC, BMP 03/10/17 06:20 03/10/17 06:20 INR, PTT INR 1.33 (0.82-1.09) H 03/09/17 09:00 Assessment/Plan A/P Acute CVA Pneumonia L lung Atelectasis no change s/p Severe Sepsis Acute Kidney Injury Lung Mass likely malignant PAD Thrombocytopenia - continue IVF - monitor urine output, creatinine - aspiration precautions - BiPAP as needed to assist in work of breathing and may assist in re- expanding left lung - chest PT - continue mucomyst with albuterol QID - anticoagulation - monitor H/H - f/u chest x-ray today - hold bx - conservative management at this time secondary multiple co-morbidities DR GOMEZ
--- NOTE | 2017-03-10 11:32 | PN ---
Progress Note, GUEST RELATIONS REPRESENTATIVE - Note Progress Note: Palliative care note reviewed and appreciated. Family deciding on mgmt. MBS video reviewed with nursing. Potential for improved verbal expression is quite poor. Pt looks comfortable and is not congested at this time.
--- NOTE | 2017-03-10 15:40 | PN ---
Teaching Attending Note Name of Resident: Keenan Onofre ATTENDING PHYSICIAN STATEMENT I saw and evaluated the patient. I reviewed the resident's note and discussed the case with the resident. I agree with the resident's findings and plan as documented. SUBJECTIVE:alert, repeats questioning asked of him. OBJECTIVE: Last Vital Signs Temp Pulse Resp BP Pulse Ox 98.2 F 76 22 108/62 99 03/10/17 10:00 03/10/17 14:05 03/10/17 10:00 03/10/17 10:00 03/10/17 14:05 General NAD, will mimic actions but does not follow commands CV S1 s2 RRR no murmur/rub/gallop Lungs no breath sounds through left lung field, +rales R lung, no wheezing ASSESSMENT AND PLAN: 72-year-old man with a history of HTN, colon CA, colostomy, LLE arterial emboli , left BKA, left lung mass, CVA presented to the ER and was admitted for further evaluation 1. R hemiparesis and facial weakness- likely due to recent CVA treated on last admission. does not appear to have on exam. MBS with aspiration risk. consult GI for PEG. on xarelto concern with holding xarelto for procedure as last time it was held for 24H pt suffered CVA. explained concern to sister. on statin. PT and speech therapy. 2. Acute hypoxic respiratory failure- due to PNA vs complete L side opacification. pt is currently saturaitng 97% on RA, concern for mucous plugging vs occlusion due to worsening mass vs developing effusion. will d/w pulm next step at this time. since pt is holding saturation not imperative to be aggressive at this time. not a candidate for lung bx at this time 3. Sepsis due to HCAP-completed abx course 4. SHIVA-due to hypoperfusion vs sepsis. now resolved 5. Acute metabolic encephalopathy- due to sepsis. seems to be returned to baseline from last discharge 6. Hypotension- resolved. cont to hold oral antihypertensives. 7. Hypocalcemia-corrected Ca 9. was hypercalcemic last admission, received zometa and calcitonin. 8. hypophosphatemia- Kphos IV 9. Hypomagnesemia- mg 2g 10. DVT ppx- xarelto 11. sister d/w daughter who wants aggressive management at this time and requesting PEG. understands overall poor prognosis
--- NOTE | 2017-03-10 17:25 | PN ---
Physical Exam: SUBJECTIVE: Patient seen and examined at bedside. No acute event overnight. OBJECTIVE: Vital Signs Period Temp Pulse Resp BP Sys/Tapia Pulse Ox Last 24 Hr 97.9 F-98.2 F 76-110 20-22 99-136/56-88 95-99 GENERAL: Awake, alert but not oriented, at baseline mental status, not in any pulmonary distress HEAD: AT, NC EYES: Pupils equal, round and reactive to light, sclera anicteric, conjunctiva clear ENT: oropharynx clear without exudates LUNGS: less rhonchi bilaterally HEART: RRR, S1 and S2, no rub ABDOMEN: +bs, soft, non-tender, no rebound, guarding EXTREMITIES: No peripheral edema NEURO: unable to perform due to patient's mental status. 2/5 strength in L extremities and 4/5 in R extremities. sensation intact b/l. CBCD WBC 9.7 K/mm3 (4.0-10.0) 03/10/17 06:20 RBC 2.89 M/mm3 (4.00-5.60) L 03/10/17 06:20 Hgb 8.2 GM/dL (11.7-16.9) L 03/10/17 06:20 Hct 26.3 % (35.4-49) L 03/10/17 06:20 MCV 90.9 fl (80-96) 03/10/17 06:20 MCHC 31.1 g/dl (32.0-35.9) L 03/10/17 06:20 RDW 16.9 % (11.9-15.9) H 03/10/17 06:20 Plt Count 93 K/MM3 (134-434) L 03/10/17 06:20 MPV 9.0 fl (7.5-11.1) 03/10/17 06:20 CMP Sodium 146 mmol/L (136-145) H 03/10/17 06:20 Potassium 3.6 mmol/L (3.5-5.1) 03/10/17 06:20 Chloride 115 mmol/L (98-107) H 03/10/17 06:20 Carbon Dioxide 19 mmol/L (21-32) L 03/10/17 06:20 Anion Gap 12 (8-16) 03/10/17 06:20 BUN 11 mg/dL (7-18) D 03/10/17 06:20 Creatinine 1.1 mg/dL (0.7-1.3) 03/10/17 06:20 Creat Clearance w eGFR > 60 (>60) 03/10/17 06:20 Calcium 7.4 mg/dL (8.5-10.1) L 03/10/17 06:20 Total Bilirubin 0.7 mg/dL (0.2-1.0) 03/10/17 06:20 AST 17 U/L (15-37) 03/10/17 06:20 ALT 16 U/L (12-78) D 03/10/17 06:20 Alkaline Phosphatase 54 U/L (45-117) 03/10/17 06:20 Total Protein 5.1 g/dl (6.4-8.2) L 03/10/17 06:20 Albumin 1.9 g/dl (3.4-5.0) L 03/10/17 06:20 Active Medications Generic Name Dose Route Start Last Admin Trade Name Freq PRN Reason Stop Dose Admin Acetaminophen 650 mg 03/05/17 17:51 Tylenol - PO Q4H PRN PAIN Acetylcysteine 200 mg 03/06/17 12:00 03/10/17 12:40 Mucomyst 20 Oral / Inh Use Only* NEB 200 mg QIDR [facility] Administration Albuterol Sulfate 1 amp 03/06/17 12:00 03/10/17 12:40 Ventolin 0.083% Nebulizer Soln - NEB 1 amp QIDR [facility] Administration Amino Acids 30 ml 03/05/17 22:00 03/10/17 10:28 Prosource No Carb Liquid Pkt PO Not Given BID [facility] Ferrous Sulfate 325 mg 03/05/17 22:00 03/10/17 10:27 Feosol - PO 325 mg BID [facility] Administration Folic Acid 1 mg 03/06/17 10:00 03/10/17 10:27 Folic Acid - PO 1 mg DAILY [facility] Administration Amino Acids 1,000 mls @ 80 mls/hr 03/10/17 08:34 03/10/17 10:29 Clinimix - IV 80 mls/hr Q12H [facility] Administration Fat Emulsion Intravenous 250 mls @ 20.833 mls/hr 03/10/17 22:00 Intralipid - IV DAILY@2200 [facility] Potassium Phosphate 30 mm/ 510 mls @ 62.5 mls/hr 03/10/17 09:30 03/10/17 14:01 Dextrose IVPB 03/10/17 17:39 62.5 mls/hr ONCE ONE Administration Methimazole 5 mg 03/05/17 22:00 03/10/17 14:01 Tapazole - PO 5 mg TID [facility] Administration Potassium Phos/Sodium Phos 1 packet 03/07/17 14:00 03/10/17 14:02 Phos-Nak Packet - PO 1 packet TID [facility] Administration Rivaroxaban 15 mg 03/08/17 15:45 03/10/17 10:27 Xarelto - PO 15 mg DAILY [facility] Administration Rosuvastatin Calcium 10 mg 03/05/17 22:00 03/10/17 06:04 Crestor - PO Not Given HS [facility] Imaging Barium Swallow on 03/09: spillage of contrast into airway CXR on 03/07: Imaging reveals no significant change from 03/06/2017 at 0913 hours. Again noted is mediastinal shift to the left with total opacification of the left hemithorax and left jugular port with tip at junction of SVC and right atrium. The right lung is clear. The right angle is sharp. CT head on 03/06: No acute pathology CXR on 03/05: Increased opacification of the left hemithorax - increased pleural effusion ASSESSMENT/PLAN: 72 yo M h/o colon cancer s/o colostomy, HTN, left lower ext arterial emboli admitted for PNA and CVA admitted to the ICU for new onset of R sided weakness and R facial droop. Neuro: Acute onset of R sided weakness - Stable - Likely toxic metabolic encephalopathy - Awaiting PEG tube eval - Hold all BP medications and allow permissive HTN Pulm: complete L sided atelectasis - 2/2 possible obstructive PNA and pleural effusion - Cont. Chest PT - Cont. Mucomyst - Observe off abx Acute thrombocytopenia - Improving - Cont. to monitor CBC HemOnc: New lung lesion; Rectal carcinoma s/p rectal surgery, colostomy and chemo - Deferred due to patient's mental and medical conditions Renal: SHIVA - Resolved - Cont. to monitor Cr Endo: hyperthyroidism - Cont. methimazole FEN - Not indicated - Hypocalcemia, on calcium supplement; hypophos, on neutraphos - Clinimix + MVI + Lipids @80ml/hr Prophylaxis - DVT: on Xarelto - GI: not indicated Disposition - Per patient's daughter and girlfriend, patient will remain full code and proceed with PEG tube and rehab - Awaiting PEG placement and rehab acceptance Code status - Full code Visit type - Emergency Visit Emergency Visit: No - New Patient This patient is new to me today: No - Critical Care Critical Care patient: No
[2017-03-10] MEDS ORDERED: FAT EMULSIONS 20% 250 ML PREMIX INFUS.BAG IV SCH (22:00)
[2017-03-10] MEDS: FAT EMULSIONS 250 ML IV SCH (22:18)
[2017-03-11] MEDS: ALBUTEROL SO4 0.083% IH SOL 2.5 MG/3 ML VIAL.NEB. NEB SCH ×4 (00:34→12:30)
[2017-03-11] MEDS: ACETYLCYSTEINE 20% 200MG/ML 30 ML VIAL *FOR ORAL / INH USE ONLY NEB SCH ×3 (00:34→12:30)
[2017-03-11] MEDS: METHIMAZOLE 5 MG TABLET (FP) PO SCH ×3 (06:10→23:04)
[2017-03-11] MEDS: NAPH,MB-DB/K PH,MBDB POWDER PACKET PO SCH ×3 (06:10→23:04)
[2017-03-11 08:17] LABS: CALCIUM 7.2 mg/dL (8.5-10.1); COCKROFT - GAULT 58.77; CREATININE 1.1 mg/dL (0.7-1.3)
[2017-03-11] MEDS: AMINO ACIDS 4.25%/D5W 1,000 ML IV SCH ×2 (09:48→23:02)
[2017-03-11] MEDS: AMINO ACIDS/PROTEIN HYDROLYS 30 ML LIQUID.PKT PO SCH ×2 (11:25→23:04)
[2017-03-11] MEDS: FOLIC ACID 1 MG TABLET (FP) PO SCH (11:25)
[2017-03-11] MEDS: FERROUS SO4 325 MG TABLET (FP) PO SCH ×2 (11:25→23:03)
[2017-03-11] MEDS: RIVAROXABAN 15 MG TABLET PO SCH (11:25)
--- NOTE | 2017-03-11 12:55 | PN ---
Teaching Attending Note Name of Resident: Keenan Onofre ATTENDING PHYSICIAN STATEMENT I saw and evaluated the patient. I reviewed the resident's note and discussed the case with the resident. I agree with the resident's findings and plan as documented. SUBJECTIVE:resting comfortable OBJECTIVE: Last Vital Signs Temp Pulse Resp BP Pulse Ox 98.8 F 100 H 20 114/60 99 03/11/17 09:00 03/11/17 09:00 03/11/17 09:00 03/11/17 09:00 03/10/17 21:00 General NAD, will mimic actions but does not follow commands CV S1 s2 RRR no murmur/rub/gallop Lungs no breath sounds through left lung field, +rales R lung, no wheezing ASSESSMENT AND PLAN: 72-year-old man with a history of HTN, colon CA, colostomy, LLE arterial emboli , left BKA, left lung mass, CVA presented to the ER and was admitted for further evaluation 1. R hemiparesis and facial weakness- likely due to recent CVA treated on last admission. 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 repeat yes to all questioning and when ask simple questions. on statin. PT and speech therapy. 2, Dyshagia-high aspiration risk. GI consulted for PEG placement. 3. Acute hypoxic respiratory failure- due to PNA vs complete L side opacification. pt is currently saturaitng 97% on RA, concern for mucous plugging vs occlusion due to worsening mass vs developing effusion. will d/w pulm next step at this time. since pt is holding saturation not imperative to be aggressive at this time. not a candidate for lung bx at this time 4. Hypocalcemia-corrected Ca 9. was hypercalcemic last admission, received zometa and calcitonin. 5. hypophosphatemia- Kphos IV 6. Hypomagnesemia- resolved 7. DVT ppx- xarelto 8. poor overall prognosis. sister (HCP) requesting aggressive management at this time
[2017-03-11] MEDS ORDERED: POTASSIUM PHOSPHATE 30 MM in DEXTROSE 5%-WATER - 500 ML IVPB ONE (13:30)
--- NOTE | 2017-03-11 16:10 | PN ---
Progress Note (short form) - Note Progress Note: Resting in NAD. No acute events overnight. Intake & Output 03/08/17 03/09/17 03/10/17 03/11/17 23:59 23:59 23:59 23:59 Intake Total 2100 504 1210 Balance 2100 504 1210 Last Vital Signs Temp Pulse Resp BP Pulse Ox 99 F 99 H 20 119/59 99 03/11/17 14:18 03/11/17 14:18 03/11/17 14:18 03/11/17 14:18 03/10/17 21:00 Active Medications Acetaminophen (Tylenol -) 650 mg PO Q4H PRN PRN Reason: PAIN Acetylcysteine (Mucomyst 20 Oral / Inh Use Only*) 200 mg NEB QIDR [facility] Amino Acids (Prosource No Carb Liquid Pkt) 30 ml PO BID [facility] Last Admin: 03/11/17 11:25 Dose: Not Given Ferrous Sulfate (Feosol -) 325 mg PO BID [facility] Last Admin: 03/11/17 11:25 Dose: Not Given Folic Acid (Folic Acid -) 1 mg PO DAILY [facility] Last Admin: 03/11/17 11:25 Dose: Not Given Amino Acids (Clinimix -) 1,000 mls @ 80 mls/hr IV Q12H [facility] Last Admin: 03/11/17 09:48 Dose: 80 mls/hr Fat Emulsion Intravenous (Intralipid -) 250 mls @ 20.833 mls/hr IV DAILY@2200 [facility] Last Admin: 03/10/17 22:18 Dose: 20.833 mls/hr Potassium Phosphate 30 mm/ (Dextrose) 510 mls @ 63.75 mls/hr IVPB ONCE ONE Stop: 03/11/17 21:29 Methimazole (Tapazole -) 5 mg PO TID [facility] Last Admin: 03/11/17 15:33 Dose: Not Given Potassium Phos/Sodium Phos (Phos-Nak Packet -) 1 packet PO TID [facility] Last Admin: 03/11/17 15:33 Dose: Not Given Rivaroxaban (Xarelto -) 15 mg PO DAILY [facility] Last Admin: 03/11/17 11:25 Dose: Not Given Rosuvastatin Calcium (Crestor -) 10 mg PO HS [facility] Last Admin: 03/10/17 22:19 Dose: Not Given Constitutional: Yes: Awake, NAD Eyes: Yes: WNL HENT: Yes: WNL Neck: Yes: WNL Cardiovascular: Yes: Pulse Irregular, S1, S2 Respiratory: Yes: Diminished on the left, few scattered rhonchi on the right Gastrointestinal: Yes: Normal Bowel Sounds, Soft Extremities: Yes: Amputation (left bka) Edema: No Labs: Laboratory Results - last 24 hr 03/10/17 03/11/17 19:30 06:11 Sodium 142 Potassium 3.8 Chloride 111 H Carbon Dioxide 19 L Anion Gap 12 BUN 13 Creatinine 1.1 Random Glucose 126 H Calcium 7.2 L Phosphorus 2.0 L D Magnesium 2.3 D Assessment/Plan A/P Acute CVA Pneumonia L lung Atelectasis no change s/p Severe Sepsis Acute Kidney Injury Lung Mass likely malignant PAD Thrombocytopenia - aspiration precautions - BiPAP as needed to assist in work of breathing and may assist in re- expanding left lung - chest PT - continue mucomyst with albuterol QID - AC - monitor H/H - f/u chest x-ray today - conservative management at this time secondary multiple co-morbidities -> Patient has been followed at [facility] by Dr Kaufman for many years due to left mass Dr Kaminski
--- NOTE | 2017-03-11 16:12 | EKG ---
Test Reason : Blood Pressure : / mmHG Vent. Rate : 100 BPM Atrial Rate : 113 BPM P-R Int : 000 ms QRS Dur : 090 ms QT Int : 316 ms P-R-T Axes : 000 042 209 degrees QTc Int : 407 ms ATRIAL FIBRILLATION ABNORMAL ECG WHEN COMPARED WITH ECG OF 03-MAR-2017 16:08, ATRIAL FIBRILLATION HAS REPLACED SINUS RHYTHM QT HAS SHORTENED Confirmed by CINDY ECHAVARRIA MD ([id number]) on 03/11/2017 4:12:09 PM Referred By: JAI FISH Confirmed By:CINDY ECHAVARRIA MD
--- NOTE | 2017-03-11 16:51 | PN ---
Physical Exam: SUBJECTIVE: Patient seen and examined at bedside. He's in a-flutter with HR of ~100 since 4pm. OBJECTIVE: Vital Signs Period Temp Pulse Resp BP Sys/Tapia Pulse Ox Last 24 Hr 98.8 F-100 F 94-102 18-20 109-126/59-82 99 GENERAL: Awake, alert but not oriented, at baseline mental status, not in any pulmonary distress HEAD: AT, NC EYES: Pupils equal, round and reactive to light, sclera anicteric, conjunctiva clear ENT: oropharynx clear without exudates LUNGS: rales bilaterally HEART: iregularlly iregular, S1 and S2, no rub ABDOMEN: +bs, soft, non-tender, no rebound, guarding EXTREMITIES: No peripheral edema NEURO: unable to perform due to patient's mental status. 2/5 strength in L extremities and 4/5 in R extremities. sensation intact b/l. Laboratory Results - last 24 hr 03/10/17 03/11/17 19:30 06:11 Sodium 142 Potassium 3.8 Chloride 111 H Carbon Dioxide 19 L Anion Gap 12 BUN 13 Creatinine 1.1 Random Glucose 126 H Calcium 7.2 L Phosphorus 2.0 L D Magnesium 2.3 D Active Medications Generic Name Dose Route Start Last Admin Trade Name Freq PRN Reason Stop Dose Admin Acetaminophen 650 mg 03/05/17 17:51 Tylenol - PO Q4H PRN PAIN Acetylcysteine 200 mg 03/11/17 18:00 Mucomyst 20 Oral / Inh Use Only* NEB QIDR [facility] Amino Acids 30 ml 03/05/17 22:00 03/11/17 11:25 Prosource No Carb Liquid Pkt PO Not Given BID [facility] Ferrous Sulfate 325 mg 03/05/17 22:00 03/11/17 11:25 Feosol - PO Not Given BID [facility] Folic Acid 1 mg 03/06/17 10:00 03/11/17 11:25 Folic Acid - PO Not Given DAILY [facility] Amino Acids 1,000 mls @ 80 mls/hr 03/10/17 08:34 03/11/17 09:48 Clinimix - IV 80 mls/hr Q12H [facility] Administration Fat Emulsion Intravenous 250 mls @ 20.833 mls/hr 03/10/17 22:00 03/10/17 22:18 Intralipid - IV 20.833 mls/hr DAILY@2200 [facility] Administration Potassium Phosphate 30 mm/ 510 mls @ 63.75 mls/hr 03/11/17 13:30 Dextrose IVPB 03/11/17 21:29 ONCE ONE Methimazole 5 mg 03/05/17 22:00 03/11/17 15:33 Tapazole - PO Not Given TID [facility] Potassium Phos/Sodium Phos 1 packet 03/07/17 14:00 03/11/17 15:33 Phos-Nak Packet - PO Not Given TID [facility] Rivaroxaban 15 mg 03/08/17 15:45 03/11/17 11:25 Xarelto - PO Not Given DAILY [facility] Rosuvastatin Calcium 10 mg 03/05/17 22:00 03/10/17 22:19 Crestor - PO Not Given HS [facility] Imaging Barium Swallow on 03/09: spillage of contrast into airway CXR on 03/07: Imaging reveals no significant change from 03/06/2017 at 0913 hours. Again noted is mediastinal shift to the left with total opacification of the left hemithorax and left jugular port with tip at junction of SVC and right atrium. The right lung is clear. The right angle is sharp. CT head on 03/06: No acute pathology CXR on 03/05: Increased opacification of the left hemithorax - increased pleural effusion ASSESSMENT/PLAN: 72 yo M h/o colon cancer s/o colostomy, HTN, left lower ext arterial emboli admitted for PNA and CVA admitted to the ICU for new onset of R sided weakness and R facial droop. Neuro: Acute onset of R sided weakness - Stable - Likely toxic metabolic encephalopathy - Awaiting PEG tube insertion - Hold all BP medications and allow permissive HTN Pulm: complete L sided atelectasis - 2/2 possible obstructive PNA and pleural effusion - Cont. Chest PT - Cont. Mucomyst - Observe off abx Acute thrombocytopenia - Improving - Cont. to monitor CBC HemOnc: New lung lesion; Rectal carcinoma s/p rectal surgery, colostomy and chemo - Deferred due to patient's mental and medical conditions Renal: SHIVA - Resolved - Cont. to monitor Cr Endo: hyperthyroidism - Cont. methimazole FEN - Not indicated - Hypocalcemia, on calcium supplement; hypophos, on neutraphos - Clinimix + MVI + Lipids @80ml/hr Prophylaxis - DVT: hold xalreto for PEG tube - GI: not indicated Disposition - Awaiting PEG placement and rehab acceptance Code status - Full code Visit type - Emergency Visit Emergency Visit: No - New Patient This patient is new to me today: No - Critical Care Critical Care patient: No
[2017-03-11] MEDS: ACETYLCYSTEINE 20% 200MG/ML 4 ML VIAL *FOR ORAL / INH USE ONLY NEB SCH ×2 (19:32→23:55)
--- NOTE | 2017-03-11 20:15 | CON.GI ---
Consult Consult Specialty:: GASTROENTEROLOGY - History of Present Illness Chief Complaint: PEG INSERTION REQUESTED History of Present Illness: 72 YEAR OLD MALE WITH HISTORY OF RECTAL CANCER S/P RADIATION AND CHEMOTHERAPY AND SURGERY (DID NOT COMPLETE ADJUVANT CHEMO) PLUS HISTORY OF CVA'S ADMITTED WITH NEW CVA AND NEW DIAGNOSIS OF LEFT LUNG MASS WITH OBSTRUCTIVE ATELECTASIS AND WORSENING LEFT PLEURAL EFFUSION AND BORDERLINE SATURATIONS THAT WAS FOUND TO BE DYSPHAGIA AND HAS FAILED SWALLOWING EVALUATION. IT IS AT THE REQUEST OF THE HOSPITALIST AND RESIDENT SERVICE THAT I AM HERE EVALUATING THE PATIENT FOR PEG PLACEMENT. 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 HE IS CURRENTLY ON XARELTO. HE NEEDS BIPAP THERAPY DUE TO OBSTRUCTED BRONCHUS. HIS MASS IN THE LEFT THORAX IS PRESUMED TO BE CANCER AND HE HAS BEEN EVALUATED BY PULMONARY AND BIOPSY OF HIS MASS WAS NOT RECOMMENDED DUE MULTIPLE COMORBIDITIES. IN ADDITION THE PATIENT HAS BEEN IN ATRIAL FLUTTER SINCE 4 PM TODAY. 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 No: Alzheimer's, Dementia, Migraine, Multiple Sclerosis, Peripheral Neuropathy, Parkinson's, Seizure, Syncope, TIA, Vertigo, Other Cardio/Vascular: Yes: Other (peripheral vascular disease) Pulmonary: Yes: Pneumonia Gastrointestinal: Yes: Cancer Renal/: Yes: Other (SHIVA) Musculoskeletal: Yes: Other (amputation LLE) - Past Surgical History Past Surgical History: Yes: Colectomy, Colostomy - Alcohol/Substance Use Hx Alcohol Use: No (unknown/pt denies) - Smoking History Smoking history: Current every day smoker Have you smoked in the past 12 months: Yes Aproximately how many cigarettes per day: 5 Home Medications - Allergies Allergies/Adverse Reactions: Allergies Allergy/AdvReac Type Severity Reaction Status Date / Time No Known Allergies Allergy Verified 03/03/17 15:56 - Home Medications Home Medications: Ambulatory Orders Aa/[place] Carolyn,[place]/Arg/C/Zn/Cu [Lps Critical Care Liquid] 30 ml PO BID 03/03/17 Acetaminophen 650 mg PO Q4H PRN 03/03/17 Amlodipine Besylate [Norvasc -] 5 mg PO DAILY 03/03/17 Ferrous Sulfate [Feosol] 325 mg PO BID 03/03/17 Folic Acid 1 mg PO DAILY 03/03/17 Isosorbide Mononitrate [Imdur -] 30 mg PO DAILY 03/03/17 Methimazole [Tapazole] 5 mg PO TID 03/03/17 Metoprolol Tartrate [Lopressor -] 25 mg PO DAILY 03/03/17 Prednisone [Deltasone -] 5 mg PO DAILY 03/03/17 Rivaroxaban [Xarelto -] 15 mg PO DAILY 03/03/17 Rosuvastatin Calcium [Crestor] 10 mg PO HS 03/03/17 Family Disease History - Family Disease History Family History: Unable to Obtain Review of Systems Unable to obtain ROS, reason: NON COMMUNICABLE Physical Exam-GI Vital Signs: Vital Signs Temperature 99 F 03/11/17 14:18 Pulse Rate 99 H 03/11/17 14:18 Respiratory Rate 20 03/11/17 14:18 Blood Pressure 119/59 03/11/17 14:18 O2 Sat by Pulse Oximetry (%) 99 03/11/17 09:00 Constitutional: Yes: Anxious Eyes: Yes: Conjunctiva Clear HENT: Yes: Normocephalic Cardiovascular: Yes: Pulse Irregular Respiratory: Yes: Rhonchi, Other (NO BREATH SOUNDS LEFT LUNG) ...Auscultate: Yes: Normoactive Bowel Sounds ...Palpate: Yes: Soft, Other (ILEOSTOMY ABDOMEN) ...Rectal Exam: Yes: Deferred Extremities: Yes: WNL, Amputation Labs: CBC, BMP 03/10/17 06:20 03/11/17 06:11 INR, PTT INR 1.33 (0.82-1.09) H 03/09/17 09:00 Laboratory Tests 03/03/17 03/03/17 03/07/17 17:05 17:40 02:00 WBC RBC Hgb Hct MCV MCHC RDW Plt Count INR 1.43 H PTT (Actin FS) ABG pH 7.41 ABG pCO2 at Pt Temp 22.1 L ABG pO2 at Pt Temp 64.0 L ABG HCO3 13.8 L* ABG O2 Sat (Measured) 92.0 ABG O2 Content 10.2 L ABG Base Excess -9.4 L Sodium Potassium Chloride Carbon Dioxide Anion Gap BUN Creatinine Random Glucose Calcium Phosphorus Urine Blood 3+ H 03/07/17 03/08/17 03/09/17 11:07 05:35 09:00 WBC RBC Hgb Hct MCV MCHC RDW Plt Count INR 1.33 H PTT (Actin FS) 54.4 H D 42.0 H ABG pH ABG pCO2 at Pt Temp ABG pO2 at Pt Temp ABG HCO3 ABG O2 Sat (Measured) ABG O2 Content ABG Base Excess Sodium Potassium Chloride Carbon Dioxide Anion Gap BUN Creatinine Random Glucose Calcium Phosphorus Urine Blood 03/10/17 03/11/17 06:20 06:11 WBC 9.7 RBC 2.89 L Hgb 8.2 L Hct 26.3 L MCV 90.9 MCHC 31.1 L RDW 16.9 H Plt Count 93 L INR PTT (Actin FS) ABG pH ABG pCO2 at Pt Temp ABG pO2 at Pt Temp ABG HCO3 ABG O2 Sat (Measured) ABG O2 Content ABG Base Excess Sodium 142 Potassium 3.8 Chloride 111 H Carbon Dioxide 19 L Anion Gap 12 BUN 13 Creatinine 1.1 Random Glucose 126 H Calcium 7.2 L Phosphorus 2.0 L D Urine Blood Imaging - Results Chest X-ray: Image Reviewed Problem List - Problems (1) CVA (cerebral vascular accident) Code(s): I63.9 - CEREBRAL INFARCTION, UNSPECIFIED (2) Pneumonia Code(s): J18.9 - PNEUMONIA, UNSPECIFIED ORGANISM (3) Lung mass Code(s): R91.8 - OTHER NONSPECIFIC ABNORMAL FINDING OF LUNG FIELD (4) Rectal carcinoma Code(s): C20 - MALIGNANT NEOPLASM OF RECTUM (5) Atelectasis of left lung Code(s): J98.11 - ATELECTASIS (6) Dysphagia as late effect of cerebrovascular accident (CVA) Code(s): I69.391 - DYSPHAGIA FOLLOWING CEREBRAL INFARCTION
[2017-03-11] MEDS: FAT EMULSIONS 250 ML IV SCH (23:03)
[2017-03-11] MEDS: ROSUVASTATIN CA 10 MG TABLET (FP) PO SCH (23:03)
[2017-03-12] MEDS: ACETYLCYSTEINE 20% 200MG/ML 4 ML VIAL *FOR ORAL / INH USE ONLY NEB SCH ×4 (00:21→17:30)
[2017-03-12 07:08] LABS: MCH 28.6 pg (25.7-33.7); MCHC 31.8 g/dl (32.0-35.9); MEAN CELL VOLUME 89.9 fl (80-96); MEAN PLT VOLUME 7.9 fl (7.5-11.1); PLATELET COUNT 71 K/MM3 (134-434); WHITE BLOOD COUNT 7.3 K/mm3 (4.0-10.0)
[2017-03-12 07:46] LABS: MAGNESIUM 1.5 mg/dL (1.8-2.4)
[2017-03-12 07:48] LABS: COCKROFT - GAULT 58.77; CREATININE 1.1 mg/dL (0.7-1.3); PHOSPHOROUS 2.2 mg/dL (2.5-4.9)
[2017-03-12] MEDS: FOLIC ACID 1 MG TABLET (FP) PO SCH (10:00)
[2017-03-12] MEDS: FERROUS SO4 325 MG TABLET (FP) PO SCH (10:00)
[2017-03-12] MEDS ORDERED: MAGNESIUM SULF 50% (8.12 MEQ/2 ML-1 GM VIAL) IVPB ONE (10:30)
[2017-03-12] MEDS: AMINO ACIDS 4.25%/D5W 1,000 ML IV SCH ×2 (11:09→22:34)
--- NOTE | 2017-03-12 11:29 | PN ---
Progress Note, Physician History of Present Illness: PULMONARY ALERT,NAD,-CONGESTION - Current Medication List Current Medications: Active Medications Acetaminophen (Tylenol -) 650 mg PO Q4H PRN PRN Reason: PAIN Acetylcysteine (Mucomyst 20 Oral / Inh Use Only*) 200 mg NEB QIDR [facility] Last Admin: 03/12/17 06:47 Dose: Not Given Amino Acids (Prosource No Carb Liquid Pkt) 30 ml PO BID [facility] Last Admin: 03/11/17 23:04 Dose: Not Given Ferrous Sulfate (Feosol -) 325 mg PO BID [facility] Last Admin: 03/11/17 23:03 Dose: Not Given Folic Acid (Folic Acid -) 1 mg PO DAILY [facility] Last Admin: 03/11/17 11:25 Dose: Not Given Amino Acids (Clinimix -) 1,000 mls @ 80 mls/hr IV Q12H [facility] Last Admin: 03/12/17 11:09 Dose: 80 mls/hr Fat Emulsion Intravenous (Intralipid -) 250 mls @ 20.833 mls/hr IV DAILY@2200 [facility] Last Admin: 03/11/17 23:03 Dose: 20.833 mls/hr Potassium Phosphate 30 mm/ (Dextrose) 260 mls @ 62.5 mls/hr IVPB ONCE ONE Stop: 03/12/17 15:25 Methimazole (Tapazole -) 5 mg PO TID [facility] Last Admin: 03/11/17 23:04 Dose: Not Given Potassium Phos/Sodium Phos (Phos-Nak Packet -) 1 packet PO TID [facility] Last Admin: 03/11/17 23:04 Dose: Not Given Rivaroxaban (Xarelto -) 15 mg PO DAILY [facility] Last Admin: 03/11/17 11:25 Dose: Not Given Rosuvastatin Calcium (Crestor -) 10 mg PO HS [facility] Last Admin: 03/11/17 23:03 Dose: Not Given - Objective Vital Signs: Vital Signs Temperature 98.5 F 03/12/17 08:15 Pulse Rate 84 03/12/17 08:15 Respiratory Rate 20 03/12/17 08:15 Blood Pressure 118/70 03/12/17 08:15 O2 Sat by Pulse Oximetry (%) 99 03/11/17 21:00 Constitutional: Yes: Calm, Thin Eyes: Yes: WNL, Other Neck: Yes: WNL Cardiovascular: Yes: Pulse Irregular, S1, S2 Respiratory: Yes: Diminished Gastrointestinal: Yes: Normal Bowel Sounds, Soft Extremities: Yes: Amputation (LEFT BKA) Edema: No Labs: CBC, BMP 03/12/17 05:35 03/12/17 05:35 INR, PTT INR 1.33 (0.82-1.09) H 03/09/17 09:00 - ....Imaging Chest X-ray: Report Reviewed, Image Reviewed (NO CHANGE COMPLETE OPACIFICATION LEFT HEMITHORAX) Assessment/Plan A/P Acute CVA Pneumonia L lung Atelectasis no change s/p Severe Sepsis Acute Kidney Injury Lung Mass likely malignant PAD Thrombocytopenia - continue IVF - monitor urine output, creatinine - aspiration precautions - BiPAP as needed to assist in work of breathing and may assist in re- expanding left lung - chest PT - continue mucomyst with albuterol QID - anticoagulation - monitor H/H - f/u chest x-ray am - conservative management at this time secondary multiple co-morbidities DR GOMEZ
[2017-03-12] MEDS ORDERED: POTASSIUM PHOSPHATE 30 MM in DEXTROSE 5%-WATER - 250 ML IVPB ONE (13:15)
[2017-03-12] MEDS ORDERED: POTASSIUM PHOSPHATE 30 MM in DEXTROSE 5%-WATER - 500 ML IVPB ONE (13:30)
[2017-03-12] MEDS: METHIMAZOLE 5 MG TABLET (FP) PO SCH (14:25)
--- NOTE | 2017-03-12 14:39 | PN ---
Teaching Attending Note Name of Resident: Keenan Onofre ATTENDING PHYSICIAN STATEMENT I saw and evaluated the patient. I reviewed the resident's note and discussed the case with the resident. I agree with the resident's findings and plan as documented. SUBJECTIVE:resting comfortable OBJECTIVE: Last Vital Signs Temp Pulse Resp BP Pulse Ox 98.4 F 96 H 20 114/68 97 03/12/17 14:00 03/12/17 14:00 03/12/17 14:00 03/12/17 14:00 03/12/17 11:43 General NAD, will mimic actions but does not follow commands CV S1 s2 RRR no murmur/rub/gallop Lungs no breath sounds through left lung field, +rales R lung, no wheezing ASSESSMENT AND PLAN: 72-year-old man with a history of HTN, colon CA, colostomy, LLE arterial emboli , left BKA, left lung mass, CVA presented to the ER and was admitted for further evaluation 1. R hemiparesis and facial weakness- likely due to recent CVA treated on last admission. on statin. PT and speech therapy. 2, Dyshagia-high aspiration risk. GI consulted for PEG placement, however feels pt is too unstable at this time. will place NGT and start tube feeds. d/c clinimix. 3. Afib- new onset. rate is controlled off medications. echo done on last admission (02/22) no WMA, LA within normal limits. no thrombus identified. 4. Acute hypoxic respiratory failure- due to PNA vs complete L side opacification. pt is currently saturating 97% on RA, concern for mucous plugging vs occlusion due to worsening mass vs developing effusion. will d/w pulm next step at this time. since pt is holding saturation not imperative to be aggressive at this time. not a candidate for lung bx at this time 5. Thrombocytopenia- only new medication that can be related is methimazole which was started last admission for hyperthyroidism. will repeat TSH tomorrow. if WNL consider stopping and seeing if platelet count resolved. platelets are not low where steroids or transfusions indication. no bleeding. 6. Hypocalcemia-corrected Ca 9. was hypercalcemic last admission, received zometa and calcitonin. 7. hypophosphatemia- Kphos IV 8. Hypomagnesemia- Mg IV 9. DVT ppx- xarelto 10. poor overall prognosis. sister (HCP) requesting aggressive management at this time
[2017-03-12] MEDS: NAPH,MB-DB/K PH,MBDB POWDER PACKET PO SCH (15:46)
[2017-03-12] MEDS: AMINO ACIDS/PROTEIN HYDROLYS 30 ML LIQUID.PKT PO SCH (15:48)
[2017-03-12] MEDS: RIVAROXABAN 15 MG TABLET PO SCH (18:04)
--- NOTE | 2017-03-12 20:11 | PN ---
Physical Exam: SUBJECTIVE: Patient seen and examined at bedside. No acute event overnight. PEG tube insertion deferred due to medically unstable. NGT inserted instead. OBJECTIVE: Vital Signs Period Temp Pulse Resp BP Sys/Tapia Pulse Ox Last 24 Hr 97.9 F-100.5 F 81-99 19-20 109-126/68-90 96-99 GENERAL: Awake, alert but not oriented, at baseline mental status, not in any pulmonary distress HEAD: AT, NC EYES: Pupils equal, round and reactive to light, sclera anicteric, conjunctiva clear ENT: NGT in place LUNGS: rales bilaterally HEART: iregularlly iregular, S1 and S2, no rub ABDOMEN: +bs, soft, non-tender, no rebound, guarding EXTREMITIES: No peripheral edema NEURO: unable to perform due to patient's mental status. 3/5 strength in L extremities and 4/5 in R extremities. sensation intact b/l. CBCD WBC 7.3 K/mm3 (4.0-10.0) 03/12/17 05:35 RBC 2.69 M/mm3 (4.00-5.60) L 03/12/17 05:35 Hgb 7.7 GM/dL (11.7-16.9) L 03/12/17 05:35 Hct 24.2 % (35.4-49) L 03/12/17 05:35 MCV 89.9 fl (80-96) 03/12/17 05:35 MCHC 31.8 g/dl (32.0-35.9) L 03/12/17 05:35 RDW 16.0 % (11.9-15.9) H 03/12/17 05:35 Plt Count 71 K/MM3 (134-434) L D 03/12/17 05:35 MPV 7.9 fl (7.5-11.1) D 03/12/17 05:35 CMP Sodium 136 mmol/L (136-145) 03/12/17 05:35 Potassium 3.3 mmol/L (3.5-5.1) L 03/12/17 05:35 Chloride 105 mmol/L (98-107) 03/12/17 05:35 Carbon Dioxide 20 mmol/L (21-32) L 03/12/17 05:35 Anion Gap 11 (8-16) 03/12/17 05:35 BUN 21 mg/dL (7-18) H D 03/12/17 05:35 Creatinine 1.1 mg/dL (0.7-1.3) 03/12/17 05:35 Creat Clearance w eGFR > 60 (>60) 03/10/17 06:20 Calcium 7.0 mg/dL (8.5-10.1) L 03/12/17 05:35 Total Bilirubin 0.7 mg/dL (0.2-1.0) 03/10/17 06:20 AST 17 U/L (15-37) 03/10/17 06:20 ALT 16 U/L (12-78) D 03/10/17 06:20 Alkaline Phosphatase 54 U/L (45-117) 03/10/17 06:20 Total Protein 5.1 g/dl (6.4-8.2) L 03/10/17 06:20 Albumin 1.9 g/dl (3.4-5.0) L 03/10/17 06:20 Active Medications Generic Name Dose Route Start Last Admin Trade Name Freq PRN Reason Stop Dose Admin Acetaminophen 650 mg 03/05/17 17:51 Tylenol - PO Q4H PRN PAIN Acetylcysteine 200 mg 03/11/17 18:00 03/12/17 17:30 Mucomyst 20 Oral / Inh Use Only* NEB Not Given QIDR JULIO Albuterol/Ipratropium 1 amp 03/12/17 17:45 Duoneb - NEB Q6H PRN SHORTNESS OF BREATH Amino Acids 30 ml 03/05/17 22:00 03/12/17 15:48 Prosource No Carb Liquid Pkt PO Not Given BID JULIO Ferrous Sulfate 325 mg 03/05/17 22:00 03/12/17 10:00 Feosol - PO Not Given BID JULIO Folic Acid 1 mg 03/06/17 10:00 03/12/17 10:00 Folic Acid - PO Not Given DAILY JULIO Amino Acids 1,000 mls @ 80 mls/hr 03/10/17 08:34 03/12/17 11:09 Clinimix - IV 80 mls/hr Q12H JULIO Administration Fat Emulsion Intravenous 250 mls @ 20.833 mls/hr 03/10/17 22:00 03/11/17 23:03 Intralipid - IV 20.833 mls/hr DAILY@2200 JULIO Administration Methimazole 5 mg 03/05/17 22:00 03/12/17 14:25 Tapazole - PO Not Given TID JULIO Potassium Phos/Sodium Phos 1 packet 03/07/17 14:00 03/12/17 15:46 Phos-Nak Packet - PO Not Given TID JULIO Rivaroxaban 15 mg 03/08/17 15:45 03/12/17 18:04 Xarelto - PO 15 mg DAILY JULIO Administration Rosuvastatin Calcium 10 mg 03/05/17 22:00 03/11/17 23:03 Crestor - PO Not Given HS JULIO Imaging CXR on 03/12: LLL infiltrate vs. pleural effusion, persistent RUL infiltrate Barium Swallow on 03/09: spillage of contrast into airway CXR on 03/07: Imaging reveals no significant change from 03/06/2017 at 0913 hours. Again noted is mediastinal shift to the left with total opacification of the left hemithorax and left jugular port with tip at junction of SVC and right atrium. The right lung is clear. The right angle is sharp. CT head on 03/06: No acute pathology CXR on 03/05: Increased opacification of the left hemithorax - increased pleural effusion ASSESSMENT/PLAN: 72 yo M h/o colon cancer s/o colostomy, HTN, left lower ext arterial emboli admitted for PNA and CVA admitted to the ICU for new onset of R sided weakness and R facial droop. HemOnc: Acute thrombocytopenia; Obstructive lung lesion; Rectal carcinoma - Acute drop of plt from 93 to 71 - Cont. to monitor CBC - Deferred due to patient's mental and medical conditions Pulm: complete L sided atelectasis - 2/2 possible obstructive PNA and pleural effusion - Cont. Chest PT - Cont. Mucomyst - Observe off abx Neuro: Acute onset of R sided weakness - Stable - Likely toxic metabolic encephalopathy Renal: SHIVA - Resolved - Cont. to monitor Cr Endo: hyperthyroidism - Cont. 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
[2017-03-12] MEDS: FAT EMULSIONS 250 ML IV SCH (22:33)
[2017-03-13] MEDS: ALBUTEROL SO4 2.5/IPRATROPIUM 0.5 INH SOL 3 ML VIAL.NEB. NEB PRN ×2 (00:05→11:10)
[2017-03-13] MEDS: ACETYLCYSTEINE 20% 200MG/ML 4 ML VIAL *FOR ORAL / INH USE ONLY NEB SCH ×4 (00:05→18:27)
[2017-03-13] MEDS: METHIMAZOLE 5 MG TABLET (FP) PO SCH ×2 (05:09→06:19)
[2017-03-13] MEDS: NAPH,MB-DB/K PH,MBDB POWDER PACKET PO SCH ×2 (05:09→06:19)
[2017-03-13] MEDS: ROSUVASTATIN CA 10 MG TABLET (FP) PO SCH (05:10)
[2017-03-13] MEDS: AMINO ACIDS/PROTEIN HYDROLYS 30 ML LIQUID.PKT PO SCH (05:10)
[2017-03-13] MEDS: FERROUS SO4 325 MG TABLET (FP) PO SCH (05:10)
[2017-03-13] MEDS: AMINO ACIDS 4.25%/D5W 1,000 ML IV SCH ×2 (06:19→10:04)
[2017-03-13 07:40] LABS: MCH 28.8 pg (25.7-33.7); MCHC 32.5 g/dl (32.0-35.9); MEAN CELL VOLUME 88.6 fl (80-96); PLATELET COUNT 80 K/MM3 (134-434); RDW 15.6 % (11.9-15.9); WHITE BLOOD COUNT 7.7 K/mm3 (4.0-10.0)
[2017-03-13 08:20] LABS: CALCIUM 7.3 mg/dL (8.5-10.1); MAGNESIUM 1.6 mg/dL (1.8-2.4); PHOSPHOROUS 2.6 mg/dL (2.5-4.9)
[2017-03-13 08:23] LABS: COCKROFT - GAULT 53.87; CREATININE 1.2 mg/dL (0.7-1.3)
--- NOTE | 2017-03-13 08:36 | PN ---
Progress Note (short form) - Note Progress Note: resting comfortable Current Medications Generic Name Dose Route Start Last Admin Trade Name Freq PRN Reason Stop Dose Admin Acetaminophen 650 mg 03/05/17 17:51 Tylenol - PO Q4H PRN PAIN Acetylcysteine 200 mg 03/11/17 18:00 03/13/17 06:51 Mucomyst 20 Oral / Inh Use Only* NEB Not Given QIDR JULIO Albuterol/Ipratropium 1 amp 03/12/17 17:45 03/13/17 00:05 Duoneb - NEB 1 amp Q6H PRN Administration SHORTNESS OF BREATH Amino Acids 30 ml 03/05/17 22:00 03/13/17 05:10 Prosource No Carb Liquid Pkt PO Not Given BID JULIO Ferrous Sulfate 325 mg 03/05/17 22:00 03/13/17 05:10 Feosol - PO Not Given BID JULIO Folic Acid 1 mg 03/06/17 10:00 03/12/17 10:00 Folic Acid - PO Not Given DAILY JULIO Amino Acids 1,000 mls @ 80 mls/hr 03/10/17 08:34 03/13/17 06:19 Clinimix - IV 80 mls/hr Q12H JULIO Administration Fat Emulsion Intravenous 250 mls @ 20.833 mls/hr 03/10/17 22:00 03/12/17 22:33 Intralipid - IV 20.833 mls/hr DAILY@2200 JULIO Administration Methimazole 5 mg 03/05/17 22:00 03/13/17 06:19 Tapazole - PO 5 mg TID JULIO Administration Potassium Phos/Sodium Phos 1 packet 03/07/17 14:00 03/13/17 06:19 Phos-Nak Packet - PO 1 packet TID JULIO Administration Rivaroxaban 15 mg 03/08/17 15:45 03/12/17 18:04 Xarelto - PO 15 mg DAILY JULIO Administration Rosuvastatin Calcium 10 mg 03/05/17 22:00 03/13/17 05:10 Crestor - PO Not Given HS JULIO Last Vital Signs Temp Pulse Resp BP Pulse Ox 98.5 F 88 18 118/68 97 03/13/17 06:00 03/13/17 06:00 03/13/17 06:00 03/13/17 06:00 03/12/17 11:43 General NAD, will mimic actions but does not follow commands CV S1 s2 RRR no murmur/rub/gallop Lungs no breath sounds through left lung field, +rales R lung, no wheezing CBCD WBC 7.7 K/mm3 (4.0-10.0) 03/13/17 05:35 RBC 2.74 M/mm3 (4.00-5.60) L 03/13/17 05:35 Hgb 7.9 GM/dL (11.7-16.9) L 03/13/17 05:35 Hct 24.3 % (35.4-49) L 03/13/17 05:35 MCV 88.6 fl (80-96) 03/13/17 05:35 MCHC 32.5 g/dl (32.0-35.9) 03/13/17 05:35 RDW 15.6 % (11.9-15.9) 03/13/17 05:35 Plt Count 80 K/MM3 (134-434) L 03/13/17 05:35 MPV 9.0 fl (7.5-11.1) D 03/13/17 05:35 CMP Sodium 134 mmol/L (136-145) L 03/13/17 05:35 Potassium 4.0 mmol/L (3.5-5.1) D 03/13/17 05:35 Chloride 104 mmol/L (98-107) 03/13/17 05:35 Carbon Dioxide 19 mmol/L (21-32) L 03/13/17 05:35 Anion Gap 11 (8-16) 03/13/17 05:35 BUN 30 mg/dL (7-18) H D 03/13/17 05:35 Creatinine 1.2 mg/dL (0.7-1.3) 03/13/17 05:35 Creat Clearance w eGFR > 60 (>60) 03/10/17 06:20 Calcium 7.3 mg/dL (8.5-10.1) L 03/13/17 05:35 Total Bilirubin 0.7 mg/dL (0.2-1.0) 03/10/17 06:20 AST 17 U/L (15-37) 03/10/17 06:20 ALT 16 U/L (12-78) D 03/10/17 06:20 Alkaline Phosphatase 54 U/L (45-117) 03/10/17 06:20 Total Protein 5.1 g/dl (6.4-8.2) L 03/10/17 06:20 Albumin 1.9 g/dl (3.4-5.0) L 03/10/17 06:20 ASSESSMENT AND PLAN: 72-year-old man with a history of HTN, colon CA, colostomy, LLE arterial emboli , left BKA, left lung mass, CVA presented to the ER and was admitted for further evaluation 1. R hemiparesis and facial weakness- likely due to recent CVA treated on last admission. on statin. PT and speech therapy. 2, Dyshagia-high aspiration risk. GI consulted for PEG placement, however feels pt is too unstable at this time. NGT placed and will start tube feeds. d/c clinimex. will re-discuss with GI about PEG placement. if does not want to do will d/w IR about local placement. 3. Afib- new onset. rate is controlled off medications. echo done on last admission (02/22) no WMA, LA within normal limits. no thrombus identified. increase xarelto to 20mg po daily 4. Acute hypoxic respiratory failure- due to PNA vs complete L side opacification. since pt is holding saturation not imperative to be aggressive at this time. not a candidate for lung bx at this time 5. Thrombocytopenia- only new medication that can be related is methimazole which was started last admission for hyperthyroidism. repeat TSH pending. if WNL consider stopping and seeing if platelet count resolved. platelets are not low where steroids or transfusions indication. no bleeding. 6. Hypocalcemia-corrected Ca 9. was hypercalcemic last admission, received zometa and calcitonin. 7. hypophosphatemia- neutraphos 8. Hypomagnesemia- resolved 9. DVT ppx- xarelto 10. poor overall prognosis. sister (HCP) requesting aggressive management at this time Visit type - Emergency Visit Emergency Visit: Yes ED Registration Date: 03/03/17 Care time: The patient presented to the Emergency Department on the above date and was hospitalized for further evaluation of their emergent condition. - New Patient This patient is new to me today: No - Critical Care Critical Care patient: No - Discharge Referral Referred to [facility] Med P.C.: No
--- NOTE | 2017-03-13 08:50 | PN ---
Progress Note, Physician History of Present Illness: PULMONARY ALERT,,-RESP DISTRESS,+ MILD CONGESTION - Current Medication List Current Medications: Active Medications Acetaminophen (Tylenol -) 650 mg PO Q4H PRN PRN Reason: PAIN Acetylcysteine (Mucomyst 20 Oral / Inh Use Only*) 200 mg NEB QIDR [facility] Last Admin: 03/13/17 06:51 Dose: Not Given Albuterol/Ipratropium (Duoneb -) 1 amp NEB Q6H PRN PRN Reason: SHORTNESS OF BREATH Last Admin: 03/13/17 00:05 Dose: 1 amp Amino Acids (Prosource No Carb Liquid Pkt) 30 ml PO BID [facility] Last Admin: 03/13/17 05:10 Dose: Not Given Ferrous Sulfate (Feosol -) 325 mg PO BID [facility] Last Admin: 03/13/17 05:10 Dose: Not Given Folic Acid (Folic Acid -) 1 mg PO DAILY [facility] Last Admin: 03/12/17 10:00 Dose: Not Given Amino Acids (Clinimix -) 1,000 mls @ 80 mls/hr IV Q12H [facility] Last Admin: 03/13/17 06:19 Dose: 80 mls/hr Fat Emulsion Intravenous (Intralipid -) 250 mls @ 20.833 mls/hr IV DAILY@2200 [facility] Last Admin: 03/12/17 22:33 Dose: 20.833 mls/hr Methimazole (Tapazole -) 5 mg PO TID [facility] Last Admin: 03/13/17 06:19 Dose: 5 mg Potassium Phos/Sodium Phos (Phos-Nak Packet -) 1 packet PO TID [facility] Last Admin: 03/13/17 06:19 Dose: 1 packet Rivaroxaban (Xarelto -) 15 mg PO DAILY [facility] Last Admin: 03/12/17 18:04 Dose: 15 mg Rosuvastatin Calcium (Crestor -) 10 mg PO HS [facility] Last Admin: 03/13/17 05:10 Dose: Not Given - Objective Vital Signs: Vital Signs Temperature 98.5 F 03/13/17 06:00 Pulse Rate 88 03/13/17 06:00 Respiratory Rate 18 03/13/17 06:00 Blood Pressure 118/68 03/13/17 06:00 O2 Sat by Pulse Oximetry (%) 97 03/12/17 11:43 Constitutional: Yes: Calm, Thin Eyes: Yes: WNL HENT: Yes: WNL Neck: Yes: WNL Cardiovascular: Yes: Regular Rate and Rhythm, S1, S2 Respiratory: Yes: Diminished Gastrointestinal: Yes: Normal Bowel Sounds, Soft, Other (COLOSTOMY) Extremities: Yes: Amputation (LEFT BKA) Edema: No Labs: CBC, BMP 03/13/17 05:35 03/13/17 05:35 INR, PTT INR 1.33 (0.82-1.09) H 03/09/17 09:00 Assessment/Plan A/P Acute CVA Pneumonia L lung Atelectasis no change s/p Severe Sepsis Acute Kidney Injury Lung Mass likely malignant PAD Thrombocytopenia - continue IVF - monitor urine output, creatinine - aspiration precautions - BiPAP as needed to assist in work of breathing and may assist in re- expanding left lung - chest PT - continue mucomyst with albuterol QID - anticoagulation - monitor H/H - f/u chest x-ray tpday - conservative management at this time secondary multiple co-morbidities - no pulmonary contraindication to GT insertion DR GOMEZ
[2017-03-13] MEDS ORDERED: NAPH,MB-DB/K PH,MBDB POWDER PACKET NGT ONE (08:51)
[2017-03-13 09:07] LABS: THYROID STIMULATING HORMONE 1.18 uIU/ml (0.358-3.74)
[2017-03-13] MEDS: RIVAROXABAN 20 MG TABLET PO SCH (10:05)
[2017-03-13] MEDS: FOLIC ACID 1 MG TABLET (FP) NGT SCH (10:05)
[2017-03-13] MEDS: AMINO ACIDS/PROTEIN HYDROLYS 30 ML LIQUID.PKT NGT SCH (10:05)
[2017-03-13] MEDS: FERROUS SO4 300 MG/5 ML ORAL SOLN UNIT DOSE CUPS GT SCH (10:06)
[2017-03-13] MEDS: METHIMAZOLE 5 MG TABLET (FP) NGT SCH (15:02)
[2017-03-13] MEDS ORDERED: METOPROLOL TARTRATE 5 MG/5 ML VIAL ONE (18:22)
[2017-03-13] MEDS: ALBUTEROL SO4 0.083% IH SOL 2.5 MG/3 ML VIAL.NEB. NEB SCH (18:28)
[2017-03-13] MEDS ORDERED: METOPROLOL TARTRATE 5 MG/5 ML VIAL IVPUSH ONE (18:30)
[2017-03-13] MEDS: ACETAMINOPHEN 650 MG SUPP.RECT PR PRN (21:55)
[2017-03-14] MEDS ORDERED: PIPERACILLIN/TAZOB 3.375 GM 3.375 GM in DEXTROSE 5%-WATER - 50 ML IVPB ONE
[2017-03-14] MEDS: ALBUTEROL SO4 0.083% IH SOL 2.5 MG/3 ML VIAL.NEB. NEB SCH ×5 (00:18→23:40)
[2017-03-14] MEDS: ACETYLCYSTEINE 20% 200MG/ML 4 ML VIAL *FOR ORAL / INH USE ONLY NEB SCH ×5 (00:18→23:40)
[2017-03-14] MEDS ORDERED: VANCOMYCIN 1,250 MG in DEXTROSE 5%-WATER - 250 ML IVPB ONE (00:45)
[2017-03-14] MEDS ORDERED: PIPERACILLIN/TAZOB 3.375 GM/50 ML PRE-DOCKED IVPB ONE (00:45)
[2017-03-14] MEDS: SODIUM CHLORIDE 1,000 ML IV SCH (00:50)
[2017-03-14 00:57] LABS: URINE APPEARANCE SLCLOUDY; URINE BILIRUBIN NEGATIVE (NEGATIVE); URINE COLOR YELLOW; URINE GLUCOSE (UA) NEGATIVE (NEGATIVE); URINE KETONE NEGATIVE (NEGATIVE); URINE LEUK ESTERASE NEGATIVE (NEGATIVE); URINE NITRITE NEGATIVE (NEGATIVE); URINE UROBILINOGEN NEGATIVE E.U./dl (0.2-1.0)
[2017-03-14 00:58] LABS: URINE BLOOD 3+ (NEGATIVE); URINE PROTEIN 1+ (NEGATIVE)
[2017-03-14 00:59] LABS: URINE HYALINE CAST 1 /lpf; URINE MUCUS RARE; URINE RBC 76 /hpf (0-3); URINE WBC 10 /hpf (3-5)
[2017-03-14] MEDS: FERROUS SO4 300 MG/5 ML ORAL SOLN UNIT DOSE CUPS GT SCH ×3 (01:32→22:13)
[2017-03-14] MEDS: AMINO ACIDS/PROTEIN HYDROLYS 30 ML LIQUID.PKT NGT SCH ×3 (01:32→22:13)
[2017-03-14] MEDS: ATORVASTATIN CA 10 MG TABLET (FP) NGT SCH ×2 (01:32→22:13)
[2017-03-14] MEDS: METHIMAZOLE 5 MG TABLET (FP) NGT SCH ×3 (01:32→14:37)
[2017-03-14 07:24] LABS: COCKROFT - GAULT 46.17; CREATININE 1.4 mg/dL (0.7-1.3); MAGNESIUM 1.6 mg/dL (1.8-2.4); PHOSPHOROUS 2.9 mg/dL (2.5-4.9)
[2017-03-14 08:06] LABS: CALCIUM 6.8 mg/dL (8.5-10.1)
--- NOTE | 2017-03-14 09:20 | PN ---
Progress Note, Physician History of Present Illness: pulmonary awake,no distress,less congested, + fever earlier 101.4,hypotensive - Current Medication List Current Medications: Active Medications Acetaminophen (Tylenol -) 650 mg PO Q4H PRN PRN Reason: PAIN Acetaminophen (Tylenol Suppository -) 650 mg [place] Q4H PRN PRN Reason: FEVER OR PAIN Last Admin: 03/13/17 21:55 Dose: 650 mg Acetylcysteine (Mucomyst 20 Oral / Inh Use Only*) 200 mg NEB QIDR [facility] Last Admin: 03/14/17 06:50 Dose: Not Given Albuterol Sulfate (Ventolin 0.083% Nebulizer Soln -) 1 amp NEB QIDR [facility] Last Admin: 03/14/17 06:50 Dose: 1 amp Albuterol/Ipratropium (Duoneb -) 1 amp NEB Q6H PRN PRN Reason: SHORTNESS OF BREATH Last Admin: 03/13/17 11:10 Dose: 1 amp Amino Acids (Prosource No Carb Liquid Pkt) 30 ml NGT BID [facility] Last Admin: 03/14/17 01:32 Dose: 30 ml Atorvastatin Calcium (Lipitor -) 10 mg NGT HS [facility] Last Admin: 03/14/17 01:32 Dose: 10 mg Ferrous Sulfate (Feosol) 300 mg GT BID [facility] Last Admin: 03/14/17 01:32 Dose: 300 mg Folic Acid (Folic Acid -) 1 mg NGT DAILY [facility] Last Admin: 03/13/17 10:05 Dose: 1 mg Sodium Chloride (Normal Saline -) 1,000 mls @ 75 mls/hr IV ASDIR [facility] Last Admin: 03/14/17 00:50 Dose: 75 mls/hr Methimazole (Tapazole -) 5 mg NGT TID [facility] Last Admin: 03/14/17 06:42 Dose: 5 mg Rivaroxaban (Xarelto -) 20 mg PO DAILY [facility] Last Admin: 03/13/17 10:05 Dose: 20 mg - Objective Vital Signs: Vital Signs Temperature 98.1 F 03/14/17 06:15 Pulse Rate 84 03/14/17 06:15 Respiratory Rate 22 03/14/17 06:15 Blood Pressure 86/52 03/14/17 06:53 O2 Sat by Pulse Oximetry (%) 99 03/13/17 20:24 Constitutional: Yes: Well Nourished, Calm Eyes: Yes: WNL HENT: Yes: WNL Neck: Yes: WNL Cardiovascular: Yes: Pulse Irregular, S1, S2 Respiratory: Yes: Rhonchi (few rhonchi) Gastrointestinal: Yes: Normal Bowel Sounds, Soft, Other (colostomy) Extremities: Yes: Amputation (left aka) Labs: CBC, BMP 03/13/17 05:35 03/14/17 05:35 INR, PTT INR 1.33 (0.82-1.09) H 03/09/17 09:00 Assessment/Plan A/P Acute CVA Pneumonia L lung Atelectasis no change s/p Severe Sepsis Acute Kidney Injury Lung Mass likely malignant PAD Afib Thrombocytopenia - continue IVF - monitor urine output, creatinine - aspiration precautions - BiPAP as needed to assist in work of breathing and may assist in re- expanding left lung - chest PT - continue mucomyst with albuterol QID - anticoagulation - monitor H/H - f/u chest x-ray - conservative management at this time secondary multiple co-morbidities - abg - cultures DR GOMEZ
[2017-03-14 09:50] LABS: ALLENS TEST POSITIVE; ARTERIAL BLD GAS O2 SATURATION 93.5 % (90-98.9); ARTERIAL BLOOD GAS BASE EXCESS -6.4 meq/l (-2-2); ARTERIAL BLOOD GAS HCO3 16.6 meq/L (22-26); ARTERIAL BLOOD GAS PO2 67.3 mmHg (70-100); ARTERIAL BLOOD GAS pH 7.44 (7.35-7.45)
[2017-03-14 09:52] LABS: ART PUNCT SITE RIGHT RADIAL
[2017-03-14 09:53] LABS: PT. ON O2? NO
[2017-03-14] MEDS: FOLIC ACID 1 MG TABLET (FP) NGT SCH (10:05)
[2017-03-14] MEDS: RIVAROXABAN 20 MG TABLET PO SCH (10:08)
--- NOTE | 2017-03-14 11:29 | PN ---
Physical Exam: SUBJECTIVE: Patient seen and examined at bedside. No acute cardiac event noted. Tmax of 101.6F overnight. Nurse straight cath-ed the patient. s/p NGT re-insertion and confirmation. OBJECTIVE: Vital Signs Period Temp Pulse Resp BP Sys/Tapia Pulse Ox Last 24 Hr 97.8 F-101.6 F 84-134 16-22 86-120/48-75 99 GENERAL: lethargic, arousable, less responsive and in mild to moderate pulmonary distress HEAD: AT, NC EYES: L eye barely opens, sluggish and deviated to the L ENT: NGT in place LUNGS: coarse rales bilaterally HEART: distant heart sounds, S1 and S2, no rub ABDOMEN: +bs, soft, non-tender, no rebound, guarding EXTREMITIES: No peripheral edema NEURO: unable to perform due to patient's mental status. ABG Results ABG pH 7.44 (7.35-7.45) 03/14/17 09:50 ABG pCO2 at Pt Temp 24.8 mmHg (35-45) L 03/14/17 09:50 ABG pO2 at Pt Temp 67.3 mmHg (70-100) L 03/14/17 09:50 ABG HCO3 16.6 meq/L (22-26) L 03/14/17 09:50 ABG O2 Sat (Measured) 93.5 % (90-98.9) 03/14/17 09:50 ABG O2 Content 9.3 % vol (15-22) L* 03/14/17 09:50 ABG Base Excess -6.4 meq/l (-2-2) L 03/14/17 09:50 BMP 03/14/17 05:35 Active Medications Generic Name Dose Route Start Last Admin Trade Name Freq PRN Reason Stop Dose Admin Acetaminophen 650 mg 03/05/17 17:51 Tylenol - PO Q4H PRN PAIN Acetaminophen 650 mg 03/13/17 21:48 03/13/17 21:55 Tylenol Suppository - [place] 650 mg Q4H PRN Administration FEVER OR PAIN Acetylcysteine 200 mg 03/11/17 18:00 03/14/17 06:50 Mucomyst 20 Oral / Inh Use Only* NEB Not Given QIDR JULIO Albuterol Sulfate 1 amp 03/13/17 18:00 03/14/17 06:50 Ventolin 0.083% Nebulizer Soln - NEB 1 amp QIDR [facility] Administration Albuterol/Ipratropium 1 amp 03/12/17 17:45 03/13/17 11:10 Duoneb - NEB 1 amp Q6H PRN Administration SHORTNESS OF BREATH Amino Acids 30 ml 03/13/17 10:00 03/14/17 10:05 Prosource No Carb Liquid Pkt NGT 30 ml BID [facility]ULIO Administration Atorvastatin Calcium 10 mg 03/13/17 22:00 03/14/17 01:32 Lipitor - NGT 10 mg HS JULIO Administration Ferrous Sulfate 300 mg 03/13/17 10:00 03/14/17 10:05 Feosol GT 300 mg BID JULIO Administration Folic Acid 1 mg 03/13/17 08:50 03/14/17 10:05 Folic Acid - NGT 1 mg DAILY [facility]IO Administration Sodium Chloride 1,000 mls @ 75 mls/hr 03/14/17 00:15 03/14/17 00:50 Normal Saline - IV 75 mls/hr ASDIR JULIO Administration Methimazole 5 mg 03/13/17 08:51 03/14/17 06:42 Tapazole - NGT 5 mg TID JULIO Administration Rivaroxaban 20 mg 03/13/17 10:00 03/14/17 10:08 Xarelto - PO 20 mg DAILY [facility] Administration Imaging CXR on 03/14: NGT in place CXR on 03/12: LLL infiltrate vs. pleural effusion, persistent RUL infiltrate Barium Swallow on 03/09: spillage of contrast into airway CXR on 03/07: Imaging reveals no significant change from 03/06/2017 at 0913 hours. Again noted is mediastinal shift to the left with total opacification of the left hemithorax and left jugular port with tip at junction of SVC and right atrium. The right lung is clear. The right angle is sharp. CT head on 03/06: No acute pathology CXR on 03/05: Increased opacification of the left hemithorax - increased pleural effusion ASSESSMENT/PLAN: 72 yo M h/o colon cancer s/o colostomy, HTN, left lower ext arterial emboli admitted for PNA and CVA admitted to telemetry for new onset of R sided weakness and R facial droop. Pulm: complete L sided atelectasis - Septic appearing today * frebile, tachypenic, lethargic * ABG shows respiratory acidosis * f/u cultures - Obstructive PNA and pleural effusion - Cont. fluids - Cont. Chest PT and Mucomyst - Observe off abx HemOnc: Acute thrombocytopenia; Obstructive lung lesion; Rectal carcinoma - Stable - Cont. to monitor CBC - Biopsy deferred due to patient's mental and medical conditions Neuro: Acute onset of R sided weakness - Stable - Likely toxic metabolic encephalopathy - Cont. xarelto Renal: SHIVA - Elevated Cr - Likely 2/2 hypotension - Cont. hydration and monitor Cr Endo: hyperthyroidism - Cont. methimazole FEN - IVF 75ml/hr - Repleted Mg2+, corrected Ca2+ = 8.5 - Tube feed jevity Prophylaxis - DVT: on xarelto - GI: not indicated Disposition - Will inform sister, the HCP, regarding patient's condition and discuss goal of care Code status - Full code Visit type - Emergency Visit Emergency Visit: No - New Patient This patient is new to me today: No - Critical Care Critical Care patient: No
--- NOTE | 2017-03-14 16:15 | PN ---
Teaching Attending Note Name of Resident: Keenan Onofre ATTENDING PHYSICIAN STATEMENT I saw and evaluated the patient. I reviewed the resident's note and discussed the case with the resident. I agree with the resident's findings and plan as documented. SUBJECTIVE:lethargic, responds to verbal stimuli OBJECTIVE: Last Vital Signs Temp Pulse Resp BP Pulse Ox 100.6 F H 97 H 20 87/60 94 L 03/14/17 14:00 03/14/17 14:00 03/14/17 14:00 03/14/17 14:00 03/14/17 09:00 General NAD, more lethargic than previously, responds to verbal stimuli CV S1 S2 RRR no murmur/rub/gallop Lungs coarse breath sounds diffusely. ASSESSMENT AND PLAN: 72-year-old man with a history of HTN, colon CA, colostomy, LLE arterial emboli , left BKA, left lung mass, CVA presented to the ER and was admitted for further evaluation 1. R hemiparesis and facial weakness- likely due to recent CVA treated on last admission. on statin. PT and speech therapy. 2, Dyshagia-high aspiration risk. GI consulted for PEG placement, however feels pt is too unstable at this time. tolerating PEG feeds. 3. Afib- new onset. received metoprolol once and rate has been controlled. 1 episode of sinus tachycardia coorelating with fever. cont xarelto. 4. Febrile- Tm 101.6. sepsis workup sent. received zosyn and vanco overnight. consult ID. f/u Cx 5. Acute hypoxic respiratory failure- due to PNA vs complete L side opacification. requiring 2L NC to maintain spO2 92%. d/w with pulmonary not a candidate for intervention. opacification of the L hemithorax. cont supplemental oxygen 6. Thrombocytopenia- only new medication that can be related is methimazole, stable. no bleeding. 7. Hyperthyroidism- TSH WNL. hold methimazole. repeat TSH in 6 weeks 8. Hypocalcemia-corrected Ca 9. was hypercalcemic last admission, received zometa and calcitonin. 9. hypophosphatemia- resolved 10. Hypomagnesemia- MG 11. DVT ppx- xarelto 12. poor overall prognosis. reached out to HCP to notify of deteriorating status. will d/w family about current condition and poor likelihood of improving. family meeting with palliative care tomorrow
[2017-03-15] MEDS: SODIUM CHLORIDE 1,000 ML IV SCH (00:18)
[2017-03-15] MEDS: ACETAMINOPHEN 650 MG SUPP.RECT PR PRN (06:49)
[2017-03-15] MEDS: ALBUTEROL SO4 0.083% IH SOL 2.5 MG/3 ML VIAL.NEB. NEB SCH ×3 (06:50→17:43)
[2017-03-15] MEDS: ACETYLCYSTEINE 20% 200MG/ML 4 ML VIAL *FOR ORAL / INH USE ONLY NEB SCH ×3 (06:50→17:43)
[2017-03-15 07:30] LABS: BASOPHIL 0.5 % (0-2.0); EOSINOPHIL 0.8 % (0-4.5); MCH 28.4 pg (25.7-33.7); MEAN CELL VOLUME 88.6 fl (80-96); MEAN PLT VOLUME 9.8 fl (7.5-11.1); NEUTROPHILS 83.1 % (42.8-82.8); PLATELET COUNT 87 K/MM3 (134-434); RDW 16.3 % (11.9-15.9); WHITE BLOOD COUNT 7.7 K/mm3 (4.0-10.0)
[2017-03-15 08:20] LABS: CALCIUM 7.7 mg/dL (8.5-10.1); MAGNESIUM 1.8 mg/dL (1.8-2.4)
[2017-03-15 08:21] LABS: COCKROFT - GAULT 43.09; CREATININE 1.5 mg/dL (0.7-1.3)
[2017-03-15] MEDS: AMINO ACIDS/PROTEIN HYDROLYS 30 ML LIQUID.PKT NGT SCH ×2 (10:34→22:00)
[2017-03-15] MEDS: RIVAROXABAN 20 MG TABLET PO SCH (10:34)
[2017-03-15] MEDS: FOLIC ACID 1 MG TABLET (FP) NGT SCH (10:34)
[2017-03-15] MEDS: FERROUS SO4 300 MG/5 ML ORAL SOLN UNIT DOSE CUPS GT SCH ×2 (10:34→22:00)
--- NOTE | 2017-03-15 11:31 | PN ---
Progress Note, Physician Chief Complaint: ID ID follow up for fever 101.6 and respiratory distress - Current Medication List Current Medications: Active Medications Acetaminophen (Tylenol -) 650 mg PO Q4H PRN PRN Reason: PAIN Acetaminophen (Tylenol Suppository -) 650 mg [place] Q4H PRN PRN Reason: FEVER OR PAIN Last Admin: 03/15/17 06:49 Dose: 650 mg Acetylcysteine (Mucomyst 20 Oral / Inh Use Only*) 200 mg NEB QIDR [facility] Last Admin: 03/15/17 06:50 Dose: 200 mg Albuterol Sulfate (Ventolin 0.083% Nebulizer Soln -) 1 amp NEB QIDR [facility] Last Admin: 03/15/17 06:50 Dose: 1 amp Albuterol/Ipratropium (Duoneb -) 1 amp NEB Q6H PRN PRN Reason: SHORTNESS OF BREATH Last Admin: 03/13/17 11:10 Dose: 1 amp Amino Acids (Prosource No Carb Liquid Pkt) 30 ml NGT BID [facility] Last Admin: 03/15/17 10:34 Dose: 30 ml Atorvastatin Calcium (Lipitor -) 10 mg NGT HS [facility] Last Admin: 03/14/17 22:13 Dose: 10 mg Ferrous Sulfate (Feosol) 300 mg GT BID [facility] Last Admin: 03/15/17 10:34 Dose: 300 mg Folic Acid (Folic Acid -) 1 mg NGT DAILY [facility] Last Admin: 03/15/17 10:34 Dose: 1 mg Sodium Chloride (Normal Saline -) 1,000 mls @ 75 mls/hr IV ASDIR [facility] Last Admin: 03/15/17 00:18 Dose: Not Given Rivaroxaban (Xarelto -) 20 mg PO DAILY [facility] Last Admin: 03/15/17 10:34 Dose: 20 mg - Objective Vital Signs: Vital Signs Temperature 100.1 F H 03/15/17 10:00 Pulse Rate 108 H 03/15/17 10:00 Respiratory Rate 24 03/15/17 10:00 Blood Pressure 99/62 03/15/17 10:00 O2 Sat by Pulse Oximetry (%) 95 03/14/17 21:00 Constitutional: Yes: Other (Upper airway sounds) Cardiovascular: Yes: Regular Rate and Rhythm, S1, S2 Respiratory: Yes: WNL, Regular, CTA Bilaterally, Other (Course rhonchi bilaterally) Gastrointestinal: Yes: Soft, Other (Colostomy). No: Tenderness Extremities: Yes: Amputation Edema: No Labs: CBC, BMP 03/15/17 05:35 03/15/17 05:35 INR, PTT INR 1.33 (0.82-1.09) H 03/09/17 09:00 Assessment/Plan Microbiology 03/14/17 00:30 Urine - Urine - Catheterized Urine Culture - Final NO GROWTH OBTAINED 03/14/17 00:30 Blood - Peripheral Venous Blood Culture - Preliminary NO GROWTH OBTAINED AFTER 24 HOURS, INCUBATION TO CONTINUE FOR 4 DAYS. 03/14/17 00:30 Blood - Peripheral Venous Blood Culture - Preliminary NO GROWTH OBTAINED AFTER 24 HOURS, INCUBATION TO CONTINUE FOR 4 DAYS. Laboratory Tests 03/10/17 03/14/17 03/15/17 06:20 00:30 05:35 WBC 7.7 Hgb 7.5 L Hct 23.3 L Plt Count 87 L BUN Creatinine Creat Clearance w eGFR > 60 Ur Leukocyte Esterase Negative Urine RBC 76 Urine WBC 10 03/15/17 05:35 WBC Hgb Hct Plt Count BUN 40 H Creatinine 1.5 H Creat Clearance w eGFR Ur Leukocyte Esterase Urine RBC Urine WBC Assessment Fevers probable aspiration in the setting of stroke and possible lung CA with opacification of the left chest Plan Continue Zosyn for aspiration Prognosis poor Consider palliative care Carlos BALDWIN
--- NOTE | 2017-03-15 11:51 | PN ---
Progress Note, Physician History of Present Illness: PULMONARY AWAKE,MORE CONGESTED TODAY,FEBRILE - Current Medication List Current Medications: Active Medications Acetaminophen (Tylenol -) 650 mg PO Q4H PRN PRN Reason: PAIN Acetaminophen (Tylenol Suppository -) 650 mg [place] Q4H PRN PRN Reason: FEVER OR PAIN Last Admin: 03/15/17 06:49 Dose: 650 mg Acetylcysteine (Mucomyst 20 Oral / Inh Use Only*) 200 mg NEB QIDR [facility] Last Admin: 03/15/17 11:10 Dose: 200 mg Albuterol Sulfate (Ventolin 0.083% Nebulizer Soln -) 1 amp NEB QIDR [facility] Last Admin: 03/15/17 11:10 Dose: 1 amp Albuterol/Ipratropium (Duoneb -) 1 amp NEB Q6H PRN PRN Reason: SHORTNESS OF BREATH Last Admin: 03/13/17 11:10 Dose: 1 amp Amino Acids (Prosource No Carb Liquid Pkt) 30 ml NGT BID [facility] Last Admin: 03/15/17 10:34 Dose: 30 ml Atorvastatin Calcium (Lipitor -) 10 mg NGT HS [facility] Last Admin: 03/14/17 22:13 Dose: 10 mg Ferrous Sulfate (Feosol) 300 mg GT BID [facility] Last Admin: 03/15/17 10:34 Dose: 300 mg Folic Acid (Folic Acid -) 1 mg NGT DAILY [facility] Last Admin: 03/15/17 10:34 Dose: 1 mg Sodium Chloride (Normal Saline -) 1,000 mls @ 75 mls/hr IV ASDIR [facility] Last Admin: 03/15/17 00:18 Dose: Not Given Piperacillin Sod/Tazobactam (Sod 4.5 gm/ Dextrose) 100 mls @ 200 mls/hr IVPB Q8H-IV JULIO PRN Reason: Protocol Rivaroxaban (Xarelto -) 20 mg PO DAILY [facility] Last Admin: 03/15/17 10:34 Dose: 20 mg - Objective Vital Signs: Vital Signs Temperature 100.1 F H 03/15/17 10:00 Pulse Rate 108 H 03/15/17 10:00 Respiratory Rate 24 03/15/17 10:00 Blood Pressure 99/62 03/15/17 10:00 O2 Sat by Pulse Oximetry (%) 95 03/14/17 21:00 Constitutional: Yes: Well Nourished, Calm Eyes: Yes: WNL HENT: Yes: WNL Neck: Yes: WNL Cardiovascular: Yes: Pulse Irregular, S1, S2 Respiratory: Yes: Rhonchi Gastrointestinal: Yes: Normal Bowel Sounds, Soft Extremities: Yes: Amputation (LEFT BKA) Edema: No Labs: CBC, BMP 03/15/17 05:35 03/15/17 05:35 INR, PTT INR 1.33 (0.82-1.09) H 03/09/17 09:00 Laboratory Tests 03/14/17 09:50 Puncture Site Right radial ABG pH 7.44 ABG pCO2 at Pt Temp 24.8 L ABG pO2 at Pt Temp 67.3 L ABG HCO3 16.6 L ABG O2 Sat (Measured) 93.5 Assessment/Plan A/P Acute CVA Pneumonia L lung Atelectasis no change s/p Severe Sepsis Acute Kidney Injury Lung Mass likely malignant PAD Afib Thrombocytopenia Fever likely aspiration - continue IVF - monitor urine output, creatinine - aspiration precautions - BiPAP as needed to assist in work of breathing and may assist in re- expanding left lung - chest PT - continue mucomyst with albuterol QID - anticoagulation - monitor H/H - f/u chest x-ray - conservative management at this time secondary multiple co-morbidities - antibiotics as per YOSELIN GOMEZ
[2017-03-15] MEDS: PIPERACILLIN/TAZOB 4.5 GM 100 ML IVPB SCH (12:11)
[2017-03-15] MEDS: SCOPOLAMINE HYDROBROMIDE 1 PATCH PATCH.TD72 TD SCH (15:39)
--- NOTE | 2017-03-15 16:07 | PN ---
Teaching Attending Note Name of Resident: Keenan Onofre ATTENDING PHYSICIAN STATEMENT I saw and evaluated the patient. I reviewed the resident's note and discussed the case with the resident. I agree with the resident's findings and plan as documented. SUBJECTIVE:resting comfortable OBJECTIVE: Last Vital Signs Temp Pulse Resp BP Pulse Ox 99.6 F 94 H 22 87/57 95 03/15/17 14:45 03/15/17 14:45 03/15/17 14:45 03/15/17 14:45 03/15/17 09:00 General NAD, CV S1 S2 RRR no murmur/rub/gallop Lungs coarse breath sounds diffusely. +gurgling ASSESSMENT AND PLAN: 72-year-old man with a history of HTN, colon CA, colostomy, LLE arterial emboli , left BKA, left lung mass, CVA presented to the ER and was admitted for further evaluation 1. R hemiparesis and facial weakness- likely due to recent CVA treated on last admission. on statin. PT and speech therapy. 2, Dyshagia-high aspiration risk. tolerating NGT feeds, has not pulled at tube. will need PEG for placement. 3. Afib- new onset. rate controlled. lopressor IVP prn for HR >120 and hold for SBP, 90. cont xarelto. 4. Febrile- Tm 100.9 no obvious signs of infection, started on empiric Zosyn. ID on board. f/u Cx 5. Acute hypoxic respiratory failure- due to PNA vs complete L side opacification. requiring 2L NC to maintain spO2 92%. d/w with pulmonary not a candidate for intervention. opacification of the L hemithorax. start on scopolamine patch for +secretions. chest PT. cont supplemental oxygen 6. Thrombocytopenia- only new medication that can be related is methimazole, stable. no bleeding. 7. Hyperthyroidism- TSH WNL. hold methimazole. repeat TSH in 6 weeks 8. Hypocalcemia-corrected Ca 9. was hypercalcemic last admission, received zometa and calcitonin. 9. hypophosphatemia- resolved 10. Hypomagnesemia- resikved 11. DVT ppx- xarelto 12. poor overall prognosis. not a candidate for LTAC at this time.
--- NOTE | 2017-03-15 17:34 | PN ---
Physical Exam: SUBJECTIVE: Patient seen and examined at bedside. Tmax of 100.9 F overnight. No cardiac event noted on monitor. OBJECTIVE: Vital Signs Period Temp Pulse Resp BP Sys/Tapia Pulse Ox Last 24 Hr 98.4 F-100.9 F 78-114 18-24 87-111/46-62 95-95 GENERAL: lethargic, arousable, less responsive and in mild to moderate pulmonary distress HEAD: AT, NC EYES: L eye barely opens, sluggish and deviated to the L ENT: NGT in place LUNGS: loud coarse rhonchi b/l HEART: distant heart sounds, S1 and S2, no rub ABDOMEN: +bs, soft, non-tender, no rebound, guarding EXTREMITIES: No peripheral edema NEURO: unable to perform due to patient's mental status. CBCD WBC 7.7 K/mm3 (4.0-10.0) 03/15/17 05:35 RBC 2.63 M/mm3 (4.00-5.60) L 03/15/17 05:35 Hgb 7.5 GM/dL (11.7-16.9) L 03/15/17 05:35 Hct 23.3 % (35.4-49) L 03/15/17 05:35 MCV 88.6 fl (80-96) 03/15/17 05:35 MCHC 32.0 g/dl (32.0-35.9) 03/15/17 05:35 RDW 16.3 % (11.9-15.9) H 03/15/17 05:35 Plt Count 87 K/MM3 (134-434) L 03/15/17 05:35 MPV 9.8 fl (7.5-11.1) 03/15/17 05:35 CMP Sodium 136 mmol/L (136-145) 03/15/17 05:35 Potassium 4.4 mmol/L (3.5-5.1) 03/15/17 05:35 Chloride 106 mmol/L (98-107) 03/15/17 05:35 Carbon Dioxide 18 mmol/L (21-32) L 03/15/17 05:35 Anion Gap 12 (8-16) 03/15/17 05:35 BUN 40 mg/dL (7-18) H 03/15/17 05:35 Creatinine 1.5 mg/dL (0.7-1.3) H 03/15/17 05:35 Creat Clearance w eGFR > 60 (>60) 03/10/17 06:20 Calcium 7.7 mg/dL (8.5-10.1) L 03/15/17 05:35 Total Bilirubin 0.7 mg/dL (0.2-1.0) 03/10/17 06:20 AST 17 U/L (15-37) 03/10/17 06:20 ALT 16 U/L (12-78) D 03/10/17 06:20 Alkaline Phosphatase 54 U/L (45-117) 03/10/17 06:20 Total Protein 5.1 g/dl (6.4-8.2) L 03/10/17 06:20 Albumin 1.9 g/dl (3.4-5.0) L 03/10/17 06:20 Active Medications Generic Name Dose Route Start Last Admin Trade Name Freq PRN Reason Stop Dose Admin Acetaminophen 650 mg 03/05/17 17:51 Tylenol - PO Q4H PRN PAIN Acetaminophen 650 mg 03/13/17 21:48 03/15/17 06:49 Tylenol Suppository - [place] 650 mg Q4H PRN Administration FEVER OR PAIN Acetylcysteine 200 mg 03/11/17 18:00 03/15/17 11:10 Mucomyst 20 Oral / Inh Use Only* NEB 200 mg QIDR JULIO Administration Albuterol Sulfate 1 amp 03/13/17 18:00 03/15/17 11:10 Ventolin 0.083% Nebulizer Soln - NEB 1 amp QIDR [facility]ULIO Administration Albuterol/Ipratropium 1 amp 03/12/17 17:45 03/13/17 11:10 Duoneb - NEB 1 amp Q6H PRN Administration SHORTNESS OF BREATH Amino Acids 30 ml 03/13/17 10:00 03/15/17 10:34 Prosource No Carb Liquid Pkt NGT 30 ml BID JULIO Administration Atorvastatin Calcium 10 mg 03/13/17 22:00 03/14/17 22:13 Lipitor - NGT 10 mg HS JULIO Administration Ferrous Sulfate 300 mg 03/13/17 10:00 03/15/17 10:34 Feosol GT 300 mg BID JULIO Administration Folic Acid 1 mg 03/13/17 08:50 03/15/17 10:34 Folic Acid - NGT 1 mg DAILY [facility]ULIO Administration Sodium Chloride 1,000 mls @ 75 mls/hr 03/14/17 00:15 03/15/17 00:18 Normal Saline - IV Not Given ASDIR JULIO Piperacillin Sod/Tazobactam Sod 100 mls @ 200 mls/hr 03/15/17 12:00 03/15/17 12 :11 Zosyn 4.5gm Ivpb (Pre-Docked) IVPB 200 mls/hr Q8H-IV JULIO Administration Protocol Rivaroxaban 20 mg 03/13/17 10:00 03/15/17 10:34 Xarelto - PO 20 mg DAILY [facility] Administration Scopolamine HBr 1 patch 03/15/17 13:45 03/15/17 15:39 Transderm-Scop - TD 1 patch Q72H JULIO Administration Imaging CXR on 03/14: NGT in place CXR on 03/12: LLL infiltrate vs. pleural effusion, persistent RUL infiltrate Barium Swallow on 03/09: spillage of contrast into airway CXR on 03/07: Imaging reveals no significant change from 03/06/2017 at 0913 hours. Again noted is mediastinal shift to the left with total opacification of the left hemithorax and left jugular port with tip at junction of SVC and right atrium. The right lung is clear. The right angle is sharp. CT head on 03/06: No acute pathology CXR on 03/05: Increased opacification of the left hemithorax - increased pleural effusion ASSESSMENT/PLAN: 72 yo M h/o colon cancer s/o colostomy, HTN, left lower ext arterial emboli admitted for PNA and CVA admitted to telemetry for new onset of R sided weakness and R facial droop. Pulm: aspiration PNA with complete L sided atelectasis - Septic appearing * frebile, tachypenic, lethargic * uc and bc negative so far - Cont. fluids - Cont. Chest PT and Mucomyst - Started on zosyn day 1 - Started scopolamine topical patch for excessive respiratory secretion HemOnc: Acute thrombocytopenia; Obstructive lung lesion; Rectal carcinoma - Stable - Cont. to monitor CBC - Biopsy deferred due to patient's mental and medical conditions Neuro: Acute onset of R sided weakness - Stable - Likely toxic metabolic encephalopathy - Cont. xarelto Renal: SHIVA - Cr cont. to trend up - Likely 2/2 hypotension - Cont. hydration and monitor Cr Endo: hyperthyroidism - Cont. methimazole FEN - IVF 75ml/hr - Cont. to monitor - Tube feed jevity Prophylaxis - DVT: on xarelto - GI: not indicated Disposition - Sister stated that family wants full code for now - [facility] from [facility] - Subacute rehab would not take the patient without PEG - May plan PEG when he's more stable Code status - Full code Visit type - Emergency Visit Emergency Visit: No - New Patient This patient is new to me today: No - Critical Care Critical Care patient: No
[2017-03-15] MEDS: ATORVASTATIN CA 10 MG TABLET (FP) NGT SCH (22:00)
[2017-03-16] MEDS: MULTIVIT INJ. ADULT COMBO WITH VIT K 1 COMBO 10 ML VIAL IV SCH (02:55)
[2017-03-16] MEDS: PIPERACILLIN/TAZOB 4.5 GM 100 ML IVPB SCH ×3 (03:55→18:32)
[2017-03-16] MEDS: ACETAMINOPHEN 650 MG SUPP.RECT PR PRN (04:00)
[2017-03-16] MEDS: ALBUTEROL SO4 0.083% IH SOL 2.5 MG/3 ML VIAL.NEB. NEB SCH ×5 (06:15→23:20)
[2017-03-16] MEDS: ACETYLCYSTEINE 20% 200MG/ML 4 ML VIAL *FOR ORAL / INH USE ONLY NEB SCH ×5 (06:15→23:20)
[2017-03-16 07:39] LABS: MCH 28.2 pg (25.7-33.7); MCHC 31.9 g/dl (32.0-35.9); MEAN CELL VOLUME 88.4 fl (80-96); MEAN PLT VOLUME 9.7 fl (7.5-11.1); PLATELET COUNT 99 K/MM3 (134-434); RDW 16.4 % (11.9-15.9); WHITE BLOOD COUNT 8.5 K/mm3 (4.0-10.0)
[2017-03-16 07:46] LABS: ARTERIAL BLD GAS O2 SATURATION 96.8 % (90-98.9); ARTERIAL BLOOD GAS BASE EXCESS -5.8 meq/l (-2-2); ARTERIAL BLOOD GAS pH 7.45 (7.35-7.45)
[2017-03-16 07:49] LABS: ALLENS TEST POSITIVE; ART PUNCT SITE LEFT RADIAL; LPM/O2% 40; PT. ON O2? YES
[2017-03-16 07:50] LABS: VENT RATE 12
[2017-03-16 07:54] LABS: ARTERIAL BLOOD GAS HCO3 16.8 meq/L (22-26)
[2017-03-16 08:31] LABS: CALCIUM 8.1 mg/dL (8.5-10.1); COCKROFT - GAULT 35.91; CREATININE 1.8 mg/dL (0.7-1.3)
[2017-03-16] MEDS: FERROUS SO4 300 MG/5 ML ORAL SOLN UNIT DOSE CUPS GT SCH (10:28)
[2017-03-16] MEDS: FOLIC ACID 1 MG TABLET (FP) NGT SCH (10:29)
[2017-03-16] MEDS: RIVAROXABAN 20 MG TABLET PO SCH (10:29)
[2017-03-16] MEDS: AMINO ACIDS/PROTEIN HYDROLYS 30 ML LIQUID.PKT NGT SCH (10:29)
--- NOTE | 2017-03-16 10:58 | PN ---
Teaching Attending Note Name of Resident: Keenan Onofre ATTENDING PHYSICIAN STATEMENT I saw and evaluated the patient. I reviewed the resident's note and discussed the case with the resident. I agree with the resident's findings and plan as documented. SUBJECTIVE: Patient on BiPAP. OBJECTIVE: Vital Signs Period Temp Pulse Resp BP Sys/Tapia Pulse Ox Last 24 Hr 98.4 F-101.6 F 94-106 20-22 87-102/47-61 97 HEART: S1 S2, irregular LUNGS: Bilateral rhonchi ABDOMEN: Soft, non-distended, normal BS EXTREMITIES: No edema, s/p left BKA ASSESSMENT AND PLAN: This is a 72-year-old man with a history of HTN, colon cancer, colostomy, LLE arterial emboli, left BKA, left lung mass, CVA presented to the ER from [facility] with worse right sided facial droop, right sided weakness, hypoxia and hypotension. 1. Right hemiparesis, right facial weakness, dysarthria secondary to recent CVA - Continue Lipitor - Continue PT, speech therapy 2. Sepsis secondary to aspiration pneumonia - Zosyn restarted - Continue Mucomyst, Albuterol, DuoNeb as needed - Continue chest PT 3. Paroxysmal atrial fibrillation - Currently in sinus rhythm with PACs - Continue Xarelto 4. Acute kidney injury likely secondary to dehydration/hypovolemia - Continue IV fluid 5. Acute hypoxic respiratory failure - Continue oxygen, BiPAP as needed, Mucomyst, DuoNeb as needed - Continue chest PT 6. Thrombocytopenia - Stable 7. Hyperthyroidism - Tapazole held 8. Hypocalcemia - Corrected calcium is 9.8 9. Hypophosphatemia - Improved 10. Hypomagnesemia - Improved 11. Acute metabolic encephalopathy secondary to sepsis 12. Left lung mass - Has not been stable for biopsy 13. HTN - Meds held secondary to hypotension 14. PAD, history of LLE arterial emboli, left BKA - Continue Xarelto 15. Hyperkalemia - Improved 16. COPD - Stable 17. Anemia secondary to chronic illness - Continue ferrous sulfate, folic acid - Continue to monitor hemoglobin 18. History of colon cancer, colostomy 19. Protein malnutrition with weight loss, hypoproteinemia and hypoalbuminemia - Continue Prosource
--- NOTE | 2017-03-16 11:13 | PN ---
Progress Note, Physician History of Present Illness: PULMONARY EVENTS NOTED DEVELOPED INCREASED RESP DISTRESS,PLACED ON BIPAP. PT CURRENTLY AWAKE ON BIPAP MILDLY TACHYPNEIC.PT REMAINS FEBRILE T 101.3 - Current Medication List Current Medications: Active Medications Acetaminophen (Tylenol -) 650 mg PO Q4H PRN PRN Reason: PAIN Acetaminophen (Tylenol Suppository -) 650 mg SD Q4H PRN PRN Reason: FEVER OR PAIN Last Admin: 03/16/17 04:00 Dose: 650 mg Acetylcysteine (Mucomyst 20 Oral / Inh Use Only*) 200 mg NEB QIDR JULIO Last Admin: 03/16/17 06:15 Dose: 200 mg Albuterol Sulfate (Ventolin 0.083% Nebulizer Soln -) 1 amp NEB QIDR JULIO Last Admin: 03/16/17 06:15 Dose: 1 amp Albuterol/Ipratropium (Duoneb -) 1 amp NEB Q6H PRN PRN Reason: SHORTNESS OF BREATH Last Admin: 03/13/17 11:10 Dose: 1 amp Amino Acids (Prosource No Carb Liquid Pkt) 30 ml NGT BID [facility] Last Admin: 03/16/17 10:29 Dose: Not Given Atorvastatin Calcium (Lipitor -) 10 mg NGT HS [facility] Last Admin: 03/15/17 22:00 Dose: 10 mg Ferrous Sulfate (Feosol) 300 mg GT BID [facility] Last Admin: 03/16/17 10:28 Dose: Not Given Folic Acid (Folic Acid -) 1 mg NGT DAILY [facility] Last Admin: 03/16/17 10:29 Dose: Not Given Sodium Chloride (Normal Saline -) 1,000 mls @ 75 mls/hr IV ASDIR [facility] Last Admin: 03/15/17 00:18 Dose: Not Given Piperacillin Sod/Tazobactam Sod (Zosyn 4.5gm Ivpb (Pre-Docked)) 100 mls @ 200 mls/hr IVPB Q8H-IV JULIO PRN Reason: Protocol Last Admin: 03/16/17 10:30 Dose: 200 mls/hr Rivaroxaban (Xarelto -) 20 mg PO DAILY [facility] Last Admin: 03/16/17 10:29 Dose: Not Given Scopolamine HBr (Transderm-Scop -) 1 patch TD Q72H [facility] Last Admin: 03/15/17 15:39 Dose: 1 patch - Objective Vital Signs: Vital Signs Temperature 101.3 F H 03/16/17 06:12 Pulse Rate 103 H 03/16/17 06:12 Respiratory Rate 22 03/16/17 06:12 Blood Pressure 98/47 03/16/17 06:12 O2 Sat by Pulse Oximetry (%) 97 03/16/17 10:35 Constitutional: Yes: Mild Distress, Thin Eyes: Yes: WNL HENT: Yes: WNL Neck: Yes: WNL Cardiovascular: Yes: Pulse Irregular, S1, S2 Respiratory: Yes: Rhonchi (NARCISA RHONCHI) Gastrointestinal: Yes: Normal Bowel Sounds, Soft Extremities: Yes: Amputation (LEFT AKA) Edema: No Labs: CBC, BMP 03/16/17 05:40 03/16/17 05:40 INR, PTT INR 1.33 (0.82-1.09) H 03/09/17 09:00 Laboratory Tests 03/16/17 07:25 ABG pH 7.45 ABG pCO2 at Pt Temp 24.8 L ABG pO2 at Pt Temp 84.0 D ABG HCO3 16.8 L ABG O2 Sat (Measured) 96.8 O2 Delivery Device Bipap 10/5 Oxygen Flow Rate 40 Vent Rate 12 Assessment/Plan A/P Acute CVA Pneumonia L lung Atelectasis no change s/p Severe Sepsis Acute Kidney Injury Lung Mass likely malignant PAD Afib Thrombocytopenia Fever likely aspiration - continue IVF - monitor urine output, creatinine - aspiration precautions - BiPAP as needed to assist in work of breathing - chest PT - continue mucomyst with albuterol QID - anticoagulation - monitor H/H - f/u chest x-ray today - conservative management at this time secondary multiple co-morbidities - antibiotics as per ID DR GOMEZ
--- NOTE | 2017-03-16 14:05 | PN ---
Physical Exam: SUBJECTIVE: Patient seen and examined at bedside. Tmax of 101.6 F overnight and required BiPAP in the AM. NSR with PACs noted on vehicle monitor technician. OBJECTIVE: BiPAP settings: I 10, E 5, RR 12, FiO2 40% Vital Signs Period Temp Pulse Resp BP Sys/Tapia Pulse Ox Last 24 Hr 98.4 F-101.6 F 94-106 20-24 87-102/47-61 96-98 GENERAL: lethargic, less responsive and in moderate pulmonary distress HEAD: AT, NC EYES: both barely opens, sluggish and eyes rolled backwards LUNGS: loud coarse rhonchi b/l HEART: distant heart sounds, S1 and S2, no rub ABDOMEN: +bs, soft, non-tender, no rebound, guarding EXTREMITIES: No peripheral edema NEURO: unable to perform due to patient's mental status. ABG Results ABG pH 7.45 (7.35-7.45) 03/16/17 07:25 ABG pCO2 at Pt Temp 24.8 mmHg (35-45) L 03/16/17 07:25 ABG pO2 at Pt Temp 84.0 mmHg (70-100) D 03/16/17 07:25 ABG HCO3 16.8 meq/L (22-26) L 03/16/17 07:25 ABG O2 Sat (Measured) 96.8 % (90-98.9) 03/16/17 07:25 ABG O2 Content 13.2 % vol (15-22) L 03/16/17 07:25 ABG Base Excess -5.8 meq/l (-2-2) L 03/16/17 07:25 CBCD WBC 8.5 K/mm3 (4.0-10.0) 03/16/17 05:40 RBC 2.55 M/mm3 (4.00-5.60) L 03/16/17 05:40 Hgb 7.2 GM/dL (11.7-16.9) L 03/16/17 05:40 Hct 22.6 % (35.4-49) L 03/16/17 05:40 MCV 88.4 fl (80-96) 03/16/17 05:40 MCHC 31.9 g/dl (32.0-35.9) L 03/16/17 05:40 RDW 16.4 % (11.9-15.9) H 03/16/17 05:40 Plt Count 99 K/MM3 (134-434) L 03/16/17 05:40 MPV 9.7 fl (7.5-11.1) 03/16/17 05:40 CMP Sodium 137 mmol/L (136-145) 03/16/17 05:40 Potassium 4.9 mmol/L (3.5-5.1) 03/16/17 05:40 Chloride 107 mmol/L (98-107) 03/16/17 05:40 Carbon Dioxide 18 mmol/L (21-32) L 03/16/17 05:40 Anion Gap 12 (8-16) 03/16/17 05:40 BUN 40 mg/dL (7-18) H 03/16/17 05:40 Creatinine 1.8 mg/dL (0.7-1.3) H 03/16/17 05:40 Creat Clearance w eGFR > 60 (>60) 03/10/17 06:20 Calcium 8.1 mg/dL (8.5-10.1) L 03/16/17 05:40 Total Bilirubin 0.7 mg/dL (0.2-1.0) 03/10/17 06:20 AST 17 U/L (15-37) 03/10/17 06:20 ALT 16 U/L (12-78) D 03/10/17 06:20 Alkaline Phosphatase 54 U/L (45-117) 03/10/17 06:20 Total Protein 5.1 g/dl (6.4-8.2) L 03/10/17 06:20 Albumin 1.9 g/dl (3.4-5.0) L 03/10/17 06:20 Active Medications Generic Name Dose Route Start Last Admin Trade Name Freq PRN Reason Stop Dose Admin Acetaminophen 650 mg 03/05/17 17:51 Tylenol - PO Q4H PRN PAIN Acetaminophen 650 mg 03/13/17 21:48 03/16/17 04:00 Tylenol Suppository - [place] 650 mg Q4H PRN Administration FEVER OR PAIN Acetylcysteine 200 mg 03/11/17 18:00 03/16/17 11:15 Mucomyst 20 Oral / Inh Use Only* NEB 200 mg QIDR JULIO Administration Albuterol Sulfate 1 amp 03/13/17 18:00 03/16/17 11:15 Ventolin 0.083% Nebulizer Soln - NEB 1 amp QIDR JULIO Administration Albuterol/Ipratropium 1 amp 03/12/17 17:45 03/13/17 11:10 Duoneb - NEB 1 amp Q6H PRN Administration SHORTNESS OF BREATH Amino Acids 30 ml 03/13/17 10:00 03/16/17 10:29 Prosource No Carb Liquid Pkt NGT Not Given BID JULIO Atorvastatin Calcium 10 mg 03/13/17 22:00 03/15/17 22:00 Lipitor - NGT 10 mg HS JULIO Administration Ferrous Sulfate 300 mg 03/13/17 10:00 03/16/17 10:28 Feosol GT Not Given BID JULIO Folic Acid 1 mg 03/13/17 08:50 03/16/17 10:29 Folic Acid - NGT Not Given DAILY JULIO Sodium Chloride 1,000 mls @ 75 mls/hr 03/14/17 00:15 03/15/17 00:18 Normal Saline - IV Not Given ASDIR JULIO Piperacillin Sod/Tazobactam Sod 100 mls @ 200 mls/hr 03/15/17 12:00 03/16/17 10 :30 Zosyn 4.5gm Ivpb (Pre-Docked) IVPB 200 mls/hr Q8H-IV JULIO Administration Protocol Rivaroxaban 20 mg 03/13/17 10:00 03/16/17 10:29 Xarelto - PO Not Given DAILY JULIO Scopolamine HBr 1 patch 03/15/17 13:45 03/15/17 15:39 Transderm-Scop - TD 1 patch Q72H JULIO Administration Imaging CXR on 03/16: complete opacified L lung with mediastinal shift to the L CXR on 03/14: NGT in place CXR on 03/12: LLL infiltrate vs. pleural effusion, persistent RUL infiltrate Barium Swallow on 03/09: spillage of contrast into airway CXR on 03/07: Imaging reveals no significant change from 03/06/2017 at 0913 hours. Again noted is mediastinal shift to the left with total opacification of the left hemithorax and left jugular port with tip at junction of SVC and right atrium. The right lung is clear. The right angle is sharp. CT head on 03/06: No acute pathology CXR on 03/05: Increased opacification of the left hemithorax - increased pleural effusion ASSESSMENT/PLAN: 72 yo M h/o colon cancer s/o colostomy, HTN, left lower ext arterial emboli admitted for PNA and CVA admitted to telemetry for new onset of R sided weakness and R facial droop. Pulm: aspiration PNA with complete L sided atelectasis - Cont. to be septic appearing * frebile, tachypenic, lethargic * uc and bc negative so far - Cont. fluids - Cont. Chest PT and Mucomyst - Started on zosyn day 2 - On scopolamine topical patch for excessive respiratory secretion Renal: SHIVA - Worsening Cr - Likely 2/2 hypotension - Cont. hydration and monitor Cr HemOnc: Acute thrombocytopenia; Obstructive lung lesion; Rectal carcinoma - Stable - Cont. to monitor CBC - Biopsy deferred due to patient's mental and medical conditions Neuro: Acute onset of R sided weakness - Stable - Likely toxic metabolic encephalopathy - Cont. xarelto Endo: hyperthyroidism - Cont. methimazole FEN - IVF 75ml/hr - Cont. to monitor - NPO, on clinimix Prophylaxis - DVT: xarelto held due to NPO on BiPAP, on heparin gtt - GI: not indicated Disposition - Sister stated that family wants full code for now - Placement rejected from long-term care facility - Subacute rehab would not take the patient without PEG - May plan PEG when he's more stable - Cont. palliative care and discuss goal of care with family Code status - Full code Visit type - Emergency Visit Emergency Visit: No - New Patient This patient is new to me today: No - Critical Care Critical Care patient: No
--- NOTE | 2017-03-16 14:31 | PN ---
Progress Note, Physician History of Present Illness: Awake, not conversant Tachypneic at rest on bipap Febrile Blood c/s no growth - Current Medication List Current Medications: Active Medications Acetaminophen (Tylenol -) 650 mg PO Q4H PRN PRN Reason: PAIN Acetaminophen (Tylenol Suppository -) 650 mg [place] Q4H PRN PRN Reason: FEVER OR PAIN Last Admin: 03/16/17 04:00 Dose: 650 mg Acetylcysteine (Mucomyst 20 Oral / Inh Use Only*) 200 mg NEB QIDR JULIO Last Admin: 03/16/17 11:15 Dose: 200 mg Albuterol Sulfate (Ventolin 0.083% Nebulizer Soln -) 1 amp NEB QIDR JULIO Last Admin: 03/16/17 11:15 Dose: 1 amp Albuterol/Ipratropium (Duoneb -) 1 amp NEB Q6H PRN PRN Reason: SHORTNESS OF BREATH Last Admin: 03/13/17 11:10 Dose: 1 amp Amino Acids (Prosource No Carb Liquid Pkt) 30 ml NGT BID [facility] Last Admin: 03/16/17 10:29 Dose: Not Given Atorvastatin Calcium (Lipitor -) 10 mg NGT HS [facility] Last Admin: 03/15/17 22:00 Dose: 10 mg Ferrous Sulfate (Feosol) 300 mg GT BID [facility] Last Admin: 03/16/17 10:28 Dose: Not Given Folic Acid (Folic Acid -) 1 mg NGT DAILY [facility] Last Admin: 03/16/17 10:29 Dose: Not Given Sodium Chloride (Normal Saline -) 1,000 mls @ 75 mls/hr IV ASDIR [facility] Last Admin: 03/15/17 00:18 Dose: Not Given Piperacillin Sod/Tazobactam Sod (Zosyn 4.5gm Ivpb (Pre-Docked)) 100 mls @ 200 mls/hr IVPB Q8H-IV JULIO PRN Reason: Protocol Last Admin: 03/16/17 10:30 Dose: 200 mls/hr Rivaroxaban (Xarelto -) 20 mg PO DAILY [facility] Last Admin: 03/16/17 10:29 Dose: Not Given Scopolamine HBr (Transderm-Scop -) 1 patch TD Q72H [facility] Last Admin: 03/15/17 15:39 Dose: 1 patch - Objective Vital Signs: Vital Signs Temperature 101.1 F H 03/16/17 10:00 Pulse Rate 102 H 03/16/17 10:00 Respiratory Rate 24 03/16/17 10:00 Blood Pressure 95/54 03/16/17 10:00 O2 Sat by Pulse Oximetry (%) 96 03/16/17 13:26 Constitutional: Yes: No Distress Eyes: Yes: Conjunctiva Clear Cardiovascular: Yes: Regular Rate and Rhythm, S1, S2 Respiratory: Yes: Diminished Gastrointestinal: Yes: Normal Bowel Sounds, Soft. No: Tenderness Labs: CBC, BMP 03/16/17 05:40 03/16/17 05:40 INR, PTT INR 1.33 (0.82-1.09) H 03/09/17 09:00 Assessment/Plan L Lung mass, possible malignancy Opacified L hemithorax Post obstructive pneumonia S/P CVA Azotemia Thrombocytopenia Continue empiric Zosyn Prognosis guarded
[2017-03-16] MEDS ORDERED: HEPARIN NA (PORCINE) 5,000 UNITS/ML 1ML VIAL IVPUSH PRN (17:12)
[2017-03-16] MEDS ORDERED: AMINO ACIDS 4.25%/D5W 1,000 ML IV SCH (17:15)
[2017-03-16] MEDS ORDERED: MULTIVIT INJECTION ADULT 10 ML in AMINO ACIDS 4.25%/D5W 1,000 ML IV SCH (18:00)
[2017-03-16] MEDS: HEPARIN - 25,000 UNIT in SODIUM CHLORIDE 495 ML IV SCH (18:31)
[2017-03-16] MEDS ORDERED: FAT EMULSIONS 20% 250 ML PREMIX INFUS.BAG IV SCH (22:00)
[2017-03-16] MEDS: SODIUM CHLORIDE 1,000 ML IV SCH (23:55)
[2017-03-16] MEDS: FAT EMULSIONS 250 ML IV SCH (23:55)
[2017-03-16] MEDS: AMINO ACIDS 4.25%/D5W 1,000 ML IV SCH (23:55)
[2017-03-17] MEDS: PIPERACILLIN/TAZOB 4.5 GM 100 ML IVPB SCH ×3 (02:53→18:00)
[2017-03-17] MEDS: FERROUS SO4 300 MG/5 ML ORAL SOLN UNIT DOSE CUPS GT SCH ×3 (02:57→21:24)
[2017-03-17] MEDS: ATORVASTATIN CA 10 MG TABLET (FP) NGT SCH ×2 (02:58→21:24)
[2017-03-17] MEDS: AMINO ACIDS/PROTEIN HYDROLYS 30 ML LIQUID.PKT NGT SCH ×3 (02:59→21:25)
[2017-03-17] MEDS: HEPARIN NA (PORCINE) 5,000 UNITS/ML 1ML VIAL IVPUSH PRN ×3 (03:14→21:36)
[2017-03-17] MEDS: ACETYLCYSTEINE 20% 200MG/ML 4 ML VIAL *FOR ORAL / INH USE ONLY NEB SCH ×3 (06:30→17:48)
[2017-03-17] MEDS: ALBUTEROL SO4 0.083% IH SOL 2.5 MG/3 ML VIAL.NEB. NEB SCH ×3 (06:30→17:48)
[2017-03-17 08:57] LABS: MCH 32.4 pg (25.7-33.7); MCHC 35.8 g/dl (32.0-35.9); MEAN CELL VOLUME 90.7 fl (80-96); MEAN PLT VOLUME 9.6 fl (7.5-11.1); PLATELET COUNT 108 K/MM3 (134-434); RDW 16.5 % (11.9-15.9); WHITE BLOOD COUNT 6.7 K/mm3 (4.0-10.0)
[2017-03-17] MEDS: FOLIC ACID 1 MG TABLET (FP) NGT SCH (09:05)
[2017-03-17 09:22] LABS: ACTIVATED PTT 35.1 SECONDS (26.9-34.4)
[2017-03-17 09:34] LABS: INR 1.43 (0.82-1.09); PROTHROMBIN TIME (PATIENT) 15.8 SEC (9.98-11.88)
[2017-03-17 10:08] LABS: COCKROFT - GAULT 34.02; CREATININE 1.9 mg/dL (0.7-1.3); MAGNESIUM 1.9 mg/dL (1.8-2.4); PHOSPHOROUS 2.6 mg/dL (2.5-4.9)
--- NOTE | 2017-03-17 11:35 | PN ---
Progress Note, Physician History of Present Illness: Labored breathing on bipap mask Aphasic Low grade temp WBC WNL; plt counts improved Worsening azotemia - Current Medication List Current Medications: Active Medications Acetaminophen (Tylenol -) 650 mg PO Q4H PRN PRN Reason: PAIN Acetaminophen (Tylenol Suppository -) 650 mg DC Q4H PRN PRN Reason: FEVER OR PAIN Last Admin: 03/16/17 04:00 Dose: 650 mg Acetylcysteine (Mucomyst 20 Oral / Inh Use Only*) 200 mg NEB QIDR JULIO Last Admin: 03/17/17 06:30 Dose: 200 mg Albuterol Sulfate (Ventolin 0.083% Nebulizer Soln -) 1 amp NEB QIDR JULIO Last Admin: 03/17/17 06:30 Dose: 1 amp Albuterol/Ipratropium (Duoneb -) 1 amp NEB Q6H PRN PRN Reason: SHORTNESS OF BREATH Last Admin: 03/13/17 11:10 Dose: 1 amp Amino Acids (Prosource No Carb Liquid Pkt) 30 ml NGT BID [facility] Last Admin: 03/17/17 09:05 Dose: 30 ml Atorvastatin Calcium (Lipitor -) 10 mg NGT HS [facility] Last Admin: 03/17/17 02:58 Dose: Not Given Ferrous Sulfate (Feosol) 300 mg GT BID [facility] Last Admin: 03/17/17 09:05 Dose: Not Given Folic Acid (Folic Acid -) 1 mg NGT DAILY [facility] Last Admin: 03/17/17 09:05 Dose: Not Given Heparin Sodium (Porcine) (Heparin -) 1,000 unit IVPUSH PRN PRN PRN Reason: Heparin Heparin Sodium (Porcine) (Heparin -) 5,000 unit IVPUSH PRN PRN PRN Reason: Heparin Last Admin: 03/17/17 03:14 Dose: 5,000 unit Sodium Chloride (Normal Saline -) 1,000 mls @ 75 mls/hr IV ASDIR JULIO Last Admin: 03/16/17 23:55 Dose: Not Given Piperacillin Sod/Tazobactam Sod (Zosyn 4.5gm Ivpb (Pre-Docked)) 100 mls @ 200 mls/hr IVPB Q8H-IV JULIO PRN Reason: Protocol Last Admin: 03/17/17 09:04 Dose: 200 mls/hr Heparin Sodium (Porcine) 25, (000 unit/ Sodium Chloride) 500 mls @ 16 mls/hr IV TITR JULIO; 800 UNIT/HR PRN Reason: Protocol Last Titration: 03/17/17 03:14 Dose: 950 unit/hr Fat Emulsion Intravenous (Intralipid -) 250 mls @ 20.833 mls/hr IV DAILY@2200 [facility] Last Admin: 03/16/17 23:55 Dose: 20.833 mls/hr Amino Acids (Clinimix -) 1,000 mls @ 84 mls/hr IV Q12H [facility] Last Admin: 03/16/17 23:55 Dose: 84 mls/hr Multivitamins/Minerals (Infuvite Adult -) 10 ml IV DAILY@2200 [facility] Last Admin: 03/16/17 02:55 Dose: 10 ml Rivaroxaban (Xarelto -) 20 mg PO DAILY [facility] Last Admin: 03/16/17 10:29 Dose: Not Given Scopolamine HBr (Transderm-Scop -) 1 patch TD Q72H [facility] Last Admin: 03/15/17 15:39 Dose: 1 patch - Objective Vital Signs: Vital Signs Temperature 98.9 F 03/17/17 10:00 Pulse Rate 81 03/17/17 10:47 Respiratory Rate 22 03/17/17 10:00 Blood Pressure 91/54 03/17/17 10:00 O2 Sat by Pulse Oximetry (%) 96 03/17/17 10:47 Constitutional: Yes: No Distress Eyes: Yes: Conjunctiva Clear Cardiovascular: Yes: Regular Rate and Rhythm, S1, S2 Respiratory: Yes: CTA Bilaterally, Diminished Gastrointestinal: Yes: Soft. No: Tenderness Edema: No Labs: CBC, BMP 03/17/17 08:50 INR, PTT INR 1.43 (0.82-1.09) H 03/17/17 08:50 Assessment/Plan L Lung mass, possible malignancy Opacified L hemithorax Post obstructive pneumonia S/P CVA Azotemia - worsened Thrombocytopenia - improved Continue empiric Zosyn Prognosis guarded
--- NOTE | 2017-03-17 11:57 | PN ---
Progress Note, Physician History of Present Illness: PULMONARY LETHARGIC ON BIPAP,DYSPNEIC - Current Medication List Current Medications: Active Medications Acetaminophen (Tylenol -) 650 mg PO Q4H PRN PRN Reason: PAIN Acetaminophen (Tylenol Suppository -) 650 mg [place] Q4H PRN PRN Reason: FEVER OR PAIN Last Admin: 03/16/17 04:00 Dose: 650 mg Acetylcysteine (Mucomyst 20 Oral / Inh Use Only*) 200 mg NEB QIDR JULIO Last Admin: 03/17/17 06:30 Dose: 200 mg Albuterol Sulfate (Ventolin 0.083% Nebulizer Soln -) 1 amp NEB QIDR JULIO Last Admin: 03/17/17 06:30 Dose: 1 amp Albuterol/Ipratropium (Duoneb -) 1 amp NEB Q6H PRN PRN Reason: SHORTNESS OF BREATH Last Admin: 03/13/17 11:10 Dose: 1 amp Amino Acids (Prosource No Carb Liquid Pkt) 30 ml NGT BID JULIO Last Admin: 03/17/17 09:05 Dose: 30 ml Atorvastatin Calcium (Lipitor -) 10 mg NGT HS [facility] Last Admin: 03/17/17 02:58 Dose: Not Given Ferrous Sulfate (Feosol) 300 mg GT BID JULIO Last Admin: 03/17/17 09:05 Dose: Not Given Folic Acid (Folic Acid -) 1 mg NGT DAILY [facility] Last Admin: 03/17/17 09:05 Dose: Not Given Heparin Sodium (Porcine) (Heparin -) 1,000 unit IVPUSH PRN PRN PRN Reason: Heparin Heparin Sodium (Porcine) (Heparin -) 5,000 unit IVPUSH PRN PRN PRN Reason: Heparin Last Admin: 03/17/17 03:14 Dose: 5,000 unit Sodium Chloride (Normal Saline -) 1,000 mls @ 75 mls/hr IV ASDIR JULIO Last Admin: 03/16/17 23:55 Dose: Not Given Piperacillin Sod/Tazobactam Sod (Zosyn 4.5gm Ivpb (Pre-Docked)) 100 mls @ 200 mls/hr IVPB Q8H-IV JULIO PRN Reason: Protocol Last Admin: 03/17/17 09:04 Dose: 200 mls/hr Heparin Sodium (Porcine) 25, (000 unit/ Sodium Chloride) 500 mls @ 16 mls/hr IV TITR JULIO; 800 UNIT/HR PRN Reason: Protocol Last Titration: 03/17/17 03:14 Dose: 950 unit/hr Fat Emulsion Intravenous (Intralipid -) 250 mls @ 20.833 mls/hr IV DAILY@2200 [facility] Last Admin: 03/16/17 23:55 Dose: 20.833 mls/hr Amino Acids (Clinimix -) 1,000 mls @ 84 mls/hr IV Q12H [facility] Last Admin: 03/16/17 23:55 Dose: 84 mls/hr Multivitamins/Minerals (Infuvite Adult -) 10 ml IV DAILY@2200 [facility] Last Admin: 03/16/17 02:55 Dose: 10 ml Rivaroxaban (Xarelto -) 20 mg PO DAILY [facility] Last Admin: 03/16/17 10:29 Dose: Not Given Scopolamine HBr (Transderm-Scop -) 1 patch TD Q72H [facility] Last Admin: 03/15/17 15:39 Dose: 1 patch - Objective Vital Signs: Vital Signs Temperature 98.9 F 03/17/17 10:00 Pulse Rate 81 03/17/17 10:47 Respiratory Rate 22 03/17/17 10:00 Blood Pressure 91/54 03/17/17 10:00 O2 Sat by Pulse Oximetry (%) 96 03/17/17 10:47 Constitutional: Yes: Mild Distress, Other (LETHARGIC) Eyes: Yes: WNL HENT: Yes: WNL Neck: Yes: WNL Cardiovascular: Yes: Pulse Irregular, S1, S2 Respiratory: Yes: Rhonchi (SCATTERED RHONCHI AND WHEEZES), Wheezes Gastrointestinal: Yes: Normal Bowel Sounds, Soft Extremities: Yes: Amputation (LEFT AKA) Edema: No Labs: CBC, BMP 03/17/17 08:50 INR, PTT INR 1.43 (0.82-1.09) H 03/17/17 08:50 Assessment/Plan A/P Acute CVA Pneumonia L lung Atelectasis no change s/p Severe Sepsis Acute Kidney Injury worsenung Lung Mass likely malignant PAD Afib Thrombocytopenia Fever likely aspiration ANEMIA - continue IVF - monitor urine output, creatinine - aspiration precautions - BiPAP as needed to assist in work of breathing - chest PT - continue mucomyst with albuterol QID - anticoagulation - monitor H/H - f/u chest x-ray today - conservative management at this time secondary multiple co-morbidities - antibiotics as per ID - transfuse DR GOMEZ
[2017-03-17 12:19] LABS: CALCIUM 6.7 mg/dL (8.5-10.1)
[2017-03-17 12:40] LABS: ARTERIAL BLD GAS O2 SATURATION 98.3 % (90-98.9); ARTERIAL BLOOD GAS BASE EXCESS -7.6 meq/l (-2-2); ARTERIAL BLOOD GAS HCO3 15.8 meq/L (22-26)
[2017-03-17 12:42] LABS: ALLENS TEST POSITIVE; ART PUNCT SITE RIGHT RADIAL; LPM/O2% 30; PT. ON O2? YES
[2017-03-17 12:43] LABS: ARTERIAL BLOOD GAS pH 7.42 (7.35-7.45)
[2017-03-17] MEDS: AMINO ACIDS 4.25%/D5W 1,000 ML IV SCH ×2 (12:44→21:37)
--- NOTE | 2017-03-17 13:51 | PN ---
Physical Exam: SUBJECTIVE: Tmax of 100.8 F overnight and no acute event on nurse monitoring. OBJECTIVE: BiPAP settings: I 10, E 5, RR 12, FiO2 30% Vital Signs Period Temp Pulse Resp BP Sys/Tapia Pulse Ox Last 24 Hr 98.2 F-100.8 F 81-119 20-24 82-111/41-78 96-97 GENERAL: awake, alert, on BiPAP, more responsive and in mild pulmonary distress HEAD: AT, NC EYES: pupil equal and reactive to light b/l LUNGS: coarse rhonchi b/l HEART: distant heart sounds, S1 and S2, no rub ABDOMEN: +bs, soft, non-tender, no rebound, guarding EXTREMITIES: No peripheral edema NEURO: unable to perform due to patient's mental status. CBCD WBC 6.7 K/mm3 (4.0-10.0) 03/17/17 08:50 RBC 2.31 M/mm3 (4.00-5.60) L 03/17/17 08:50 Hgb 7.5 GM/dL (11.7-16.9) L 03/17/17 08:50 Hct 20.9 % (35.4-49) L 03/17/17 08:50 MCV 90.7 fl (80-96) 03/17/17 08:50 MCHC 35.8 g/dl (32.0-35.9) 03/17/17 08:50 RDW 16.5 % (11.9-15.9) H 03/17/17 08:50 Plt Count 108 K/MM3 (134-434) L 03/17/17 08:50 MPV 9.6 fl (7.5-11.1) 03/17/17 08:50 CMP Sodium 131 mmol/L (136-145) L 03/17/17 08:50 Potassium 4.1 mmol/L (3.5-5.1) 03/17/17 08:50 Chloride 101 mmol/L (98-107) 03/17/17 08:50 Carbon Dioxide 15 mmol/L (21-32) L 03/17/17 08:50 Anion Gap 15 (8-16) 03/17/17 08:50 BUN 38 mg/dL (7-18) H 03/17/17 08:50 Creatinine 1.9 mg/dL (0.7-1.3) H 03/17/17 08:50 Creat Clearance w eGFR > 60 (>60) 03/10/17 06:20 Calcium 6.7 mg/dL (8.5-10.1) L* 03/17/17 08:50 Total Bilirubin 0.7 mg/dL (0.2-1.0) 03/10/17 06:20 AST 17 U/L (15-37) 03/10/17 06:20 ALT 16 U/L (12-78) D 03/10/17 06:20 Alkaline Phosphatase 54 U/L (45-117) 03/10/17 06:20 Total Protein 5.1 g/dl (6.4-8.2) L 03/10/17 06:20 Albumin 1.9 g/dl (3.4-5.0) L 03/10/17 06:20 ABG Results ABG pH 7.42 (7.35-7.45) 03/17/17 12:35 ABG pCO2 at Pt Temp 25.0 mmHg (35-45) L 03/17/17 12:35 ABG pO2 at Pt Temp 106.0 mmHg (70-100) H D 03/17/17 12:35 ABG HCO3 15.8 meq/L (22-26) L 03/17/17 12:35 ABG O2 Sat (Measured) 98.3 % (90-98.9) 03/17/17 12:35 ABG O2 Content 9.2 % vol (15-22) L* 03/17/17 12:35 ABG Base Excess -7.6 meq/l (-2-2) L 03/17/17 12:35 Active Medications Generic Name Dose Route Start Last Admin Trade Name Freq PRN Reason Stop Dose Admin Acetaminophen 650 mg 03/05/17 17:51 Tylenol - PO Q4H PRN PAIN Acetaminophen 650 mg 03/13/17 21:48 03/16/17 04:00 Tylenol Suppository - [place] 650 mg Q4H PRN Administration FEVER OR PAIN Acetylcysteine 200 mg 03/11/17 18:00 03/17/17 12:03 Mucomyst 20 Oral / Inh Use Only* NEB 200 mg QIDR JULIO Administration Albuterol Sulfate 1 amp 03/13/17 18:00 03/17/17 12:04 Ventolin 0.083% Nebulizer Soln - NEB 1 amp QIDR JULIO Administration Albuterol/Ipratropium 1 amp 03/12/17 17:45 03/13/17 11:10 Duoneb - NEB 1 amp Q6H PRN Administration SHORTNESS OF BREATH Amino Acids 30 ml 03/13/17 10:00 03/17/17 09:05 Prosource No Carb Liquid Pkt NGT 30 ml BID JULIO Administration Atorvastatin Calcium 10 mg 03/13/17 22:00 03/17/17 02:58 Lipitor - NGT Not Given HS JULIO Ferrous Sulfate 300 mg 03/13/17 10:00 03/17/17 09:05 Feosol GT Not Given BID JULIO Folic Acid 1 mg 03/13/17 08:50 03/17/17 09:05 Folic Acid - NGT Not Given DAILY JULIO Heparin Sodium (Porcine) 1,000 unit 03/16/17 17:12 Heparin - IVPUSH PRN PRN Heparin Heparin Sodium (Porcine) 5,000 unit 03/16/17 17:12 03/17/17 12:45 Heparin - IVPUSH 5,000 unit PRN PRN Administration Heparin Sodium Chloride 1,000 mls @ 75 mls/hr 03/14/17 00:15 03/16/17 23:55 Normal Saline - IV Not Given ASDIR JULIO Piperacillin Sod/Tazobactam Sod 100 mls @ 200 mls/hr 03/15/17 12:00 03/17/17 09 :04 Zosyn 4.5gm Ivpb (Pre-Docked) IVPB 200 mls/hr Q8H-IV JULIO Administration Protocol Heparin Sodium (Porcine) 25, 500 mls @ 16 mls/hr 03/16/17 17:15 03/17/17 12:45 000 unit/ Sodium Chloride IV 1,100 unit/hr TITR JULIO Titration Protocol 800 UNIT/HR Fat Emulsion Intravenous 250 mls @ 20.833 mls/hr 03/16/17 22:00 03/16/17 23:55 Intralipid - IV 20.833 mls/hr DAILY@2200 JULIO Administration Amino Acids 1,000 mls @ 84 mls/hr 03/16/17 22:30 03/17/17 12:44 Clinimix - IV 84 mls/hr Q12H JULIO Administration Multivitamins/Minerals 10 ml 03/16/17 22:45 03/16/17 02:55 Infuvite Adult - IV 10 ml DAILY@2200 JULIO Administration Rivaroxaban 20 mg 03/13/17 10:00 03/16/17 10:29 Xarelto - PO Not Given DAILY JULIO Scopolamine HBr 1 patch 03/15/17 13:45 03/15/17 15:39 Transderm-Scop - TD 1 patch Q72H JULIO Administration Imaging CXR on 03/16: complete opacified L lung with mediastinal shift to the L CXR on 03/14: NGT in place CXR on 03/12: LLL infiltrate vs. pleural effusion, persistent RUL infiltrate Barium Swallow on 03/09: spillage of contrast into airway CXR on 03/07: Imaging reveals no significant change from 03/06/2017 at 0913 hours. Again noted is mediastinal shift to the left with total opacification of the left hemithorax and left jugular port with tip at junction of SVC and right atrium. The right lung is clear. The right angle is sharp. CT head on 03/06: No acute pathology CXR on 03/05: Increased opacification of the left hemithorax - increased pleural effusion ASSESSMENT/PLAN: 72 yo M h/o colon cancer s/o colostomy, HTN, left lower ext arterial emboli admitted for PNA and CVA admitted to telemetry for new onset of R sided weakness and R facial droop. Pulm: aspiration PNA with complete L sided atelectasis - Appears better * frebile but more awake and alert * uc and bc negative so far - Cont. fluids - Cont. Chest PT and Mucomyst - Started on zosyn day 3 - On scopolamine topical patch for excessive respiratory secretion Renal: SHIVA - Worsening Cr - f/u renal U/S - Cont. hydration and monitor Cr HemOnc: Acute thrombocytopenia; Obstructive lung lesion; Rectal carcinoma - Stable - Cont. to monitor CBC - Biopsy deferred due to patient's mental and medical conditions Neuro: Acute onset of R sided weakness - Stable - Likely toxic metabolic encephalopathy - Cont. xarelto Endo: hyperthyroidism - Cont. methimazole FEN - IVF 75ml/hr - Cont. to monitor - Cont. NPO, on clinimix, pt became combative when NGT was attempted Prophylaxis - DVT: xarelto held due to NPO on BiPAP, on heparin gtt - GI: not indicated Disposition - Sister stated that family wants full code for now - Placement rejected from terminal worker care facility - Subacute rehab would not take the patient without PEG - IR agreed on PEG placement but patient too combative to have NGT placed - Cont. palliative care and discuss goal of care with family Code status - Full code Visit type - Emergency Visit Emergency Visit: No - New Patient This patient is new to me today: No - Critical Care Critical Care patient: No
--- NOTE | 2017-03-17 16:07 | PN ---
Teaching Attending Note Name of Resident: Keenan Onofre ATTENDING PHYSICIAN STATEMENT I saw and evaluated the patient. I reviewed the resident's note and discussed the case with the resident. I agree with the resident's findings and plan as documented. SUBJECTIVE: Patient is alert. More comfortable today. OBJECTIVE: Vital Signs Period Temp Pulse Resp BP Sys/Tapia Pulse Ox Last 24 Hr 98.2 F-100.8 F 81-119 20-24 82-111/41-78 96-98 HEART: S1 S2, RRR LUNGS: Bilateral rhonchi ABDOMEN: Soft, non-distended, normal BS EXTREMITIES: No edema, s/p left BKA ASSESSMENT AND PLAN: This is a 72-year-old man with a history of HTN, colon cancer, colostomy, LLE arterial emboli, left BKA, left lung mass, CVA presented to the ER from [facility] with worse right sided facial droop, right sided weakness, hypoxia and hypotension. 1. Right hemiparesis, right facial weakness, dysarthria secondary to recent CVA - Continue Lipitor - Continue PT, speech therapy 2. Sepsis secondary to aspiration pneumonia, post-obstructive pneumonia - Continue Zosyn, Mucomyst, Albuterol, DuoNeb as needed - Continue chest PT 3. Paroxysmal atrial fibrillation - Currently in sinus rhythm with PACs - Xarelto held (patient is NPO) - Continue heparin IV 4. Acute kidney injury likely secondary to dehydration/hypovolemia - Continue IV fluid 5. Acute hypoxic respiratory failure - Continue oxygen, BiPAP as needed, Mucomyst, DuoNeb as needed - Continue chest PT 6. Thrombocytopenia - Platelets improving 7. Hyperthyroidism - Tapazole held 8. Hypocalcemia - Corrected calcium is 8.4 9. Hypophosphatemia - Improved 10. Hypomagnesemia - Improved 11. Acute metabolic encephalopathy secondary to sepsis 12. Left lung mass - Has not been stable for biopsy 13. HTN - Meds held secondary to hypotension 14. PAD, history of LLE arterial emboli, left BKA - Xarelto held (patient is NPO) - Continue heparin IV 15. Hyperkalemia - Improved 16. COPD - Stable 17. Anemia secondary to chronic illness - Hemoglobin is stable - Continue ferrous sulfate, folic acid 18. History of colon cancer, colostomy 19. Protein malnutrition with weight loss, hypoproteinemia and hypoalbuminemia - Continue PPN - Plan for PEG
[2017-03-17] MEDS: HEPARIN - 25,000 UNIT in SODIUM CHLORIDE 495 ML IV SCH ×2 (18:01→21:36)
[2017-03-17] MEDS: FAT EMULSIONS 250 ML IV SCH (21:28)
[2017-03-17] MEDS ORDERED: PT OWN MED DRAWER 7, Y5N ONE (21:34)
[2017-03-17] MEDS: MULTIVIT INJ. ADULT COMBO WITH VIT K 1 COMBO 10 ML VIAL IV SCH (21:44)
[2017-03-17] MEDS ORDERED: MULTIVIT INJ. ADULT COMBO WITH VIT K 1 COMBO 10 ML VIAL IV SCH (22:00)
[2017-03-18] MEDS: PIPERACILLIN/TAZOB 4.5 GM 100 ML IVPB SCH ×3 (02:40→17:13)
[2017-03-18] MEDS: SODIUM CHLORIDE 1,000 ML IV SCH (02:40)
[2017-03-18] MEDS: ALBUTEROL SO4 0.083% IH SOL 2.5 MG/3 ML VIAL.NEB. NEB SCH ×4 (06:45→18:05)
[2017-03-18] MEDS: ACETYLCYSTEINE 20% 200MG/ML 4 ML VIAL *FOR ORAL / INH USE ONLY NEB SCH ×5 (06:45→23:03)
[2017-03-18 08:09] LABS: ALBUMIN 1.9 g/dl (3.4-5.0); BILIRUBIN,TOTAL 0.6 mg/dL (0.2-1.0); CALCIUM 7.6 mg/dL (8.5-10.1); COCKROFT - GAULT 35.91; CREATININE 1.8 mg/dL (0.7-1.3); MAGNESIUM 2.1 mg/dL (1.8-2.4); PHOSPHOROUS 2.8 mg/dL (2.5-4.9)
--- NOTE | 2017-03-18 08:30 | PN ---
Physical Exam: SUBJECTIVE: Per nurse, afrebile and required BiPAP overnight. No acute event on radiographer cardiac catheterization. OBJECTIVE: Vital Signs Period Temp Pulse Resp BP Sys/Tapia Pulse Ox Last 24 Hr 97.5 F-98.9 F 81-95 20-22 89-97/47-55 96-99 GENERAL: awake, alert, on 4L NC, in mild pulmonary distress HEAD: AT, NC EYES: pupil equal and reactive to light b/l LUNGS: coarse rhonchi b/l HEART: distant heart sounds, S1 and S2, no rub ABDOMEN: +bs, soft, non-tender, no rebound, guarding EXTREMITIES: No peripheral edema NEURO: unable to perform due to patient's mental status. Active Medications Generic Name Dose Route Start Last Admin Trade Name Freq PRN Reason Stop Dose Admin Acetaminophen 650 mg 03/05/17 17:51 Tylenol - PO Q4H PRN PAIN Acetaminophen 650 mg 03/13/17 21:48 03/16/17 04:00 Tylenol Suppository - [place] 650 mg Q4H PRN Administration FEVER OR PAIN Acetylcysteine 200 mg 03/11/17 18:00 03/18/17 06:45 Mucomyst 20 Oral / Inh Use Only* NEB 200 mg QIDR JULIO Administration Albuterol Sulfate 1 amp 03/13/17 18:00 03/18/17 06:45 Ventolin 0.083% Nebulizer Soln - NEB 1 amp QIDR JULIO Administration Albuterol/Ipratropium 1 amp 03/12/17 17:45 03/13/17 11:10 Duoneb - NEB 1 amp Q6H PRN Administration SHORTNESS OF BREATH Amino Acids 30 ml 03/13/17 10:00 03/17/17 21:25 Prosource No Carb Liquid Pkt NGT Not Given BID JULIO Atorvastatin Calcium 10 mg 03/13/17 22:00 03/17/17 21:24 Lipitor - NGT Not Given HS JULIO Ferrous Sulfate 300 mg 03/13/17 10:00 03/17/17 21:24 Feosol GT Not Given BID JULIO Folic Acid 1 mg 03/13/17 08:50 03/17/17 09:05 Folic Acid - NGT Not Given DAILY JULIO Heparin Sodium (Porcine) 1,000 unit 03/16/17 17:12 Heparin - IVPUSH PRN PRN Heparin Heparin Sodium (Porcine) 5,000 unit 03/16/17 17:12 03/17/17 21:36 Heparin - IVPUSH 5,000 unit PRN PRN Administration Heparin Sodium Chloride 1,000 mls @ 75 mls/hr 03/14/17 00:15 03/18/17 02:40 Normal Saline - IV Not Given ASDIR JULIO Piperacillin Sod/Tazobactam Sod 100 mls @ 200 mls/hr 03/15/17 12:00 03/18/17 02 :40 Zosyn 4.5gm Ivpb (Pre-Docked) IVPB 200 mls/hr Q8H-IV JULIO Administration Protocol Heparin Sodium (Porcine) 25, 500 mls @ 16 mls/hr 03/16/17 17:15 03/17/17 21:36 000 unit/ Sodium Chloride IV 27 mls/hr TITR JULIO Administration Protocol 800 UNIT/HR Fat Emulsion Intravenous 250 mls @ 20.833 mls/hr 03/16/17 22:00 03/17/17 21:28 Intralipid - IV 20.833 mls/hr DAILY@2200 JULIO Administration Amino Acids 1,000 mls @ 84 mls/hr 03/16/17 22:30 03/17/17 21:37 Clinimix - IV 84 mls/hr Q12H JULIO Administration Multivitamins/Minerals 10 ml 03/16/17 22:45 03/17/17 21:44 Infuvite Adult - IV 10 ml DAILY@2200 JULIO Administration Rivaroxaban 20 mg 03/13/17 10:00 03/16/17 10:29 Xarelto - PO Not Given DAILY JULIO Scopolamine HBr 1 patch 03/15/17 13:45 03/15/17 15:39 Transderm-Scop - TD 1 patch Q72H JULIO Administration Imaging Renal U/S on 03/17: suspected kidney stones and chronic disease in R kidney, no hydronephrosis b/l CXR on 03/16: complete opacified L lung with mediastinal shift to the L CXR on 03/14: NGT in place CXR on 03/12: LLL infiltrate vs. pleural effusion, persistent RUL infiltrate Barium Swallow on 03/09: spillage of contrast into airway CXR on 03/07: Imaging reveals no significant change from 03/06/2017 at 0913 hours. Again noted is mediastinal shift to the left with total opacification of the left hemithorax and left jugular port with tip at junction of SVC and right atrium. The right lung is clear. The right angle is sharp. CT head on 03/06: No acute pathology ASSESSMENT/PLAN: 72 yo M h/o colon cancer s/o colostomy, HTN, left lower ext arterial emboli admitted for PNA and CVA admitted to telemetry for new onset of R sided weakness and R facial droop. Pulm: aspiration PNA with complete L sided atelectasis - Less lethargic * afrebile * uc and bc negative - Cont. fluids - Cont. Chest PT and Mucomyst - Started on zosyn day 4 - On scopolamine topical patch for excessive respiratory secretion Renal: SHIVA - Worsening Cr - Renal U/S shows no acute pathology - Cont. hydration and monitor Cr HemOnc: Acute thrombocytopenia; Obstructive lung lesion; Rectal carcinoma - Stable - Cont. to monitor CBC - Biopsy deferred due to patient's mental and medical conditions Neuro: Acute onset of R sided weakness - Stable - Likely toxic metabolic encephalopathy - Cont. xarelto Endo: hyperthyroidism - Cont. methimazole FEN - IVF 75ml/hr - Cont. to monitor - Cont. NPO, on clinimix, NGT attempt failed Prophylaxis - DVT: xarelto held due to NPO on BiPAP, on heparin gtt - GI: not indicated Disposition - Sister who's the HCP stated that daughter in [place] and girlfriend in [place] want full code for now - Placement rejected by [facility] care facility - Subacute rehab would not take the patient without PEG - IR agreed on PEG placement but patient too combative to have NGT placed - Cont. palliative care and discuss goal of care with family Code status - Full code Visit type - Emergency Visit Emergency Visit: No - New Patient This patient is new to me today: No - Critical Care Critical Care patient: No
[2017-03-18] MEDS: FERROUS SO4 300 MG/5 ML ORAL SOLN UNIT DOSE CUPS GT SCH ×2 (10:06→22:52)
[2017-03-18] MEDS: FOLIC ACID 1 MG TABLET (FP) NGT SCH (10:06)
[2017-03-18] MEDS: AMINO ACIDS/PROTEIN HYDROLYS 30 ML LIQUID.PKT NGT SCH ×2 (10:07→22:53)
[2017-03-18] MEDS: HEPARIN NA (PORCINE) 5,000 UNITS/ML 1ML VIAL IVPUSH PRN (10:10)
--- NOTE | 2017-03-18 11:07 | PN ---
Progress Note, Physician History of Present Illness: Awake, aphasic Appears comfortable on nasal cannula Temps down Afebrile WBC WNL - Current Medication List Current Medications: Active Medications Acetaminophen (Tylenol -) 650 mg PO Q4H PRN PRN Reason: PAIN Acetaminophen (Tylenol Suppository -) 650 mg [place] Q4H PRN PRN Reason: FEVER OR PAIN Last Admin: 03/16/17 04:00 Dose: 650 mg Acetylcysteine (Mucomyst 20 Oral / Inh Use Only*) 200 mg NEB QIDR JULIO Last Admin: 03/18/17 06:45 Dose: 200 mg Albuterol Sulfate (Ventolin 0.083% Nebulizer Soln -) 1 amp NEB QIDR JULIO Last Admin: 03/18/17 06:45 Dose: 1 amp Albuterol/Ipratropium (Duoneb -) 1 amp NEB Q6H PRN PRN Reason: SHORTNESS OF BREATH Last Admin: 03/13/17 11:10 Dose: 1 amp Amino Acids (Prosource No Carb Liquid Pkt) 30 ml NGT BID JULIO Last Admin: 03/18/17 10:07 Dose: Not Given Atorvastatin Calcium (Lipitor -) 10 mg NGT HS JULIO Last Admin: 03/17/17 21:24 Dose: Not Given Ferrous Sulfate (Feosol) 300 mg GT BID JULIO Last Admin: 03/18/17 10:06 Dose: Not Given Folic Acid (Folic Acid -) 1 mg NGT DAILY JULIO Last Admin: 03/18/17 10:06 Dose: Not Given Heparin Sodium (Porcine) (Heparin -) 1,000 unit IVPUSH PRN PRN PRN Reason: Heparin Heparin Sodium (Porcine) (Heparin -) 5,000 unit IVPUSH PRN PRN PRN Reason: Heparin Last Admin: 03/18/17 10:10 Dose: 5,000 unit Piperacillin Sod/Tazobactam Sod (Zosyn 4.5gm Ivpb (Pre-Docked)) 100 mls @ 200 mls/hr IVPB Q8H-IV JULIO PRN Reason: Protocol Last Admin: 03/18/17 10:07 Dose: 200 mls/hr Heparin Sodium (Porcine) 25, (000 unit/ Sodium Chloride) 500 mls @ 16 mls/hr IV TITR JULIO; 800 UNIT/HR PRN Reason: Protocol Last Admin: 03/17/17 21:36 Dose: 27 mls/hr Fat Emulsion Intravenous (Intralipid -) 250 mls @ 20.833 mls/hr IV DAILY@2200 [facility] Last Admin: 03/17/17 21:28 Dose: 20.833 mls/hr Amino Acids (Clinimix -) 1,000 mls @ 84 mls/hr IV Q12H [facility] Last Admin: 03/17/17 21:37 Dose: 84 mls/hr Multivitamins/Minerals (Infuvite Adult -) 10 ml IV DAILY@2200 [facility] Last Admin: 03/17/17 21:44 Dose: 10 ml Rivaroxaban (Xarelto -) 20 mg PO DAILY [facility] Last Admin: 03/16/17 10:29 Dose: Not Given Scopolamine HBr (Transderm-Scop -) 1 patch TD Q72H [facility] Last Admin: 03/15/17 15:39 Dose: 1 patch - Objective Vital Signs: Vital Signs Temperature 98.9 F 03/18/17 10:00 Pulse Rate 77 03/18/17 10:56 Respiratory Rate 20 03/18/17 10:00 Blood Pressure 101/53 03/18/17 10:00 O2 Sat by Pulse Oximetry (%) 100 03/18/17 10:56 Constitutional: Yes: No Distress Eyes: Yes: Conjunctiva Clear Cardiovascular: Yes: Regular Rate and Rhythm, S1, S2 Respiratory: Yes: Diminished Gastrointestinal: Yes: Normal Bowel Sounds, Soft, Other (+ ostomy). No: Tenderness Extremities: Yes: Other (S/P BKA) Labs: CBC, BMP 03/17/17 08:50 03/18/17 05:35 INR, PTT INR 1.43 (0.82-1.09) H 03/17/17 08:50 Assessment/Plan L Lung mass, possible malignancy Opacified L hemithorax Post obstructive pneumonia S/P CVA Azotemia Thrombocytopenia Continue empiric Zosyn Prognosis guarded
[2017-03-18] MEDS: AMINO ACIDS 4.25%/D5W 1,000 ML IV SCH ×2 (12:00→23:29)
--- NOTE | 2017-03-18 12:35 | PN ---
Teaching Attending Note Name of Resident: Keenan Onofre ATTENDING PHYSICIAN STATEMENT I saw and evaluated the patient. I reviewed the resident's note and discussed the case with the resident. I agree with the resident's findings and plan as documented. SUBJECTIVE: Patient is awake, alert and comfortable. OBJECTIVE: Vital Signs Period Temp Pulse Resp BP Sys/Tapia Pulse Ox Last 24 Hr 97.5 F-98.9 F 77-95 20-22 89-101/47-55 98-100 HEART: S1 S2, RRR LUNGS: Bilateral rhonchi ABDOMEN: Soft, non-distended, normal BS EXTREMITIES: No edema, s/p left BKA ASSESSMENT AND PLAN: This is a 72-year-old man with a history of HTN, colon cancer, colostomy, LLE arterial emboli, left BKA, left lung mass, CVA presented to the ER from [facility] with worse right sided facial droop, right sided weakness, hypoxia and hypotension. 1. Right hemiparesis, right facial weakness, dysarthria secondary to recent CVA - Lipitor held (patient is NPO) - Continue PT, speech therapy 2. Sepsis secondary to aspiration pneumonia, post-obstructive pneumonia - Continue Zosyn, Mucomyst, Albuterol, DuoNeb as needed - Continue chest PT 3. Paroxysmal atrial fibrillation - Currently in sinus rhythm with PACs - Xarelto held (patient is NPO) - Continue heparin IV 4. Acute kidney injury likely secondary to dehydration/hypovolemia - Continue IV fluid 5. Acute hypoxic respiratory failure - Continue oxygen, BiPAP as needed, Mucomyst, DuoNeb as needed - Continue chest PT 6. Thrombocytopenia - Platelets improving 7. Hyperthyroidism - Tapazole held (patient is NPO) 8. Hypocalcemia - Corrected calcium is 8.4 9. Hypophosphatemia - Improved 10. Hypomagnesemia - Improved 11. Acute metabolic encephalopathy secondary to sepsis 12. Left lung mass - Has not been stable for biopsy 13. HTN - Meds held secondary to hypotension 14. PAD, history of LLE arterial emboli, left BKA - Xarelto held (patient is NPO) - Continue heparin IV 15. Hyperkalemia - Improved 16. COPD - Stable 17. Anemia secondary to chronic illness - Hemoglobin is stable - Ferrous sulfate, folic acid held (patient is NPO) 18. History of colon cancer, colostomy 19. Protein malnutrition with weight loss, hypoproteinemia and hypoalbuminemia - Continue PPN 20 Disposition - Ongoing discussion with family regarding PEG, comfort care
[2017-03-18] MEDS: SCOPOLAMINE HYDROBROMIDE 1 PATCH PATCH.TD72 TD SCH (13:49)
--- NOTE | 2017-03-18 14:23 | PN ---
Progress Note (short form) - Note Progress Note: PULMONARY Awake, appears frustrated. No fevers recorded. Last Vital Signs Temp Pulse Resp BP Pulse Ox 98.8 F 59 L 20 121/55 100 03/18/17 13:37 03/18/17 13:37 03/18/17 13:37 03/18/17 13:37 03/18/17 10:56 Gen: mildly tachypneic at rest Heart: irregular Lung: decreased breath sounds left, +rhonchi Abd: soft, nontender Ext: no edema CBC, BMP 03/17/17 08:50 03/18/17 05:35 Active Medications Acetaminophen (Tylenol -) 650 mg PO Q4H PRN PRN Reason: PAIN Acetaminophen (Tylenol Suppository -) 650 mg [place] Q4H PRN PRN Reason: FEVER OR PAIN Last Admin: 03/16/17 04:00 Dose: 650 mg Acetylcysteine (Mucomyst 20 Oral / Inh Use Only*) 200 mg NEB QIDR [facility] Last Admin: 03/18/17 12:05 Dose: 200 mg Albuterol Sulfate (Ventolin 0.083% Nebulizer Soln -) 1 amp NEB QIDR [facility] Last Admin: 03/18/17 12:05 Dose: 1 amp Albuterol/Ipratropium (Duoneb -) 1 amp NEB Q6H PRN PRN Reason: SHORTNESS OF BREATH Last Admin: 03/13/17 11:10 Dose: 1 amp Amino Acids (Prosource No Carb Liquid Pkt) 30 ml NGT BID [facility] Last Admin: 03/18/17 10:07 Dose: Not Given Atorvastatin Calcium (Lipitor -) 10 mg NGT HS [facility] Last Admin: 03/17/17 21:24 Dose: Not Given Ferrous Sulfate (Feosol) 300 mg GT BID [facility] Last Admin: 03/18/17 10:06 Dose: Not Given Folic Acid (Folic Acid -) 1 mg NGT DAILY [facility] Last Admin: 03/18/17 10:06 Dose: Not Given Heparin Sodium (Porcine) (Heparin -) 1,000 unit IVPUSH PRN PRN PRN Reason: Heparin Heparin Sodium (Porcine) (Heparin -) 5,000 unit IVPUSH PRN PRN PRN Reason: Heparin Last Admin: 03/18/17 10:10 Dose: 5,000 unit Piperacillin Sod/Tazobactam Sod (Zosyn 4.5gm Ivpb (Pre-Docked)) 100 mls @ 200 mls/hr IVPB Q8H-IV JULIO PRN Reason: Protocol Last Admin: 03/18/17 10:07 Dose: 200 mls/hr Heparin Sodium (Porcine) 25, (000 unit/ Sodium Chloride) 500 mls @ 16 mls/hr IV TITR JULIO; 800 UNIT/HR PRN Reason: Protocol Last Admin: 03/17/17 21:36 Dose: 27 mls/hr Fat Emulsion Intravenous (Intralipid -) 250 mls @ 20.833 mls/hr IV DAILY@2200 JULIO Last Admin: 03/17/17 21:28 Dose: 20.833 mls/hr Amino Acids (Clinimix -) 1,000 mls @ 84 mls/hr IV Q12H [facility] Last Admin: 03/18/17 12:00 Dose: 84 mls/hr Multivitamins/Minerals (Infuvite Adult -) 10 ml IV DAILY@2200 [facility] Last Admin: 03/17/17 21:44 Dose: 10 ml Rivaroxaban (Xarelto -) 20 mg PO DAILY [facility] Last Admin: 03/16/17 10:29 Dose: Not Given Scopolamine HBr (Transderm-Scop -) 1 patch TD Q72H [facility] Last Admin: 03/18/17 13:49 Dose: 1 patch A/P Acute CVA Pneumonia Left telectasis Severe Sepsis resolved Acute Kidney Injury Lung Mass likely malignant PAD Atrial Fibrillation Anemia - continue antibiotics per ID - aspiration precautions - BiPAP as needed to assist in work of breathing and may assist in re- expanding left lung - chest PT - mucomyst with albuterol QID - continue anticoagulation - monitor H/H - favor conservative management of atelectasis - continue discussions regarding goals of care and advanced directives as pt with poor overall prognosis
[2017-03-18] MEDS: HEPARIN - 25,000 UNIT in SODIUM CHLORIDE 495 ML IV SCH (17:13)
[2017-03-18] MEDS: ATORVASTATIN CA 10 MG TABLET (FP) NGT SCH (22:53)
[2017-03-18] MEDS: ALBUTEROL SO4 2.5/IPRATROPIUM 0.5 INH SOL 3 ML VIAL.NEB. NEB PRN (23:03)
[2017-03-18] MEDS: MULTIVIT INJ. ADULT COMBO WITH VIT K 1 COMBO 10 ML VIAL IV SCH (23:29)
[2017-03-18] MEDS: FAT EMULSIONS 250 ML IV SCH (23:29)
[2017-03-19] MEDS: PIPERACILLIN/TAZOB 4.5 GM 100 ML IVPB SCH ×3 (02:00→17:39)
[2017-03-19] MEDS: ACETYLCYSTEINE 20% 200MG/ML 4 ML VIAL *FOR ORAL / INH USE ONLY NEB SCH ×5 (06:25→23:33)
[2017-03-19] MEDS: ALBUTEROL SO4 2.5/IPRATROPIUM 0.5 INH SOL 3 ML VIAL.NEB. NEB PRN ×4 (06:25→23:36)
[2017-03-19 07:58] LABS: CALCIUM 7.5 mg/dL (8.5-10.1); COCKROFT - GAULT 35.91; CREATININE 1.8 mg/dL (0.7-1.3)
--- NOTE | 2017-03-19 10:32 | PN ---
Progress Note, Physician History of Present Illness: pulmonary]] lethargic,on bipap,mildly tachypneic,less congested - Current Medication List Current Medications: Active Medications Acetaminophen (Tylenol -) 650 mg PO Q4H PRN PRN Reason: PAIN Acetaminophen (Tylenol Suppository -) 650 mg SC Q4H PRN PRN Reason: FEVER OR PAIN Last Admin: 03/16/17 04:00 Dose: 650 mg Acetylcysteine (Mucomyst 20 Oral / Inh Use Only*) 200 mg NEB QIDR JULIO Last Admin: 03/19/17 06:25 Dose: 200 mg Albuterol/Ipratropium (Duoneb -) 1 amp NEB Q6H PRN PRN Reason: SHORTNESS OF BREATH Last Admin: 03/19/17 06:25 Dose: 1 amp Amino Acids (Prosource No Carb Liquid Pkt) 30 ml NGT BID [facility] Last Admin: 03/18/17 22:53 Dose: Not Given Atorvastatin Calcium (Lipitor -) 10 mg NGT HS [facility] Last Admin: 03/18/17 22:53 Dose: Not Given Ferrous Sulfate (Feosol) 300 mg GT BID [facility] Last Admin: 03/18/17 22:52 Dose: Not Given Folic Acid (Folic Acid -) 1 mg NGT DAILY [facility] Last Admin: 03/18/17 10:06 Dose: Not Given Heparin Sodium (Porcine) (Heparin -) 1,000 unit IVPUSH PRN PRN PRN Reason: Heparin Heparin Sodium (Porcine) (Heparin -) 5,000 unit IVPUSH PRN PRN PRN Reason: Heparin Last Admin: 03/18/17 10:10 Dose: 5,000 unit Piperacillin Sod/Tazobactam Sod (Zosyn 4.5gm Ivpb (Pre-Docked)) 100 mls @ 200 mls/hr IVPB Q8H-IV JULIO PRN Reason: Protocol Last Admin: 03/19/17 02:00 Dose: 200 mls/hr Heparin Sodium (Porcine) 25, (000 unit/ Sodium Chloride) 500 mls @ 16 mls/hr IV TITR JULIO; 800 UNIT/HR PRN Reason: Protocol Last Admin: 03/18/17 17:13 Dose: 30 mls/hr Fat Emulsion Intravenous (Intralipid -) 250 mls @ 20.833 mls/hr IV DAILY@2200 JULIO Last Admin: 03/18/17 23:29 Dose: 20.833 mls/hr Amino Acids (Clinimix -) 1,000 mls @ 84 mls/hr IV Q12H [facility] Last Admin: 03/18/17 23:29 Dose: 84 mls/hr Multivitamins/Minerals (Infuvite Adult -) 10 ml IV DAILY@2200 [facility] Last Admin: 03/18/17 23:29 Dose: 10 ml Rivaroxaban (Xarelto -) 20 mg PO DAILY [facility] Last Admin: 03/16/17 10:29 Dose: Not Given Scopolamine HBr (Transderm-Scop -) 1 patch TD Q72H [facility] Last Admin: 03/18/17 13:49 Dose: 1 patch - Objective Vital Signs: Vital Signs Temperature 99.2 F 03/19/17 06:00 Pulse Rate 89 03/19/17 06:00 Respiratory Rate 20 03/19/17 06:00 Blood Pressure 101/54 03/19/17 06:00 O2 Sat by Pulse Oximetry (%) 95 03/18/17 21:00 Constitutional: Yes: Thin, Other (lethargic) Eyes: Yes: WNL HENT: Yes: WNL Neck: Yes: WNL Cardiovascular: Yes: Pulse Irregular, S1, S2 Respiratory: Yes: Rhonchi (scattered elizabeth rhonchi) Gastrointestinal: Yes: Normal Bowel Sounds, Soft Extremities: Yes: Amputation (left aka) Labs: CBC, BMP 03/19/17 05:35 INR, PTT INR 1.43 (0.82-1.09) H 03/17/17 08:50 Assessment/Plan A/P Respiratory failure Acute CVA Pneumonia L lung Atelectasis no change s/p Severe Sepsis Acute Kidney Injury worsenung Lung Mass likely malignant PAD Afib Thrombocytopenia Fever likely aspiration ANEMIA - continue IVF - monitor urine output, creatinine - aspiration precautions - BiPAP as needed to assist in work of breathing - chest PT - continue mucomyst with albuterol QID - anticoagulation - monitor H/H - f/u chest x-ray - conservative management at this time secondary multiple co-morbidities - antibiotics as per ID - transfuse prn - GT insertion DR GOMEZ
[2017-03-19] MEDS: FOLIC ACID 1 MG TABLET (FP) NGT SCH (10:54)
[2017-03-19] MEDS: RIVAROXABAN 20 MG TABLET PO SCH (10:54)
[2017-03-19] MEDS: AMINO ACIDS/PROTEIN HYDROLYS 30 ML LIQUID.PKT NGT SCH ×2 (10:54→21:40)
[2017-03-19] MEDS: FERROUS SO4 300 MG/5 ML ORAL SOLN UNIT DOSE CUPS GT SCH ×2 (10:54→21:40)
--- NOTE | 2017-03-19 12:01 | PN ---
Progress Note, Physician History of Present Illness: Awake, aphasic Breathing non-labored on nasal cannula Low grade temp WBC WNL - Current Medication List Current Medications: Active Medications Acetaminophen (Tylenol -) 650 mg PO Q4H PRN PRN Reason: PAIN Acetaminophen (Tylenol Suppository -) 650 mg [place] Q4H PRN PRN Reason: FEVER OR PAIN Last Admin: 03/16/17 04:00 Dose: 650 mg Acetylcysteine (Mucomyst 20 Oral / Inh Use Only*) 200 mg NEB QIDR JULIO Last Admin: 03/19/17 06:25 Dose: 200 mg Albuterol/Ipratropium (Duoneb -) 1 amp NEB Q6H PRN PRN Reason: SHORTNESS OF BREATH Last Admin: 03/19/17 06:25 Dose: 1 amp Amino Acids (Prosource No Carb Liquid Pkt) 30 ml NGT BID [facility] Last Admin: 03/19/17 10:54 Dose: Not Given Atorvastatin Calcium (Lipitor -) 10 mg NGT HS [facility] Last Admin: 03/18/17 22:53 Dose: Not Given Ferrous Sulfate (Feosol) 300 mg GT BID [facility] Last Admin: 03/19/17 10:54 Dose: Not Given Folic Acid (Folic Acid -) 1 mg NGT DAILY [facility] Last Admin: 03/19/17 10:54 Dose: Not Given Heparin Sodium (Porcine) (Heparin -) 1,000 unit IVPUSH PRN PRN PRN Reason: Heparin Heparin Sodium (Porcine) (Heparin -) 5,000 unit IVPUSH PRN PRN PRN Reason: Heparin Last Admin: 03/18/17 10:10 Dose: 5,000 unit Piperacillin Sod/Tazobactam Sod (Zosyn 4.5gm Ivpb (Pre-Docked)) 100 mls @ 200 mls/hr IVPB Q8H-IV JULIO PRN Reason: Protocol Last Admin: 03/19/17 11:03 Dose: 200 mls/hr Heparin Sodium (Porcine) 25, (000 unit/ Sodium Chloride) 500 mls @ 16 mls/hr IV TITR JULIO; 800 UNIT/HR PRN Reason: Protocol Last Admin: 03/18/17 17:13 Dose: 30 mls/hr Fat Emulsion Intravenous (Intralipid -) 250 mls @ 20.833 mls/hr IV DAILY@2200 JULIO Last Admin: 03/18/17 23:29 Dose: 20.833 mls/hr Amino Acids (Clinimix -) 1,000 mls @ 84 mls/hr IV Q12H [facility] Last Admin: 03/18/17 23:29 Dose: 84 mls/hr Multivitamins/Minerals (Infuvite Adult -) 10 ml IV DAILY@2200 [facility] Last Admin: 03/18/17 23:29 Dose: 10 ml Rivaroxaban (Xarelto -) 20 mg PO DAILY [facility] Last Admin: 03/19/17 10:54 Dose: Not Given Scopolamine HBr (Transderm-Scop -) 1 patch TD Q72H [facility] Last Admin: 03/18/17 13:49 Dose: 1 patch - Objective Vital Signs: Vital Signs Temperature 99.2 F 03/19/17 06:00 Pulse Rate 89 03/19/17 06:00 Respiratory Rate 20 03/19/17 06:00 Blood Pressure 101/54 03/19/17 06:00 O2 Sat by Pulse Oximetry (%) 95 03/18/17 21:00 Constitutional: Yes: No Distress Cardiovascular: Yes: Regular Rate and Rhythm, S1, S2 Respiratory: Yes: Diminished Gastrointestinal: Yes: Normal Bowel Sounds, Soft, Other (+ ostomy). No: Tenderness Extremities: Yes: Other (S/P BKA) Labs: CBC, BMP 03/17/17 08:50 03/19/17 05:35 INR, PTT INR 1.43 (0.82-1.09) H 03/17/17 08:50 Assessment/Plan L Lung mass, possible malignancy Opacified L hemithorax Post obstructive pneumonia S/P CVA Azotemia Thrombocytopenia Clinically more stable No high grade temp WBC WNL Cultures negative D/C zosyn Comfort measures
--- NOTE | 2017-03-19 12:44 | PN ---
Progress Note, [employer] - Note Progress Note: PEG pending. NPO/Clinimix. Attempted to reassess swallowing for possible improvement. Pt clearly pushed my hand away, refusing PO trial.
[2017-03-19] MEDS: HEPARIN - 25,000 UNIT in SODIUM CHLORIDE 495 ML IV SCH (16:35)
[2017-03-19] MEDS: AMINO ACIDS 4.25%/D5W 1,000 ML IV SCH ×2 (16:35→21:40)
--- NOTE | 2017-03-19 17:15 | PN ---
Teaching Attending Note Name of Resident: Keenan Onofre ATTENDING PHYSICIAN STATEMENT I saw and evaluated the patient. I reviewed the resident's note and discussed the case with the resident. I agree with the resident's findings and plan as documented. SUBJECTIVE: Patient is awake and appears comfortable. OBJECTIVE: Vital Signs Period Temp Pulse Resp BP Sys/Tapia Pulse Ox Last 24 Hr 97.8 F-99.7 F 61-89 20-20 101-105/43-58 95-97 HEART: S1 S2, RRR LUNGS: Bilateral rhonchi ABDOMEN: Soft, non-distended, normal BS EXTREMITIES: No edema, s/p left BKA ASSESSMENT AND PLAN: This is a 72-year-old man with a history of HTN, colon cancer, colostomy, LLE arterial emboli, left BKA, left lung mass, CVA presented to the ER from [facility] with worse right sided facial droop, right sided weakness, hypoxia and hypotension. 1. Right hemiparesis, right facial weakness, dysarthria secondary to recent CVA - Lipitor held (patient is NPO) - Continue PT, speech therapy 2. Sepsis secondary to aspiration pneumonia, post-obstructive pneumonia - Zosyn discontinued - Continue Mucomyst, Albuterol, DuoNeb as needed - Continue chest PT 3. Paroxysmal atrial fibrillation - Currently in sinus rhythm with PACs - Xarelto held (patient is NPO) - Continue heparin IV 4. Acute kidney injury likely secondary to dehydration/hypovolemia - Creatinine is stable 5. Acute hypoxic respiratory failure - Continue oxygen, BiPAP as needed, Mucomyst, DuoNeb as needed - Continue chest PT 6. Thrombocytopenia - Platelets improving 7. Hyperthyroidism - Tapazole held (patient is NPO) 8. Hypocalcemia - Corrected calcium is 9.2 9. Hypophosphatemia - Improved 10. Hypomagnesemia - Improved 11. Acute metabolic encephalopathy secondary to sepsis 12. Left lung mass - Has not been stable for biopsy 13. HTN - Meds held secondary to hypotension 14. PAD, history of LLE arterial emboli, left BKA - Xarelto held (patient is NPO) - Continue heparin IV 15. Hyperkalemia - Improved 16. COPD - Stable 17. Anemia secondary to chronic illness - Hemoglobin is stable - Ferrous sulfate, folic acid held (patient is NPO) 18. History of colon cancer, colostomy 19. Protein malnutrition with weight loss, hypoproteinemia and hypoalbuminemia - Continue PPN 20 Disposition - Ongoing discussion with family regarding PEG, comfort care
--- NOTE | 2017-03-19 17:40 | PN ---
Physical Exam: SUBJECTIVE: Cont. to be afrebile but required BiPAP overnight. He spea No other acute event on monitor technician. OBJECTIVE: Vital Signs Period Temp Pulse Resp BP Sys/Tapia Pulse Ox Last 24 Hr 97.8 F-99.7 F 61-89 20-20 101-105/43-58 95-97 GENERAL: awake, alert, frustrated, non-cooperative, on 4L NC, in mild pulmonary distress HEAD: AT, NC EYES: pupil equal and reactive to light b/l LUNGS: coarse rhonchi b/l HEART: distant heart sounds, S1 and S2, no rub ABDOMEN: +bs, soft, non-tender, no rebound, guarding EXTREMITIES: No peripheral edema NEURO: unable to perform due to patient's mental status. CMP Sodium 138 mmol/L (136-145) 03/19/17 05:35 Potassium 3.6 mmol/L (3.5-5.1) 03/19/17 05:35 Chloride 110 mmol/L (98-107) H 03/19/17 05:35 Carbon Dioxide 15 mmol/L (21-32) L 03/19/17 05:35 Anion Gap 13 (8-16) 03/19/17 05:35 BUN 38 mg/dL (7-18) H 03/19/17 05:35 Creatinine 1.8 mg/dL (0.7-1.3) H 03/19/17 05:35 Creat Clearance w eGFR 37.49 (>60) 03/18/17 05:35 Calcium 7.5 mg/dL (8.5-10.1) L 03/19/17 05:35 Total Bilirubin 0.6 mg/dL (0.2-1.0) 03/18/17 05:35 AST 35 U/L (15-37) D 03/18/17 05:35 ALT 24 U/L (12-78) D 03/18/17 05:35 Alkaline Phosphatase 85 U/L (45-117) D 03/18/17 05:35 Total Protein 6.0 g/dl (6.4-8.2) L 03/18/17 05:35 Albumin 1.9 g/dl (3.4-5.0) L 03/18/17 05:35 Active Medications Generic Name Dose Route Start Last Admin Trade Name Freq PRN Reason Stop Dose Admin Acetaminophen 650 mg 03/05/17 17:51 Tylenol - PO Q4H PRN PAIN Acetaminophen 650 mg 03/13/17 21:48 03/16/17 04:00 Tylenol Suppository - [place] 650 mg Q4H PRN Administration FEVER OR PAIN Acetylcysteine 200 mg 03/11/17 18:00 03/19/17 12:00 Mucomyst 20 Oral / Inh Use Only* NEB 200 mg QIDR JULIO Administration Albuterol/Ipratropium 1 amp 03/12/17 17:45 03/19/17 12:00 Duoneb - NEB 1 amp Q6H PRN Administration SHORTNESS OF BREATH Amino Acids 30 ml 03/13/17 10:00 03/19/17 10:54 Prosource No Carb Liquid Pkt NGT Not Given BID [facility] Atorvastatin Calcium 10 mg 03/13/17 22:00 03/18/17 22:53 Lipitor - NGT Not Given HS [facility] Ferrous Sulfate 300 mg 03/13/17 10:00 03/19/17 10:54 Feosol GT Not Given BID [facility] Folic Acid 1 mg 03/13/17 08:50 03/19/17 10:54 Folic Acid - NGT Not Given DAILY [facility] Heparin Sodium (Porcine) 1,000 unit 03/16/17 17:12 03/19/17 16:36 Heparin - IVPUSH 1,000 unit PRN PRN Administration Heparin Heparin Sodium (Porcine) 5,000 unit 03/16/17 17:12 03/18/17 10:10 Heparin - IVPUSH 5,000 unit PRN PRN Administration Heparin Piperacillin Sod/Tazobactam Sod 100 mls @ 200 mls/hr 03/15/17 12:00 03/19/17 11 :03 Zosyn 4.5gm Ivpb (Pre-Docked) IVPB 200 mls/hr Q8H-IV JULIO Administration Protocol Heparin Sodium (Porcine) 25, 500 mls @ 16 mls/hr 03/16/17 17:15 03/19/17 16:35 000 unit/ Sodium Chloride IV 32 mls/hr TITR JULIO Administration Protocol 800 UNIT/HR Fat Emulsion Intravenous 250 mls @ 20.833 mls/hr 03/16/17 22:00 03/18/17 23:29 Intralipid - IV 20.833 mls/hr DAILY@2200 JULIO Administration Amino Acids 1,000 mls @ 84 mls/hr 03/16/17 22:30 03/19/17 16:35 Clinimix - IV 84 mls/hr Q12H JULIO Administration Multivitamins/Minerals 10 ml 03/16/17 22:45 03/18/17 23:29 Infuvite Adult - IV 10 ml DAILY@2200 JULIO Administration Rivaroxaban 20 mg 03/13/17 10:00 03/19/17 10:54 Xarelto - PO Not Given DAILY JULIO Scopolamine HBr 1 patch 03/15/17 13:45 03/18/17 13:49 Transderm-Scop - TD 1 patch Q72H JULIO Administration Microbiology 03/14/17 00:30 Blood Culture - Final Blood - Peripheral Venous NO GROWTH AFTER 5 DAYS INCUBATION 03/14/17 00:30 Blood Culture - Final Blood - Peripheral Venous NO GROWTH AFTER 5 DAYS INCUBATION Imaging Renal U/S on 03/17: suspected kidney stones and chronic disease in R kidney, no hydronephrosis b/l CXR on 03/16: complete opacified L lung with mediastinal shift to the L CXR on 03/14: NGT in place CXR on 03/12: LLL infiltrate vs. pleural effusion, persistent RUL infiltrate Barium Swallow on 03/09: spillage of contrast into airway CXR on 03/07: Imaging reveals no significant change from 03/06/2017 at 0913 hours. Again noted is mediastinal shift to the left with total opacification of the left hemithorax and left jugular port with tip at junction of SVC and right atrium. The right lung is clear. The right angle is sharp. CT head on 03/06: No acute pathology ASSESSMENT/PLAN: 72 yo M h/o colon cancer s/o colostomy, HTN, left lower ext arterial emboli admitted for PNA and CVA admitted to telemetry for new onset of R sided weakness and R facial droop. Pulm: aspiration PNA with complete L sided atelectasis - Resolved - Afrebile with negative cultures * Zosyn d/c - Cont. Chest PT, duoneb and Mucomyst - Cont. scopolamine topical patch for excessive respiratory secretion Chronic aspiration - Confirmed by barium study - G tube insertion planned next Wednesday * Insert NGT in Wednesday PM * Contrast injection Steve night * Voice msg left on HCP's cell phone to obtain consent Renal: SHIVA - Worsening Cr - Renal U/S shows no acute pathology - Cont. hydration and monitor Cr HemOnc: Acute thrombocytopenia; Obstructive lung lesion; Rectal carcinoma - Stable - Cont. to monitor CBC - Biopsy deferred due to patient's mental and medical conditions Neuro: Acute onset of R sided weakness - Stable - Likely toxic metabolic encephalopathy - Cont. xarelto Endo: hyperthyroidism - Cont. methimazole FEN - IVF 75ml/hr - Cont. to monitor - Cont. NPO, on clinimix, NGT attempt failed Prophylaxis - DVT: xarelto held due to NPO on BiPAP, on heparin gtt - GI: not indicated Disposition - Sister who's the HCP stated that daughter in [place] and girlfriend in [place] want full code for now - Placement rejected by detention care facility - Subacute rehab would not take the patient without PEG - PEG placement scheduled on Wednesday - NGT insertion on Wednesday PM Code status - Full code Visit type - Emergency Visit Emergency Visit: No - New Patient This patient is new to me today: No - Critical Care Critical Care patient: No
[2017-03-19] MEDS: MULTIVIT INJ. ADULT COMBO WITH VIT K 1 COMBO 10 ML VIAL IV SCH (21:39)
[2017-03-19] MEDS: FAT EMULSIONS 250 ML IV SCH (21:39)
[2017-03-19] MEDS: ATORVASTATIN CA 10 MG TABLET (FP) NGT SCH (21:40)
[2017-03-20] MEDS: PIPERACILLIN/TAZOB 4.5 GM 100 ML IVPB SCH ×3 (01:52→17:44)
[2017-03-20] MEDS ORDERED: PT OWN MED DRAWER 7, Y5N ONE ×2 (03:48→21:07)
[2017-03-20] MEDS: ALBUTEROL SO4 2.5/IPRATROPIUM 0.5 INH SOL 3 ML VIAL.NEB. NEB PRN (06:56)
[2017-03-20] MEDS: ACETYLCYSTEINE 20% 200MG/ML 4 ML VIAL *FOR ORAL / INH USE ONLY NEB SCH ×4 (06:56→23:08)
[2017-03-20 08:22] LABS: MCH 28.5 pg (25.7-33.7); MCHC 31.4 g/dl (32.0-35.9); MEAN CELL VOLUME 90.8 fl (80-96); MEAN PLT VOLUME 9.4 fl (7.5-11.1); PLATELET COUNT 138 K/MM3 (134-434); RDW 16.6 % (11.9-15.9); WHITE BLOOD COUNT 10.3 K/mm3 (4.0-10.0)
[2017-03-20 09:38] LABS: ALLENS TEST POSITIVE; ART PUNCT SITE RIGHT RADIAL; ARTERIAL BLD GAS O2 SATURATION 98.5 % (90-98.9); ARTERIAL BLOOD GAS BASE EXCESS -11.2 meq/l (-2-2); ARTERIAL BLOOD GAS pH 7.37 (7.35-7.45); LPM/O2% 30%; PT. ON O2? YES
[2017-03-20 09:39] LABS: TYPE OF O2 BIPAP IPAP 10 EPAP 5; VENT RATE 12
[2017-03-20 09:40] LABS: ARTERIAL BLOOD GAS HCO3 12.9 meq/L (22-26)
[2017-03-20 09:49] LABS: CALCIUM 7.8 mg/dL (8.5-10.1); COCKROFT - GAULT 38.02; CREATININE 1.7 mg/dL (0.7-1.3)
[2017-03-20] MEDS ORDERED: VANCOMYCIN 1 GRAM (PRE-DOCKED) 250 ML IVPB ONE (10:30)
--- NOTE | 2017-03-20 11:51 | PN ---
Physical Exam: SUBJECTIVE: Patient seen and examined. He is awake, alert and confused. OBJECTIVE: Vital Signs Period Temp Pulse Resp BP Sys/Tapia Pulse Ox Last 24 Hr 97.8 F-99 F 75-115 20-24 96-104/51-72 96-97 GENERAL: The patient is awake, alert, and fully oriented, in no acute distress. LUNGS: Bilateral rhonchi. HEART: Regular rhythm, S1, S2, tachycardic. ABDOMEN: Soft, nondistended, normoactive bowel sounds, no guarding, no rebound, no hepatosplenomegaly, no masses. EXTREMITIES: 1+ pulses, warm, well-perfused, no edema, s/p left BKA. Laboratory Results - last 24 hr 03/19/17 03/20/17 03/20/17 11:05 05:43 05:43 WBC 10.3 H D RBC 2.40 L Hgb 6.8 L* Hct 21.8 L MCV 90.8 MCHC 31.4 L RDW 16.6 H Plt Count 138 D MPV 9.4 PTT (Actin FS) 39.3 H 46.9 H Puncture Site ABG pH ABG pCO2 at Pt Temp ABG pO2 at Pt Temp ABG HCO3 ABG O2 Sat (Measured) ABG O2 Content ABG Base Excess Ki Test O2 Delivery Device Oxygen Flow Rate Vent Mode Vent Rate PEEP Sodium Potassium Chloride Carbon Dioxide Anion Gap BUN Creatinine Random Glucose Calcium Crossmatch 03/20/17 03/20/17 03/20/17 05:43 09:25 11:30 WBC RBC Hgb Hct MCV MCHC RDW Plt Count MPV PTT (Actin FS) Puncture Site Right radial ABG pH 7.37 ABG pCO2 at Pt Temp 22.6 L ABG pO2 at Pt Temp 104.0 H ABG HCO3 12.9 L* ABG O2 Sat (Measured) 98.5 ABG O2 Content 8.5 L* ABG Base Excess -11.2 L* Ki Test Positive O2 Delivery Device Bipap ipap 10 epap 5 Oxygen Flow Rate 30% Vent Mode S/t Vent Rate 12 PEEP 5.0 Sodium 137 Potassium 3.7 Chloride 110 H Carbon Dioxide 15 L Anion Gap 12 BUN 34 H Creatinine 1.7 H Random Glucose 131 H Calcium 7.8 L Crossmatch See Detail Active Medications Generic Name Dose Route Start Last Admin Trade Name Freq PRN Reason Stop Dose Admin Acetaminophen 650 mg 03/05/17 17:51 Tylenol - PO Q4H PRN PAIN Acetaminophen 650 mg 03/13/17 21:48 03/16/17 04:00 Tylenol Suppository - [place] 650 mg Q4H PRN Administration FEVER OR PAIN Acetaminophen 1,000 mg 03/20/17 13:00 Ofirmev Injection - IVPB 03/20/17 13:01 ONCE ONE Acetylcysteine 200 mg 03/11/17 18:00 03/20/17 06:56 Mucomyst 20 Oral / Inh Use Only* NEB Not Given QIDR JULIO Albuterol/Ipratropium 1 amp 03/12/17 17:45 03/20/17 06:56 Duoneb - NEB 1 amp Q6H PRN Administration SHORTNESS OF BREATH Amino Acids 30 ml 03/13/17 10:00 03/19/17 21:40 Prosource No Carb Liquid Pkt NGT Not Given BID [facility] Atorvastatin Calcium 10 mg 03/13/17 22:00 03/19/17 21:40 Lipitor - NGT Not Given HS [facility] Ferrous Sulfate 300 mg 03/13/17 10:00 03/19/17 21:40 Feosol GT Not Given BID [facility] Folic Acid 1 mg 03/13/17 08:50 03/19/17 10:54 Folic Acid - NGT Not Given DAILY [facility] Heparin Sodium (Porcine) 1,000 unit 03/16/17 17:12 03/19/17 16:36 Heparin - IVPUSH 1,000 unit PRN PRN Administration Heparin Heparin Sodium (Porcine) 5,000 unit 03/16/17 17:12 03/18/17 10:10 Heparin - IVPUSH 5,000 unit PRN PRN Administration Heparin Piperacillin Sod/Tazobactam Sod 100 mls @ 200 mls/hr 03/15/17 12:00 03/20/17 01 :52 Zosyn 4.5gm Ivpb (Pre-Docked) IVPB 200 mls/hr Q8H-IV JULIO Administration Protocol Heparin Sodium (Porcine) 25, 500 mls @ 16 mls/hr 03/16/17 17:15 03/19/17 16:35 000 unit/ Sodium Chloride IV 32 mls/hr TITR JULIO Administration Protocol 800 UNIT/HR Fat Emulsion Intravenous 250 mls @ 20.833 mls/hr 03/16/17 22:00 03/19/17 21:39 Intralipid - IV 20.833 mls/hr DAILY@2200 JULIO Administration Amino Acids 1,000 mls @ 84 mls/hr 03/16/17 22:30 03/19/17 21:40 Clinimix - IV 84 mls/hr Q12H JULIO Administration Multivitamins/Minerals 10 ml 03/16/17 22:45 03/19/17 21:39 Infuvite Adult - IV 10 ml DAILY@2200 JULIO Administration Rivaroxaban 20 mg 03/13/17 10:00 03/19/17 10:54 Xarelto - PO Not Given DAILY JULIO Scopolamine HBr 1 patch 03/15/17 13:45 03/18/17 13:49 Transderm-Scop - TD 1 patch Q72H JULIO Administration ASSESSMENT/PLAN: This is a 72-year-old man with a history of HTN, colon cancer, colostomy, LLE arterial emboli, left BKA, left lung mass, CVA presented to the ER from [facility] with worse right sided facial droop, right sided weakness, hypoxia and hypotension. 1. Right hemiparesis, right facial weakness, dysarthria secondary to recent CVA - Lipitor held (patient is NPO) - Continue PT, speech therapy 2. Sepsis secondary to aspiration pneumonia, post-obstructive pneumonia - On Zosyn - Continue Mucomyst, Albuterol, DuoNeb as needed - Continue chest PT 3. Paroxysmal atrial fibrillation - Currently in sinus rhythm with PACs - Xarelto held (patient is NPO) - Continue heparin IV 4. Acute kidney injury likely secondary to dehydration/hypovolemia - Creatinine is stable 5. Acute hypoxic respiratory failure - Continue oxygen, BiPAP as needed, Mucomyst, DuoNeb as needed - Continue chest PT 6. Thrombocytopenia - Platelets improving 7. Hyperthyroidism - Tapazole held (patient is NPO) 8. Hypocalcemia - Corrected calcium is 9.5 9. Hypophosphatemia - Improved 10. Hypomagnesemia - Improved 11. Acute metabolic encephalopathy secondary to sepsis 12. Left lung mass - Has not been stable for biopsy 13. HTN - Meds held secondary to hypotension 14. PAD, history of LLE arterial emboli, left BKA - Xarelto held (patient is NPO) - Continue heparin IV 15. Hyperkalemia - Improved 16. COPD - Stable 17. Anemia secondary to chronic illness - Hemoglobin 7.5 -> 6.8 - will transfuse 1 unit PRBCs - Ferrous sulfate, folic acid held (patient is NPO) 18. History of colon cancer, colostomy 19. Protein malnutrition with weight loss, hypoproteinemia and hypoalbuminemia - Continue PPN 20 Disposition - Ongoing discussion with family regarding PEG, comfort care Visit type - Emergency Visit Emergency Visit: Yes ED Registration Date: 03/03/17 Care time: The patient presented to the Emergency Department on the above date and was hospitalized for further evaluation of their emergent condition. - New Patient This patient is new to me today: No - Critical Care Critical Care patient: No - Discharge Referral Referred to [facility] No
[2017-03-20 11:56] LABS: PLATELET COMMENT2 NO CLOTTING DETECTED; PLATELET ESTIMATE SLT DECREASED (NORMAL)
[2017-03-20] MEDS: FOLIC ACID 1 MG TABLET (FP) NGT SCH (12:54)
[2017-03-20] MEDS: RIVAROXABAN 20 MG TABLET PO SCH (12:54)
[2017-03-20] MEDS: FERROUS SO4 300 MG/5 ML ORAL SOLN UNIT DOSE CUPS GT SCH ×2 (12:54→21:35)
[2017-03-20] MEDS: AMINO ACIDS/PROTEIN HYDROLYS 30 ML LIQUID.PKT NGT SCH ×2 (12:54→21:39)
[2017-03-20] MEDS: AMINO ACIDS 4.25%/D5W 1,000 ML IV SCH ×2 (12:55→21:39)
[2017-03-20] MEDS ORDERED: ACETAMINOPHEN 1000 MG/100 ML VIAL (NON FORMULARY) IVPB ONE (13:00)
--- NOTE | 2017-03-20 14:18 | PN ---
Progress Note (short form) - Note Progress Note: No overall change in clinical condition. ABG on current NIPPV settings noted. Intake & Output 03/17/17 03/18/17 03/19/17 03/20/17 23:59 23:59 23:59 23:59 Intake Total 808 1514 2897 Balance 808 1514 2897 Last Vital Signs Temp Pulse Resp BP Pulse Ox 97.8 F 97 H 24 96/55 97 03/20/17 05:52 03/20/17 05:52 03/20/17 05:52 03/20/17 05:52 03/20/17 11:16 Active Medications Acetaminophen (Tylenol -) 650 mg PO Q4H PRN PRN Reason: PAIN Acetaminophen (Tylenol Suppository -) 650 mg VT Q4H PRN PRN Reason: FEVER OR PAIN Last Admin: 03/16/17 04:00 Dose: 650 mg Acetylcysteine (Mucomyst 20 Oral / Inh Use Only*) 200 mg NEB QIDR [facility] Last Admin: 03/20/17 06:56 Dose: Not Given Albuterol/Ipratropium (Duoneb -) 1 amp NEB Q6H PRN PRN Reason: SHORTNESS OF BREATH Last Admin: 03/20/17 06:56 Dose: 1 amp Amino Acids (Prosource No Carb Liquid Pkt) 30 ml NGT BID [facility] Last Admin: 03/20/17 12:54 Dose: Not Given Atorvastatin Calcium (Lipitor -) 10 mg NGT HS [facility] Last Admin: 03/19/17 21:40 Dose: Not Given Ferrous Sulfate (Feosol) 300 mg GT BID [facility] Last Admin: 03/20/17 12:54 Dose: Not Given Folic Acid (Folic Acid -) 1 mg NGT DAILY [facility] Last Admin: 03/20/17 12:54 Dose: Not Given Heparin Sodium (Porcine) (Heparin -) 1,000 unit IVPUSH PRN PRN PRN Reason: Heparin Last Admin: 03/19/17 16:36 Dose: 1,000 unit Heparin Sodium (Porcine) (Heparin -) 5,000 unit IVPUSH PRN PRN PRN Reason: Heparin Last Admin: 03/18/17 10:10 Dose: 5,000 unit Piperacillin Sod/Tazobactam Sod (Zosyn 4.5gm Ivpb (Pre-Docked)) 100 mls @ 200 mls/hr IVPB Q8H-IV [facility] PRN Reason: Protocol Last Admin: 03/20/17 01:52 Dose: 200 mls/hr Heparin Sodium (Porcine) 25, (000 unit/ Sodium Chloride) 500 mls @ 16 mls/hr IV TITR JULIO; 800 UNIT/HR PRN Reason: Protocol Last Titration: 03/20/17 10:00 Dose: 1,700 unit/hr Fat Emulsion Intravenous (Intralipid -) 250 mls @ 20.833 mls/hr IV DAILY@2200 [facility] Last Admin: 03/19/17 21:39 Dose: 20.833 mls/hr Amino Acids (Clinimix -) 1,000 mls @ 84 mls/hr IV Q12H [facility] Last Admin: 03/20/17 12:55 Dose: 84 mls/hr Multivitamins/Minerals (Infuvite Adult -) 10 ml IV DAILY@2200 [facility] Last Admin: 03/19/17 21:39 Dose: 10 ml Rivaroxaban (Xarelto -) 20 mg PO DAILY [facility] Last Admin: 03/20/17 12:54 Dose: Not Given Scopolamine HBr (Transderm-Scop -) 1 patch TD Q72H [facility] Last Admin: 03/18/17 13:49 Dose: 1 patch Constitutional: Yes: NAD, confused Eyes: Yes: WNL HENT: Yes: WNL Neck: Yes: WNL Cardiovascular: Yes: Pulse Irregular, S1, S2 Respiratory: Yes: Diminished on the left, few scattered rhonchi on the right Gastrointestinal: Yes: Normal Bowel Sounds, Soft Extremities: Yes: Amputation (left bka) Edema: No Labs: Laboratory Results - last 24 hr 03/20/17 03/20/17 03/20/17 05:43 05:43 05:43 WBC 10.3 H D RBC 2.40 L Hgb 6.8 L* Hct 21.8 L MCV 90.8 MCHC 31.4 L RDW 16.6 H Plt Count 138 D MPV 9.4 Differential Comment Slide scanned Platelet Estimate Slt decreased Platelet Comment No clotting detected PTT (Actin FS) 46.9 H Puncture Site ABG pH ABG pCO2 at Pt Temp ABG pO2 at Pt Temp ABG HCO3 ABG O2 Sat (Measured) ABG O2 Content ABG Base Excess Ki Test O2 Delivery Device Oxygen Flow Rate Vent Mode Vent Rate PEEP Sodium 137 Potassium 3.7 Chloride 110 H Carbon Dioxide 15 L Anion Gap 12 BUN 34 H Creatinine 1.7 H Random Glucose 131 H Calcium 7.8 L Troponin I Blood Type Antibody Screen Crossmatch 03/20/17 03/20/17 03/20/17 09:25 11:30 11:30 WBC RBC Hgb Hct MCV MCHC RDW Plt Count MPV Differential Comment Platelet Estimate Platelet Comment PTT (Actin FS) Puncture Site Right radial ABG pH 7.37 ABG pCO2 at Pt Temp 22.6 L ABG pO2 at Pt Temp 104.0 H ABG HCO3 12.9 L* ABG O2 Sat (Measured) 98.5 ABG O2 Content 8.5 L* ABG Base Excess -11.2 L* Ki Test Positive O2 Delivery Device Bipap ipap 10 epap 5 Oxygen Flow Rate 30% Vent Mode S/t Vent Rate 12 PEEP 5.0 Sodium Potassium Chloride Carbon Dioxide Anion Gap BUN Creatinine Random Glucose Calcium Troponin I 0.04 D Blood Type A NEGATIVE Antibody Screen Negative Crossmatch See Detail Assessment/Plan Acute CVA Pneumonia L lung Atelectasis no change s/p Severe Sepsis Acute Kidney Injury 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
[2017-03-20] MEDS: ALBUTEROL SO4 0.083% IH SOL 2.5 MG/3 ML VIAL.NEB. NEB SCH ×2 (17:57→23:08)
[2017-03-20] MEDS: FAT EMULSIONS 250 ML IV SCH (21:33)
[2017-03-20] MEDS: HEPARIN - 25,000 UNIT in SODIUM CHLORIDE 495 ML IV SCH (21:34)
[2017-03-20] MEDS: MULTIVIT INJ. ADULT COMBO WITH VIT K 1 COMBO 10 ML VIAL IV SCH (21:35)
[2017-03-20] MEDS: ATORVASTATIN CA 10 MG TABLET (FP) NGT SCH (21:39)
[2017-03-20] MEDS: ACETAMINOPHEN 650 MG SUPP.RECT PR PRN (23:50)
[2017-03-21] MEDS: PIPERACILLIN/TAZOB 4.5 GM 100 ML IVPB SCH ×3 (01:30→19:38)
[2017-03-21] MEDS: ALBUTEROL SO4 0.083% IH SOL 2.5 MG/3 ML VIAL.NEB. NEB SCH ×3 (06:57→18:40)
[2017-03-21] MEDS: ACETYLCYSTEINE 20% 200MG/ML 4 ML VIAL *FOR ORAL / INH USE ONLY NEB SCH ×3 (06:57→18:40)
[2017-03-21 07:49] LABS: MCH 28.7 pg (25.7-33.7); MCHC 31.8 g/dl (32.0-35.9); MEAN CELL VOLUME 90.2 fl (80-96); MEAN PLT VOLUME 9.5 fl (7.5-11.1); PLATELET COUNT 143 K/MM3 (134-434); RDW 16.3 % (11.9-15.9); WHITE BLOOD COUNT 11.4 K/mm3 (4.0-10.0)
[2017-03-21 08:22] LABS: CALCIUM 7.8 mg/dL (8.5-10.1); COCKROFT - GAULT 43.09; CREATININE 1.5 mg/dL (0.7-1.3)
[2017-03-21 09:14] LABS: HYPOCHROMIA 1+; PLATELET ESTIMATE DECREASED (NORMAL); POLYCHROMASIA FEW
[2017-03-21] MEDS: FERROUS SO4 300 MG/5 ML ORAL SOLN UNIT DOSE CUPS GT SCH ×2 (09:39→22:11)
[2017-03-21] MEDS: FOLIC ACID 1 MG TABLET (FP) NGT SCH (09:39)
[2017-03-21] MEDS: AMINO ACIDS/PROTEIN HYDROLYS 30 ML LIQUID.PKT NGT SCH ×2 (09:39→22:13)
[2017-03-21] MEDS: RIVAROXABAN 20 MG TABLET PO SCH (09:39)
--- NOTE | 2017-03-21 10:31 | PN ---
Physical Exam: SUBJECTIVE: Patient seen and examined. He is comfortable, using BiPAP. OBJECTIVE: Vital Signs Period Temp Pulse Resp BP Sys/Tapia Pulse Ox Last 24 Hr 97.4 F-100.1 F 82-96 20-22 100-112/41-67 97-100 GENERAL: The patient is awake, alert, and confused. LUNGS: Bilateral rhonchi. HEART: Regular rate and rhythm, S1, S2. ABDOMEN: Soft, nondistended, normoactive bowel sounds, no guarding, no rebound, no hepatosplenomegaly, no masses. EXTREMITIES: 1+ pulses, warm, well-perfused, no edema, s/p left BKA. Laboratory Results - last 24 hr 03/20/17 03/20/17 03/20/17 05:43 11:30 11:30 WBC RBC Hgb Hct MCV MCHC RDW Plt Count MPV Neutrophils % Lymphocytes % Monocytes % Differential Comment Slide scanned Platelet Estimate Slt decreased Platelet Comment No clotting detected Polychromasia Hypochromic-Microcytic PTT (Actin FS) Sodium Potassium Chloride Carbon Dioxide Anion Gap BUN Creatinine Random Glucose Calcium Troponin I 0.04 D Blood Type A NEGATIVE Antibody Screen Negative Crossmatch See Detail 03/20/17 03/21/17 03/21/17 19:20 05:40 05:40 WBC 11.4 H RBC 2.75 L Hgb 7.9 L D Hct 24.8 L MCV 90.2 MCHC 31.8 L RDW 16.3 H Plt Count 143 MPV 9.5 Neutrophils % 87.0 H Lymphocytes % 5.0 L D Monocytes % 8.0 Differential Comment Platelet Estimate Decreased Platelet Comment No clumping noted Polychromasia Few Hypochromic-Microcytic 1+ PTT (Actin FS) 50.8 H Sodium 139 Potassium 3.7 Chloride 113 H Carbon Dioxide 17 L Anion Gap 9 BUN 27 H D Creatinine 1.5 H Random Glucose 115 H Calcium 7.8 L Troponin I Blood Type Antibody Screen Crossmatch 03/21/17 05:40 WBC RBC Hgb Hct MCV MCHC RDW Plt Count MPV Neutrophils % Lymphocytes % Monocytes % Differential Comment Platelet Estimate Platelet Comment Polychromasia Hypochromic-Microcytic PTT (Actin FS) 49.8 H Sodium Potassium Chloride Carbon Dioxide Anion Gap BUN Creatinine Random Glucose Calcium Troponin I Blood Type Antibody Screen Crossmatch Active Medications Generic Name Dose Route Start Last Admin Trade Name Freq PRN Reason Stop Dose Admin Acetaminophen 650 mg 03/05/17 17:51 Tylenol - PO Q4H PRN PAIN Acetaminophen 650 mg 03/13/17 21:48 03/20/17 23:50 Tylenol Suppository - NE 650 mg Q4H PRN Administration FEVER OR PAIN Acetylcysteine 200 mg 03/11/17 18:00 03/21/17 06:57 Mucomyst 20 Oral / Inh Use Only* NEB 200 mg QIDR [facility] Administration Albuterol Sulfate 1 amp 03/20/17 18:00 03/21/17 06:57 Ventolin 0.083% Nebulizer Soln - NEB 1 amp QIDR [facility] Administration Amino Acids 30 ml 03/13/17 10:00 03/21/17 09:39 Prosource No Carb Liquid Pkt NGT Not Given BID [facility] Atorvastatin Calcium 10 mg 03/13/17 22:00 03/20/17 21:39 Lipitor - NGT Not Given [facility] Ferrous Sulfate 300 mg 03/13/17 10:00 03/21/17 09:39 Feosol GT Not Given BID [facility] Folic Acid 1 mg 03/13/17 08:50 03/21/17 09:39 Folic Acid - NGT Not Given DAILY [facility] Heparin Sodium (Porcine) 1,000 unit 03/16/17 17:12 03/19/17 16:36 Heparin - IVPUSH 1,000 unit PRN PRN Administration Heparin Heparin Sodium (Porcine) 5,000 unit 03/16/17 17:12 03/18/17 10:10 Heparin - IVPUSH 5,000 unit PRN PRN Administration Heparin Piperacillin Sod/Tazobactam Sod 100 mls @ 200 mls/hr 03/15/17 12:00 03/21/17 01 :30 Zosyn 4.5gm Ivpb (Pre-Docked) IVPB 200 mls/hr Q8H-IV [facility] Administration Protocol Heparin Sodium (Porcine) 25, 500 mls @ 16 mls/hr 03/16/17 17:15 03/21/17 09:39 000 unit/ Sodium Chloride IV 1,800 unit/hr TITR [facility] Titration Protocol 800 UNIT/HR Fat Emulsion Intravenous 250 mls @ 20.833 mls/hr 03/16/17 22:00 03/20/17 21:33 Intralipid - IV 20.833 mls/hr DAILY@2200 [facility] Administration Amino Acids 1,000 mls @ 84 mls/hr 03/16/17 22:30 03/20/17 21:39 Clinimix - IV 84 mls/hr Q12H [facility] Administration Multivitamins/Minerals 10 ml 03/16/17 22:45 03/20/17 21:35 Infuvite Adult - IV 10 ml DAILY@2200 [facility] Administration Rivaroxaban 20 mg 03/13/17 10:00 03/21/17 09:39 Xarelto - PO Not Given DAILY [facility] Scopolamine HBr 1 patch 03/15/17 13:45 03/18/17 13:49 Transderm-Scop - TD 1 patch Q72H [facility] Administration ASSESSMENT/PLAN: This is a 72-year-old man with a history of HTN, colon cancer, colostomy, LLE arterial emboli, left BKA, left lung mass, CVA presented to the ER from [facility] with worse right sided facial droop, right sided weakness, hypoxia and hypotension. 1. Right hemiparesis, right facial weakness, dysarthria secondary to recent CVA - Lipitor held (patient is NPO) - Continue PT, speech therapy 2. Sepsis secondary to aspiration pneumonia, post-obstructive pneumonia - On Zosyn - Continue Mucomyst, Albuterol, DuoNeb as needed - Continue chest PT 3. Paroxysmal atrial fibrillation - Currently in sinus rhythm with PACs - Xarelto held (patient is NPO) - Continue heparin IV 4. Acute kidney injury likely secondary to dehydration/hypovolemia - Improving 5. Acute hypoxic respiratory failure - Continue oxygen, BiPAP as needed, Mucomyst, DuoNeb as needed - Continue chest PT 6. Thrombocytopenia - Improved 7. Hyperthyroidism - Tapazole held (patient is NPO) 8. Hypocalcemia - Corrected calcium is 9.5 9. Hypophosphatemia - Improved 10. Hypomagnesemia - Improved 11. Acute metabolic encephalopathy secondary to sepsis 12. Left lung mass - Has not been stable for biopsy 13. HTN - Meds held secondary to hypotension 14. PAD, history of LLE arterial emboli, left BKA - Xarelto held (patient is NPO) - Continue heparin IV 15. Hyperkalemia - Improved 16. COPD - Stable 17. Anemia secondary to chronic illness - Transfused 1 unit PRBCs 5/27 - Ferrous sulfate, folic acid held (patient is NPO) 18. History of colon cancer, colostomy 19. Protein malnutrition with weight loss, hypoproteinemia and hypoalbuminemia - Continue PPN 20 Disposition - Ongoing discussion with family regarding PEG, comfort care Visit type - Emergency Visit Emergency Visit: Yes ED Registration Date: 03/03/17 Care time: The patient presented to the Emergency Department on the above date and was hospitalized for further evaluation of their emergent condition. - New Patient This patient is new to me today: No - Critical Care Critical Care patient: No - Discharge Referral Referred to [facility] Med P.C.: No
[2017-03-21] MEDS: SCOPOLAMINE HYDROBROMIDE 1 PATCH PATCH.TD72 TD SCH (11:10)
[2017-03-21] MEDS ORDERED: HEPARIN INFUSION - 500 ML IVPB ONE (13:45)
--- NOTE | 2017-03-21 16:59 | PN ---
Progress Note (short form) - Note Progress Note: No overall change in clinical condition. Tolerating NIPPV therapy, but only has limited time without support. Intake & Output 03/18/17 03/19/17 03/20/17 03/21/17 23:59 23:59 23:59 23:59 Intake Total 1514 2897 3458 1510 Output Total 1500 1400 Balance 1514 2897 1958 110 Last Vital Signs Temp Pulse Resp BP Pulse Ox 98 F 71 25 H 107/52 100 03/21/17 15:03 03/21/17 15:03 03/21/17 15:03 03/21/17 15:03 03/21/17 02:18 Active Medications Acetaminophen (Tylenol -) 650 mg PO Q4H PRN PRN Reason: PAIN Acetaminophen (Tylenol Suppository -) 650 mg [place] Q4H PRN PRN Reason: FEVER OR PAIN Last Admin: 03/20/17 23:50 Dose: 650 mg Acetylcysteine (Mucomyst 20 Oral / Inh Use Only*) 200 mg NEB QIDR [facility] Last Admin: 03/21/17 11:40 Dose: 200 mg Albuterol Sulfate (Ventolin 0.083% Nebulizer Soln -) 1 amp NEB QIDR [facility] Last Admin: 03/21/17 11:40 Dose: 1 amp Amino Acids (Prosource No Carb Liquid Pkt) 30 ml NGT BID [facility] Last Admin: 03/21/17 09:39 Dose: Not Given Atorvastatin Calcium (Lipitor -) 10 mg NGT HS [facility] Last Admin: 03/20/17 21:39 Dose: Not Given Ferrous Sulfate (Feosol) 300 mg GT BID [facility] Last Admin: 03/21/17 09:39 Dose: Not Given Folic Acid (Folic Acid -) 1 mg NGT DAILY [facility] Last Admin: 03/21/17 09:39 Dose: Not Given Heparin Sodium (Porcine) (Heparin -) 1,000 unit IVPUSH PRN PRN PRN Reason: Heparin Last Admin: 03/19/17 16:36 Dose: 1,000 unit Heparin Sodium (Porcine) (Heparin -) 5,000 unit IVPUSH PRN PRN PRN Reason: Heparin Last Admin: 03/18/17 10:10 Dose: 5,000 unit Piperacillin Sod/Tazobactam Sod (Zosyn 4.5gm Ivpb (Pre-Docked)) 100 mls @ 200 mls/hr IVPB Q8H-IV JULIO PRN Reason: Protocol Last Admin: 03/21/17 01:30 Dose: 200 mls/hr Heparin Sodium (Porcine) 25, (000 unit/ Sodium Chloride) 500 mls @ 16 mls/hr IV TITR JULIO; 800 UNIT/HR PRN Reason: Protocol Last Titration: 03/21/17 09:39 Dose: 1,800 unit/hr Fat Emulsion Intravenous (Intralipid -) 250 mls @ 20.833 mls/hr IV DAILY@2200 [facility] Last Admin: 03/20/17 21:33 Dose: 20.833 mls/hr Amino Acids (Clinimix -) 1,000 mls @ 84 mls/hr IV Q12H [facility] Last Admin: 03/20/17 21:39 Dose: 84 mls/hr Multivitamins/Minerals (Infuvite Adult -) 10 ml IV DAILY@2200 [facility] Last Admin: 03/20/17 21:35 Dose: 10 ml Rivaroxaban (Xarelto -) 20 mg PO DAILY [facility] Last Admin: 03/21/17 09:39 Dose: Not Given Scopolamine HBr (Transderm-Scop -) 1 patch TD Q72H [facility] Last Admin: 03/18/17 13:49 Dose: 1 patch Constitutional: Yes: NAD on NIPPV, confused Eyes: Yes: WNL HENT: Yes: WNL Neck: Yes: WNL Cardiovascular: Yes: Pulse Irregular, S1, S2 Respiratory: Yes: Diminished on the left, few scattered rhonchi on the right Gastrointestinal: Yes: Normal Bowel Sounds, Soft Extremities: Yes: Amputation (left bka) Edema: No Labs: Laboratory Results - last 24 hr 03/20/17 03/21/17 03/21/17 19:20 05:40 05:40 WBC 11.4 H RBC 2.75 L Hgb 7.9 L D Hct 24.8 L MCV 90.2 MCHC 31.8 L RDW 16.3 H Plt Count 143 MPV 9.5 Neutrophils % 87.0 H Lymphocytes % 5.0 L D Monocytes % 8.0 Platelet Estimate Decreased Platelet Comment No clumping noted Polychromasia Few Hypochromic-Microcytic 1+ PTT (Actin FS) 50.8 H Sodium 139 Potassium 3.7 Chloride 113 H Carbon Dioxide 17 L Anion Gap 9 BUN 27 H D Creatinine 1.5 H Random Glucose 115 H Calcium 7.8 L 03/21/17 05:40 WBC RBC Hgb Hct MCV MCHC RDW Plt Count MPV Neutrophils % Lymphocytes % Monocytes % Platelet Estimate Platelet Comment Polychromasia Hypochromic-Microcytic PTT (Actin FS) 49.8 H Sodium Potassium Chloride Carbon Dioxide Anion Gap BUN Creatinine Random Glucose Calcium Assessment/Plan Acute CVA Pneumonia L lung Atelectasis no change s/p Severe Sepsis Acute Kidney Injury Lung Mass likely malignant PAD Thrombocytopenia - Aspiration precautions - NIPPV as tolerated - chest PT - continue mucomyst with albuterol QID - monitor H/H - Consider P care evaluation to further discuss GOC Dr Kaminski
[2017-03-21] MEDS: HEPARIN - 25,000 UNIT in SODIUM CHLORIDE 495 ML IV SCH (17:51)
[2017-03-21] MEDS: AMINO ACIDS 4.25%/D5W 1,000 ML IV SCH ×2 (17:51→22:30)
[2017-03-21] MEDS ORDERED: PT OWN MED DRAWER 7, Y5N ONE (19:40)
[2017-03-21] MEDS: MULTIVIT INJ. ADULT COMBO WITH VIT K 1 COMBO 10 ML VIAL IV SCH (22:00)
[2017-03-21] MEDS: FAT EMULSIONS 250 ML IV SCH (22:12)
[2017-03-21] MEDS: ATORVASTATIN CA 10 MG TABLET (FP) NGT SCH (22:13)
[2017-03-22] MEDS: ALBUTEROL SO4 0.083% IH SOL 2.5 MG/3 ML VIAL.NEB. NEB SCH ×5 (00:34→23:02)
[2017-03-22] MEDS: ACETYLCYSTEINE 20% 200MG/ML 4 ML VIAL *FOR ORAL / INH USE ONLY NEB SCH ×5 (00:34→23:01)
[2017-03-22] MEDS: PIPERACILLIN/TAZOB 4.5 GM 100 ML IVPB SCH ×4 (02:00→20:08)
[2017-03-22 08:02] LABS: MCH 28.6 pg (25.7-33.7); MCHC 31.6 g/dl (32.0-35.9); MEAN CELL VOLUME 90.5 fl (80-96); MEAN PLT VOLUME 8.8 fl (7.5-11.1); PLATELET COUNT 152 K/MM3 (134-434); RDW 16.3 % (11.9-15.9); WHITE BLOOD COUNT 12.1 K/mm3 (4.0-10.0)
[2017-03-22 09:02] LABS: CALCIUM 7.9 mg/dL (8.5-10.1); COCKROFT - GAULT 43.09; CREATININE 1.5 mg/dL (0.7-1.3)
--- NOTE | 2017-03-22 09:38 | PN ---
Progress Note, Physician History of Present Illness: PULMONARY NO CHANGE ON BIPAP,LETHARGIC,-RESP DISTRESS - Current Medication List Current Medications: Active Medications Acetaminophen (Tylenol -) 650 mg PO Q4H PRN PRN Reason: PAIN Acetaminophen (Tylenol Suppository -) 650 mg [place] Q4H PRN PRN Reason: FEVER OR PAIN Last Admin: 03/20/17 23:50 Dose: 650 mg Acetylcysteine (Mucomyst 20 Oral / Inh Use Only*) 200 mg NEB QIDR [facility] Last Admin: 03/22/17 06:00 Dose: 200 mg Albuterol Sulfate (Ventolin 0.083% Nebulizer Soln -) 1 amp NEB QIDR [facility] Last Admin: 03/22/17 06:00 Dose: 1 amp Amino Acids (Prosource No Carb Liquid Pkt) 30 ml NGT BID [facility] Last Admin: 03/21/17 22:13 Dose: Not Given Atorvastatin Calcium (Lipitor -) 10 mg NGT HS [facility] Last Admin: 03/21/17 22:13 Dose: Not Given Ferrous Sulfate (Feosol) 300 mg GT BID [facility] Last Admin: 03/21/17 22:11 Dose: Not Given Folic Acid (Folic Acid -) 1 mg NGT DAILY [facility] Last Admin: 03/21/17 09:39 Dose: Not Given Heparin Sodium (Porcine) (Heparin -) 1,000 unit IVPUSH PRN PRN PRN Reason: Heparin Last Admin: 03/19/17 16:36 Dose: 1,000 unit Heparin Sodium (Porcine) (Heparin -) 5,000 unit IVPUSH PRN PRN PRN Reason: Heparin Last Admin: 03/18/17 10:10 Dose: 5,000 unit Piperacillin Sod/Tazobactam Sod (Zosyn 4.5gm Ivpb (Pre-Docked)) 100 mls @ 200 mls/hr IVPB Q8H-IV [facility] PRN Reason: Protocol Last Admin: 03/22/17 02:00 Dose: 200 mls/hr Heparin Sodium (Porcine) 25, (000 unit/ Sodium Chloride) 500 mls @ 16 mls/hr IV TITR [facility]; 800 UNIT/HR PRN Reason: Protocol Last Admin: 03/21/17 17:51 Dose: 36 mls/hr Fat Emulsion Intravenous (Intralipid -) 250 mls @ 20.833 mls/hr IV DAILY@2200 [facility] Last Admin: 03/21/17 22:12 Dose: 20.833 mls/hr Amino Acids (Clinimix -) 1,000 mls @ 84 mls/hr IV Q12H [facility] Last Admin: 03/21/17 22:30 Dose: 84 mls/hr Multivitamins/Minerals (Infuvite Adult -) 10 ml IV DAILY@2200 [facility] Last Admin: 03/21/17 22:00 Dose: 10 ml Rivaroxaban (Xarelto -) 20 mg PO DAILY [facility] Last Admin: 03/21/17 09:39 Dose: Not Given Scopolamine HBr (Transderm-Scop -) 1 patch TD Q72H [facility] Last Admin: 03/18/17 13:49 Dose: 1 patch - Objective Vital Signs: Vital Signs Temperature 97.6 F 03/22/17 06:00 Pulse Rate 87 03/22/17 06:00 Respiratory Rate 20 03/22/17 06:00 Blood Pressure 108/48 03/22/17 06:00 O2 Sat by Pulse Oximetry (%) 100 03/22/17 07:07 Constitutional: Yes: Thin, Other (LETHARGIC) Eyes: Yes: WNL HENT: Yes: WNL Neck: Yes: WNL Cardiovascular: Yes: Pulse Irregular, S1, S2 Respiratory: Yes: Rhonchi (FEW RHONCHI) Gastrointestinal: Yes: Normal Bowel Sounds, Soft Extremities: Yes: Amputation (LEFT BKA) Labs: CBC, BMP 03/22/17 06:55 03/22/17 06:55 INR, PTT INR 1.43 (0.82-1.09) H 03/17/17 08:50 Problem List - Problems (1) Atelectasis of left lung Code(s): J98.11 - ATELECTASIS (2) CVA (cerebral vascular accident) Code(s): I63.9 - CEREBRAL INFARCTION, UNSPECIFIED (3) Dysphagia as late effect of cerebrovascular accident (CVA) Code(s): I69.391 - DYSPHAGIA FOLLOWING CEREBRAL INFARCTION (4) Pneumonia Code(s): J18.9 - PNEUMONIA, UNSPECIFIED ORGANISM (5) Sepsis Code(s): A41.9 - SEPSIS, UNSPECIFIED ORGANISM (6) Smoker Code(s): F17.200 - NICOTINE DEPENDENCE, UNSPECIFIED, UNCOMPLICATED (7) Anemia Code(s): D64.9 - ANEMIA, UNSPECIFIED (8) Lung mass Code(s): R91.8 - OTHER NONSPECIFIC ABNORMAL FINDING OF LUNG FIELD (9) Respiratory failure Code(s): J96.90 - RESPIRATORY FAILURE, UNSP, UNSP W HYPOXIA OR HYPERCAPNIA Assessment/Plan A/P Respiratory failure Acute CVA Pneumonia L lung Atelectasis no change s/p Severe Sepsis Acute Kidney Injury worsenung Lung Mass likely malignant PAD Afib Thrombocytopenia resolved Fever likely aspiration ANEMIA - continue IVF - monitor urine output, creatinine - aspiration precautions - BiPAP - chest PT - continue mucomyst with albuterol QID - anticoagulation - monitor H/H - f/u chest x-ray - conservative management at this time secondary multiple co-morbidities - antibiotics as per ID - transfuse prn DR GOMEZ
--- NOTE | 2017-03-22 10:11 | EKG ---
Test Reason : Blood Pressure : / mmHG Vent. Rate : 088 BPM Atrial Rate : 088 BPM P-R Int : 138 ms QRS Dur : 086 ms QT Int : 422 ms P-R-T Axes : 071 021 074 degrees QTc Int : 510 ms POOR DATA QUALITY, INTERPRETATION MAY BE ADVERSELY AFFECTED SINUS RHYTHM WITH PREMATURE ATRIAL COMPLEXES LOW VOLTAGE QRS PROLONGED QT ABNORMAL ECG WHEN COMPARED WITH ECG OF 11-MAR-2017 15:42, SINUS RHYTHM HAS REPLACED ATRIAL FIBRILLATION QT HAS LENGTHENED PATIENT MOVING DURING EKG Confirmed by VADIM RICHARDS MD ([id number]) on 03/22/2017 10:11:25 AM Referred By: Max DOWLING Confirmed By:VADIM RICHARDS MD
[2017-03-22] MEDS: AMINO ACIDS/PROTEIN HYDROLYS 30 ML LIQUID.PKT NGT SCH ×2 (11:11→23:42)
[2017-03-22] MEDS: FOLIC ACID 1 MG TABLET (FP) NGT SCH (11:11)
[2017-03-22] MEDS: FERROUS SO4 300 MG/5 ML ORAL SOLN UNIT DOSE CUPS GT SCH ×2 (11:11→23:42)
[2017-03-22] MEDS: RIVAROXABAN 20 MG TABLET PO SCH (11:12)
[2017-03-22] MEDS: AMINO ACIDS 4.25%/D5W 1,000 ML IV SCH ×3 (11:12→23:32)
--- NOTE | 2017-03-22 11:33 | PN ---
Physical Exam: SUBJECTIVE: Patient seen and examined OBJECTIVE: Vital Signs Period Temp Pulse Resp BP Sys/Tapia Pulse Ox Last 24 Hr 97.6 F-98.0 F 71-90 20-25 91-112/47-66 99-100 GENERAL: The patient is awake, alert, and confused. LUNGS: Bilateral rhonchi. HEART: Regular rate and rhythm, S1, S2. ABDOMEN: Soft, nondistended, normoactive bowel sounds, no guarding, no rebound, no hepatosplenomegaly, no masses. EXTREMITIES: 1+ pulses, warm, well-perfused, no edema, s/p left BKA. Laboratory Results - last 24 hr 03/22/17 03/22/17 03/22/17 06:55 06:55 06:55 WBC 12.1 H RBC 2.84 L Hgb 8.1 L Hct 25.7 L MCV 90.5 MCHC 31.6 L RDW 16.3 H Plt Count 152 MPV 8.8 Neutrophils % Y Lymphocytes % Y PTT (Actin FS) 58.9 H Sodium 139 Potassium 3.3 L Chloride 111 H Carbon Dioxide 15 L Anion Gap 13 BUN 24 H Creatinine 1.5 H Random Glucose 113 H Calcium 7.9 L Active Medications Generic Name Dose Route Start Last Admin Trade Name Freq PRN Reason Stop Dose Admin Acetaminophen 650 mg 03/05/17 17:51 Tylenol - PO Q4H PRN PAIN Acetaminophen 650 mg 03/13/17 21:48 03/20/17 23:50 Tylenol Suppository - [place] 650 mg Q4H PRN Administration FEVER OR PAIN Acetylcysteine 200 mg 03/11/17 18:00 03/22/17 06:00 Mucomyst 20 Oral / Inh Use Only* NEB 200 mg QIDR JULIO Administration Albuterol Sulfate 1 amp 03/20/17 18:00 03/22/17 06:00 Ventolin 0.083% Nebulizer Soln - NEB 1 amp QIDR JULIO Administration Amino Acids 30 ml 03/13/17 10:00 03/22/17 11:11 Prosource No Carb Liquid Pkt NGT Not Given BID JULIO Atorvastatin Calcium 10 mg 03/13/17 22:00 03/21/17 22:13 Lipitor - NGT Not Given HS JULIO Ferrous Sulfate 300 mg 03/13/17 10:00 03/22/17 11:11 Feosol GT Not Given BID JULIO Folic Acid 1 mg 03/13/17 08:50 03/22/17 11:11 Folic Acid - NGT Not Given DAILY [facility] Heparin Sodium (Porcine) 1,000 unit 03/16/17 17:12 03/19/17 16:36 Heparin - IVPUSH 1,000 unit PRN PRN Administration Heparin Heparin Sodium (Porcine) 5,000 unit 03/16/17 17:12 03/18/17 10:10 Heparin - IVPUSH 5,000 unit PRN PRN Administration Heparin Piperacillin Sod/Tazobactam Sod 100 mls @ 200 mls/hr 03/15/17 12:00 03/22/17 11 :21 Zosyn 4.5gm Ivpb (Pre-Docked) IVPB 200 mls/hr Q8H-IV JULIO Administration Protocol Heparin Sodium (Porcine) 25, 500 mls @ 16 mls/hr 03/16/17 17:15 03/21/17 17:51 000 unit/ Sodium Chloride IV 36 mls/hr TITR JULIO Administration Protocol 800 UNIT/HR Fat Emulsion Intravenous 250 mls @ 20.833 mls/hr 03/16/17 22:00 03/21/17 22:12 Intralipid - IV 20.833 mls/hr DAILY@2200 JULIO Administration Amino Acids 1,000 mls @ 84 mls/hr 03/16/17 22:30 03/22/17 11:22 Clinimix - IV 84 mls/hr Q12H JULIO Administration Multivitamins/Minerals 10 ml 03/16/17 22:45 03/21/17 22:00 Infuvite Adult - IV 10 ml DAILY@2200 JULIO Administration Rivaroxaban 20 mg 03/13/17 10:00 03/22/17 11:12 Xarelto - PO Not Given DAILY [facility] Scopolamine HBr 1 patch 03/15/17 13:45 03/21/17 11:10 Transderm-Scop - TD 1 patch Q72H JULIO Administration ASSESSMENT/PLAN: This is a 72-year-old man with a history of HTN, colon cancer, colostomy, LLE arterial emboli, left BKA, left lung mass, CVA presented to the ER from [facility] with worse right sided facial droop, right sided weakness, hypoxia and hypotension. 1. Right hemiparesis, right facial weakness, dysarthria secondary to recent CVA - Lipitor held (patient is NPO) - Continue PT, speech therapy 2. Sepsis secondary to aspiration pneumonia, post-obstructive pneumonia - On Zosyn - Continue Mucomyst, Albuterol, DuoNeb as needed - Continue chest PT 3. Paroxysmal atrial fibrillation - Currently in sinus rhythm with PACs - Xarelto held (patient is NPO) - Continue heparin IV 4. Acute kidney injury likely secondary to dehydration/hypovolemia - Improving 5. Acute hypoxic respiratory failure - Continue oxygen, BiPAP as needed, Mucomyst, DuoNeb as needed - Continue chest PT 6. Hypokalemia - Replete potassium 7. Thrombocytopenia - Improved 8. Hyperthyroidism - Tapazole held (patient is NPO) 9. Hypocalcemia - Corrected calcium is 9.6 10. Hypophosphatemia - Improved 11. Hypomagnesemia - Improved 12. Acute metabolic encephalopathy secondary to sepsis 13. Left lung mass - Has not been stable for biopsy 14. HTN - Meds held secondary to hypotension 15. PAD, history of LLE arterial emboli, left BKA - Xarelto held (patient is NPO) - Continue heparin IV 16. Hyperkalemia - Improved 17. COPD - Stable 18. Anemia secondary to chronic illness - Transfused 1 unit PRBCs 03/20 - Hemoglobin is stable - Ferrous sulfate, folic acid held (patient is NPO) 19. History of colon cancer, colostomy 20. Protein malnutrition with weight loss, hypoproteinemia and hypoalbuminemia - Continue PPN - Possible PEG placement by IR 21. Disposition - Ongoing discussion with family regarding PEG, comfort care Visit type - Emergency Visit Emergency Visit: Yes ED Registration Date: 03/03/17 Care time: The patient presented to the Emergency Department on the above date and was hospitalized for further evaluation of their emergent condition. - New Patient This patient is new to me today: No - Critical Care Critical Care patient: No - Discharge Referral Referred to [facility] Med P.C.: No
[2017-03-22 12:18] LABS: METAMYELOCYTE 2 % (0-2); PLATELET ESTIMATE ADEQUATE (NORMAL)
[2017-03-22] MEDS: KCL 10 MEQ IVPB 100 ML IVPB SCH ×3 (17:25→20:22)
[2017-03-22] MEDS: HEPARIN - 25,000 UNIT in SODIUM CHLORIDE 495 ML IV SCH (17:26)
[2017-03-22] MEDS ORDERED: KCL 10 MEQ IVPB 100 ML IVPB ONE (20:15)
[2017-03-22] MEDS ORDERED: PT OWN MED DRAWER 7, Y5N ONE (22:00)
[2017-03-22] MEDS: FAT EMULSIONS 250 ML IV SCH (23:32)
[2017-03-22] MEDS: ATORVASTATIN CA 10 MG TABLET (FP) NGT SCH (23:42)
[2017-03-22] MEDS: MULTIVIT INJ. ADULT COMBO WITH VIT K 1 COMBO 10 ML VIAL IV SCH (23:42)
[2017-03-23] MEDS: PIPERACILLIN/TAZOB 4.5 GM 100 ML IVPB SCH (03:18)
[2017-03-23] MEDS: ACETYLCYSTEINE 20% 200MG/ML 4 ML VIAL *FOR ORAL / INH USE ONLY NEB SCH ×4 (05:57→23:25)
[2017-03-23] MEDS: ALBUTEROL SO4 0.083% IH SOL 2.5 MG/3 ML VIAL.NEB. NEB SCH ×4 (05:57→23:25)
[2017-03-23 07:29] LABS: MCH 29.1 pg (25.7-33.7); MCHC 31.7 g/dl (32.0-35.9); MEAN CELL VOLUME 91.7 fl (80-96); PLATELET COUNT 149 K/MM3 (134-434); RDW 16.6 % (11.9-15.9); WHITE BLOOD COUNT 13.3 K/mm3 (4.0-10.0)
[2017-03-23 08:34] LABS: CALCIUM 7.7 mg/dL (8.5-10.1); COCKROFT - GAULT 43.09; CREATININE 1.5 mg/dL (0.7-1.3)
--- NOTE | 2017-03-23 10:21 | PN ---
Progress Note, Physician History of Present Illness: pulmonary awake,congested,tachypneic on nasal o2 - Current Medication List Current Medications: Active Medications Acetaminophen (Tylenol -) 650 mg PO Q4H PRN PRN Reason: PAIN Acetaminophen (Tylenol Suppository -) 650 mg [place] Q4H PRN PRN Reason: FEVER OR PAIN Last Admin: 03/20/17 23:50 Dose: 650 mg Acetylcysteine (Mucomyst 20 Oral / Inh Use Only*) 200 mg NEB QIDR [facility] Last Admin: 03/23/17 05:57 Dose: 200 mg Albuterol Sulfate (Ventolin 0.083% Nebulizer Soln -) 1 amp NEB QIDR [facility] Last Admin: 03/23/17 05:57 Dose: 1 amp Amino Acids (Prosource No Carb Liquid Pkt) 30 ml NGT BID [facility] Last Admin: 03/22/17 23:42 Dose: Not Given Atorvastatin Calcium (Lipitor -) 10 mg NGT HS [facility] Last Admin: 03/22/17 23:42 Dose: Not Given Ferrous Sulfate (Feosol) 300 mg GT BID [facility] Last Admin: 03/22/17 23:42 Dose: Not Given Folic Acid (Folic Acid -) 1 mg NGT DAILY [facility] Last Admin: 03/22/17 11:11 Dose: Not Given Heparin Sodium (Porcine) (Heparin -) 1,000 unit IVPUSH PRN PRN PRN Reason: Heparin Last Admin: 03/19/17 16:36 Dose: 1,000 unit Heparin Sodium (Porcine) (Heparin -) 5,000 unit IVPUSH PRN PRN PRN Reason: Heparin Last Admin: 03/18/17 10:10 Dose: 5,000 unit Heparin Sodium (Porcine) 25, (000 unit/ Sodium Chloride) 500 mls @ 16 mls/hr IV TITR JULIO; 800 UNIT/HR PRN Reason: Protocol Last Admin: 03/22/17 17:26 Dose: Not Given Fat Emulsion Intravenous (Intralipid -) 250 mls @ 20.833 mls/hr IV DAILY@2200 [facility] Last Admin: 03/22/17 23:32 Dose: 20.833 mls/hr Amino Acids (Clinimix -) 1,000 mls @ 84 mls/hr IV Q12H [facility] Last Admin: 03/22/17 23:32 Dose: 84 mls/hr Multivitamins/Minerals (Infuvite Adult -) 10 ml IV DAILY@2200 [facility] Last Admin: 03/22/17 23:42 Dose: 10 ml Rivaroxaban (Xarelto -) 20 mg PO DAILY [facility] Last Admin: 03/22/17 11:12 Dose: Not Given Scopolamine HBr (Transderm-Scop -) 1 patch TD Q72H [facility] Last Admin: 03/21/17 11:10 Dose: 1 patch - Objective Vital Signs: Vital Signs Temperature 98.4 F 03/23/17 06:00 Pulse Rate 74 03/23/17 06:00 Respiratory Rate 20 03/23/17 06:00 Blood Pressure 110/69 03/23/17 06:00 O2 Sat by Pulse Oximetry (%) 97 03/22/17 21:00 Constitutional: Yes: Calm, Mild Distress, Thin Eyes: Yes: WNL HENT: Yes: WNL Neck: Yes: WNL Cardiovascular: Yes: Pulse Irregular, S1, S2 Respiratory: Yes: Rhonchi, Tachypnea Gastrointestinal: Yes: Normal Bowel Sounds, Soft Extremities: Yes: Amputation (left bka) Edema: No Labs: CBC, BMP 03/23/17 05:35 03/23/17 06:00 INR, PTT INR 1.43 (0.82-1.09) H 03/17/17 08:50 Problem List - Problems (1) Atelectasis of left lung Code(s): J98.11 - ATELECTASIS (2) CVA (cerebral vascular accident) Code(s): I63.9 - CEREBRAL INFARCTION, UNSPECIFIED (3) Dysphagia as late effect of cerebrovascular accident (CVA) Code(s): I69.391 - DYSPHAGIA FOLLOWING CEREBRAL INFARCTION (4) Pneumonia Code(s): J18.9 - PNEUMONIA, UNSPECIFIED ORGANISM (5) Sepsis Code(s): A41.9 - SEPSIS, UNSPECIFIED ORGANISM (6) Smoker Code(s): F17.200 - NICOTINE DEPENDENCE, UNSPECIFIED, UNCOMPLICATED (7) Anemia Code(s): D64.9 - ANEMIA, UNSPECIFIED (8) Lung mass Code(s): R91.8 - OTHER NONSPECIFIC ABNORMAL FINDING OF LUNG FIELD (9) Respiratory failure Code(s): J96.90 - RESPIRATORY FAILURE, UNSP, UNSP W HYPOXIA OR HYPERCAPNIA Assessment/Plan A/P Respiratory failure Acute CVA Pneumonia L lung Atelectasis no change s/p Severe Sepsis Acute Kidney Injury worsenung Lung Mass likely malignant PAD Afib Thrombocytopenia resolved Fever likely aspiration ANEMIA - continue IVF - monitor urine output, creatinine - aspiration precautions - BiPAP prn - chest PT - continue mucomyst with albuterol QID - anticoagulation - monitor H/H - f/u chest x-ray - antibiotics as per ID - transfuse prn - prognosis poor DR GOMEZ
--- NOTE | 2017-03-23 11:08 | PN ---
Teaching Attending Note Name of Resident: Keenan Onofre ATTENDING PHYSICIAN STATEMENT I saw and evaluated the patient. I reviewed the resident's note and discussed the case with the resident. I agree with the resident's findings and plan as documented. SUBJECTIVE:resting comfortable. no signs of distress OBJECTIVE: Last Vital Signs Temp Pulse Resp BP Pulse Ox 98.4 F 74 20 110/69 97 03/23/17 06:00 03/23/17 06:00 03/23/17 06:00 03/23/17 06:00 03/22/17 21:00 General NAD responds yes to all questions thin appearing CV S1 S2 RRR no murmur/rub/gallop Lungs coarse breath sounds diffusely no wheezing ASSESSMENT AND PLAN: 72-year-old man with a history of HTN, colon CA, colostomy, LLE arterial emboli , left BKA, left lung mass, CVA presented to the ER and was admitted for further evaluation 1. R hemiparesis and facial weakness- likely due to recent CVA treated on last admission. on statin. PT and speech therapy. 2, Dyshagia-high aspiration risk. pulled out NGT and on climix. informed he "refused PEG placement" pt does not have capacity to refuse. call IR back to notify. if not able to do today will replace NGT. restrain if necessary. 3. Afib- new onset. rate controlled has not required medications to control. on hep ggt for pending procedure. xarelto on hold. 4. Febrile- afebrile. treated with empitic zosyn and off abx for 4days. mild uptrend in leukocytes but afebrile. sepsis workup has been negative. monitor for now. 5. Acute hypoxic respiratory failure- due to PNA vs complete L side opacification. requiring 2L NC to maintain spO2 92%. d/w with pulmonary not a candidate for intervention. opacification of the L hemithorax. on scopolamine patch for +secretions. chest PT. cont supplemental oxygen 6. Thrombocytopenia- resolved 7. Hyperthyroidism- TSH WNL. hold methimazole. repeat TSH in 6 weeks 8. Hypocalcemia-corrected Ca 9. was hypercalcemic last admission, received zometa and calcitonin. 9. hypokalemia- KCl 10meq 10. Hypomagnesemia- resolved 11. DVT ppx- xarelto 12. poor overall prognosis. not a candidate for LTAC at this time.
[2017-03-23 11:18] LABS: PLATELET ESTIMATE ADEQUATE (NORMAL)
[2017-03-23] MEDS: FERROUS SO4 300 MG/5 ML ORAL SOLN UNIT DOSE CUPS GT SCH ×2 (12:03→22:31)
[2017-03-23] MEDS: AMINO ACIDS/PROTEIN HYDROLYS 30 ML LIQUID.PKT NGT SCH ×2 (12:03→22:31)
[2017-03-23] MEDS: FOLIC ACID 1 MG TABLET (FP) NGT SCH (12:03)
[2017-03-23] MEDS: AMINO ACIDS 4.25%/D5W 1,000 ML IV SCH ×2 (12:03→22:24)
[2017-03-23] MEDS: RIVAROXABAN 20 MG TABLET PO SCH (12:03)
[2017-03-23] MEDS: HEPARIN - 25,000 UNIT in SODIUM CHLORIDE 495 ML IV SCH ×2 (12:04→17:00)
[2017-03-23] MEDS: KCL 10 MEQ IVPB 100 ML IVPB SCH ×3 (12:04→14:40)
[2017-03-23] MEDS ORDERED: HALOPERIDOL LACTATE 5 MG/ML IM ONE (12:34)
--- NOTE | 2017-03-23 13:05 | PN ---
Physical Exam: SUBJECTIVE: No acute event overnight. However, he continues to refuse NGT. No other acute event on friend of the court. OBJECTIVE: Vital Signs Period Temp Pulse Resp BP Sys/Tapia Pulse Ox Last 24 Hr 98 F-98.5 F 74-97 16-20 92-112/50-74 97 GENERAL: awake, alert, frustrated, non-cooperative, on 4L NC, in mild pulmonary distress HEAD: AT, NC EYES: pupil equal and reactive to light b/l LUNGS: coarse rhonchi b/l HEART: distant heart sounds, S1 and S2, no rub ABDOMEN: +bs, soft, non-tender, no rebound, guarding EXTREMITIES: No peripheral edema NEURO: unable to perform due to patient's mental status. CBCD WBC 13.3 K/mm3 (4.0-10.0) H 03/23/17 05:35 RBC 2.66 M/mm3 (4.00-5.60) L 03/23/17 05:35 Hgb 7.8 GM/dL (11.7-16.9) L 03/23/17 05:35 Hct 24.4 % (35.4-49) L 03/23/17 05:35 MCV 91.7 fl (80-96) 03/23/17 05:35 MCHC 31.7 g/dl (32.0-35.9) L 03/23/17 05:35 RDW 16.6 % (11.9-15.9) H 03/23/17 05:35 Plt Count 149 K/MM3 (134-434) 03/23/17 05:35 MPV 9.0 fl (7.5-11.1) 03/23/17 05:35 CMP Sodium 138 mmol/L (136-145) 03/23/17 06:00 Potassium 3.1 mmol/L (3.5-5.1) L 03/23/17 06:00 Chloride 111 mmol/L (98-107) H 03/23/17 06:00 Carbon Dioxide 15 mmol/L (21-32) L 03/23/17 06:00 Anion Gap 12 (8-16) 03/23/17 06:00 BUN 27 mg/dL (7-18) H 03/23/17 06:00 Creatinine 1.5 mg/dL (0.7-1.3) H 03/23/17 06:00 Creat Clearance w eGFR 37.49 (>60) 03/18/17 05:35 Calcium 7.7 mg/dL (8.5-10.1) L 03/23/17 06:00 Total Bilirubin 0.6 mg/dL (0.2-1.0) 03/18/17 05:35 AST 35 U/L (15-37) D 03/18/17 05:35 ALT 24 U/L (12-78) D 03/18/17 05:35 Alkaline Phosphatase 85 U/L (45-117) D 03/18/17 05:35 Total Protein 6.0 g/dl (6.4-8.2) L 03/18/17 05:35 Albumin 1.9 g/dl (3.4-5.0) L 03/18/17 05:35 Active Medications Generic Name Dose Route Start Last Admin Trade Name Freq PRN Reason Stop Dose Admin Acetaminophen 650 mg 03/05/17 17:51 Tylenol - PO Q4H PRN PAIN Acetaminophen 650 mg 03/13/17 21:48 03/20/17 23:50 Tylenol Suppository - [place] 650 mg Q4H PRN Administration FEVER OR PAIN Acetylcysteine 200 mg 03/11/17 18:00 03/23/17 11:42 Mucomyst 20 Oral / Inh Use Only* NEB 200 mg QIDR [facility] Administration Albuterol Sulfate 1 amp 03/20/17 18:00 03/23/17 11:42 Ventolin 0.083% Nebulizer Soln - NEB 1 amp QIDR [facility] Administration Amino Acids 30 ml 03/13/17 10:00 03/23/17 12:03 Prosource No Carb Liquid Pkt NGT Not Given BID [facility] Atorvastatin Calcium 10 mg 03/13/17 22:00 03/22/17 23:42 Lipitor - NGT Not Given HS [facility] Ferrous Sulfate 300 mg 03/13/17 10:00 03/23/17 12:03 Feosol GT Not Given BID JULIO Folic Acid 1 mg 03/13/17 08:50 03/23/17 12:03 Folic Acid - NGT Not Given DAILY JULIO Heparin Sodium (Porcine) 1,000 unit 03/16/17 17:12 03/19/17 16:36 Heparin - IVPUSH 1,000 unit PRN PRN Administration Heparin Heparin Sodium (Porcine) 5,000 unit 03/16/17 17:12 03/18/17 10:10 Heparin - IVPUSH 5,000 unit PRN PRN Administration Heparin Heparin Sodium (Porcine) 25, 500 mls @ 16 mls/hr 03/16/17 17:15 03/23/17 12:04 000 unit/ Sodium Chloride IV 34 mls/hr TITR JULIO Administration Protocol 800 UNIT/HR Fat Emulsion Intravenous 250 mls @ 20.833 mls/hr 03/16/17 22:00 03/22/17 23:32 Intralipid - IV 20.833 mls/hr DAILY@2200 JULIO Administration Amino Acids 1,000 mls @ 84 mls/hr 03/16/17 22:30 03/23/17 12:03 Clinimix - IV 84 mls/hr Q12H JULIO Administration Potassium Chloride 100 mls @ 100 mls/hr 03/23/17 11:15 03/23/17 12:04 Potassium Chloride 10 Meq Premix Ivpb - IVPB 03/23/17 14:14 100 mls/hr Q60M JULIO Administration Multivitamins/Minerals 10 ml 03/16/17 22:45 03/22/17 23:42 Infuvite Adult - IV 10 ml DAILY@2200 JULIO Administration Rivaroxaban 20 mg 03/13/17 10:00 03/23/17 12:03 Xarelto - PO Not Given DAILY JULIO Scopolamine HBr 1 patch 03/15/17 13:45 03/21/17 11:10 Transderm-Scop - TD 1 patch Q72H JULIO Administration Imaging Renal U/S on 03/17: suspected kidney stones and chronic disease in R kidney, no hydronephrosis b/l CXR on 03/16: complete opacified L lung with mediastinal shift to the L CXR on 03/14: NGT in place CXR on 03/12: LLL infiltrate vs. pleural effusion, persistent RUL infiltrate Barium Swallow on 03/09: spillage of contrast into airway CXR on 03/07: Imaging reveals no significant change from 03/06/2017 at 0913 hours. Again noted is mediastinal shift to the left with total opacification of the left hemithorax and left jugular port with tip at junction of SVC and right atrium. The right lung is clear. The right angle is sharp. CT head on 03/06: No acute pathology ASSESSMENT/PLAN: 72 yo M h/o colon cancer s/o colostomy, HTN, left lower ext arterial emboli admitted for PNA and CVA admitted to telemetry for new onset of R sided weakness and R facial droop. Pulm: aspiration PNA with complete L sided atelectasis - Persistent atelectasis on CXR - Afrebile with negative cultures * Zosyn day 9 - Cont. Chest PT, duoneb and Mucomyst - Cont. scopolamine topical patch for excessive respiratory secretion Chronic aspiration - Confirmed by barium study - G tube insertion scheduled for Wednesday * NGT inserted today * Contrast prep tonight * Heparin hold after midnight * Consent for PEG procedure obtained Renal: SHIVA - Cr stablized - Renal U/S shows no acute pathology - Cont. hydration and monitor Cr HemOnc: Acute thrombocytopenia; Obstructive lung lesion; Rectal carcinoma - Stable - Cont. to monitor CBC - Biopsy deferred due to patient's mental and medical conditions Neuro: Acute onset of R sided weakness - Stable - Likely toxic metabolic encephalopathy - Xarelto held and on heparin gtt Endo: hyperthyroidism - Cont. methimazole FEN - IVF d/c - Cont. to monitor - NGT inserted today, will start feeding after PEG tube procedure Prophylaxis - DVT: heparin gtt hold after midnight for PEG procedure tomorrow - GI: not indicated Disposition - PEG insertion tomorrow Code status - Full code Visit type - Emergency Visit Emergency Visit: No - New Patient This patient is new to me today: No - Critical Care Critical Care patient: No
[2017-03-23] MEDS ORDERED: LORAZEPAM CARPU-JECT 2 MG/ML DISP.SYRIN IVPUSH ONE (13:12)
[2017-03-23] MEDS ORDERED: LORazepam 2 MG/ML SDV VIAL ONE (13:29)
[2017-03-23] MEDS ORDERED: HEPARIN INFUSION - 500 ML IVPB ONE (14:14)
[2017-03-23] MEDS ORDERED: PT OWN MED DRAWER 7, Y5N ONE (14:38)
[2017-03-23] MEDS ORDERED: dilTIAZem HCL 50 MG/10 ML - 10 ML VIAL IVPUSH PRN (21:53)
[2017-03-23] MEDS ORDERED: LEVOFLOXACIN 750 MG IVPB 150 ML IVPB ONE (22:15)
[2017-03-23] MEDS: MULTIVIT INJ. ADULT COMBO WITH VIT K 1 COMBO 10 ML VIAL IV SCH (22:24)
[2017-03-23] MEDS: FAT EMULSIONS 250 ML IV SCH (22:24)
[2017-03-23] MEDS: ACETAMINOPHEN 650 MG SUPP.RECT PR PRN (22:25)
[2017-03-23] MEDS: ATORVASTATIN CA 10 MG TABLET (FP) NGT SCH (22:31)
[2017-03-24] MEDS ORDERED: ACETAMINOPHEN 1000 MG/100 ML VIAL (NON FORMULARY) IVPB PRN (02:22)
[2017-03-24] MEDS: ACETYLCYSTEINE 20% 200MG/ML 4 ML VIAL *FOR ORAL / INH USE ONLY NEB SCH ×3 (06:30→17:20)
[2017-03-24] MEDS: ALBUTEROL SO4 0.083% IH SOL 2.5 MG/3 ML VIAL.NEB. NEB SCH ×3 (06:30→17:20)
[2017-03-24 07:27] LABS: MCH 29.1 pg (25.7-33.7); MCHC 31.9 g/dl (32.0-35.9); MEAN CELL VOLUME 91.2 fl (80-96); PLATELET COUNT 164 K/MM3 (134-434); RDW 17.3 % (11.9-15.9); WHITE BLOOD COUNT 15.9 K/mm3 (4.0-10.0)
[2017-03-24 08:01] LABS: CALCIUM 8.1 mg/dL (8.5-10.1); COCKROFT - GAULT 46.17; CREATININE 1.4 mg/dL (0.7-1.3)
[2017-03-24] MEDS: AMINO ACIDS/PROTEIN HYDROLYS 30 ML LIQUID.PKT NGT SCH ×2 (10:41→22:13)
[2017-03-24] MEDS: FOLIC ACID 1 MG TABLET (FP) NGT SCH (10:41)
[2017-03-24] MEDS: FERROUS SO4 300 MG/5 ML ORAL SOLN UNIT DOSE CUPS GT SCH ×2 (10:41→22:13)
[2017-03-24] MEDS: RIVAROXABAN 20 MG TABLET PO SCH (10:42)
[2017-03-24] MEDS: AMINO ACIDS 4.25%/D5W 1,000 ML IV SCH (10:43)
--- NOTE | 2017-03-24 11:04 | PN ---
Teaching Attending Note Name of Resident: Keenan Onofre ATTENDING PHYSICIAN STATEMENT I saw and evaluated the patient. I reviewed the resident's note and discussed the case with the resident. I agree with the resident's findings and plan as documented. SUBJECTIVE:resting comfortable OBJECTIVE: Last Vital Signs Temp Pulse Resp BP Pulse Ox 98.5 F 89 20 96/48 94 L 03/24/17 09:00 03/24/17 10:12 03/24/17 09:00 03/24/17 09:00 03/24/17 10:12 General NAD thin appearing CV S1 S2 RRR no murmur/rub/gallop Lungs coarse breath sounds diffusely no wheezing decreased breath sounds L hemithorax ASSESSMENT AND PLAN: 72-year-old man with a history of HTN, colon CA, colostomy, LLE arterial emboli , left BKA, left lung mass, CVA presented to the ER and was admitted for further evaluation 1. R hemiparesis and facial weakness- likely due to recent CVA treated on last admission. on statin. PT and speech therapy. 2, Dyshagia-high aspiration risk. NGT re-inserted yesterday, was unable to confirm on imaging due to opacification of L hemithorax. appears to be in place on auscultation. plan for PEG placement by IR. NPO 3. Afib- new onset. rate controlled has not required medications to control. on hep ggt for pending procedure. xarelto on hold. 4. Febrile- afebrile. treated with empiric zosyn and off abx for 5 days. mild uptrend in leukocytes but afebrile. sepsis workup has been negative. has received multiple courses of abx this admission. d/w ID about empiric coverage. cx all negative. monitor for now. 5. Acute hypoxic respiratory failure- due to PNA vs complete L side opacification. now on bipap. saturating well. no signs of respiratory distress. on scopolamine patch for +secretions. chest PT. cont supplemental oxygen 6. Thrombocytopenia- resolved 7. Hyperthyroidism- TSH WNL. hold methimazole. repeat TSH in 6 weeks 8. Hypocalcemia-corrected Ca 9. was hypercalcemic last admission, received zometa and calcitonin. 9. hypokalemia- resolved 10. Hypomagnesemia- resolved 11. DVT ppx- xarelto 12. poor overall prognosis. family requesting aggressive management at this time. palliative care on board.
--- NOTE | 2017-03-24 11:12 | PN ---
Progress Note, Physician History of Present Illness: pulmonary awake,dyspneic on bipap - Current Medication List Current Medications: Active Medications Acetaminophen (Tylenol -) 650 mg PO Q4H PRN PRN Reason: PAIN Acetaminophen (Tylenol Suppository -) 650 mg [place] Q4H PRN PRN Reason: FEVER OR PAIN Last Admin: 03/23/17 22:25 Dose: 650 mg Acetaminophen (Ofirmev Injection -) 1,000 mg IVPB Q6H PRN PRN Reason: FEVER OR PAIN Stop: 03/24/17 20:23 Acetylcysteine (Mucomyst 20 Oral / Inh Use Only*) 200 mg NEB QIDR [facility] Last Admin: 03/24/17 06:30 Dose: 200 mg Albuterol Sulfate (Ventolin 0.083% Nebulizer Soln -) 1 amp NEB QIDR [facility] Last Admin: 03/24/17 06:30 Dose: 1 amp Amino Acids (Prosource No Carb Liquid Pkt) 30 ml NGT BID [facility] Last Admin: 03/24/17 10:41 Dose: Not Given Atorvastatin Calcium (Lipitor -) 10 mg NGT HS [facility] Last Admin: 03/23/17 22:31 Dose: Not Given Diltiazem HCl (Cardizem Injection -) 10 mg IVPUSH Q4H PRN PRN Reason: TACHYCARDIA Last Admin: 03/23/17 22:24 Dose: 10 mg Ferrous Sulfate (Feosol) 300 mg GT BID [facility] Last Admin: 03/24/17 10:41 Dose: Not Given Folic Acid (Folic Acid -) 1 mg NGT DAILY [facility] Last Admin: 03/24/17 10:41 Dose: Not Given Heparin Sodium (Porcine) (Heparin -) 1,000 unit IVPUSH PRN PRN PRN Reason: Heparin Last Admin: 03/19/17 16:36 Dose: 1,000 unit Heparin Sodium (Porcine) (Heparin -) 5,000 unit IVPUSH PRN PRN PRN Reason: Heparin Last Admin: 03/18/17 10:10 Dose: 5,000 unit Heparin Sodium (Porcine) 25, (000 unit/ Sodium Chloride) 500 mls @ 16 mls/hr IV TITR JULIO; 800 UNIT/HR PRN Reason: Protocol Last Admin: 03/23/17 17:00 Dose: Not Given Fat Emulsion Intravenous (Intralipid -) 250 mls @ 20.833 mls/hr IV DAILY@2200 [facility] Last Admin: 03/23/17 22:24 Dose: 20.833 mls/hr Amino Acids (Clinimix -) 1,000 mls @ 84 mls/hr IV Q12H [facility] Last Admin: 03/24/17 10:43 Dose: 84 mls/hr Multivitamins/Minerals (Infuvite Adult -) 10 ml IV DAILY@2200 [facility] Last Admin: 03/23/17 22:24 Dose: 10 ml Rivaroxaban (Xarelto -) 20 mg PO DAILY [facility] Last Admin: 03/24/17 10:42 Dose: Not Given Scopolamine HBr (Transderm-Scop -) 1 patch TD Q72H [facility] Last Admin: 03/21/17 11:10 Dose: 1 patch - Objective Vital Signs: Vital Signs Temperature 98.5 F 03/24/17 09:00 Pulse Rate 89 03/24/17 10:12 Respiratory Rate 20 03/24/17 09:00 Blood Pressure 96/48 03/24/17 09:00 O2 Sat by Pulse Oximetry (%) 94 L 03/24/17 10:12 Constitutional: Yes: Mild Distress, Other Eyes: Yes: WNL HENT: Yes: WNL Neck: Yes: Supple Cardiovascular: Yes: Pulse Irregular, S1, S2 Respiratory: Yes: Rhonchi (scattered rhonchi,decreased bs on left) Gastrointestinal: Yes: Normal Bowel Sounds, Soft Extremities: Yes: Amputation (left bka) Labs: CBC, BMP 03/24/17 05:35 03/24/17 05:35 INR, PTT INR 1.43 (0.82-1.09) H 03/17/17 08:50 - ....Imaging Chest X-ray: Report Reviewed, Image Reviewed (no change) Problem List - Problems (1) Atelectasis of left lung Code(s): J98.11 - ATELECTASIS (2) CVA (cerebral vascular accident) Code(s): I63.9 - CEREBRAL INFARCTION, UNSPECIFIED (3) Dysphagia as late effect of cerebrovascular accident (CVA) Code(s): I69.391 - DYSPHAGIA FOLLOWING CEREBRAL INFARCTION (4) Pneumonia Code(s): J18.9 - PNEUMONIA, UNSPECIFIED ORGANISM (5) Sepsis Code(s): A41.9 - SEPSIS, UNSPECIFIED ORGANISM (6) Smoker Code(s): F17.200 - NICOTINE DEPENDENCE, UNSPECIFIED, UNCOMPLICATED (7) Anemia Code(s): D64.9 - ANEMIA, UNSPECIFIED (8) Lung mass Code(s): R91.8 - OTHER NONSPECIFIC ABNORMAL FINDING OF LUNG FIELD (9) Respiratory failure Code(s): J96.90 - RESPIRATORY FAILURE, UNSP, UNSP W HYPOXIA OR HYPERCAPNIA Assessment/Plan A/P Respiratory failure Acute CVA Pneumonia L lung Atelectasis no change s/p Severe Sepsis Acute Kidney Injury worsenung Lung Mass likely malignant PAD Afib Thrombocytopenia resolved Fever likely aspiration ANEMIA - continue IVF - monitor urine output, creatinine - aspiration precautions - BiPAP prn - chest PT - continue mucomyst with albuterol QID - anticoagulation - monitor H/H - chest x-ray - antibiotics as per ID - transfuse prn - prognosis poor DR GOMEZ
[2017-03-24] MEDS: HEPARIN - 25,000 UNIT in SODIUM CHLORIDE 495 ML IV SCH (15:00)
--- NOTE | 2017-03-24 15:06 | PN ---
Physical Exam: SUBJECTIVE: Became short of breath after NGT insertion yesterday afternoon. Required BiPAP and still on it. Spiked fever last night but temp is not recorded in the chart. Cultures were drawn and levaquin x 1 dose given. OBJECTIVE: Vital Signs Period Temp Pulse Resp BP Sys/Tapia Pulse Ox Last 24 Hr 98.5 F-101 F 89-112 18-20 96-120/48-67 9-98 GENERAL: awake, alert, unable to speak, frustrated, appears desperate, in moderate pulmonary distress HEAD: AT, NC EYES: pupil equal and reactive to light b/l LUNGS: coarse rhonchi b/l HEART: distant heart sounds, S1 and S2, no rub ABDOMEN: +bs, soft, non-tender, no rebound, guarding EXTREMITIES: No peripheral edema NEURO: unable to perform due to patient's mental status. CBCD WBC 15.9 K/mm3 (4.0-10.0) H 03/24/17 05:35 RBC 2.76 M/mm3 (4.00-5.60) L 03/24/17 05:35 Hgb 8.0 GM/dL (11.7-16.9) L 03/24/17 05:35 Hct 25.2 % (35.4-49) L 03/24/17 05:35 MCV 91.2 fl (80-96) 03/24/17 05:35 MCHC 31.9 g/dl (32.0-35.9) L 03/24/17 05:35 RDW 17.3 % (11.9-15.9) H 03/24/17 05:35 Plt Count 164 K/MM3 (134-434) 03/24/17 05:35 MPV 9.0 fl (7.5-11.1) 03/24/17 05:35 CMP Sodium 138 mmol/L (136-145) 03/24/17 05:35 Potassium 3.5 mmol/L (3.5-5.1) 03/24/17 05:35 Chloride 111 mmol/L (98-107) H 03/24/17 05:35 Carbon Dioxide 12 mmol/L (21-32) L 03/24/17 05:35 Anion Gap 15 (8-16) 03/24/17 05:35 BUN 27 mg/dL (7-18) H 03/24/17 05:35 Creatinine 1.4 mg/dL (0.7-1.3) H 03/24/17 05:35 Creat Clearance w eGFR 37.49 (>60) 03/18/17 05:35 Calcium 8.1 mg/dL (8.5-10.1) L 03/24/17 05:35 Total Bilirubin 0.6 mg/dL (0.2-1.0) 03/18/17 05:35 AST 35 U/L (15-37) D 03/18/17 05:35 ALT 24 U/L (12-78) D 03/18/17 05:35 Alkaline Phosphatase 85 U/L (45-117) D 03/18/17 05:35 Total Protein 6.0 g/dl (6.4-8.2) L 03/18/17 05:35 Albumin 1.9 g/dl (3.4-5.0) L 03/18/17 05:35 Active Medications Generic Name Dose Route Start Last Admin Trade Name Freq PRN Reason Stop Dose Admin Acetaminophen 650 mg 03/05/17 17:51 Tylenol - PO Q4H PRN PAIN Acetaminophen 650 mg 03/13/17 21:48 03/23/17 22:25 Tylenol Suppository - [place] 650 mg Q4H PRN Administration FEVER OR PAIN Acetaminophen 1,000 mg 03/24/17 02:22 Ofirmev Injection - IVPB 03/24/17 20:23 Q6H PRN FEVER OR PAIN Acetylcysteine 200 mg 03/11/17 18:00 03/24/17 11:10 Mucomyst 20 Oral / Inh Use Only* NEB 200 mg QIDR JULIO Administration Albuterol Sulfate 1 amp 03/20/17 18:00 03/24/17 11:10 Ventolin 0.083% Nebulizer Soln - NEB 1 amp QIDR JULIO Administration Amino Acids 30 ml 03/13/17 10:00 03/24/17 10:41 Prosource No Carb Liquid Pkt NGT Not Given BID JULIO Atorvastatin Calcium 10 mg 03/13/17 22:00 03/23/17 22:31 Lipitor - NGT Not Given HS JULIO Diltiazem HCl 10 mg 03/23/17 21:53 03/23/17 22:24 Cardizem Injection - IVPUSH 10 mg Q4H PRN Administration TACHYCARDIA Ferrous Sulfate 300 mg 03/13/17 10:00 03/24/17 10:41 Feosol GT Not Given BID JULIO Folic Acid 1 mg 03/13/17 08:50 03/24/17 10:41 Folic Acid - NGT Not Given DAILY JULIO Heparin Sodium (Porcine) 1,000 unit 03/16/17 17:12 03/19/17 16:36 Heparin - IVPUSH 1,000 unit PRN PRN Administration Heparin Heparin Sodium (Porcine) 5,000 unit 03/16/17 17:12 03/18/17 10:10 Heparin - IVPUSH 5,000 unit PRN PRN Administration Heparin Heparin Sodium (Porcine) 25, 500 mls @ 16 mls/hr 03/16/17 17:15 03/23/17 17:00 000 unit/ Sodium Chloride IV Not Given TITR ON LICENSE OF [facility] Protocol 800 UNIT/HR Fat Emulsion Intravenous 250 mls @ 20.833 mls/hr 03/16/17 22:00 03/23/17 22:24 Intralipid - IV 20.833 mls/hr DAILY@2200 JULIO Administration Amino Acids 1,000 mls @ 84 mls/hr 03/16/17 22:30 03/24/17 10:43 Clinimix - IV 84 mls/hr Q12H UJLIO Administration Multivitamins/Minerals 10 ml 03/16/17 22:45 03/23/17 22:24 Infuvite Adult - IV 10 ml DAILY@2200 JULIO Administration Rivaroxaban 20 mg 03/13/17 10:00 03/24/17 10:42 Xarelto - PO Not Given DAILY ON LICENSE OF [facility] Scopolamine HBr 1 patch 03/15/17 13:45 03/21/17 11:10 Transderm-Scop - TD 1 patch Q72H JULIO Administration Microbiology 03/20/17 11:10 Blood Culture - Preliminary Blood - Peripheral Venous NO GROWTH OBTAINED AFTER 96 HOURS, INCUBATION TO CONTINUE FOR 1 DAYS. 03/20/17 11:30 Blood Culture - Preliminary Blood - Peripheral Venous NO GROWTH OBTAINED AFTER 96 HOURS, INCUBATION TO CONTINUE FOR 1 DAYS. Imaging Serial CXR on 03/23: unable to confirm NGT placement Serial KUB on 03/23: unable to confirm NGT placement Renal U/S on 03/17: suspected kidney stones and chronic disease in R kidney, no hydronephrosis b/l CXR on 03/16: complete opacified L lung with mediastinal shift to the L CXR on 03/14: NGT in place CXR on 03/12: LLL infiltrate vs. pleural effusion, persistent RUL infiltrate Barium Swallow on 03/09: spillage of contrast into airway CXR on 03/07: Imaging reveals no significant change from 03/06/2017 at 0913 hours. Again noted is mediastinal shift to the left with total opacification of the left hemithorax and left jugular port with tip at junction of SVC and right atrium. The right lung is clear. The right angle is sharp. CT head on 03/06: No acute pathology ASSESSMENT/PLAN: 72 yo M h/o colon cancer s/o colostomy, HTN, left lower ext arterial emboli admitted for PNA and CVA admitted to telemetry for new onset of R sided weakness and R facial droop. Pulm: Acute respiratory distress - Persistent L atelectasis on CXR - Possible aspiration during NGT insertion - Zosyn d/c and received 1 dose of levaquin last night - Cont. Chest PT, duoneb and Mucomyst - Cont. scopolamine topical patch for excessive respiratory secretion - BiPAP PRN to assist breathing Chronic aspiration - Confirmed by barium study - G tube insertion planned tomorrow Renal: SHIVA - Cr improving - Renal U/S shows no acute pathology - Cont. hydration and monitor Cr HemOnc: Acute thrombocytopenia; Obstructive lung lesion; Rectal carcinoma - Stable - Cont. to monitor CBC - Biopsy deferred due to patient's mental and medical conditions Neuro: Acute onset of R sided weakness - Stable - Likely toxic metabolic encephalopathy - Hold heparin gtt Endo: hyperthyroidism - Cont. methimazole FEN - IVF d/c - Cont. to monitor - NPO Prophylaxis - DVT: heparin gtt hold after midnight - GI: not indicated Disposition - Had lengthy conversation with Patient's sister Risa, who's the HCP, regarding DNR/DNI. She agreed on and signed DNR/DNI. She was leaving for [employer]. However, she can call/receive phone call as usual. She also took pictures of the patient and will show them to patient's daughter and try her best to explain to her that patient is suffering. With respect to comfort measure only, she needs more time to think about it. - NGT inserted and confirmed with auscultation and gastric content aspiration - PEG insertion planned for tomorrow unless Risa instructs otherwise tomorrow. Code status - DNR/DNI Visit type - Emergency Visit Emergency Visit: No - New Patient This patient is new to me today: No - Critical Care Critical Care patient: No
[2017-03-24] MEDS: SCOPOLAMINE HYDROBROMIDE 1 PATCH PATCH.TD72 TD SCH (15:36)
[2017-03-24] MEDS: ATORVASTATIN CA 10 MG TABLET (FP) NGT SCH (22:13)
[2017-03-24] MEDS ORDERED: PT OWN MED DRAWER 7, Y5N ONE (22:28)
[2017-03-25] MEDS: ACETYLCYSTEINE 20% 200MG/ML 4 ML VIAL *FOR ORAL / INH USE ONLY NEB SCH ×4 (00:09→17:27)
[2017-03-25] MEDS: ALBUTEROL SO4 0.083% IH SOL 2.5 MG/3 ML VIAL.NEB. NEB SCH ×4 (00:10→17:27)
[2017-03-25] MEDS: MULTIVIT INJ. ADULT COMBO WITH VIT K 1 COMBO 10 ML VIAL IV SCH (00:15)
[2017-03-25] MEDS: AMINO ACIDS 4.25%/D5W 1,000 ML IV SCH ×3 (00:16→12:56)
[2017-03-25] MEDS: FAT EMULSIONS 250 ML IV SCH (00:16)
[2017-03-25 08:19] LABS: MCH 29.3 pg (25.7-33.7); MCHC 31.8 g/dl (32.0-35.9); MEAN CELL VOLUME 92.2 fl (80-96); MEAN PLT VOLUME 8.7 fl (7.5-11.1); PLATELET COUNT 162 K/MM3 (134-434); RDW 17.7 % (11.9-15.9); WHITE BLOOD COUNT 18.5 K/mm3 (4.0-10.0)
[2017-03-25 09:07] LABS: CALCIUM 8.5 mg/dL (8.5-10.1); COCKROFT - GAULT 46.17; CREATININE 1.4 mg/dL (0.7-1.3)
[2017-03-25] MEDS: HEPARIN - 25,000 UNIT in SODIUM CHLORIDE 495 ML IV SCH ×2 (09:11→17:51)
[2017-03-25] MEDS: FOLIC ACID 1 MG TABLET (FP) NGT SCH (11:09)
[2017-03-25] MEDS: AMINO ACIDS/PROTEIN HYDROLYS 30 ML LIQUID.PKT NGT SCH (11:09)
[2017-03-25] MEDS: FERROUS SO4 300 MG/5 ML ORAL SOLN UNIT DOSE CUPS GT SCH (11:09)
[2017-03-25] MEDS: ACETAMINOPHEN 650 MG SUPP.RECT PR PRN (11:15)
--- NOTE | 2017-03-25 11:51 | PN ---
Physical Exam: SUBJECTIVE: Still short of breath and required BiPAP and still on it. Tmax 100.2F OBJECTIVE: Vital Signs Period Temp Pulse Resp BP Sys/Tapia Pulse Ox Last 24 Hr 97.4 F-100.2 F 18-111 20-105 97-105/40-73 93-97 GENERAL: awake, alert, unable to speak, frustrated, appears desperate, in moderate pulmonary distress HEAD: AT, NC EYES: pupil equal and reactive to light b/l LUNGS: coarse rhonchi b/l HEART: distant heart sounds, S1 and S2, no rub ABDOMEN: +bs, soft, non-tender, no rebound, guarding EXTREMITIES: No peripheral edema NEURO: unable to perform due to patient's mental status. CBCD WBC 18.5 K/mm3 (4.0-10.0) H 03/25/17 06:00 RBC 2.93 M/mm3 (4.00-5.60) L 03/25/17 06:00 Hgb 8.6 GM/dL (11.7-16.9) L 03/25/17 06:00 Hct 27.0 % (35.4-49) L 03/25/17 06:00 MCV 92.2 fl (80-96) 03/25/17 06:00 MCHC 31.8 g/dl (32.0-35.9) L 03/25/17 06:00 RDW 17.7 % (11.9-15.9) H 03/25/17 06:00 Plt Count 162 K/MM3 (134-434) 03/25/17 06:00 MPV 8.7 fl (7.5-11.1) 03/25/17 06:00 CMP Sodium 135 mmol/L (136-145) L 03/25/17 06:00 Potassium 3.3 mmol/L (3.5-5.1) L 03/25/17 06:00 Chloride 108 mmol/L (98-107) H 03/25/17 06:00 Carbon Dioxide 14 mmol/L (21-32) L 03/25/17 06:00 Anion Gap 13 (8-16) 03/25/17 06:00 BUN 40 mg/dL (7-18) H D 03/25/17 06:00 Creatinine 1.4 mg/dL (0.7-1.3) H 03/25/17 06:00 Creat Clearance w eGFR 37.49 (>60) 03/18/17 05:35 Calcium 8.5 mg/dL (8.5-10.1) 03/25/17 06:00 Total Bilirubin 0.6 mg/dL (0.2-1.0) 03/18/17 05:35 AST 35 U/L (15-37) D 03/18/17 05:35 ALT 24 U/L (12-78) D 03/18/17 05:35 Alkaline Phosphatase 85 U/L (45-117) D 03/18/17 05:35 Total Protein 6.0 g/dl (6.4-8.2) L 03/18/17 05:35 Albumin 1.9 g/dl (3.4-5.0) L 03/18/17 05:35 Intake & Output 03/22/17 03/23/17 03/24/17 03/25/17 23:59 23:59 23:59 23:59 Intake Total 1225 0 Output Total 950 1600 950 750 Balance 275 -1600 -950 -750 Active Medications Generic Name Dose Route Start Last Admin Trade Name Freq PRN Reason Stop Dose Admin Acetaminophen 650 mg 03/05/17 17:51 Tylenol - PO Q4H PRN PAIN Acetaminophen 650 mg 03/13/17 21:48 03/23/17 22:25 Tylenol Suppository - [place] 650 mg Q4H PRN Administration FEVER OR PAIN Acetylcysteine 200 mg 03/11/17 18:00 03/25/17 11:20 Mucomyst 20 Oral / Inh Use Only* NEB 200 mg QIDR JULIO Administration Albuterol Sulfate 1 amp 03/20/17 18:00 03/25/17 11:20 Ventolin 0.083% Nebulizer Soln - NEB 1 amp QIDR JULIO Administration Amino Acids 30 ml 03/13/17 10:00 03/25/17 11:09 Prosource No Carb Liquid Pkt NGT Not Given BID JULIO Atorvastatin Calcium 10 mg 03/13/17 22:00 03/24/17 22:13 Lipitor - NGT Not Given HS JULIO Diltiazem HCl 10 mg 03/23/17 21:53 03/23/17 22:24 Cardizem Injection - IVPUSH 10 mg Q4H PRN Administration TACHYCARDIA Ferrous Sulfate 300 mg 03/13/17 10:00 03/25/17 11:09 Feosol GT Not Given BID JULIO Folic Acid 1 mg 03/13/17 08:50 03/25/17 11:09 Folic Acid - NGT Not Given DAILY JULIO Heparin Sodium (Porcine) 1,000 unit 03/16/17 17:12 03/19/17 16:36 Heparin - IVPUSH 1,000 unit PRN PRN Administration Heparin Heparin Sodium (Porcine) 5,000 unit 03/16/17 17:12 03/18/17 10:10 Heparin - IVPUSH 5,000 unit PRN PRN Administration Heparin Heparin Sodium (Porcine) 25, 500 mls @ 16 mls/hr 03/16/17 17:15 03/25/17 09:11 000 unit/ Sodium Chloride IV 34 mls/hr TITR JULIO Administration Protocol 800 UNIT/HR Fat Emulsion Intravenous 250 mls @ 20.833 mls/hr 03/16/17 22:00 03/25/17 00:16 Intralipid - IV 20.833 mls/hr DAILY@2200 JULIO Administration Amino Acids 1,000 mls @ 84 mls/hr 03/16/17 22:30 03/25/17 11:10 Clinimix - IV Not Given Q12H JULIO Multivitamins/Minerals 10 ml 03/16/17 22:45 03/25/17 00:15 Infuvite Adult - IV 10 ml DAILY@2200 JULIO Administration Scopolamine HBr 1 patch 03/15/17 13:45 03/24/17 15:36 Transderm-Scop - TD 1 patch Q72H JULIO Administration Microbiology 03/20/17 11:10 Blood Culture - Final Blood - Peripheral Venous NO GROWTH AFTER 5 DAYS INCUBATION 03/20/17 11:30 Blood Culture - Final Blood - Peripheral Venous NO GROWTH AFTER 5 DAYS INCUBATION 03/23/17 22:45 Urine Culture - Final Urine - Urine Alberto Yeast Like Organism 03/23/17 23:00 Blood Culture - Preliminary Blood - Peripheral Venous NO GROWTH OBTAINED AFTER 24 HOURS, INCUBATION TO CONTINUE FOR 4 DAYS. 03/23/17 22:45 Blood Culture - Preliminary Blood - Peripheral Venous NO GROWTH OBTAINED AFTER 24 HOURS, INCUBATION TO CONTINUE FOR 4 DAYS. Imaging Serial CXR on 03/23: unable to confirm NGT placement Serial KUB on 03/23: unable to confirm NGT placement Renal U/S on 03/17: suspected kidney stones and chronic disease in R kidney, no hydronephrosis b/l CXR on 03/16: complete opacified L lung with mediastinal shift to the L CXR on 03/14: NGT in place CXR on 03/12: LLL infiltrate vs. pleural effusion, persistent RUL infiltrate Barium Swallow on 03/09: spillage of contrast into airway CXR on 03/07: Imaging reveals no significant change from 03/06/2017 at 0913 hours. Again noted is mediastinal shift to the left with total opacification of the left hemithorax and left jugular port with tip at junction of SVC and right atrium. The right lung is clear. The right angle is sharp. CT head on 03/06: No acute pathology ASSESSMENT/PLAN: 72 yo M h/o colon cancer s/o colostomy, HTN, left lower ext arterial emboli admitted for PNA and CVA admitted to telemetry for new onset of R sided weakness and R facial droop. Pulm: Acute respiratory distress - Persistent L atelectasis on CXR - Possible aspiration during NGT insertion - Completed several courses of abx - Cont. Chest PT, duoneb and Mucomyst - Cont. scopolamine topical patch for excessive respiratory secretion - BiPAP PRN to assist breathing Chronic aspiration - Confirmed by barium study - G tube insertion planned tomorrow Renal: SHIVA - Cr stable - Renal U/S shows no acute pathology - Cont. hydration and monitor Cr HemOnc: Acute thrombocytopenia; Obstructive lung lesion; Rectal carcinoma - Stable - Cont. to monitor CBC - Biopsy deferred due to patient's mental and medical conditions Neuro: Acute onset of R sided weakness - Stable - Likely toxic metabolic encephalopathy - Resume heparin gtt and hold it tonight Endo: hyperthyroidism - Cont. methimazole FEN - IVF d/c - Cont. to monitor - On clinimix Prophylaxis - DVT: heparin gtt hold after midnight - GI: not indicated Disposition - Had lengthy conversation with Patient's sister Risa, who's the HCP, regarding DNR/DNI. She agreed on and signed DNR/DNI. She was leaving for [facility]. However, she can call/receive phone call as usual. She also took pictures of the patient and will show them to patient's daughter and try her best to explain to her that patient is suffering. With respect to comfort measure only, she needs more time to think about it. - NGT inserted and confirmed with auscultation and gastric content aspiration - PEG insertion planned for tomorrow unless Risa instructs otherwise tomorrow. Code status - DNR/DNI Visit type - Emergency Visit Emergency Visit: No - New Patient This patient is new to me today: No - Critical Care Critical Care patient: No
--- NOTE | 2017-03-25 11:59 | PN ---
Teaching Attending Note Name of Resident: Keenan Onofre ATTENDING PHYSICIAN STATEMENT I saw and evaluated the patient. I reviewed the resident's note and discussed the case with the resident. I agree with the resident's findings and plan as documented. SUBJECTIVE:tachypnic OBJECTIVE: Last Vital Signs Temp Pulse Resp BP Pulse Ox 97.4 F L 101 H 20 100/40 97 03/25/17 02:00 03/25/17 10:33 03/25/17 06:00 03/25/17 06:00 03/25/17 10:33 General lethargic, responds to verbal stimuli, tachypnic. thin appearing CV S1 S2 RRR no murmur/rub/gallop Lungs coarse breath sounds diffusely no wheezing decreased breath sounds L hemithorax ASSESSMENT AND PLAN: 72-year-old man with a history of HTN, colon CA, colostomy, LLE arterial emboli , left BKA, left lung mass, CVA presented to the ER and was admitted for further evaluation 1. R hemiparesis and facial weakness- likely due to recent CVA treated on last admission. on statin. PT and speech therapy. 2, Dyshagia-high aspiration risk. NGT placed and will receive contrast today for PEG placement. today? awaiting to hear from IR about plans for insertion. NPO for now for pending procedure. 3. Afib- new onset. mildly tachycardic in the evening, likely due to discomfort from NGT placement. metoprolol prn for HR > 120. on hep ggt for pending procedure. xarelto on hold. 4. Febrile- Tm 100.2. leukocytosis continues to trend up. repeat cx have been negative. urine showing yeast. possible empiric coverage. re-call ID if abx necessary at this time. 5. Acute hypoxic respiratory failure- due to PNA vs complete L side opacification. mildly tachypnic. saturating 98% on face mask. called Respiratory to place back on bipap. on scopolamine patch for +secretions. chest PT. cont supplemental oxygen 6. Thrombocytopenia- resolved 7. Hyperthyroidism- TSH WNL. hold methimazole. repeat TSH in 6 weeks 8. Hypocalcemia-corrected Ca 9. was hypercalcemic last admission, received zometa and calcitonin. 9. hypokalemia- resolved 10. Hypomagnesemia- resolved 11. DVT ppx- xarelto 12. poor overall prognosis. sister made DNR/DNI yesterday but wants to proceed with PEG placement at this time.
--- NOTE | 2017-03-25 15:45 | PN ---
Progress Note, Physician History of Present Illness: Awake Dyspneic at rest on bipap Febrile past 48hr Increased WBC 18K Awaiting PEG CXR shows no change, opacified L hemithorax BC (03/23) no growth - Current Medication List Current Medications: Active Medications Acetaminophen (Tylenol -) 650 mg PO Q4H PRN PRN Reason: PAIN Acetaminophen (Tylenol Suppository -) 650 mg PA Q4H PRN PRN Reason: FEVER OR PAIN Last Admin: 03/23/17 22:25 Dose: 650 mg Acetylcysteine (Mucomyst 20 Oral / Inh Use Only*) 200 mg NEB QIDR JULIO Last Admin: 03/25/17 11:20 Dose: 200 mg Albuterol Sulfate (Ventolin 0.083% Nebulizer Soln -) 1 amp NEB QIDR [facility] Last Admin: 03/25/17 11:20 Dose: 1 amp Amino Acids (Prosource No Carb Liquid Pkt) 30 ml NGT BID [facility] Last Admin: 03/25/17 11:09 Dose: Not Given Atorvastatin Calcium (Lipitor -) 10 mg NGT HS [facility] Last Admin: 03/24/17 22:13 Dose: Not Given Diltiazem HCl (Cardizem Injection -) 10 mg IVPUSH Q4H PRN PRN Reason: TACHYCARDIA Last Admin: 03/23/17 22:24 Dose: 10 mg Ferrous Sulfate (Feosol) 300 mg GT BID [facility] Last Admin: 03/25/17 11:09 Dose: Not Given Folic Acid (Folic Acid -) 1 mg NGT DAILY [facility] Last Admin: 03/25/17 11:09 Dose: Not Given Heparin Sodium (Porcine) (Heparin -) 1,000 unit IVPUSH PRN PRN PRN Reason: Heparin Last Admin: 03/19/17 16:36 Dose: 1,000 unit Heparin Sodium (Porcine) (Heparin -) 5,000 unit IVPUSH PRN PRN PRN Reason: Heparin Last Admin: 03/18/17 10:10 Dose: 5,000 unit Heparin Sodium (Porcine) 25, (000 unit/ Sodium Chloride) 500 mls @ 16 mls/hr IV TITR JULIO; 800 UNIT/HR PRN Reason: Protocol Last Admin: 03/25/17 09:11 Dose: 34 mls/hr Fat Emulsion Intravenous (Intralipid -) 250 mls @ 20.833 mls/hr IV DAILY@2200 JULIO Last Admin: 03/25/17 00:16 Dose: 20.833 mls/hr Amino Acids (Clinimix -) 1,000 mls @ 84 mls/hr IV Q12H [facility] Last Admin: 03/25/17 12:56 Dose: 84 mls/hr Multivitamins/Minerals (Infuvite Adult -) 10 ml IV DAILY@2200 JULIO Last Admin: 03/25/17 00:15 Dose: 10 ml Scopolamine HBr (Transderm-Scop -) 1 patch TD Q72H [facility] Last Admin: 03/24/17 15:36 Dose: 1 patch - Objective Vital Signs: Vital Signs Temperature 98.8 F 03/25/17 15:19 Pulse Rate 112 H 03/25/17 15:19 Respiratory Rate 18 03/25/17 15:19 Blood Pressure 106/36 03/25/17 15:19 O2 Sat by Pulse Oximetry (%) 97 03/25/17 14:29 Constitutional: Yes: Cachectic Cardiovascular: Yes: Regular Rate and Rhythm, S1, S2 Respiratory: Yes: Diminished Gastrointestinal: Yes: Normal Bowel Sounds, Soft, Other (+ostomy). No: Tenderness Extremities: Yes: Other (L BKA) Labs: CBC, BMP 03/25/17 06:00 03/25/17 06:00 INR, PTT INR 1.43 (0.82-1.09) H 03/17/17 08:50 Assessment/Plan L Lung mass, possible malignancy Opacified L hemithorax Fever/ leukocytosis Probable Post obstructive pneumonia S/P CVA Azotemia Thrombocytopenia Repeat c/s Empiric zosyn Prognosis poor
[2017-03-25] MEDS: PIPERACILLIN/TAZOB 3.375 GM 50 ML IVPB SCH ×2 (16:00→21:12)
[2017-03-25] MEDS ORDERED: morphine CARPU-JECT 2 MG/1 ML DISP.SYRIN IVPUSH PRN (16:22)
--- NOTE | 2017-03-25 17:20 | PN ---
Progress Note (short form) - Note Progress Note: PULMONARY CHART REVIEWED APPEARS POORLY RESPONSIVE ON BIPAP RR36/ HR 110 T 98.4 BP 106/36 PALE ABSENT BREATH SOUNDS LEFT CHEST S1S2 TACHY SOFT NO EDEMA LABS/MEDS/NOTES/IMAGING REVIEWED Respiratory failure Acute CVA Pneumonia L lung Atelectasis no change s/p Severe Sepsis Acute Kidney Injury worsenung Lung Mass likely malignant PAD Afib Thrombocytopenia resolved Fever likely aspiration ANEMIA Would change to palliative care consider MS catia as patient appears terminal Dallin LEDBETTER MD
[2017-03-25] MEDS ORDERED: SODIUM CHLORIDE 500 ML IV STA (21:12)
[2017-03-25] MEDS ORDERED: PT OWN MED DRAWER 7, Y5N ONE (23:38)
[2017-03-26] MEDS: ACETYLCYSTEINE 20% 200MG/ML 4 ML VIAL *FOR ORAL / INH USE ONLY NEB SCH ×5 (00:14→23:18)
[2017-03-26] MEDS: ALBUTEROL SO4 0.083% IH SOL 2.5 MG/3 ML VIAL.NEB. NEB SCH ×5 (00:14→23:18)
[2017-03-26] MEDS: MULTIVIT INJ. ADULT COMBO WITH VIT K 1 COMBO 10 ML VIAL IV SCH ×2 (00:14→23:27)
[2017-03-26] MEDS: ATORVASTATIN CA 10 MG TABLET (FP) NGT SCH ×2 (00:14→21:51)
[2017-03-26] MEDS: AMINO ACIDS/PROTEIN HYDROLYS 30 ML LIQUID.PKT NGT SCH ×3 (00:14→21:51)
[2017-03-26] MEDS: FERROUS SO4 300 MG/5 ML ORAL SOLN UNIT DOSE CUPS GT SCH ×3 (00:14→21:50)
[2017-03-26] MEDS: FAT EMULSIONS 250 ML IV SCH ×2 (00:15→22:05)
[2017-03-26] MEDS: AMINO ACIDS 4.25%/D5W 1,000 ML IV SCH ×3 (00:16→23:27)
[2017-03-26] MEDS ORDERED: PT OWN MED DRAWER 7, Y5N ONE ×2 (00:34→21:53)
[2017-03-26] MEDS: PIPERACILLIN/TAZOB 3.375 GM 50 ML IVPB SCH ×4 (01:20→18:23)
[2017-03-26 07:32] LABS: MCH 29.6 pg (25.7-33.7); MCHC 31.9 g/dl (32.0-35.9); MEAN CELL VOLUME 92.7 fl (80-96); MEAN PLT VOLUME 8.8 fl (7.5-11.1); PLATELET COUNT 161 K/MM3 (134-434); RDW 18.1 % (11.9-15.9); WHITE BLOOD COUNT 16.5 K/mm3 (4.0-10.0)
[2017-03-26 07:41] LABS: CALCIUM 8.1 mg/dL (8.5-10.1); COCKROFT - GAULT 40.4; CREATININE 1.6 mg/dL (0.7-1.3)
[2017-03-26] MEDS: KCL 10 MEQ IVPB 100 ML IVPB SCH ×2 (09:17→16:39)
[2017-03-26] MEDS: FOLIC ACID 1 MG TABLET (FP) NGT SCH (09:17)
[2017-03-26] MEDS ORDERED: GLUCAGON 1 MG KIT IVPUSH ONE (10:40)
--- NOTE | 2017-03-26 10:49 | PN ---
Teaching Attending Note Name of Resident: Keenan Onofre ATTENDING PHYSICIAN STATEMENT I saw and evaluated the patient. I reviewed the resident's note and discussed the case with the resident. I agree with the resident's findings and plan as documented. SUBJECTIVE:resting comfortable OBJECTIVE: Last Vital Signs Temp Pulse Resp BP Pulse Ox 96.6 F L 100 H 31 H 107/64 100 03/26/17 02:23 03/26/17 10:45 03/26/17 10:45 03/26/17 10:45 03/26/17 10:45 General lethargic, responds to verbal stimuli. thin appearing CV S1 S2 RRR no murmur/rub/gallop Lungs coarse breath sounds diffusely no wheezing decreased breath sounds L hemithorax ASSESSMENT AND PLAN: 72-year-old man with a history of HTN, colon CA, colostomy, LLE arterial emboli , left BKA, left lung mass, CVA presented to the ER and was admitted for further evaluation 1. R hemiparesis and facial weakness- likely due to recent CVA treated on last admission. on statin. PT and speech therapy. 2, Dyshagia-high aspiration risk. NGT placed and will receive contrast today for PEG placement. today? awaiting to hear from IR about plans for insertion. NPO for now for pending procedure. 3. Afib- new onset on this admission. metoprolol prn for HR > 120. on hep ggt for pending procedure. xarelto on hold. 4. Febrile- Tm 100.7. started on empiric zosyn yesterday. mild improvement in leukocytosis. repeat cx have been negative. ID on board 5. Acute hypoxic respiratory failure- due to PNA vs complete L side opacification. not tachypnic. ativan 1mg TID as may be from anxiety. hold for lethargy. saturating 98% on bipap. on scopolamine patch for +secretions. chest PT. cont supplemental oxygen 6. Thrombocytopenia- resolved 7. Hyperthyroidism- TSH WNL. hold methimazole. repeat TSH in 6 weeks 8. Hypocalcemia-corrected Ca 9. was hypercalcemic last admission, received zometa and calcitonin. 9. hypokalemia- Kcl 10meq x3 IV 10. Hypomagnesemia- resolved 11. DVT [id number] heparin ggt 12. poor overall prognosis. now DNR/DNI.
--- NOTE | 2017-03-26 11:33 | PN ---
Physical Exam: SUBJECTIVE: Patient seen and examined OBJECTIVE: Vital Signs Period Temp Pulse Resp BP Sys/Tapia Pulse Ox Last 24 Hr 96.6 F-100 F 91-117 18-36 91-111/36-69 96-100 GENERAL: The patient is awake, alert, and fully oriented, in no acute distress. HEAD: Normal with no signs of trauma. EYES: PERRL, extraocular movements intact, sclera anicteric, conjunctiva clear. No ptosis. ENT: Ears normal, nares patent, oropharynx clear without exudates, moist mucous membranes. NECK: Trachea midline, full range of motion, supple. LUNGS: Breath sounds equal, clear to auscultation bilaterally, no wheezes, no crackles, no accessory muscle use. HEART: Regular rate and rhythm, S1, S2 without murmur, rub or gallop. ABDOMEN: Soft, nontender, nondistended, normoactive bowel sounds, no guarding, no rebound, no hepatosplenomegaly, no masses. EXTREMITIES: 2+ pulses, warm, well-perfused, no edema. NEUROLOGICAL: Cranial nerves II through XII grossly intact. Normal speech, gait not observed. PSYCH: Normal mood, normal affect. SKIN: Warm, dry, normal turgor, no rashes or lesions noted Laboratory Results - last 24 hr 03/25/17 03/26/17 03/26/17 14:46 05:35 05:35 WBC 16.5 H RBC 2.47 L Hgb 7.3 L D Hct 22.9 L D MCV 92.7 MCHC 31.9 L RDW 18.1 H Plt Count 161 MPV 8.8 PTT (Actin FS) 46.5 H D 27.6 D Sodium Potassium Chloride Carbon Dioxide Anion Gap BUN Creatinine Random Glucose Calcium 03/26/17 05:35 WBC RBC Hgb Hct MCV MCHC RDW Plt Count MPV PTT (Actin FS) Sodium 132 L Potassium 3.1 L Chloride 105 Carbon Dioxide 14 L Anion Gap 13 BUN 55 H D Creatinine 1.6 H Random Glucose 115 H Calcium 8.1 L Active Medications Generic Name Dose Route Start Last Admin Trade Name Freq PRN Reason Stop Dose Admin Acetaminophen 650 mg 03/05/17 17:51 Tylenol - PO Q4H PRN PAIN Acetaminophen 650 mg 03/13/17 21:48 03/25/17 11:15 Tylenol Suppository - [place] 650 mg Q4H PRN Administration FEVER OR PAIN Acetylcysteine 200 mg 03/11/17 18:00 03/26/17 06:54 Mucomyst 20 Oral / Inh Use Only* NEB 200 mg QIDR JULIO Administration Albuterol Sulfate 1 amp 03/20/17 18:00 03/26/17 06:54 Ventolin 0.083% Nebulizer Soln - NEB 1 amp QIDR JULIO Administration Amino Acids 30 ml 03/13/17 10:00 03/26/17 09:17 Prosource No Carb Liquid Pkt NGT Not Given BID JULIO Atorvastatin Calcium 10 mg 03/13/17 22:00 03/26/17 00:14 Lipitor - NGT 10 mg HS JULIO Administration Diltiazem HCl 10 mg 03/23/17 21:53 03/23/17 22:24 Cardizem Injection - IVPUSH 10 mg Q4H PRN Administration TACHYCARDIA Ferrous Sulfate 300 mg 03/13/17 10:00 03/26/17 09:17 Feosol GT Not Given BID JULIO Folic Acid 1 mg 03/13/17 08:50 03/26/17 09:17 Folic Acid - NGT Not Given DAILY JULIO Heparin Sodium (Porcine) 1,000 unit 03/16/17 17:12 03/19/17 16:36 Heparin - IVPUSH 1,000 unit PRN PRN Administration Heparin Heparin Sodium (Porcine) 5,000 unit 03/16/17 17:12 03/18/17 10:10 Heparin - IVPUSH 5,000 unit PRN PRN Administration Heparin Heparin Sodium (Porcine) 25, 500 mls @ 16 mls/hr 03/16/17 17:15 03/25/17 17:51 000 unit/ Sodium Chloride IV 36 mls/hr TITR JULIO Administration Protocol 800 UNIT/HR Fat Emulsion Intravenous 250 mls @ 20.833 mls/hr 03/16/17 22:00 03/26/17 00:15 Intralipid - IV 20.833 mls/hr DAILY@2200 JULIO Administration Amino Acids 1,000 mls @ 84 mls/hr 03/16/17 22:30 03/26/17 00:16 Clinimix - IV 84 mls/hr Q12H JULIO Administration Piperacillin Sod/Tazobactam Sod 50 mls @ 100 mls/hr 03/25/17 16:00 03/26/17 08: 51 Zosyn 3.375gm Ivpb (Pre-Docked) IVPB 100 mls/hr Q8H-IV JULIO Administration Protocol Morphine Sulfate 2 mg 03/25/17 16:22 Morphine Injection - IVPUSH Q4H PRN PAIN Multivitamins/Minerals 10 ml 03/16/17 22:45 03/26/17 00:14 Infuvite Adult - IV 10 ml DAILY@2200 JULIO Administration Scopolamine HBr 1 patch 03/15/17 13:45 03/24/17 15:36 Transderm-Scop - TD 1 patch Q72H JULIO Administration ASSESSMENT/PLAN: Visit type - Emergency Visit Emergency Visit: No - New Patient This patient is new to me today: No - Critical Care Critical Care patient: No
--- NOTE | 2017-03-26 12:29 | PN ---
Progress Note, Physician History of Present Illness: PULMONARY LETHARGIC,CONGESTED,S/P GT PLACEMENT - Current Medication List Current Medications: Active Medications Acetaminophen (Tylenol -) 650 mg PO Q4H PRN PRN Reason: PAIN Acetaminophen (Tylenol Suppository -) 650 mg [place] Q4H PRN PRN Reason: FEVER OR PAIN Last Admin: 03/25/17 11:15 Dose: 650 mg Acetylcysteine (Mucomyst 20 Oral / Inh Use Only*) 200 mg NEB QIDR JULIO Last Admin: 03/26/17 06:54 Dose: 200 mg Albuterol Sulfate (Ventolin 0.083% Nebulizer Soln -) 1 amp NEB QIDR JULIO Last Admin: 03/26/17 06:54 Dose: 1 amp Amino Acids (Prosource No Carb Liquid Pkt) 30 ml NGT BID [facility] Last Admin: 03/26/17 09:17 Dose: Not Given Atorvastatin Calcium (Lipitor -) 10 mg NGT HS [facility] Last Admin: 03/26/17 00:14 Dose: 10 mg Diltiazem HCl (Cardizem Injection -) 10 mg IVPUSH Q4H PRN PRN Reason: TACHYCARDIA Last Admin: 03/23/17 22:24 Dose: 10 mg Ferrous Sulfate (Feosol) 300 mg GT BID [facility] Last Admin: 03/26/17 09:17 Dose: Not Given Folic Acid (Folic Acid -) 1 mg NGT DAILY [facility] Last Admin: 03/26/17 09:17 Dose: Not Given Heparin Sodium (Porcine) (Heparin -) 1,000 unit IVPUSH PRN PRN PRN Reason: Heparin Last Admin: 03/19/17 16:36 Dose: 1,000 unit Heparin Sodium (Porcine) (Heparin -) 5,000 unit IVPUSH PRN PRN PRN Reason: Heparin Last Admin: 03/18/17 10:10 Dose: 5,000 unit Heparin Sodium (Porcine) 25, (000 unit/ Sodium Chloride) 500 mls @ 16 mls/hr IV TITR JULIO; 800 UNIT/HR PRN Reason: Protocol Last Admin: 03/25/17 17:51 Dose: 36 mls/hr Fat Emulsion Intravenous (Intralipid -) 250 mls @ 20.833 mls/hr IV DAILY@2200 JULIO Last Admin: 03/26/17 00:15 Dose: 20.833 mls/hr Amino Acids (Clinimix -) 1,000 mls @ 84 mls/hr IV Q12H [facility] Last Admin: 03/26/17 00:16 Dose: 84 mls/hr Piperacillin Sod/Tazobactam Sod (Zosyn 3.375gm Ivpb (Pre-Docked)) 50 mls @ 100 mls/hr IVPB Q8H-IV JULIO PRN Reason: Protocol Last Admin: 03/26/17 08:51 Dose: 100 mls/hr Morphine Sulfate (Morphine Injection -) 2 mg IVPUSH Q4H PRN PRN Reason: PAIN Multivitamins/Minerals (Infuvite Adult -) 10 ml IV DAILY@2200 [facility] Last Admin: 03/26/17 00:14 Dose: 10 ml Scopolamine HBr (Transderm-Scop -) 1 patch TD Q72H [facility] Last Admin: 03/24/17 15:36 Dose: 1 patch - Objective Vital Signs: Vital Signs Temperature 96.6 F L 03/26/17 02:23 Pulse Rate 100 H 03/26/17 11:05 Respiratory Rate 36 H 03/26/17 11:05 Blood Pressure 107/69 03/26/17 11:05 O2 Sat by Pulse Oximetry (%) 100 03/26/17 10:58 Constitutional: Yes: Thin, Other (LETHARGIC) Eyes: Yes: WNL HENT: Yes: WNL Cardiovascular: Yes: Pulse Irregular, S1, S2 Respiratory: Yes: Rhonchi Gastrointestinal: Yes: Normal Bowel Sounds, Soft, Other (+GT) Extremities: Yes: Amputation (LEFT BKA) Edema: No Labs: CBC, BMP 03/26/17 05:35 03/26/17 05:35 INR, PTT INR 1.43 (0.82-1.09) H 03/17/17 08:50 Problem List - Problems (1) Atelectasis of left lung Code(s): J98.11 - ATELECTASIS (2) CVA (cerebral vascular accident) Code(s): I63.9 - CEREBRAL INFARCTION, UNSPECIFIED (3) Dysphagia as late effect of cerebrovascular accident (CVA) Code(s): I69.391 - DYSPHAGIA FOLLOWING CEREBRAL INFARCTION (4) Pneumonia Code(s): J18.9 - PNEUMONIA, UNSPECIFIED ORGANISM (5) Sepsis Code(s): A41.9 - SEPSIS, UNSPECIFIED ORGANISM (6) Smoker Code(s): F17.200 - NICOTINE DEPENDENCE, UNSPECIFIED, UNCOMPLICATED (7) Anemia Code(s): D64.9 - ANEMIA, UNSPECIFIED (8) Lung mass Code(s): R91.8 - OTHER NONSPECIFIC ABNORMAL FINDING OF LUNG FIELD (9) Respiratory failure Code(s): J96.90 - RESPIRATORY FAILURE, UNSP, UNSP W HYPOXIA OR HYPERCAPNIA Assessment/Plan A/P Respiratory failure Acute CVA Pneumonia L lung Atelectasis no change s/p Severe Sepsis Acute Kidney Injury worsenung Lung Mass likely malignant PAD Afib Thrombocytopenia resolved Fever likely aspiration ANEMIA s/p GT - continue IVF - monitor urine output, creatinine - aspiration precautions - BiPAP prn - chest PT,suctioning - continue mucomyst with albuterol QID - anticoagulation - monitor H/H - antibiotics as per ID - transfuse prn - start gt feeding tomorrow - prognosis poor DR GOMEZ
[2017-03-26] MEDS: LORAZEPAM CARPU-JECT 2 MG/ML DISP.SYRIN IVPUSH SCH ×2 (14:39→21:49)
[2017-03-26] MEDS: HEPARIN - 25,000 UNIT in SODIUM CHLORIDE 495 ML IV SCH (15:30)
[2017-03-26] MEDS ORDERED: KCL 10 MEQ IVPB 100 ML IVPB SCH (16:00)
--- NOTE | 2017-03-26 16:26 | PN ---
Progress Note, Physician History of Present Illness: Lethargic on bipap Temps, WBC improved Breathing non-labored BC prelim (-) - Current Medication List Current Medications: Active Medications Acetaminophen (Tylenol -) 650 mg PO Q4H PRN PRN Reason: PAIN Acetaminophen (Tylenol Suppository -) 650 mg [place] Q4H PRN PRN Reason: FEVER OR PAIN Last Admin: 03/25/17 11:15 Dose: 650 mg Acetylcysteine (Mucomyst 20 Oral / Inh Use Only*) 200 mg NEB QIDR [facility] Last Admin: 03/26/17 12:45 Dose: 200 mg Albuterol Sulfate (Ventolin 0.083% Nebulizer Soln -) 1 amp NEB QIDR [facility] Last Admin: 03/26/17 12:45 Dose: 1 amp Amino Acids (Prosource No Carb Liquid Pkt) 30 ml NGT BID [facility] Last Admin: 03/26/17 09:17 Dose: Not Given Atorvastatin Calcium (Lipitor -) 10 mg NGT HS [facility] Last Admin: 03/26/17 00:14 Dose: 10 mg Diltiazem HCl (Cardizem Injection -) 10 mg IVPUSH Q4H PRN PRN Reason: TACHYCARDIA Last Admin: 03/23/17 22:24 Dose: 10 mg Ferrous Sulfate (Feosol) 300 mg GT BID [facility] Last Admin: 03/26/17 09:17 Dose: Not Given Folic Acid (Folic Acid -) 1 mg NGT DAILY [facility] Last Admin: 03/26/17 09:17 Dose: Not Given Heparin Sodium (Porcine) (Heparin -) 1,000 unit IVPUSH PRN PRN PRN Reason: Heparin Last Admin: 03/19/17 16:36 Dose: 1,000 unit Heparin Sodium (Porcine) (Heparin -) 5,000 unit IVPUSH PRN PRN PRN Reason: Heparin Last Admin: 03/18/17 10:10 Dose: 5,000 unit Heparin Sodium (Porcine) 25, (000 unit/ Sodium Chloride) 500 mls @ 16 mls/hr IV TITR JULIO; 800 UNIT/HR PRN Reason: Protocol Last Admin: 03/25/17 17:51 Dose: 36 mls/hr Fat Emulsion Intravenous (Intralipid -) 250 mls @ 20.833 mls/hr IV DAILY@2200 JULIO Last Admin: 03/26/17 00:15 Dose: 20.833 mls/hr Amino Acids (Clinimix -) 1,000 mls @ 84 mls/hr IV Q12H [facility] Last Admin: 03/26/17 00:16 Dose: 84 mls/hr Piperacillin Sod/Tazobactam Sod (Zosyn 3.375gm Ivpb (Pre-Docked)) 50 mls @ 100 mls/hr IVPB Q8H-IV JULIO PRN Reason: Protocol Last Admin: 03/26/17 08:51 Dose: 100 mls/hr Potassium Chloride (Potassium Chloride 10 Meq Premix Ivpb -) 100 mls @ 100 mls/ hr IVPB Q60M [facility] Stop: 03/26/17 18:59 Lorazepam (Ativan Injection -) 1 mg IVPUSH TID [facility] Multivitamins/Minerals (Infuvite Adult -) 10 ml IV DAILY@2200 [facility] Last Admin: 03/26/17 00:14 Dose: 10 ml Scopolamine HBr (Transderm-Scop -) 1 patch TD Q72H [facility] Last Admin: 03/24/17 15:36 Dose: 1 patch - Objective Vital Signs: Vital Signs Temperature 98.6 F 03/26/17 15:05 Pulse Rate 109 H 03/26/17 15:05 Respiratory Rate 25 H 03/26/17 15:05 Blood Pressure 95/47 03/26/17 15:05 O2 Sat by Pulse Oximetry (%) 98 03/26/17 13:45 Constitutional: Yes: No Distress Cardiovascular: Yes: Regular Rate and Rhythm, S1, S2 Respiratory: Yes: Diminished Gastrointestinal: Yes: Normal Bowel Sounds, Soft, Other (+ostomy). No: Tenderness Extremities: Yes: Other (S/P L BKA) Labs: CBC, BMP 03/26/17 05:35 03/26/17 05:35 INR, PTT INR 1.43 (0.82-1.09) H 03/17/17 08:50 Assessment/Plan L Lung mass, possible malignancy Opacified L hemithorax Fever/ leukocytosis Probable Post obstructive pneumonia S/P CVA Azotemia Thrombocytopenia Check Repeat c/s Empiric zosyn Prognosis poor
[2017-03-27] MEDS: HEPARIN NA (PORCINE) 5,000 UNITS/ML 1ML VIAL IVPUSH PRN (02:07)
[2017-03-27] MEDS: PIPERACILLIN/TAZOB 3.375 GM 50 ML IVPB SCH ×3 (02:25→17:03)
[2017-03-27] MEDS: LORAZEPAM CARPU-JECT 2 MG/ML DISP.SYRIN IVPUSH SCH ×3 (05:36→21:34)
[2017-03-27] MEDS: ALBUTEROL SO4 0.083% IH SOL 2.5 MG/3 ML VIAL.NEB. NEB SCH ×4 (05:51→23:22)
[2017-03-27] MEDS: ACETYLCYSTEINE 20% 200MG/ML 4 ML VIAL *FOR ORAL / INH USE ONLY NEB SCH ×4 (05:51→23:22)
[2017-03-27 07:10] LABS: MCH 29.3 pg (25.7-33.7); MCHC 31.7 g/dl (32.0-35.9); MEAN CELL VOLUME 92.4 fl (80-96); MEAN PLT VOLUME 8.9 fl (7.5-11.1); PLATELET COUNT 142 K/MM3 (134-434); RDW 18.4 % (11.9-15.9); WHITE BLOOD COUNT 17.6 K/mm3 (4.0-10.0)
[2017-03-27 07:54] LABS: CALCIUM 7.8 mg/dL (8.5-10.1); COCKROFT - GAULT 38.02; CREATININE 1.7 mg/dL (0.7-1.3); MAGNESIUM 1.3 mg/dL (1.8-2.4); PHOSPHOROUS 1.7 mg/dL (2.5-4.9)
[2017-03-27] MEDS ORDERED: SODIUM CHLORIDE 1,000 ML IV STA ×2 (09:38→12:25)
[2017-03-27] MEDS ORDERED: POTASSIUM PHOSPHATE 30 MM in SODIUM CHLORIDE 250 ML IVPB ONE (09:38)
--- NOTE | 2017-03-27 09:38 | PN ---
Progress Note (short form) - Note Progress Note: mildly tachypnic on bipap, alert Current Medications Generic Name Dose Route Start Last Admin Trade Name Freq PRN Reason Stop Dose Admin Acetaminophen 650 mg 03/05/17 17:51 Tylenol - PO Q4H PRN PAIN Acetaminophen 650 mg 03/13/17 21:48 03/25/17 11:15 Tylenol Suppository - [place] 650 mg Q4H PRN Administration FEVER OR PAIN Acetylcysteine 200 mg 03/11/17 18:00 03/27/17 05:51 Mucomyst 20 Oral / Inh Use Only* NEB 200 mg QIDR JULIO Administration Albuterol Sulfate 1 amp 03/20/17 18:00 03/27/17 05:51 Ventolin 0.083% Nebulizer Soln - NEB 1 amp QIDR JULIO Administration Amino Acids 30 ml 03/13/17 10:00 03/26/17 21:51 Prosource No Carb Liquid Pkt NGT Not Given BID JULIO Atorvastatin Calcium 10 mg 03/13/17 22:00 03/26/17 21:51 Lipitor - NGT Not Given HS [facility] Diltiazem HCl 10 mg 03/23/17 21:53 03/23/17 22:24 Cardizem Injection - IVPUSH 10 mg Q4H PRN Administration TACHYCARDIA Ferrous Sulfate 300 mg 03/13/17 10:00 03/26/17 21:50 Feosol GT Not Given BID JULIO Folic Acid 1 mg 03/13/17 08:50 03/26/17 09:17 Folic Acid - NGT Not Given DAILY [facility] Heparin Sodium (Porcine) 1,000 unit 03/16/17 17:12 03/19/17 16:36 Heparin - IVPUSH 1,000 unit PRN PRN Administration Heparin Heparin Sodium (Porcine) 5,000 unit 03/16/17 17:12 03/27/17 02:07 Heparin - IVPUSH 5,000 unit PRN PRN Administration Heparin Heparin Sodium (Porcine) 25, 500 mls @ 16 mls/hr 03/16/17 17:15 03/27/17 02:01 000 unit/ Sodium Chloride IV 1,950 unit/hr TITR JULIO Titration Protocol 800 UNIT/HR Fat Emulsion Intravenous 250 mls @ 20.833 mls/hr 03/16/17 22:00 03/26/17 22:05 Intralipid - IV 20.833 mls/hr DAILY@2200 JULIO Administration Amino Acids 1,000 mls @ 84 mls/hr 03/16/17 22:30 03/26/17 23:27 Clinimix - IV 84 mls/hr Q12H JULIO Administration Piperacillin Sod/Tazobactam Sod 50 mls @ 100 mls/hr 03/25/17 16:00 03/27/17 02: 25 Zosyn 3.375gm Ivpb (Pre-Docked) IVPB 100 mls/hr Q8H-IV JULIO Administration Protocol Lorazepam 1 mg 03/26/17 14:15 03/27/17 05:36 Ativan Injection - IVPUSH Not Given TID JULIO Multivitamins/Minerals 10 ml 03/16/17 22:45 03/26/17 23:27 Infuvite Adult - IV 10 ml DAILY@2200 JULIO Administration Scopolamine HBr 1 patch 03/15/17 13:45 03/24/17 15:36 Transderm-Scop - TD 1 patch Q72H JULIO Administration Last Vital Signs Temp Pulse Resp BP Pulse Ox 100.2 F H 106 H 24 82/36 94 L 03/27/17 05:00 03/27/17 05:00 03/27/17 05:00 03/27/17 05:00 03/27/17 05:48 Intake & Output 03/24/17 03/25/17 03/26/17 03/27/17 23:59 23:59 23:59 23:59 Intake Total 0 2328 Output Total 950 1300 1400 750 Balance -950 -1300 928 -750 General alert, tachypnic on bipap. thin appearing CV S1 S2 RRR no murmur/rub/gallop Lungs coarse breath sounds diffusely no wheezing decreased breath sounds L hemithorax abdomen soft NT/ND +PEG dressing c/d/i, +colostomy with brown liquid Extremities no pedal edema ASSESSMENT AND PLAN: 72-year-old man with a history of HTN, colon CA, colostomy, LLE arterial emboli , left BKA, left lung mass, CVA presented to the ER and was admitted for further evaluation 1. R hemiparesis and facial weakness- likely due to recent CVA treated on last admission. on statin. PT and speech therapy. 2, Dyshagia-high aspiration risk. NGT draining brown material ? bleed due to peg placement. hold heparin ggt. s/p Peg placement 03/26. KUB to confirm placement today then will start tube feeds. pull NGT once draining improved. 3. Afib- new onset on this admission. metoprolol prn for HR > 120. on hep ggt for pending procedure. xarelto on hold. 4. Febrile- continues to have low grade fevers with hypotension. 1L NS bolus to maintain MAP >65. likely due to GI losses from NGT. on empiric Zosyn. repeat cx have been negative. ID on board 5. Acute hypoxic respiratory failure- due to PNA vs complete L side opacification. currently tachypnic. ativan 1mg TID as may be from anxiety. hold for lethargy. saturating 98% on bipap. on scopolamine patch for +secretions. chest PT. cont supplemental oxygen 6. Acute blood loss anemia- s/p procedure. transfuse 1 unit PRBC. poor candidate for EGD. start PPI IV, will not IV ggt as pt only has 2 sites and unable to obtain central line for more access [place]. not considered emergent at this time. 7. Hyperthyroidism- TSH WNL. hold methimazole. repeat TSH in 6 weeks 8. Hypophosphatemia- kphos IV. 9. hypokalemia- Kcl 10meq x3 IV 10. Hypomagnesemia- Mg 2g 11. DVT ppx-hold ggt as possible GI bleed. concern has high risk for thromboembolism with anticoagulation on hold however possible GI bleed. 12. poor overall prognosis. now DNR/DNI. Visit type - Emergency Visit Emergency Visit: Yes ED Registration Date: 03/03/17 Care time: The patient presented to the Emergency Department on the above date and was hospitalized for further evaluation of their emergent condition. - New Patient This patient is new to me today: No - Critical Care Critical Care patient: No - Discharge Referral Referred to [facility] Med P.C.: No
[2017-03-27] MEDS ORDERED: ACETAMINOPHEN 1000 MG/100 ML VIAL (NON FORMULARY) IVPB PRN (09:41)
[2017-03-27] MEDS ORDERED: MAGNESIUM SULF 50% (8.12 MEQ/2 ML-1 GM VIAL) IVPB ONE (09:45)
[2017-03-27] MEDS ORDERED: POTASSIUM PHOSPHATE 30 MM in SODIUM CHLORIDE 500 ML IVPB ONE (10:00)
[2017-03-27] MEDS ORDERED: PANTOPRAZOLE SODIUM 40 MG in SODIUM CHLORIDE 100 ML IVPB SCH (10:15)
[2017-03-27] MEDS ORDERED: PANTOPRAZOLE SODIUM 100 ML IVPB SCH (10:15)
[2017-03-27] MEDS: KCL 10 MEQ IVPB 100 ML IVPB SCH ×3 (10:31→13:30)
--- NOTE | 2017-03-27 11:22 | PN ---
Progress Note (short form) - Note Progress Note: PULMONARY CHART REVIEWED MORE AWAKE TODAY ON BIPAP LOW GRADE TEMP RR28 114/56 HR 114 PALE ABSENT BREATH SOUNDS LEFT CHEST S1S2 TACHY SOFT/G-TUBE PLACED NO EDEMA LABS/MEDS/NOTES/IMAGING REVIEWED Respiratory failure Acute CVA Pneumonia L lung Atelectasis no change s/p Severe Sepsis Acute Kidney Injury worsenung Lung Mass likely malignant PAD Afib Thrombocytopenia resolved Fever likely aspiration ANEMIA Terminal Check CXR/continue supportive care Dallin LEDBETTER MD
[2017-03-27] MEDS: FOLIC ACID 1 MG TABLET (FP) NGT SCH (11:24)
[2017-03-27] MEDS: AMINO ACIDS/PROTEIN HYDROLYS 30 ML LIQUID.PKT NGT SCH ×2 (11:24→21:36)
[2017-03-27] MEDS: FERROUS SO4 300 MG/5 ML ORAL SOLN UNIT DOSE CUPS GT SCH ×2 (11:24→21:37)
[2017-03-27] MEDS: AMINO ACIDS 4.25%/D5W 1,000 ML IV SCH ×3 (12:34→22:50)
--- NOTE | 2017-03-27 13:26 | PN ---
Progress Note, Physician History of Present Illness: Poorly responsive on Bipap Remains febrile with elevated WBC Cultures negative - Current Medication List Current Medications: Active Medications Acetaminophen (Tylenol -) 650 mg PO Q4H PRN PRN Reason: PAIN Acetaminophen (Tylenol Suppository -) 650 mg [place] Q4H PRN PRN Reason: FEVER OR PAIN Last Admin: 03/25/17 11:15 Dose: 650 mg Acetaminophen (Ofirmev Injection -) 1,000 mg IVPB Q6H PRN PRN Reason: FEVER OR PAIN Stop: 03/28/17 03:42 Last Admin: 03/27/17 10:34 Dose: 1,000 mg Acetylcysteine (Mucomyst 20 Oral / Inh Use Only*) 200 mg NEB QIDR JULIO Last Admin: 03/27/17 12:14 Dose: 200 mg Albuterol Sulfate (Ventolin 0.083% Nebulizer Soln -) 1 amp NEB QIDR JULIO Last Admin: 03/27/17 12:14 Dose: 1 amp Amino Acids (Prosource No Carb Liquid Pkt) 30 ml NGT BID [facility] Last Admin: 03/27/17 11:24 Dose: Not Given Atorvastatin Calcium (Lipitor -) 10 mg NGT HS [facility] Last Admin: 03/26/17 21:51 Dose: Not Given Diltiazem HCl (Cardizem Injection -) 10 mg IVPUSH Q4H PRN PRN Reason: TACHYCARDIA Last Admin: 03/23/17 22:24 Dose: 10 mg Ferrous Sulfate (Feosol) 300 mg GT BID [facility] Last Admin: 03/27/17 11:24 Dose: Not Given Folic Acid (Folic Acid -) 1 mg NGT DAILY [facility] Last Admin: 03/27/17 11:24 Dose: Not Given Fat Emulsion Intravenous (Intralipid -) 250 mls @ 20.833 mls/hr IV DAILY@2200 [facility] Last Admin: 03/26/17 22:05 Dose: 20.833 mls/hr Amino Acids (Clinimix -) 1,000 mls @ 84 mls/hr IV Q12H [facility]UL[facility] Last Admin: 03/27/17 12:34 Dose: Not Given Piperacillin Sod/Tazobactam Sod (Zosyn 3.375gm Ivpb (Pre-Docked)) 50 mls @ 100 mls/hr IVPB Q8H-IV JULIO PRN Reason: Protocol Last Admin: 03/27/17 10:31 Dose: 100 mls/hr Potassium Phosphate 30 mm/ (Sodium Chloride) 510 mls @ 62.5 mls/hr IVPB ONCE ONE Stop: 03/27/17 18:09 Last Admin: 03/27/17 10:46 Dose: 62.5 mls/hr Pantoprazole Sodium (Protonix 40mg Ivpb (Pre-Docked)) 100 mls @ 200 mls/hr IVPB DAILY [facility] Last Admin: 03/27/17 10:46 Dose: 200 mls/hr Lorazepam (Ativan Injection -) 1 mg IVPUSH TID [facility] Last Admin: 03/27/17 05:36 Dose: Not Given Multivitamins/Minerals (Infuvite Adult -) 10 ml IV DAILY@2200 [facility] Last Admin: 03/26/17 23:27 Dose: 10 ml Scopolamine HBr (Transderm-Scop -) 1 patch TD Q72H [facility] Last Admin: 03/24/17 15:36 Dose: 1 patch - Objective Vital Signs: Vital Signs Temperature 100.5 F H 03/27/17 12:00 Pulse Rate 88 03/27/17 12:00 Respiratory Rate 20 03/27/17 12:00 Blood Pressure 84/58 03/27/17 12:00 O2 Sat by Pulse Oximetry (%) 94 L 03/27/17 05:48 Constitutional: Yes: No Distress Eyes: Yes: Conjunctiva Clear Cardiovascular: Yes: Regular Rate and Rhythm, S1, S2 Respiratory: Yes: Diminished Gastrointestinal: Yes: Normal Bowel Sounds, Soft. No: Tenderness Extremities: Yes: Other (S/P BKA) Labs: CBC, BMP 03/27/17 05:35 03/27/17 05:35 INR, PTT INR 1.43 (0.82-1.09) H 03/17/17 08:50 Assessment/Plan L Lung mass, possible malignancy Opacified L hemithorax Fever/ leukocytosis Probable Post obstructive pneumonia S/P CVA Azotemia Thrombocytopenia Empiric zosyn Prognosis poor
[2017-03-27] MEDS: SCOPOLAMINE HYDROBROMIDE 1 PATCH PATCH.TD72 TD SCH (16:54)
[2017-03-27 17:29] LABS: MCH 29.4 pg (25.7-33.7); MCHC 30.5 g/dl (32.0-35.9); MEAN CELL VOLUME 96.3 fl (80-96); MEAN PLT VOLUME 9.3 fl (7.5-11.1); PLATELET COUNT 122 K/MM3 (134-434); RDW 18.2 % (11.9-15.9); WHITE BLOOD COUNT 20.9 K/mm3 (4.0-10.0)
[2017-03-27 18:09] LABS: ANISOCYTOSIS 1+; METAMYELOCYTE 1 % (0-2); MICROCYTOSIS 1+; PLATELET ESTIMATE DECREASED (NORMAL); POLYCHROMASIA FEW
[2017-03-27 20:30] LABS: CALCIUM 7.1 mg/dL (8.5-10.1); COCKROFT - GAULT 43.09; CREATININE 1.5 mg/dL (0.7-1.3)
[2017-03-27] MEDS: ATORVASTATIN CA 10 MG TABLET (FP) NGT SCH (21:36)
[2017-03-27 22:15] VITALS: TEMP 98.7
[2017-03-27] MEDS: FAT EMULSIONS 250 ML IV SCH (22:48)
[2017-03-27] MEDS: MULTIVIT INJ. ADULT COMBO WITH VIT K 1 COMBO 10 ML VIAL IV SCH (22:49)
[2017-03-28] MEDS: PIPERACILLIN/TAZOB 3.375 GM 50 ML IVPB SCH (01:24)
[2017-03-28 03:04] VITALS: BP 109/60; PULSE 77
--- NOTE | 2017-03-28 04:11 | HOSP ---
Subjective - Review of Symptoms Events since last encounter: 72-year-old man with a history of HTN, colon CA, colostomy, LLE arterial emboli , left BKA, left lung mass, CVA. I was called by nurse for patient bradycardia and tachypnic. patient was non responsive, HR trending down 40's -->30's, RR 40 's, Oxygen sat 62, Inc from 40% to 100% BiPAP, patient soon became asystole on EKG. patient is a DNI/DRNR status, no chest compressions performed and did not intubate. no breath sounds heard, no heart sounda appreciated, no gag reflex, pupills fixed and dialate bilaterally, doll eyes present. patient at 3: 43 am. I regrettably informed patient sister health proxy on patient status. Physical Examination Vital Signs: Vital Signs Temperature 98.7 F 03/27/17 20:00 Pulse Rate 77 03/28/17 02:00 Respiratory Rate 34 H 03/28/17 02:00 Blood Pressure 109/60 03/28/17 02:00 O2 Sat by Pulse Oximetry (%) 96 03/28/17 02:49 Labs: CBC, BMP 03/27/17 17:05 03/27/17 19:45 Visit type - Emergency Visit Emergency Visit: Yes ED Registration Date: 03/03/17 Care time: The patient presented to the Emergency Department on the above date and was hospitalized for further evaluation of their emergent condition. - New Patient This patient is new to me today: No - Critical Care Critical Care patient: No
--- NOTE | 2017-03-29 11:45 | EKG ---
Test Reason : Blood Pressure : / mmHG Vent. Rate : 000 BPM Atrial Rate : 000 BPM P-R Int : 000 ms QRS Dur : 000 ms QT Int : 000 ms P-R-T Axes : 000 000 000 degrees QTc Int : 000 ms NO QRS COMPLEXES FOUND, NO ECG ANALYSIS POSSIBLE WHEN COMPARED WITH ECG OF 20-MAR-2017 10:06, CURRENT UNDETERMINED RHYTHM PRECLUDES RHYTHM COMPARISON, NEEDS REVIEW Confirmed by ALESIA BALDWIN, LEONORA ([id number]) on 03/29/2017 11:44:50 AM Referred By: Confirmed By:LEONORA DUMAS MD
== END 2017-03-28 03:43 | disposition expired | DRG 871 ==
LOC: JER 15:50 → JICU 19:58 → J4W 03-05 18:24
PROVIDERS: ADMIT Internal Medicine; ATTEND Internal Medicine
PROC: 3E0F7GC Introduction of Other Therapeutic Substance into Respiratory Tract, Via Natural or Artificial Opening (ICD-10-PCS; principal; 2017-03-06)
PROC: 0DH67UZ Insertion of Feeding Device into Stomach, Via Natural or Artificial Opening (ICD-10-PCS; 2017-03-12)
PROC: 3E0G76Z Introduction of Nutritional Substance into Upper GI, Via Natural or Artificial Opening (ICD-10-PCS; 2017-03-12)
PROC: 30233N1 Transfusion of Nonautologous Red Blood Cells into Peripheral Vein, Percutaneous Approach (ICD-10-PCS; 2017-03-20)
PROC: 0DH63UZ Insertion of Feeding Device into Stomach, Percutaneous Approach (ICD-10-PCS; 2017-03-26)
DX: A41.9 Sepsis, unspecified organism (principal); I63.9 Cerebral infarction, unspecified; J18.9 Pneumonia, unspecified organism; G93.41 Metabolic encephalopathy; J96.01 Acute respiratory failure with hypoxia; G81.91 Hemiplegia, unspecified affecting right dominant side; N17.9 Acute kidney failure, unspecified; J90 Pleural effusion, not elsewhere classified; N39.0 Urinary tract infection, site not specified; E46 Unspecified protein-calorie malnutrition; R47.01 Aphasia; I48.92 Unspecified atrial flutter; R64 Cachexia; D62 Acute posthemorrhagic anemia; R47.1 Dysarthria and anarthria; R29.810 Facial weakness; Z93.3 Colostomy status; Z85.038 Personal history of other malignant neoplasm of large intestine; F17.200 Nicotine dependence, unspecified, uncomplicated; Z89.512 Acquired absence of left leg below knee; L89.152 Pressure ulcer of sacral region, stage 2; I73.9 Peripheral vascular disease, unspecified; R91.8 Other nonspecific abnormal finding of lung field; I95.9 Hypotension, unspecified; E87.5 Hyperkalemia; E05.90 Thyrotoxicosis, unspecified without thyrotoxic crisis or storm; D69.6 Thrombocytopenia, unspecified; E83.51 Hypocalcemia; E88.09 Other disorders of plasma-protein metabolism, not elsewhere classified; Z68.21 Body mass index [BMI] 21.0-21.9, adult; E77.8 Other disorders of glycoprotein metabolism; D64.9 Anemia, unspecified; R65.20 Severe sepsis without septic shock; R29.710 NIHSS score 10; I65.22 Occlusion and stenosis of left carotid artery; Z66 Do not resuscitate
CPT/HCPCS: 36415; 36430; 36600; 49440; 70450-TC; 71010-TC; 74000-TC; 74230-TC; 76775-TC; 77012-TC; 80048; 80053; 81003; 81015; 82375; 82550; 82803; 83050; 83605; 83735; 84100; 84443; 84484; 85025; 85027; 85610; 85730; 86850; 86900; 86901; 86922; 87040; 87077; 87086; 92611-GN; 93005; 93010; 94640; 94660; 97162-GP; 99285-25; J1644; P9038; P9058